=== PATIENT | female | born 1945 | race Caucasian/White ===

== ENCOUNTER 2024-04-29 13:07 | Outpatient (AMB) | payer MEDICARE, SELFPAY ==
--- NOTE | 2024-04-29 13:27 | MHC.PC.OV ---
Vital Signs 04/29/24 13:31 Height 5 ft Weight 191 lb BMI 37.3 BP 112/52 L Blood Pressure Location Lt brachial Position Sitting Respiration 12 Pulse 91 Pulse Source Pulse Oximeter Pulse Oximetry (%) 99 Oxygen Delivery Method Room Air Intake Visit Reasons: Establish Care Intake Note: Patient is here to establish care. Patient showed me a scar on her abdomen where I also noticed a colostomy bag. Patient reports she has a CLIPPER [employer] TURNER that helps her at night. Patient reports she went to the ED and had emergency surgery at [facility]. Patient states she is not stable with using a walker due to numbness in both of her legs. and needs a motorized wheelchair, a replacement or repair. Patient notes she has cardiology concern and intestinal concerns. Patient is requesting a social insurance adviser that speaks Bengali so she is able to communicate effectively. Dermatology- hair fall out diabetic shoes Patient needs CPAP supplies and nebulizer tubing. Inclined Railway Operator Required: Yes Inclined Railway Operator Name: Kali Tavares [id number] Information Interpreted: non-clinical & clinical Accompanied by: Self / Same As Patient Allergies Penicillins Allergy (Severe, Verified 04/29/24 13:36) Unknown Tobacco use date assessed: 04/29/24 Fall risk assessment: 2 + Falls in past year (motorized wheelchair broke/walker is not helpful) Last assessed Fall Risk: 04/29/24 Dental Screening Dental Screen Date: 04/29/24 Did you have a dental visit in the last 12 months?: No Did you have a dental problem in the last 6 months where you did not have access to dental care?: No Was dental information given to patient?: Patient declined HPI HPI Comments History of Present Illness Details The patien tis a 78 year old female with past medical history of copd/asthma, DAHLIA, diabetes, hypertension, SBO presenting to establish [facility]. Bengali interpre [id number] Hospitalized in [place] 2023 for persistent SBO-taken to OR -ex lap, extensive adhesion lysis, reduciton of parastomal hernia (SBO location) resection of 8cm bowel. Neg pressure wound placed. Required intraop pressors, posteroperative pressors. Had relook lapartomy with primary anastomosis, placement of CL drain, repair right parastomal hernia repair. not following with surgery outpatient despite multiple hospitalizations. Diabetes: On glipizide, metformin, januvia. Reports A1C has been good. CV: on amlodipine, atorvastatin, plavix, lasix, hctz, losartan, imdur. Denies chest pain, shortness of breath. BH: on seroquel, cymbalta. ROS see HPI PHYSICAL EXAM: GENERAL: Alert and oriented x 3. NAD EYES: EOMI. Anicteric. HENT: Moist mucous membranes. No scleral icterus. No cervical lymphadenopathy. LUNGS: Clear to auscultation bilaterally. CARDIOVASCULAR: Regular rate and rhythm. No murmur. No JVD. ABDOMEN: Obese, visible hernia through clothese EXTREMITIES: No edema. Non-tender. SKIN: No rashes or lesions. Warm. NEUROLOGIC: No focal neurological deficits. CN II-XII grossly intact PSYCHIATRIC: Cooperative. Appropriate mood and affect [facility] Medical History Hypothyroidism SBO (small bowel obstruction) Obstructive sleep apnea of adult Asthma COPD (chronic obstructive pulmonary disease) Type 2 diabetes mellitus Hypertension Hyperlipidemia Recurrent intestinal obstruction Surgical History History of hernia repair History of creation of ostomy History of left hemicolectomy Family History Other No pertinent family history Social History Household Members: Family Housing: Apartment 75 years or older and lives alone: No Alcohol intake: never Patient Tobacco Use Status: Never used Tobacco Tobacco use type: Cigarette e-Cigarette/Vaping Use: Never Used service: No Current occupational status: disabled Cognitive needs: No Hearing needs: No Vision needs: No Questionnaire PHQ-9 Over the last 2 weeks, how often have you been bothered by any of the following problems? 1. Little interest or pleasure in doing things: nearly every day 2. Feeling down, depressed, or hopeless: nearly every day 3. Trouble falling or staying asleep, or sleeping too much: nearly every day 4. Feeling tired or having little energy: nearly every day 5. Poor appetite or overeating: nearly every day 6. Feeling bad about yourself - or that you are a failure or have let yourself or your family down: nearly every day 7. Trouble concentrating on things, such as reading the newspaper or watching television: not at all 8. Moving or speaking so slowly that other people could have noticed. Or the opposite - being so fidgety or restless that you have been moving around a lot more than usual: not at all 9. Thoughts that you would be better off or of hurting yourself in some way: not at all Total score: 18 Depression Screening Interpretation: Positive Depression Screening Done: Yes [id number] - PHQ-9 Billing: Yes Source: Developed by Drs. Kj Caruso, Esther Gray, Rodri Briceno and colleagues, with an educational leonor from [employer]. Thrive Questionnaire Date Thrive assessed: 04/29/24 I am a: Patient What is your living situation today?: I have a steady place to live Within the past 12 months, did the food you bought not last and you didn't have the money to get more?: Never true Within the past 12 months, did you worry whether your food would run out before you got money to buy more?: Never true Do you have trouble paying for medicines?: No Do you have trouble getting transportation to medical appointments?: No Do you have trouble paying your heating and electricity bill?: No Do you have trouble taking care of your child, family member or friend?: No Do you have trouble with day-to-day activities such as bathing, preparing meals, shopping, managing finances, etc.?: No Are you currently unemployed and looking for a job?: No Are you interested in more education?: No Please select the resources that you would like help with: None Currently or been in a relationship where the following occur: No concerns reported THRIVE Score: 0 AUDIT C Alcohol Use Questionnaire (AUDIT-C) 1. How often do you have a drink containing alcohol?: Never 3. How often do you have six or more drinks on one occasion?: Never Total Score: 0 LA-7 AMB Questionnaire LA-7 Date LA - 7 assessed: 04/29/24 Feeling nervous, anxious, or on edge: 2 = More than half the days Not being able to stop or control worryin = Not at all Worrying too much about different things: 0 = Not at all Trouble relaxin = Several days Being so restless that it is hard to sit still: 2 = More than half the days Becoming easily annoyed or irritable: 0 = Not at all Feeling afraid as if something awful might happen: 2 = More than half the days Total LA-7 score (0-4 normal; 5-9 mild; 10-14 moderate; 15-21 severe): 7 Source: Developed by Drs. Kj Caruso, Esther Gray, Rodri Briceno and colleagues, with an educational leonor from [employer]. LA-7 Assessment Billing LA-7 Assessment Tool: LA-7 Assessment 23780 Physical exam (Primary Care) Vital Signs: Last Vital Signs Pulse 91 04/29/24 13:31 Resp 12 04/29/24 13:31 BP 112/52 L 04/29/24 13:31 Pulse Ox 99 04/29/24 13:31 Oxygen Delivery Method Room Air 04/29/24 13:31 BMI result Body Mass Index 37.3 Tobacco/Smoking Status: Tobacco use Status Tobacco use date assessed 04/29/24 04/29/24 13:54 Patient Tobacco Use Status Never used Tobacco 04/29/24 13:54 Tobacco use type Cigarette 04/29/24 13:54 e-Cigarette/Vaping Use Never Used 04/29/24 13:54 PHQ-9: PHQ-9 Score PHQ-9: Total score 18 04/29/24 14:26 Depression Screening Interpretation: Positive Thrive Assessment: Date of Thrive Assessment Date Thrive assessed 04/29/24 04/29/24 13:54 Currently or been in a relationship where the following occur: No concerns reported Assessment and Plan Assessment & Plan (1) Type 2 diabetes mellitus: Code(s): E11.9 - Type 2 diabetes mellitus without complications Qualifiers: Diabetes mellitus assisted insulin use: without assisted use Diabetes mellitus complication status: with neurologic complications Diabetes mellitus complication detail: with polyneuropathy Qualified Code(s): E11.42 - Type 2 diabetes mellitus with diabetic polyneuropathy (2) Hypertension: Code(s): I10 - Essential (primary) hypertension Qualifiers: Hypertension type: primary hypertension Qualified Code(s): I10 - Essential (primary) hypertension (3) Hyperlipidemia: Code(s): E78.5 - Hyperlipidemia, unspecified (4) Recurrent intestinal obstruction: Code(s): K56.609 - Unspecified intestinal obstruction, unspecified as to partial versus complete obstruction Orders: Referrals General Surgery Referral K56.609 - Unspecified intestinal obstruction, unspecified as to partial versus complete obstruction Medications: New duloxetine (Cymbalta) 60 mg PO DAILY 90 days 90 caps 3RF blood sugar diagnostic (FreeStyle Lite Strips) Three times daily 100 ea 3RF Coding Level of Care Code New Pt Level 5 (73389) Diagnoses Type 2 diabetes mellitus with diabetic polyneuropathy, without long-term current use of insulin E11.42 Diabetes mellitus assisted insulin use: without assisted use Diabetes mellitus complication status: with neurologic complications Diabetes mellitus complication detail: with polyneuropathy Primary hypertension I10 Hypertension type: primary hypertension Hyperlipidemia E78.5 Recurrent intestinal obstruction K56.609 Additional Codes LA-7 Assessment Billing - LA-7 Assessment Tool: LA-7 Assessment [id number] ([id number])
[2024-04-29 13:31] VITALS: BP 112/52; PULSE 91; RESP 12; O2SAT 99; BMI 37.3
== END 2024-04-29 15:25 | disposition home or self-care (01) ==
PROVIDERS: PCP Internal Medicine; Visit Provider Internal Medicine
DX: E11.42 Type 2 diabetes mellitus with diabetic polyneuropathy (principal); I10 Essential (primary) hypertension; E78.5 Hyperlipidemia, unspecified; K56.609 Unspecified intestinal obstruction, unspecified as to partial versus complete obstruction
CPT/HCPCS: 99204

== ENCOUNTER 2024-06-18 12:50 | Outpatient (AMB) | payer MEDICARE, SELFPAY ==
[2024-06-18 13:16] VITALS: BP 129/60; PULSE 88; BMI 38.7
--- NOTE | 2024-06-18 13:16 | MHC.OFFVIS ---
Vital Signs 06/18/24 13:16 Height 5 ft Weight 198 lb 3.129 oz BMI 38.7 BP 129/60 Blood Pressure Location Lt brachial Position Sitting Pulse 88 Intake Visit Reasons: Interstinal obstruction Intake Note: This patient presents for Intestinal obstruction, Hx laparotomy. Pt c/o; reports Hx colostomy. Fiberglass Dowel Drawing Operator Required: Yes Fiberglass Dowel Drawing Operator Language: Soil Conservation Technician Services: Fiberglass Dowel Drawing Operator Present Fiberglass Dowel Drawing Operator Name: Tacho Information Interpreted: non-clinical & clinical Accompanied by: Self / Same As Patient Allergies Penicillins Allergy (Severe, Verified 06/18/24 13:27) Unknown HPI HPI Interstinal obstruction: Details: 79F with multiple medical problems including DM, obesity,, HTN, referred by hre PCP for a hx of intestinal obstruction. The patient apparently had colon resection and colostomy more than 10 years ago for supposed colon cancer. She says she has had multiple abdominal surgeries and had multiple hernias in the past. She had some abdominal surgery last December 2023 and say she was in the hospital for a long time. Unfortunately, she is not a good historian and does not know the details of these. She says here colostomy has been working well. She has good oral intake. She denies abdominal pain. She says she feels well overall. [facility] Medical History (Updated 06/18/24 @ 14:20 by Harrison Palomares MD) Colostomy in place Hypothyroidism SBO (small bowel obstruction) Obstructive sleep apnea of adult Asthma COPD (chronic obstructive pulmonary disease) Type 2 diabetes mellitus Hypertension Hyperlipidemia Recurrent intestinal obstruction Surgical History History of hernia repair History of creation of ostomy History of left hemicolectomy Family History Other No pertinent family history Social History Household Members: Family Housing: Apartment 75 years or older and lives alone: No Alcohol intake: never Patient Tobacco Use Status: Never used Tobacco Tobacco use type: Cigarette e-Cigarette/Vaping Use: Never Used service: No Current occupational status: disabled Cognitive needs: No Hearing needs: No Vision needs: No Review of Systems Const Denies chills and Denies fever(s) Card Denies chest pain, Denies dyspnea and Reports dyspnea on exertion Resp Denies cough, Denies dyspnea and Reports dyspnea on exertion GI Details: has colostomy Denies hematochezia and Denies change in bowel habits Denies hematuria Musc Details: uses scooter to ambulate Reports back pain, Reports arthralgias and Reports limited range of motion Neuro Denies focal weakness and Denies convulsions Psych Denies depression and Denies mood swings Physical Exam Vital Signs: Last Vital Signs Pulse 88 06/18/24 13:16 BP 129/60 06/18/24 13:16 BMI result Body Mass Index 38.7 Const Other: on motorized scooter General: comfortable and no acute distress Nutritional Appearance: obese Orientation/consciousness: patient oriented x3 Neck Neck: Yes no lymphadenopathy Resp Effort & Inspection: normal respiratory effort Auscultation: clear to auscultation bilaterally Cardio Rate: regular rate Rhythm: regular rhythm GI Other: soft, colostomy on right side, functioning well Palpation (GI): Soft to palpation, nontender and no guarding Neuro General: patient oriented x3 Assessment & Plan Assessment & Plan (1) Colostomy in place: Code(s): Z93.3 - Colostomy status Category: Medical Plan: She has had multiple abdominal surgeries. She currently denies abdominal or GI complaints. Her stoma is functioning well.It does not appear that she has surgical issues at this time. I did tell her that she can ffup in the office on a prn basis. I will retrieve her records from [facility]. Coding Level of Care Code New Pt Level 3 (61685) Diagnoses Colostomy in place Z93.3
== END 2024-06-18 14:24 | disposition home or self-care (01) ==
PROVIDERS: PCP Internal Medicine; Visit Provider Surgery
DX: Z93.3 Colostomy status (principal)
CPT/HCPCS: 99203

== ENCOUNTER → 2024-06-18 12:50 | Outpatient (BNVA) | payer MEDICARE, SELFPAY | PROVIDERS: PCP Internal Medicine; Visit Provider Surgery | DX: E66.9 Obesity, unspecified (principal); I10 Essential (primary) hypertension; Z93.3 Colostomy status; Z68.38 Body mass index [BMI] 38.0-38.9, adult | CPT/HCPCS: 99202 ==

== ENCOUNTER 2024-08-29 12:17 | Outpatient (REF) | payer MEDICARE, SELFPAY ==
[2024-08-29 13:34] LABS: MANUAL DIFF FLAG NO
[2024-08-29 13:41] LABS: Basophils Absolute Auto 0.1 X10*3/uL (0.0-0.2); Basophils Percent Auto 0.5 % (0-2); Eosinophils Absolute Auto 0.1 X10*3/uL (0.0-0.4); Eosinophils Percent Auto 1.1 % (0-4); Hematocrit 29.3 % (37.0-47.0); Hemoglobin 9.3 g/dl (12.0-16.0); Imm Gran Abs Auto 0.07 X10*3/uL (0.00-0.03); Imm Gran Pct Auto 0.7 % (0.0-0.4); Lymphocytes Absolute Auto 2.3 X10*3/uL (1.2-4.9); Lymphocytes Percent Auto 23.8 % (20-40); Mean Corpuscular HGB Conc 31.7 g/dl (31.0-35.0); Mean Corpuscular Hemoglobin 21.1 pg (27.0-33.0); Mean Corpuscular Volume 66.6 fL (80.0-98.0); Mean Platelet Volume 9.9 fL (9.4-12.3); Monocytes Absolute Auto 0.6 X10*3/uL (0.1-1.2); Monocytes Percent Auto 6.3 % (2-11); Neutrophils Absolute Auto 6.6 x10*3/uL (2.0-8.3); Neutrophils Percent Auto 67.6 % (45-73); Platelet Count 284 X10*3/uL (160-400); Red Cell Distribution Width 17.2 % (11.0-16.0); White Blood Count 9.7 X10*3/uL (4.8-10.8)
[2024-08-29 14:20] LABS: Alanine Aminotransferase 15 U/L (0-31); Alkaline Phosphatase 116 U/L (39-117); Anion Gap 16 (12-20); Aspartate Amino Transferase 21 U/L (5-31); Bilirubin Total 0.3 mg/dL (0.0-1.0); Blood Urea Nitrogen 17 mg/dL (9-16); Calcium 10.3 mg/dL (8.4-10.2); Carbon Dioxide 23 mmol/L (22-29); Chloride 106 mmol/L (96-108); Cholesterol 120 mg/dL (<200); Estimated Glomerular Filt Rate 54; Glucose Random 94 mg/dL (60-115); HDL Cholesterol 33 mg/dL (>40); LDL Cholesterol Calculated 45 mg/dL (<100); Potassium 3.9 mmol/L (3.3-5.1); Sodium 141 mmol/L (135-145); Total Protein 7.6 g/dL (6.5-8.0); Triglycerides 211 mg/dL (<150)
[2024-08-29 14:22] LABS: Ferritin 8 ng/mL (10-250)
[2024-08-29 14:24] LABS: TSH reflex Free T4 2.42 uIU/mL (0.32-4.0)
[2024-08-29 14:33] LABS: Folate 8.7 ng/mL (> or = 4.0); Vitamin B12 707 pg/mL (200-900)
[2024-08-29 14:35] LABS: Reflex LDLD? No
[2024-08-29 16:59] LABS: Iron 20 mcg/dL (30-160); Percent Iron Saturation 5 % (15-50); Total Iron Binding Capacity 373 mcg/dL (228-428); Unsaturated Iron Binding 353 ug/dL
[2024-08-29 17:28] LABS: Creatinine Urine 38.34 mg/dL; Microalbumin Urine < 5.0 mg/L
[2024-09-01 13:38] LABS: RPR Rapid Plasma Reagin NON-REACTIVE (NON-REACTIVE)
== END 2024-08-29 12:18 | disposition home or self-care (01) ==
LOC: HO.HHCL 12:17
PROVIDERS: Internal Medicine; Visit Provider Internal Medicine
DX: E11.65 Type 2 diabetes mellitus with hyperglycemia (principal); L65.9 Nonscarring hair loss, unspecified; L29.9 Pruritus, unspecified; R42 Dizziness and giddiness
CPT/HCPCS: 36415; 80053; 80061; 82043; 82570; 82607; 82728; 82746; 83540; 84443; 85025; 86592

== ENCOUNTER 2024-11-21 11:54 | Outpatient (REF) | payer MEDICARE, SELFPAY ==
--- NOTE | ~2024-11-21 | XR_ITS ---
EXAMINATION: XR CHEST CLINICAL INFORMATION: cough and SOB x 1 week, h/o COPD COMPARISON: None available. TECHNIQUE: 2 views of the chest were obtained. FINDINGS: Mild cardiac enlargement. Mediastinal and hilar contours appear normal. The aorta is calcified. Lungs are diffusely hyperaerated and hyperlucent suggestive of COPD. There are linear opacities in the left lower base with mild obscuration of the left hemidiaphragm, suspicious for left base pneumonia. There is no pneumothorax or pleural effusion. There is no focal osseous or soft tissue abnormality. Degenerative changes of the spine. XR/XR chest 2V IMPRESSION: 1. Findings suspicious for left lower lobe pneumonia. 2. COPD. 3. Mild cardiomegaly. Electronically signed by: Anjum Guerrero MD 11/21/2024 01:11 PM JANINE
--- OUTSIDE RECORDS SUMMARY | 2024-11-21 14:04 | XMS_ITS | Encounter Summary ---
Author Organization [employer] Address [address] [facility] [address] [place] [address] Care Team Providers Care Automatic Serging Machine Operator Name Role Phone Janeen Allen MD Primary Care Provide r Reason for Referral * Consultation (Routine) - Authorized Specialty Diagnoses / Procedures Referred By Fahad murrieta Referred To Contact Optometry Diagnoses Diabetic polyneuropathy associated with type 2 diabetes mellitus (CMS/HCC) Janeen Allen MD [address] [place] [phone] Phone: tel: fax: [facility] [address] [place], [place] Phone: tel: fax: Referral ID Status Reason Start Date Expiration Date Visits Requested Visits Authorized [id number] Authorized Specialty Services Required 11/04/2024 11/04/2025 1 1 Reason for Visit * Reason Comments Follow-up Encounter Details Date Type Department Care Team (Latest Contact Info) Description 11/04/2024 1:00 PM EST Office Visit [facility] [address] [place] [phone] Janeen Allen MD [address] [place] [address] Intertrigo (Primary Dx); Chronic obstructive pulmonary disease, unspecified COPD type (CMS/HCC); Colostomy care (CMS/HCC); Diabetic polyneuropathy associated with type 2 diabetes mellitus (CMS/HCC); Pressure injury of skin of sacral region, unspecified injury stage Social History Tobacco Use Types Packs/Day Years Used Date Smoking Tobacco: Never Passive Smoke Exposure: Never Smokeless Tobacco: Never Tobacco Cessation:Counseling Given: Not Answered Alcohol Use Standard Drinks/Week Comments Never 0 (1 standard drink = 0.6 oz pur e alcohol) Alcohol Answer Date Recorded Frequency of Alcohol Consumption Not on file 08/27/2024 Average Number of Drinks Not on file 024 Frequency of Binge Drinking Not on file 07/31 Score 0 08/27/2024 Depression Answer Date Recorded Patient Health Questionnaire-9 Score 0 11/04/2024 Patient Health Questionnaire-9 Score 0 11/04/2024 Last PHQ-9: Questionnaire Data Not on file 0 11/04/2024 Housing Stability Answer Date Recorded What is your housing situation today? I have omi abreu 08/27/[address] you li ve. Do you have problems with any of the following? None of the above 08/27/2024 Food Insecurity Answer Date Recorded Within the past 12 months, y ou worried that your food would run out before you got money to buy more: Never True 08/27/2024 Within the past 12 months,th e food you bought just didn't last and you didn't have enough money to get more: Never True Transportation Answer Date Recorded In the past 12 months, has l ack of transportation kept you from medical appts, meetings, work or from getting things needed for daily living? No 08/27/2024 Utilities Answer Date Recorded In the past 12 months, has t he electric, gas, oil or water company threatened to shut off services in your home? No 08/27/2024 Depression Answer Date Recorded Patient Health Questionnaire-2 Score 0 11/04/2024 Internet Access Answer Date Recorded Internet Access Q1 No 08/27/2024 Internet Access Q2 I do not want or need it 07/31 Comments Unknown Sex and Gender Information Value Date Recorded Sex Assigned at Female 08/28/2022 10:33 AM EDT Legal Sex Female 10:33 AM EDT Gender Identity Choose not to disclose 10:33 AM EDT Sexual Orientation Choose not to disclose 2021 10:33 AM EDT documented as of this encounter Last Filed Vital Signs Vital Sign Reading Time Taken Comments Blood Pressure 129/71 11/04/2024 12:49 PM EST Pulse 100 11/04/2024 12:49 PM EST Temperature 36.6 ??C (97.8 ??F) 11/04/2024 12:[address] Respiratory Rate 20 11/04/2024 12:49 PM EST Oxygen Saturation 96% 11/04/2024 12:49 PM EST Inhaled Oxygen Concentration - - Weight 89.8 kg (198 lb) 11/04/2024 12:49 PM EST Height 149.9 cm (4' 11 ) 11/04/2024 12:49 PM EST Body Mass Index 39.99 11/04/2024 12:49 PM EST documented in this encounter Progress Notes * Janeen Medina MD - 11/04/2024 1:00 PM EST Images from the original note were not included. SUBJECTIVE: Libby Almanzar is a 79 y.o. year old adult who presents for sick visit . Acute Concerns: Patient was seen recently for sacral ulcer, it was prescribed for her silver sulfadiazine and it was recommended wound care with VNA, patient tells me she discharge VNA because she preferred to cure herself, she tells me she is now much better ulcer is almost completely heal now Patient also tells she has a rash under her breast and inguinal area its erythematous is not itchy,she reports it has a bad smell Patient reports she did not received her supplies for her colostomy bag, it needs to be more specific and that she needs more wipes Patient needs refill for her albuterol Patient will like to be refer to another health care administrator office Social History Social History Narrative Not on file Patient Active Problem List Diagnosis Ventral incisional hernia Uncomplicated asthma Pruritus of vagina Type 2 diabetes mellitus (CMS/HCC) Osteopenia Osteoarthritis of knee Mood disorder (CMS/HCC) Mass of right ear Malignant tumor of rectum (CMS/HCC) Hyperlipidemia associated with type 2 diabetes mellitus (CMS/HCC) (CMS/HCC) Hearing problem Disorder of abdominal wall Colostomy present (CMS/HCC) Chronic right shoulder pain Chronic obstructive lung disease (CMS/HCC) Acquired hypothyroidism Thrombocytopenia (CMS/HCC) Cramps, extremity Dyspnea on exertion Depressed mood Major depressive disorder, recurrent, moderate (CMS/HCC) Primary hypertension Coronary artery disease of [place] artery of [place] heart with stable angina pectoris (CMS/HCC) Insomnia Hemorrhagic otitis externa of left ear Dietary counseling Morbid obesity (CMS/HCC) Pruritus Left-sided back pain Hair loss Upper respiratory tract infection Dizziness Diabetic polyneuropathy associated with type 2 diabetes mellitus (CMS/HCC) Nail abnormality Pruritic dermatitis Intertrigo Colostomy care (CMS/HCC) Sacral pressure ulcer No family history on file. Review of Systems Constitutional: Negative. HENT: Negative. Respiratory: Negative. Cardiovascular: Negative. Skin: Positive for rash. OBJECTIVE: Vitals: 11/04/24 1249 BP: 129/71 BP Location: Left arm Patient Position: Sitting BP Cuff Size: Large adult Pulse: 100 Resp: 20 Temp: 97.8 ??F (36.6 ??C) TempSrc: Temporal SpO2: 96% Weight: 198 lb (89.8 kg) Height: 4' 11 (1.499 m) Physical Exam Constitutional: Appearance: Normal appearance. Cardiovascular: Rate and Rhythm: Normal rate and regular rhythm. Pulmonary: Effort: Pulmonary effort is normal. Breath sounds: Normal breath sounds. Chest: Comments: Rash erythematous Abdominal: General: Abdomen is flat. Palpations: Abdomen is soft. Musculoskeletal: Right lower leg: No edema. Left lower leg: No edema. Skin: Findings: Erythema present. Neurological: Mental Status: Libby is alert. Follow Up: Follow up in about 3 months (around 02/02/2025) for chronic conditions . Current Outpatient Medications on File Prior to Visit Medication Sig Dispense Refill acetaminophen (Tylenol) 325 MG tablet Take 2 tablet by oral route every 4 hours as needed for pain or fever. albuterol (2.5 MG/3ML) 0.083% nebulizer solution USE ONE AMPULE USING A NEBULIZER EVERY 4 HOURS 360mL 6 Alcohol Swabs (Alcohol Prep) 70 % pads USE TWO DAILY 100 each 11 amLODIPine (Norvasc) 10 MG tablet Take 1 tablet (10 mg) by mouth in the morning. 90 tablet 3 atorvastatin (Lipitor) 80 MG tablet Take 1 tablet (80 mg) by mouth in the morning. 90 tablet 0 Blood Glucose Monitoring Suppl (FreeStyle Lite) w/Device kit 1 units of lipase before breakfast. 1 kit 0 budesonide (Pulmicort) 1 MG/2ML nebulizer solution cholecalciferol (Vitamin D-3) 25 MCG tablet Take 1 tablet (25 mcg) by mouth in the morning. 90 tablet 0 ciprofloxacin-hydrocortisone (Cipro HC) otic suspension PLACE THREE DROPS IN THE RIGHT EAR TWICE DAILY FOR SEVEN DAYS clopidogrel (Plavix) 75 MG tablet Take 1 tablet (75 mg) by mouth Once per day. 30 tablet 3 Clotrimazole Anti-Fungal 1 % cream APPLY TO AFFECTED AREA(S) AND SURROUNDING AREA(S) TWICE DAILY INTHE MORNING AND EVENING 90 g 0 dextran 70-hypromellose (artificial tears) 0.1-0.3 % ophthalmic solution Administer 1 drop into both eyes if needed in the morning, at noon, and at bedtime for dry eyes. 15 mL 6 Diclofenac Sodium (Voltaren) 1 % gel Apply 1 Application topically every 12 (twelve) hours. 200 g 0 diphenhydrAMINE (BENADryl) 25 MG capsule Take 1 capsule by mouth in the morning and 1 capsule at noon and 1 capsule in the evening and 1 capsule before bedtime. docusate sodium (Colace) 100 MG capsule Take 1 capsule (100 mg) by mouth 2 times daily. TAKE ONE CAPSULE IN THE MORNING AND EVENING NEEDED FOR CONSTIPATION 60 capsule 5 doxepin (SINEquan) 10 MG capsule Take 1 capsule (10 mg) by mouth at bedtime. 30 capsule 0 Emollient (CeraVe PM) lotion apply to affected area BID ferrous gluconate (Fergon) 324 (38 Fe) MG tablet TAKE 1 TABLET BY MOUTH EVERY OTHER DAY 15 tablet 1 fluticasone (Flonase) 50 MCG/ACT nasal spray Administer 1 spray into each nostril Once per day. 16 g 0 furosemide (Lasix) 20 MG tablet Take 1 tablet (20 mg) by mouth Once per day. 1 tablet 3 gabapentin (Neurontin) 600 MG tablet Take 1 tablet (600 mg) by mouth 2 times daily. 60 tablet 2 glipiZIDE (Glucotrol) 5 MG tablet TAKE 1 TABLET BY MOUTH TWICE DAILY IN THE MORNING AND IN THE EVENING BEFORE BREAKFAST AND BEFORE SUPPER 60 tablet 1 glucose blood (FREESTYLE LITE) test strip Test blood capillary glucose BID 60 strip 11 hydroCHLOROthiazide 12.5 MG tablet Take 1 tablet (12.5 mg) by mouth in the morning. 90 tablet 1 hydrOXYzine HCl (Atarax) 10 MG tablet Take 1 tablet (10 mg) by mouth if needed at bedtime for itching. 30 tablet 0 isosorbide mononitrate ER (Imdur) 30 MG 24 hr tablet TAKE 1 TABLET BY MOUTH EVERY MORNING 30 tablet2 ketoconazole (NIZOral) 2 % shampoo Apply topically at bed time. lactulose (Chronulac) 10 GM/15ML solution TAKE 15 ML BY MOUTH TWICE DAILY NEEDED FOR CONSTIPATION 946 mL 5 liver oil-zinc oxide (Desitin) 40 % ointment Apply topically if needed for irritation. 400 g 0 losartan (Cozaar) 100 MG tablet Take 1 tablet (100 mg) by mouth in the morning. 90 tablet 1 magnesium oxide (Mag-Ox) 400 MG tablet Take 1 tablet (400 mg) by mouth in the morning. 90 tablet 0 metFORMIN (Glucophage) 1000 MG tablet Take 1 tablet (1,000 mg) by mouth with breakfast and with evening meal. 180 tablet 5 montelukast (Singulair) 10 MG tablet Take 1 tablet (10 mg) by mouth at bedtime. 30 tablet 3 nitroglycerin (Nitrostat) 0.4 MG SL tablet DISSOLVE 1 TABLET UNDER THE TONGUE EVERY 5 MINUTES NEEDED FOR CHEST PAIN. DO NOT EXCEED A TOTAL OF 3 DOSES IN 15 MINUTES. 25 tablet 3 polyethylene glycol, PEG, 3350 (Glycolax) 17 GM/SCOOP powder Take 17 g by mouth Once per day. STIR 17GM INTO 8 OUNCES OF WATER, OR JUICE, AND DRINK DAILY NEEDED / DIRECTED 510 g 5 QUEtiapine (SEROquel) 25 MG tablet Take 0.5 tablets (12.5 mg) by mouth at bedtime. 45 tablet 1 SITagliptin (Januvia) 100 MG tablet Take 1 tablet (100 mg) by mouth Once per day. 90 tablet 3 tiotropium-olodaterol (Stiolto Respimat) 2.5-2.5 MCG/ACT aerosol solution inhaler INHALE TWO PUFFS BY MOUTH ONCE DAILY 4 g 11 triamcinolone (Kenalog) 0.1 % cream Apply topically if needed in the morning and at bedtime (pain and swelling). Mix with Cerave 80 g 11 TRUEplus Lancets 33G misc TEST BLOOD SUGAR EVERY EVENING 30 each 11 [DISCONTINUED] albuterol 108 (90 Base) MCG/ACT inhaler INHALE TWO PUFFS EVERY 4 HOURS NEEDED 8.5g 1 [DISCONTINUED] isosorbide mononitrate ER (Imdur) 30 MG 24 hr tablet Take 1 tablet (30 mg) by mouth in the morning. 30 tablet 0 [DISCONTINUED] levothyroxine (Synthroid, Levoxyl) 50 MCG tablet Take 1 tablet (50 mcg) by mouth before breakfast. 90 tablet 2 No current facility-administered medications on file prior to visit. Problem List Items Addressed This Visit Chronic obstructive lung disease ([facility]) Relevant Medications albuterol 108 (90 Base) MCG/ACT inhaler Intertrigo - Primary Maintain area dry and clean Clotrimazole BID for 2 weeks Relevant Medications clotrimazole (Lotrimin) 1 % external solution Colostomy care ([facility]) Prescription for colostomy bags and adhesives will be generated Prescription for more wipes will be generated Diabetic polyneuropathy associated with type 2 diabetes mellitus ([facility]) Relevant Orders Referral to Optometry Sacral pressure ulcer Improving almost resolve documented in this encounter Miscellaneous Notes * Assessment & Plan Note - Janeen Medina MD - 11/04/2024 2:15 PM EST Associated Problem(s): Sacral pressure ulcer Improving almost resolve * Assessment & Plan Note - Janeen Medina MD - 11/04/2024 2:14 PM EST Associated Problem(s): Colostomy care ([facility]) Prescription for colostomy bags and adhesives will be generated Prescription for more wipes will be generated * Assessment & Plan Note - Janeen Medina MD - 11/04/2024 2:14 PM EST Associated Problem(s): Intertrigo Maintain area dry and clean Clotrimazole BID for 2 weeks documented in this encounter Plan of Treatment Scheduled Referrals Name Type Priority Associated Diagnoses Orde r Schedule Referral to Optometry Outpatient Referral Routine Diabetic polyneuropathy associated with type 2 diabetes mellitus ([facility]) Expected: 11/04/2024 (Approximate), Expires: 11/04/2025 documented as of this encounter Visit Diagnoses Diagnosis Intertrigo- Primary Other specified erythematous condition Chronic obstructive pulmonary disease, unspecified COPD type ([facility]) Colostomy care ([facility]) Attention to colostomy Diabetic polyneuropathy associated with type 2 diabetes mellitus ([facility]) Pressure injury of skin of sacral region, unspecified injury stage documented in this encounter Additional Health Concerns Assessment Noted Time PHQ-9 Depression Total Score: 0 11/04/19 25 1:05 PM EST documented as of this encounter Care Teams Automatic Serging Machine Operator Relationship Specialty Start Date End Date Janeen Allen MD [address] [place] [address] PCP - General Internal Medicine 02/15/24 documented as of this encounter
--- OUTSIDE RECORDS SUMMARY | 2024-11-21 14:04 | XMS_ITS | Encounter Summary ---
Author Organization [employer] Address [address] [facility] [address] [place] [address] Care Team Providers Care Entertainment Lawyer Name Role Phone Janeen Allen MD Primary Care Provide r Reason for Visit * Reason Onset Date Comments Durable Medical Equipment 11/04/2024 Home C are Delivered: Ostomy Supplies Encounter Details Date Type Department Care Team ([facility] st Contact Info) Description 11/04/2024 Telephone [facility] [address] [place], [place] [phone] Janeen Allen MD [address] [place], [place] [phone] Durable Medical Equipment (Home Care Delivered: Ostomy Supplies) Social History Tobacco Use Types Packs/Day Years Used Date Smoking Tobacco: Never Passive Smoke Exposure: Never Smokeless Tobacco: Never Alcohol Use Standard Drinks/Week Comments Never 0 [...] the past 12 months, has t he [employer], gas, oil or water [email or web address] threatened to shut off services in your [...] AM EDT documented as of this encounter Miscellaneous Notes * Telephone Encounter - Fide Ievy [place] - 11/05/2024 4:03 PM EST Received forms below signed by PCP and I fax them back to company also sent to scan. * Telephone Encounter - Gala Timmons - 11/04/2024 11:41 AM EST Confirmation of order for Ostomy Supplies from Home Care Delivered received and is being processed. documented in this encounter Plan of Treatment Not on file documented as of this encounter Visit Diagnoses Not on filedocumented in this encounter Additional Health Concerns Assessment Noted Time PHQ-9 Depression Total Score: 0 11/04/19 25 1:05 PM EST documented as of this encounter Care Teams Entertainment Lawyer Relationship Specialty Start Date End Date Janeen Allen MD [address] [place] [phone] PCP - General Internal Medicine 02/15/24 documented as of this encounter
--- OUTSIDE RECORDS SUMMARY | 2024-11-21 14:04 | XMS_ITS | Encounter Summary ---
Author Organization [employer] Address [address] [place] [address] Care Team Providers Care Global Human Resources Director Name Role Phone Janeen Allen MD Primary Care Provide r Reason for Visit * Reason Comments Cough Encounter Details Date Type Department Care Team (Late st Contact Info) Description 11/21/2024 10:20 AM EST Office Visit [facility] [address] [place], [place] [phone] Odette Oliva DO [address] [place], [place] [phone] Chronic obstructive pulmonary disease with acute exacerbation (CMS/HCC) (Primary Dx) Social History Tobacco Use Types Packs/Day Years [...] Sign Reading Time Taken Comments Blood Pressure 106/70 11/21/2024 10:29 AM EST Pulse 116 11/21/2024 10:29 AM EST Temperature 36.7 ??C (98.1 ??F) 11/21/2024 1 0:29 AM EST Respiratory Rate 22 11/21/2024 10:2 9 AM EST Oxygen Saturation 96% 11/21/2024 12: 16 PM EST after nebulizer treatment Inhaled Oxygen Concentration - - Weight - - Height - - Body Mass Index - - documented in this encounter Progress Notes * Odette Oliva, DO - 11/21/2024 10:20 AM EST SUBJECTIVE Libby Almanzar is a 79 y.o. adult who presents for Sick Visit. She comes to [place] c/o chest tightness, cough with phlegm, and wheezing for the last week. She wants to make sure that she doesn't have COVID as her 5 year old granddtr lives with. She has mild ST and ear pain. She denies any significant nasal congestion or rhinorrhea. She has not had any fevers. No rash. No N/V/D. No sick contacts. She follows with pulm and has appt next week. She has been using her albuterol frequently. She saysthat she has the twice a day pump which she uses at home but not the once a day pump. She was seen by red leader upon arrival and had decreased BS and rhonchi throughout with O2 93% and was started on nebulizer treatment. History provided by: Patient occupational therapy program director used: Yes (Polo White) Cough This is a new problem. The current episode started in the past 7 days. The problem has been gradually worsening. The cough is Productive of sputum. Associated symptoms include ear pain, headaches, nasal congestion, a sore throat, shortness of breath and wheezing. Pertinent negatives include no chest pain, chills, fever, postnasal drip, rash or rhinorrhea. Libby has tried a beta-agonist inhaler for the symptoms. The treatment provided mild relief. Libby's past medical history is significant for COPD. Review of Systems Constitutional: Negative for activity change, appetite change, chills, fever and unexpected weightchange. HENT: Positive for ear pain and sore throat. Negative for postnasal drip and rhinorrhea. Respiratory: Positive for cough, chest tightness, shortness of breath and wheezing. Cardiovascular: Negative for chest pain, palpitations and leg swelling. Gastrointestinal: Negative for abdominal pain, diarrhea, nausea and vomiting. Skin: Negative for rash. Neurological: Positive for headaches. Negative for weakness. Patient Active Problem List Diagnosis Ventral incisional [...] (CMS/HCC) Primary hypertension Coronary artery disease of [place] artery of [place] heart with stable angina pectoris (CMS/HCC) Insomnia Hemorrhagic otitis externa of left ear Dietary counseling Morbid obesity (CMS/HCC) Pruritus Left-sided back pain Hair loss Upper respiratory tract infection Dizziness Diabetic polyneuropathy associated with type 2 diabetes mellitus ([facility]) Nail abnormality Pruritic dermatitis Intertrigo Colostomy care ([facility]) Sacral pressure ulcer Allergies Allergen Reactions Codeine Rash Other reaction(s): Rash Sglt2 Inhibitors Aspirin Itching Iodine Hives Penicillin G Rash Other reaction(s): Blister Peppermint Oil Rash OBJECTIVE Vitals: 11/21/24 1029 11/21/24 1216 BP: 106/70 BP Location: Right arm Patient Position: Sitting BP Cuff Size: Large adult Pulse: (!) 116 Resp: 22 Temp: 98.1 ??F (36.7 ??C) TempSrc: Oral SpO2: 93% 96% Physical Exam Constitutional: General: Libby is not in acute distress. Appearance: Normal appearance. Libby is obese. HENT: Right Ear: Tympanic membrane, ear canal and external ear normal. Left Ear: Tympanic membrane, ear canal and external ear normal. Nose: Congestion present. No rhinorrhea. Mouth/Throat: Pharynx: Posterior oropharyngeal erythema present. No oropharyngeal exudate. Cardiovascular: Rate and Rhythm: Normal rate and regular rhythm. Heart sounds: Normal heart sounds. No murmur heard. Pulmonary: Effort: Pulmonary effort is normal. Tachypnea present. No accessory muscle usage, respiratory distress or retractions. Breath sounds: Decreased air movement present. Wheezing present. No rhonchi. Comments: Speaking in full sentences without difficulty Mild decreased BS diffusely Scattered coarse BS Few expiratory wheezes at base Musculoskeletal: Cervical back: Neck supple. No tenderness. Lymphadenopathy: Cervical: No cervical adenopathy. Neurological: General: No focal deficit present. Mental Status: Libby is alert and oriented to person, place, and time. Cranial Nerves: No cranial nerve deficit. Motor: No weakness. Gait: Gait normal. Psychiatric: Mood and Affect: Mood normal. Office Visit on 11/21/2024 Component Date Value Ref Range Status Rapid COVID Ag 11/21/2024 Negative Final Influenza A 11/21/2024 Negative Negative, Indeterminate Final Influenza B 11/21/2024 Negative Negative, Indeterminate Final Assessment/Plan Diagnoses and all orders for this visit: Chronic obstructive pulmonary disease with acute exacerbation ([facility]) Sx mildly improved with nebulizer tx -referred for CXR to r/o underlying PNA -treat with extended prednisone taper and azithromycin x 5 days -advised cont budesonide BID -cont stiolto daily, will have pharmacy review inhalers with pt -cont singulair daily -trial zyrtec and flonase daily -cont albuterol every 4 hours throughout weekend, more frequently if needed -advised go to ED if no improvement with above or worsening sx, she agrees with plans --Follow-up with PCP as scheduled or sooner prn-- Current Outpatient Medications: acetaminophen (Tylenol) 325 MG tablet, Take 2 tablet by oral route every 4 hours as needed for painor fever., Disp: , Rfl: albuterol (2.5 MG/3ML) 0.083% nebulizer solution, USE ONE AMPULE USING A NEBULIZER EVERY 4 HOURS, Disp: 360 mL, Rfl: 6 albuterol 108 (90 Base) MCG/ACT inhaler, Inhale 2 puffs every 6 (six) hours if needed for wheezing., Disp: 8.5 g, Rfl: 1 Alcohol Swabs (Alcohol Prep) 70 % pads, USE TWO DAILY, Disp: 100 each, Rfl: 11 amLODIPine (Norvasc) 10 MG tablet, Take 1 tablet (10 mg) by mouth in the morning., Disp: 90 tablet,Rfl: 3 atorvastatin (Lipitor) 80 MG tablet, Take 1 tablet (80 mg) by mouth in the morning., Disp: 90 tablet, Rfl: 0 azithromycin (Zithromax) 250 MG tablet, Take 2 tablets PO today then 1 tablet PO daily x 4 days, Disp: 6 tablet, Rfl: 0 benzonatate (Tessalon Perles) 100 MG capsule, Take 1 capsule (100 mg) by mouth if needed in the morning, at noon, and at bedtime for cough for up to 10 days. Do not crush or chew., Disp: 30 capsule, Rfl: 0 Blood Glucose Monitoring Suppl (FreeStyle Lite) w/Device kit, 1 units of lipase before breakfast., Disp: 1 kit, Rfl: 0 budesonide (Pulmicort) 1 MG/2ML nebulizer solution, , Disp: , Rfl: cetirizine (ZyrTEC) 10 MG tablet, Take 0.5 tablets (5 mg) by mouth Once per day., Disp: 15 tablet, Rfl: 3 cholecalciferol (Vitamin D-3) 25 MCG tablet, Take 1 tablet (25 mcg) by mouth in the morning., Disp:90 tablet, Rfl: 0 ciprofloxacin-hydrocortisone (Cipro HC) otic suspension, PLACE THREE DROPS IN THE RIGHT EAR TWICE DAILY FOR SEVEN DAYS, Disp: , Rfl: clopidogrel (Plavix) 75 MG tablet, Take 1 tablet (75 mg) by mouth Once per day., Disp: 30 tablet, Rfl: 3 clotrimazole (Lotrimin) 1 % external solution, Apply topically 2 times daily for 28 days., Disp: 30mL, Rfl: 2 Clotrimazole Anti-Fungal 1 % cream, APPLY TO AFFECTED AREA(S) AND SURROUNDING AREA(S) TWICE DAILY IN THE MORNING AND EVENING, Disp: 90 g, Rfl: 0 dextran 70-hypromellose (artificial tears) 0.1-0.3 % ophthalmic solution, Administer 1 drop into both eyes if needed in the morning, at noon, and at bedtime for dry eyes., Disp: 15 mL, Rfl: 6 Diclofenac Sodium (Voltaren) 1 % gel, Apply 1 Application topically every 12 (twelve) hours., Disp:200 g, Rfl: 0 diphenhydrAMINE (BENADryl) 25 MG capsule, Take 1 capsule by mouth in the morning and 1 capsule at noon and 1 capsule in the evening and 1 capsule before bedtime., Disp: , Rfl: docusate sodium (Colace) 100 MG capsule, Take 1 capsule (100 mg) by mouth 2 times daily. TAKE ONE CAPSULE IN THE MORNING AND EVENING NEEDED FOR CONSTIPATION, Disp: 60 capsule, Rfl: 5 doxepin (SINEquan) 10 MG capsule, Take 1 capsule (10 mg) by mouth at bedtime., Disp: 30 capsule, Rfl: 0 Emollient (CeraVe PM) lotion, apply to affected area BID, Disp: , Rfl: ferrous gluconate (Fergon) 324 (38 Fe) MG tablet, TAKE 1 TABLET BY MOUTH EVERY OTHER DAY, Disp: 15 tablet, Rfl: 1 fluticasone (Flonase) 50 MCG/ACT nasal spray, Administer 1 spray into each nostril Once per day., Disp: 16 g, Rfl: 3 furosemide (Lasix) 20 MG tablet, Take 1 tablet (20 mg) by mouth Once per day., Disp: 1 tablet, Rfl:3 gabapentin (Neurontin) 600 MG tablet, Take 1 tablet (600 mg) by mouth 2 times daily., Disp: 60 tablet, Rfl: 2 glipiZIDE (Glucotrol) 5 MG tablet, TAKE 1 TABLET BY MOUTH TWICE DAILY IN THE MORNING AND IN THE EVENING BEFORE BREAKFAST AND BEFORE SUPPER, Disp: 60 tablet, Rfl: 1 glucose blood (FREESTYLE LITE) test strip, Test blood capillary glucose BID, Disp: 60 strip, Rfl: 11 guaiFENesin (Mucinex) 600 MG 12 hr tablet, Take 2 tablets (1,200 mg) by mouth if needed in the morning and at bedtime for cough or congestion. Do not crush, chew, or split., Disp: 30 tablet, Rfl: 0 hydroCHLOROthiazide 12.5 MG tablet, Take 1 tablet (12.5 mg) by mouth in the morning., Disp: 90 tablet, Rfl: 1 hydrOXYzine HCl (Atarax) 10 MG tablet, Take 1 tablet (10 mg) by mouth if needed at bedtime for itching., Disp: 30 tablet, Rfl: 0 isosorbide mononitrate ER (Imdur) 30 MG 24 hr tablet, TAKE 1 TABLET BY MOUTH EVERY MORNING, Disp: 30 tablet, Rfl: 2 ketoconazole (NIZOral) 2 % shampoo, Apply topically at bed time., Disp: , Rfl: lactulose (Chronulac) 10 GM/15ML solution, TAKE 15 ML BY MOUTH TWICE DAILY NEEDED FOR CONSTIPATION, Disp: 946 mL, Rfl: 5 liver oil-zinc oxide (Desitin) 40 % ointment, Apply topically if needed for irritation., Disp: 400 g, Rfl: 0 losartan (Cozaar) 100 MG tablet, Take 1 tablet (100 mg) by mouth in the morning., Disp: 90 tablet, Rfl: 1 magnesium oxide (Mag-Ox) 400 MG tablet, Take 1 tablet (400 mg) by mouth in the morning., Disp: 90 tablet, Rfl: 0 metFORMIN (Glucophage) 1000 MG tablet, Take 1 tablet (1,000 mg) by mouth with breakfast and with evening meal., Disp: 180 tablet, Rfl: 5 montelukast (Singulair) 10 MG tablet, Take 1 tablet (10 mg) by mouth at bedtime., Disp: 30 tablet, Rfl: 3 nitroglycerin (Nitrostat) 0.4 MG SL tablet, DISSOLVE 1 TABLET UNDER THE TONGUE EVERY 5 MINUTES NEEDED FOR CHEST PAIN. DO NOT EXCEED A TOTAL OF 3 DOSES IN 15 MINUTES., Disp: 25 tablet, Rfl: 3 polyethylene glycol, PEG, 3350 (Glycolax) 17 GM/SCOOP powder, Take 17 g by mouth Once per day. [id number] INTO 8 OUNCES OF WATER, OR JUICE, AND DRINK DAILY NEEDED / DIRECTED, Disp: 510 g, Rfl: 5 predniSONE (Deltasone) 10 MG tablet, Take 6 tabs PO daily x 2 days then 5 tabs daily x 2 days then 4 tabs daily x 2 days then 3 tabs daily x 2 days then 2 tabs daily x 2 days then 1 tab daily x 2 days then 1/2 tab daily x 2 days, Disp: 43 tablet, Rfl: 0 QUEtiapine (SEROquel) 25 MG tablet, Take 0.5 tablets (12.5 mg) by mouth at bedtime., Disp: 45 tablet, Rfl: 1 SITagliptin (Januvia) 100 MG tablet, Take 1 tablet (100 mg) by mouth Once per day., Disp: 90 tablet, Rfl: 3 tiotropium-olodaterol (Stiolto Respimat) 2.5-2.5 MCG/ACT aerosol solution inhaler, INHALE TWO PUFFSBY MOUTH ONCE DAILY, Disp: 4 g, Rfl: 11 triamcinolone (Kenalog) 0.1 % cream, Apply topically if needed in the morning and at bedtime (pain and swelling). Mix with Cerave, Disp: 80 g, Rfl: 11 TRUEplus Lancets 33G misc, TEST BLOOD SUGAR EVERY EVENING, Disp: 30 each, Rfl: 11 No current facility-administered medications for this visit. Scribe Attestation: Edinson Mendosa, am serving as a scribe to document services personally performed by Odette Bryant, based on the patient's response to questions by provider and provider's statements to me. Physicians Attestation: Odette Mendosa DO, have reviewed the information by the scribe, Edinson James, for accuracy and agree with its content. documented in this encounter Plan of Treatment Not on file documented as of this encounter Procedures Procedure Name Priority Date/Time Associated Diagnosis Comments XR CHEST 2 VIEWS STAT 11/21/2024 11:5 4 AM EST Chronic obstructive pulmonary disease with acute exacerbation (CMS/HCC) POCT INFLUENZA B (ID NOW RAPID MOLECULAR) Routine 11/21/2024 11:22 AM EST Chronic obstructive pulmonary disease with acute exacerbation (CMS/HCC) POCT INFLUENZA A (ID NOW RAPID MOLECULAR) Routine 11/21/2024 11:22 AM EST Chronic obstructive pulmonary disease with acute exacerbation (CMS/HCC) POCT RAPID COVID ANTIGEN Routine 11/21/2024 11:22 AM EST Chronic obstructive pulmonary disease with acute exacerbation (CMS/HCC) documented in this encounter Results * XR Chest 2 Views (11/21/2024 11:54 AM EST) Anatomical Region Laterality Modality Chest Radiographic Diane ging 11/21/2024 11:5 4 AM EST Narrative 11/21/2024 1:14 PM EST ?[facility] ?[address] ?[place] [address] ?XRay Report ? Signed ? Patient: Libby Almanzar ?MR#: [id number] ? : 1945 ?Acct:[id number] ? Age/Sex: 79 / F ?ADM Date: 11/21/24 ? Loc: HO.HHCX ? Attending Dr: Odette Oliva DO ? Ordering Physician: Odette Oliva DO ?? Date of Service: 11/21/24 ?? Procedure(s): XR chest 2V ?? Accession Number(s): [id number] ? cc: Odette Oliva DO ? EXAMINATION: ?? XR CHEST ? CLINICAL INFORMATION: ?? cough and SOB x 1 week, h/o COPD ? COMPARISON: ?? None available. ? TECHNIQUE: ?? 2 views of the chest were obtained. ? FINDINGS: ?? Mild cardiac enlargement. Mediastinal and hilar contours appear normal. ?? The aorta is calcified. ? Lungs are diffusely hyperaerated and hyperlucent suggestive of COPD. ?? There are linear opacities in the left lower base with mild obscuration ?? of the left hemidiaphragm, suspicious for left base pneumonia. ?? There is no pneumothorax or pleural effusion. ? There is no focal osseous or soft tissue abnormality. Degenerative ?? changes of the spine. ? XR/XR chest 2V ?? IMPRESSION: ?? 1. Findings suspicious for left lower lobe pneumonia. ?? 2. COPD. ?? 3. Mild cardiomegaly. ? Electronically signed by: ??Anjum Guerrero MD ??11/21/2024 01:11 PM EST RP ? Dictated By: ?Anjum Guerrero MD ? Signed By: ?<Electronically signed by Anjum Guerrero MD in OV> ?11/21/24 1311 ? DD/ 1154 ? TD/TT: 11/21/24 1200 ? Cut And Print Machine Operator: ? Procedure Note [place], Image - 11/21/[address] [address] XRay Report Signed Patient: Libby AlmanzarMR#: [id number] : 5Acct:[id number] Age/Sex: 79 / FADM Date: 11/21/24 Loc: HO.HHCX Attending Dr: Odette Oliva DO Ordering Physician: Odette Oliva DO Date of Service: 11/21/24 Procedure(s): XR chest 2V Accession Number(s): [id number] cc: Odette Oliva DO EXAMINATION: XR CHEST CLINICAL INFORMATION: cough and SOB x 1 week, h/o COPD COMPARISON: None available. TECHNIQUE: 2 views of the chest were obtained. FINDINGS: Mild cardiac enlargement. Mediastinal and hilar contours appear normal. The aorta is calcified. Lungs are diffusely hyperaerated and hyperlucent suggestive of COPD. There are linear opacities in the left lower base with mild obscuration of the left hemidiaphragm, suspicious for left base pneumonia. There is no pneumothorax or pleural effusion. There is no focal osseous or soft tissue abnormality. Degenerative changes of the spine. XR/XR chest 2V IMPRESSION: 1. Findings suspicious for left lower lobe pneumonia. 2. COPD. 3. Mild cardiomegaly. Electronically signed by: Anjum Guerrero MD 11/21/2024 01:11 PM EST Dictated By: Anjum Guerrero MD Signed By: <Electronically signed by Anjum Guerrero MD in OV> 11/21/24 1311 DD/ 1154 TD/TT: 11/21/24 1200 Cut And Print Machine Operator: Odette Oliva DO IMG XR PROCEDURES Final Resu lt * Influenza B (ID NOW Rapid Molecular) (11/21/2024 11:22 AM EST) [facility] Influenza B Negative Negative, Indeterminate [facility] Swab 11/21/2024 11:2 2 AM EST Odette Oliva DO POINT OF CARE TEST ENTER/JULIET T ORDERABLES Final Result Performing Organization Address [facility] Co de Phone Number [facility] [address] [place] [phone] * Influenza A (ID NOW Rapid Molecular) (11/21/2024 11:22 AM EST) [facility] Influenza A Negative Negative, Indeterminate [facility] Swab 11/21/2024 11:2 2 AM EST Odette Oliva DO POINT OF CARE TEST ENTER/JULIET T ORDERABLES Final Result Performing Organization Address [facility] Co de Phone Number [facility] [address] [place] [phone] * POCT Rapid COVID Ag (11/21/2024 11:22 AM EST) [facility] Rapid COVID Ag Negative [facility] Swab 11/21/2024 11:2 2 AM EST Odette Gatesnidia DO POINT OF CARE TEST ENTER/JULIET T ORDERABLES Final Result [facility] [address] [place] [phone] documented in this encounter Visit Diagnoses Diagnosis Chronic obstructive pulmonary disease with acute exacerbation (CMS/HCC)- Primary documented in this encounter Administered Medications Inactive Administered Medications - up to 3 most recent administrations Medication Order MAR Action Action Date Dose Rate Site albuterol (2.5 MG/3ML) 0.083% nebulizer solution 2.5 mg 2.5 mg, Nebulization, Once, On Sun11/21/24 at 1045, For 1 doseIndications:Chronic obstructive pulmonary disease, unspecified COPD type (CMS/HCC) Given 11/21/2024 10:45 AM EST 2.5 mg documented in this encounter Additional Health Concerns Assessment Noted Time PHQ-9 Depression Total Score: 0 11/04/19 1:05 PM EST documented as of this encounter Care Teams Global Human Resources Director Relationship Specialty Start Date End Date Janeen Allen MD [address] [place] [address] PCP - General Internal Medicine 02/15/24 documented as of this encounter
--- OUTSIDE RECORDS SUMMARY | 2024-11-21 14:04 | XMS_ITS | Encounter Summary ---
Author Organization [email or web address] Address [address] [place] [address] Care Team Providers Care Inspector Casing Name Role Phone Janeen Allen MD Primary Care Provide r Reason for Visit * Reason Onset Date Comments Durable Medical Equipment 11/11/2024 Encounter Details Date Type Department Care Team (Late st Contact Info) Description 11/11/2024 Telephone [facility] [address] [place], [place] [phone] Janeen Allen MD [address] [place], [place] [phone] Durable Medical Equipment Social History Tobacco Use Types Packs/Day Years [...] encounter Miscellaneous Notes * Telephone Encounter - Gala Timmons - 11/19/2024 2:39 PM EST Home Care Delivery form which includes wipes was signed and faxed. Form has been scanned into Media * Telephone Encounter - [address] - 11/11/2024 9:04 AM EST Tc from pt stating she did not receive wipes this month. Pt states pcp must sign all ostomy supply documents. documented in this encounter Plan of Treatment Not on file documented as of this encounter Visit Diagnoses Not on filedocumented in this encounter Additional Health Concerns Assessment Noted Time PHQ-9 Depression Total Score: 0 11/04/19 25 1:05 PM EST documented as of this encounter Care Teams Inspector Casing Relationship Specialty Start Date End Date Janeen Allen MD [address] [place] [phone] PCP - General Internal Medicine 02/15/24 documented as of this encounter
--- OUTSIDE RECORDS SUMMARY | 2024-11-21 14:04 | XMS_ITS | Encounter Summary ---
Author Organization [employer] Address [address] [place] [address] Care Team Providers Care Belting Cutter Name Role Phone Janeen Allen MD Primary Care Provide r Reason for Visit * Reason Onset Date Comments [facility] triage 11/21/2024 Valery VALENTINE visit and last EKG @ [facility] 11/21/19 Encounter Details Date Type Department Care Team (Late st Contact Info) Description 11/21/2024 Telephone [facility] [address] [place] [address] [facility] triage; Valery VALENTINE visit and last EKG @ [facility] Social History Tobacco Use Types Packs/Day Years [...] encounter Miscellaneous Notes * Telephone Encounter - Racheal Power RN - 11/21/2024 10:30 AM EST Pt presents to [facility] at approx. 1015 c/o cough, DION, rib pain with cough. Pt taken to Room A for triage. Pt is Hong Konger speaking, wheelchair bound VS: BP sitting right arm, large cuff 106/70 HR 116 RR 24 , wearing mask R?A sat 93% PO temp 98.1 LS: Diminished, rhonci throughout. Noted congested cough. Pedal edema +1 Per protocol albuterol neb initiated, notified/aware 1035 Pt concerned her blood sugar this AM: 198 She keeps a log. Nebulizer in progress Per Care everywhere EMR, pt has significant medical/surgical history. Was hospitalized at [facility] Last EKG: Ventricular Rate: 134 BPM Atrial Rate: 134 BPM P-R Interval: 130 ms QRS Duration: 70 ms Q-T Interval: 280 ms QTC Calculation(Bazett): 418 ms P [place]: 61 degrees R [place]: -53 degrees T [place]: 43 degrees Sinus tachycardia with Premature atrial complexes Left axis deviation Poor R wave progression in V1-V3 may be normal variant or due to anteroseptal infarct or misplaced leads Nonspecific ST abnormality Abnormal ECG When compared with ECG of 04-JAN-2024 06:58, Heart rate has increased Confirmed by DAX PEARSON MD ([id number]) on 01/09/2024 8:47:44 PM [place]: DAX PEARSON MD Last Pulmonology visit: Pulmonary Note Office Result date: 05/12/2024 13:23 Patient: TOMAS KEITH Age: 79 Years Sex: Female : 1945 Chief Complaint Asthma/COPD History of Present Illness 79 y/o F with PMH of asthma/COPD, colon cancer s/p partial colectomy and end colostomy, h/o SBO c/bincarceration, obesity, HTN, DMII, depression who presents for f/u with pulmonary medicine for further evaluation and management. Last evaluated by me in clinic 10/2023. At that time, the patient was continued on triple inhaled therapy with budesonide nebs and Stiolto Respimat for management of asthma/COPD. Patient was referred to Behavioral Health for further management of depression. She was also referred to Nutrition for optimization of diet in the setting of poor appetite. Today, the patient recounts her abdominal history surgery, particularly that she spent 9 days with her abdomen open. She states she continues with her albuterol MDI, budesonide MDI, Stiolto. She sometimes does not remember if she uses her budesonide neb. She shares that she often forgets things as she has gotten older. She notes shortness of breath with exertion when walking in her home. She doesnot have PT services. Her daughter is her INFO PRINT PRESS OPERATOR and helps her with her medications. She uses her albuterol. She states that her daughter/INFO PRINT PRESS OPERATOR cannot accompany her to appointment regularly as she herselfneeds to take care of her young child. She was recently hospitalized for recurrent SBO c/b sepsis requiring transfer to [facility] for emergent exploratory laparotomy Lysis of adhesions, reduction of parastomal hernia and small bowel resection. Review of Systems Constitutional: No weight loss, fever, chills, weakness or fatigue. Allergy/Immune: Denies any Eczema or hives Eyes: No visual loss, blurred vision, double vision or yellow sclera ENT: No hearing loss, sneezing, congestion, runny nose or sore throat. Respiratory: See above Cardiovascular: No chest pain, chest pressure or chest discomfort. No palpitations or pedal edema. Gastrointestinal: No anorexia, nausea, vomiting or diarrhea. No abdominal pain or blood in stool. Genitourinary: No burning micturition. No urinary frequency or incontinence. Neurologic: No headache, dizziness, syncope, unilateral weakness, ataxia, numbness or tingling in the extremities. No change in bowel or bladder control. Musculoskeletal: No muscle pain, back pain, joint pain or stiffness. Hematologic/Lymphatics: No bleeding or bruising. No painful lymph nodes. Skin: No rash or itching. Endocrine: No reports of sweating. No cold or heat intolerance. No polyuria or polydipsia. Psychiatric: No depression or anxiety. Physical Exam Vitals & Measurements T: 98.4 ??F HR: 111 (Peripheral) BP: 112/60 SpO2: 96% HT: 158 cm Physical Exam: General: Well-appearing, in NAD. Pleasant. Sitting in motorized wheelchair. Morbidly obese HEENT: NCAT, PERRL, MMM Pulm: CTAB, good respiratory effort CV: RRR, nl S1 and S2, no m/r/g Abd: Soft, non-distended Ext: WWP, no peripheral edema Skin: Normal skin turgor. No rashes. Neuro: CN exam grossly intact. A+O x3. Psych: Occasionally tearful when discussing the inconveniences of an end-ileostomy Of note, I have personally reviewed all relevant laboratory and diagnostic testing documented in this note. Assessment/Plan #REICH, most likely deconditioning in light of patient's limited mobility and obesity #Asthma/COPD #Colon cancer s/p colectomy with end-ileostomy, c/b recurrent SBO #DMII #Obesity #Dysphagia #Sleep disordered breathing, suspected #Depression/social isolation #Chronic pruritus #Poor appetite - Continue budesonide, Stiolto Respimat, albuterol MDI PRN - Advised patient to discuss referral to physical therapy with PCP - patient agreeable - Advised patient to have a family member/progressive care manager accompany her to her next visit to assist with medication reconciliation and obtaining additional medical history - F/u in 6 months or sooner PRN Follow-Up Appointments No qualifying data available Total Time Spent I personally spent a total of 20 minutes, including both awio-ds-vhoj and zka-oyub-uv-face time on the date of the encounter, addressing the above diagnoses. Activities performed in this time include chart review, obtaining / reviewing history, performing amedically necessary evaluation, documentation andcounseling, management of prescription medications MDM level 4 - established Problem List/Past Medical History Ongoing Abdominal pain Asthma Chest pain COPD (chronic obstructive pulmonary disease) Depression Diabetes mellitus Essential hypertension Hyperlipidemia Obese class I Small bowel obstruction Procedure/Surgical History section Incisional hernia of anterior abdominal wall Laparoscopic lysis of adhesions Sigmoid colectomy with stoma Medications Albuterol (Eqv-ProAir HFA) 90 mcg/inh inhalation aerosol, 2 puffs, Inhalation, Every 6 hours albuterol 0.083% inhalation solution, 2.5 mg= 3 mL, Neb, Every 4 hours amLODIPine 10 mg oral tablet, 10 mg= 1 tablet, By Mouth, Daily atorvastatin 80 mg oral tablet, 80 mg= 1 tablet, By Mouth, Daily budesonide 1 mg/2 mL inhalation suspension, See Instructions cetirizine 10 mg oral tablet, 10 mg= 1 tablet, By Mouth, Daily in AM clopidogrel 75 mg oral tablet, 1 tablet, By Mouth, Daily in AM clotrimazole 1% topical cream docusate sodium, 100 mg, By Mouth, 2 times a day FREESTYLE GUSTAVO LITE FreeStyle Lite Strips furosemide 20 mg oral tablet, 1 tablet, By Mouth, Daily in AM gabapentin 300 mg oral capsule, 300 mg= 1 capsule, By Mouth, 2 times a day glipiZIDE 5 mg oral tablet, extended release, 5 mg= 1 tablet, By Mouth, 2 times a day hydrochlorothiazide 12.5 mg oral tablet, 12.5 mg= 1 tablet, By Mouth, Daily isopropyl alcohol 70% topical pad isosorbide mononitrate 30 mg oral tablet, extended release, 1 tablet, By Mouth, Daily in AM Januvia 100 mg oral tablet, 100 mg= 1 tablet, By Mouth, Daily lactulose 10 gm/15 ml oral syrup, 10 Gm= 15 mL, By Mouth, 2 times a day, PRN levothyroxine 0.05 mg oral tablet, 50 mcg= 1 tablet, By Mouth, Daily losartan 100 mg oral tablet, 100 mg= 1 tablet, By Mouth, Daily in AM magnesium oxide 400 mg oral tablet, 400 mg= 1 tablet, By Mouth, Daily metFORMIN 1000 mg oral tablet, 1000 mg= 1 tablet, By Mouth, 2 times a day montelukast 10 mg oral tablet, 1 tablet, By Mouth, Daily in PM Multivitamin, By Mouth, Daily nitroglycerin 0.4 mg sublingual tablet, 1 tablet, Sublingual, Every 5 minutes, PRN oxyCODONE 5 mg oral tablet, 5 mg= 1 tablet, By Mouth, Every 6 hours, PRN polyethylene glycol 3350 oral powder for reconstitution, 17 Gm, By Mouth, Daily QUEtiapine 25 mg oral tablet, 12.5 mg= 0.5 tablet, By Mouth, Daily at bedtime Stiolto Respimat 60 ACT 2.5 mcg-2.5 mcg/inh inhalation aerosol, 2 puffs, Inhalation, Every 24 hours, 11 refills triamcinolone 0.1% topical cream Vitamin B-12 500 mcg oral tablet, 500 mcg= 1 tablet, By Mouth, Daily Vitamin D3 1000 intl units oral tablet, 25 mcg= 1 tablet, By Mouth, Daily Allergies aspirin (Rash, Blisters) codeine (Rash) contrast media (iodine-based) (difficulty breathing) penicillin (Blisters, Rash) peppermint (Shortness of Breath) Social History Alcohol Use: Never. Substance Abuse Use: Never. Tobacco Use: Former smoker, quit more than 30 days ago. Immunizations Vaccine Date Status pneumococcal 13-valent vaccine - Not Given Comments : Patient Refuses Diagnostic Results SPIROMETRY: FEV1 0.73, 36%; FVC 1.04, 38%; FEV1/FVC 70.0%; PEFR 2.36, 45% Post FEV1 0.89, 43% (22%); FVC 1.15, 42% (11%); PEFR 2.53, 49%; (7%) Slow Vital Capacity: 1.06 39% PRIOR RESULTS: FEV1: 0.79, FVC: 1.14, T.11 on 19-Dec-17. INTERPRETATION: The patient did not exhale for a full 6 seconds. This may underestimate the true FVC. Best effort spirometry demonstrated severe obstructive defect. There is a decrease in FVC which may suggest a concomitant restrictive defect. However, lung volumes are needed to confirm this finding. There is a significant response to bronchodilator. However, not meet ATS critereria of 12% and >200 ml improvem ent in FEV1 or FVC. The obstructive defect is consistent with asthma or COPD. Since -Feb-18, unchanged FEV1 (-8%), FVC (-9%). [1] (01/08/2024 09:39 EDT Chest Portable) FINDINGS: Single AP chest x-ray labeled semiupright portable 9:35 AM. LINES AND TUBES: Endotracheal tube appears more distally positioned currently 1.7 cm above the phillip previously 3.3cm. An enteric tube is identified coursing over the esophagus and below the diaphragm out of the field of view likely appropriately positioned unchanged. A right IJ central venous catheter is again noted. documented in this encounter Plan of Treatment Not on file documented as of this encounter Visit Diagnoses Diagnosis Chronic obstructive pulmonary disease, unspecified COPD type (CMS/[facility]) documented in this encounter Additional Health Concerns Assessment Noted Time PHQ-9 Depression Total Score: 0 11/04/19 25 1:05 PM EST documented as of this encounter Care Teams Belting Cutter Relationship Specialty Start Date End Date Janeen Allen MD [address] [place] [address] PCP - General Internal Medicine 02/15/24 documented as of this encounter
--- OUTSIDE RECORDS SUMMARY | 2024-11-21 14:04 | XMS_ITS | Encounter Summary ---
Author Organization [employer] Address [address] [place] [address] Care Team Providers Care Land Examiner Name Role Phone Janeen Allen MD Primary Care Provide r Reason for Visit * Reason Onset Date Comments Durable Medical Equipment 11/07/2024 Home C are Delivered Form: Gloves, Encounter Details Date Type Department Care Team ([facility] st Contact Info) Description 11/07/2024 Telephone [facility] [address] [place], [place] [phone] Janeen Allen MD [address] [place] [address] Durable Medical Equipment (Home Care Delivered Form: Gloves, ) Social History Tobacco Use Types Packs/Day Years [...] * Telephone Encounter - Gala Timmons - 11/07/2024 10:50 AM EST Confirmation of order for Disposable underpads/bedpads , Gloves , and Wipes from Home Care Delivered placed on PCP desk for signature. documented in this encounter Plan of Treatment Not on file documented as of this encounter Visit Diagnoses Not on filedocumented in this encounter Additional Health Concerns Assessment Noted Time PHQ-9 Depression Total Score: 0 11/04/19 25 1:05 PM EST documented as of this encounter Care Teams Land Examiner Relationship Specialty Start Date End Date Janeen Allen MD [address] [place] [address] PCP - General Internal Medicine 02/15/24 documented as of this encounter
--- OUTSIDE RECORDS SUMMARY | 2024-11-21 14:04 | XMS_ITS | Encounter Summary ---
Author Organization [employer] Address [address] [place] [address] Care Team Providers Care Testing Projects Administrator Name Role Phone Janeen Allen MD Primary Care Provide r Encounter Details Date Type Department Care Team (Latest Contact Info) Description 11/14/2024 1:00 PM EST Clinical Support [facility] DIABETES/NUTRITION [address] [place], [place] [phone] Brielle Bass RD [address] [place], [place] [phone] Type 2 diabetes mellitus with hyperglycemia, without long-term current use of insulin ([facility]) (Primary Dx) Social History Tobacco Use Types [...] AM EDT documented as of this encounter Progress Notes * Brielle Bass, CLAUDIA - 11/14/2024 1:00 PM EST In Person Visit Medical Diagnosis: E11.65 Type 2 diabetes mellitus with hyperglycemia, without long-term current use of insulin Anthropometrics: On 11/04/2024, Ht: 59 , Wt: 198.0 lbs., BMI: 39.99 Assessment: Patient (Pt) accepted nutrition education assessment appointment with CLAUDIA. RD was not able to get Pt's weight. RD is using weight taken on 11/04/2024. [facility] meat scrubber, Vaibhav, translated. Today, RD went over portion controls, the need for protein, how much of carbohydrates at a meal shana snack and what kind of carbohydrates, along with the need to drink plenty of water. Pt reported to RD that she is drinking 5 bottles of water daily. Each bottle holds 16 oz. Of water which equals to 10 cups a day of water. As CLAUDIA stated in last note, RD pick-up/ noticed that Pt can not read. RD verified this again with a few questions about everyday items with writing. Pt does talk a good talk and can try to cover the best she can to disguise the fact of not being able to read. With this knowledge, RD, again, showed portion controls of food, questioned Pt as to what portions some carbohydrates should be, like rice. Pt pointed out the correct portion. RD showed how her meals should look like in using plastic food items to display a meal. Pt agreed to follow what she had seen. At this point, there is not much more that RD can do to help Pt here. RD expressed this to Pt and told Pt she is welcome to come back for any further clarifications on any intake of foods and beverages. Pt said she understands that she knows what she is doing as in what foods to be eating, portion c ontrols, and what to be eating at meals and snacks along with beverages. No follow up appointment has been scheduled today. Food Allergies: Peppermint oil Exercise: not at all; Pt is having issues with her knees Food Intolerance: Didn't say Food Preferences: Pork, beef, spaghetti, canned spaghetti with meat, eggs, ham, cheeses, breads, rice, potatoes, peas, onions, fruit smoothies, coffee, water, milk, the uses of regular sugar Food Dislikes: Didn't say Frequency of Eating Out/ Restaurant: Not a norm Who Cooks?: Patient How much caffeine?: coffee 1+ cups /day How much sugary beverages?: Coffee with the use of 1-2 teaspoons of regular sugar Diet History: Please see note dated 08/22/2024 for diet history. Nutrition Diagnosis: [id number] Inappropriate intake of types of carbohydrates (crackers, rice, breads, cereals, pasta, toname a few) related to not being able to manage carbohydrate counting along with food and knowledgedeficit as evidence by 24 hour recall/ typical daily intake, BMI >39 and A1C% on 08/27/2024, at 7.0%. Nutrition Intervention: RD gave nutrition education on: the importance of carbohydrates, proteins, and fats along with portion controls, visual plating of plastic foods in correct portion amounts, how all meals should look like, importance of sugar free beverages and diet drinks. Pt was able to show RD what she learned. The goals in the Goals section here reflect what Pt was taught and showed RD that she understood these goals. In addition, Pt was given education on MNT for label reading; uses of natural spices and herbs for flavoring; and, MNT for hyperlipidemia - different oils/ fats, no trans fats and no hydrogenated oils. Goals: Eat two carbohydrates for breakfast, lunch and dinner Eat one carbohydrate for mid-morning and mid-afternoon snacks Eat a fresh salad > one cup at both lunch and dinner Eat protein and fats as advised in meal plan Drink water as beverage of choice-> 6-8 glasses and/ or Crystal Light/ Sugar free Exercise at least 30 minutes per day Use extra virgin olive oil(EVOO) after cooking on foods-> don't cook with EVOO Monitoring and Evaluation: Indicator Criteria Adherence frequency of eating, portion controls, carbohydrate exchanges, protein intake Weight Loss BMI, exercise routine and frequency Glucose control A1C, blood sugars Lipid control Lipid panel Provider: Brielle Bass RD, HARJINDER documented in this encounter Plan of Treatment Not on file documented as of this encounter Visit Diagnoses Diagnosis Type 2 diabetes mellitus with hyperglycemia, without long-term current use of insulin ([facility])- Primary documented in this encounter Additional Health Concerns Assessment Noted Time PHQ-9 Depression Total Score: 0 11/04/19 25 1:05 PM EST documented as of this encounter Care Teams Testing Projects Administrator Relationship Specialty Start Date End Date Janeen Allen MD [address] [place] [address] PCP - General Internal Medicine 02/15/24 documented as of this encounter
--- OUTSIDE RECORDS SUMMARY | 2024-11-21 14:04 | XMS_ITS | Encounter Summary ---
Author Organization [employer] Address [address] [place] [address] Care Team Providers Care Pulpwood Contractor Name Role Phone Janeen Allen MD Primary Care Provide r Encounter Details Date Type Department Care Team (Latest Contact Info) Description 11/04/2024 Travel Social History Tobacco Use Types Packs/Day Years [...] AM EDT documented as of this encounter Plan of Treatment Not on file documented as of this encounter Visit Diagnoses Not on filedocumented in this encounter Additional Health Concerns Assessment Noted Time PHQ-9 Depression Total Score: 0 11/04/19 25 1:05 PM EST documented as of this encounter Care Teams Pulpwood Contractor Relationship Specialty Start Date End Date Janeen Allen MD [address] [place] [id number] PCP - General Internal Medicine 02/15/24 documented as of this encounter
--- OUTSIDE RECORDS SUMMARY | 2024-11-21 14:04 | XMS_ITS | Encounter Summary ---
Author Organization [employer] Address [address] [place] [address] Care Team Providers Care Orthophoto Tech/Draftsman Name Role Phone Janeen Allen MD Primary Care Provide r Encounter Details Date Type Department Care Team (Latest Contact Info) Description 11/14/2024 Travel Social History Tobacco Use Types Packs/Day [...] documented as of this encounter Care Teams Orthophoto Tech/Draftsman Relationship Specialty Start Date End Date Janeen Allen MD [address] [place] [id number] PCP - General Internal Medicine 02/15/24 documented as of this encounter
--- OUTSIDE RECORDS SUMMARY | 2024-11-21 14:04 | XMS_ITS | Encounter Summary ---
Author Organization [employer] Address [address] [facility] [address] [place] [address] Care Team Providers Care Tumbling And Rolling Supervisor Name Role Phone Janeen Allen MD Primary Care Provide r Reason for Visit * Reason Comments Med Refill Encounter Details Date Type Department Care Team ([facility] st Contact Info) Description 10/31/2024 Refill [facility] [address] [place], [place] [phone] Janeen Allen MD [address] [place], [place] [phone] Social History Tobacco Use Types Packs/Day Years [...] Answer Date Recorded Patient Health Questionnaire-9 Score 11 05/07/2024 Patient Health Questionnaire-9 Score 11 05/07/2024 Last PHQ-9: Questionnaire Data Not on file 0 05/07/2024 Housing Stability Answer Date Recorded What is [...] Answer Date Recorded Patient Health Questionnaire-2 Score 3 05/07/2024 Internet Access Answer Date Recorded Internet Access [...] Assessment Noted Time PHQ-9 Depression Total Score: 11 024 2:21 PM EDT documented as of this encounter Care Teams Tumbling And Rolling Supervisor Relationship Specialty Start Date End Date Janeen Allen MD [address] [place] [address] PCP - General Internal Medicine 02/15/24 documented as of this encounter
--- OUTSIDE RECORDS SUMMARY | 2024-11-21 14:05 | XMS_ITS | Encounter Summary ---
Author Organization [employer] Address [address] [place] [address] Care Team Providers Care Customer Service Technician Name Role Phone Janeen Allen MD Primary Care Provide r Encounter Details Date Type Department Care Team (Late st Contact Info) Description 11/21/2024 Telephone [facility] [address] [place], [place] [phone] Odette Oliva DO [address] [place], [place] [phone] Social History Tobacco Use Types Packs/Day Years [...] encounter Miscellaneous Notes * Telephone Encounter - Odette Oliva DO - 11/21/2024 12:17 PM EST Pt seen in [place] with COPD exacerbation and given prednisone taper and azithromycin. Please call for status check after weekend. Thank you. documented in this encounter Plan of Treatment Not on file documented as of this encounter Visit Diagnoses Not on filedocumented in this encounter Additional Health Concerns Assessment Noted Time PHQ-9 Depression Total Score: 0 11/04/19 25 1:05 PM EST documented as of this encounter Care Teams Customer Service Technician Relationship Specialty Start Date End Date Janeen Allen MD [address] [place] [address] PCP - General Internal Medicine 02/15/24 documented as of this encounter
--- OUTSIDE RECORDS SUMMARY | 2024-11-21 14:05 | XMS_ITS | Continuity of Care Document ---
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 I have reviewed and agree with the Assessment and Plan as documented by the Mold Mechanic. Patient given the opportunity to ask questions. Our service contacted for an assessment of: Sacral ulcer As per above, patient with limited ability to be out of bed. Family calls with new breakdown in skin integrity in the sacral area. Has had this before and it healed well with wound care. Now opens back up. Is painful. They have been applying Desitin to keep it dry. No fever or chills. Per manager hotel on the scene, vital signs are stable and patient is afebrile. Please see uploaded pictures. No evidence of tracking. No tunneling present per manager hotel on the scene. Impression: Sacral ulcer Plan: Patient with limited options for offloading. Would benefit from wound care. Starting Silvadene as a barrier. Red flags discussed as to when to seek a higher level of care or recall the service. Allergies: Reviewed PCP f/u: Please re-engage [facility] for wound care. We discussed the diagnostic uncertainty of home visits and the risk associated with this. In this case, the patient and I felt this to be an acceptable and reasonable amount of risk given the benefit of avoiding an ED visit. We discussed the need to seek care urgently/emerge ntly in the setting of any new or worsening serious symptoms, particularly fever chills [email or web address] Not available 10/27/2024 17:19:31 Plan of Treatment Reminders Order Date Submit Date Provider Last Modified By Organization Details Last Modified Time Details Appointments None recorded. Lab None recorded. Referral None recorded. Procedures None recorded. Surgeries None recorded. Imaging None recorded. Medication Orders zinc oxide 20 % topical ointment 2023 024 [email or web address] [facility] #[id number], [address] [place], [address], 4 17:17:50 Patient TargetsNo targets recorded. Patient InstructionsNo instructions recorded. Reason for Referral None Reported. Medical Equipment None Reported. Allergies Allergen ID Allergen Name Allergen Category Reaction Reaction Severity Criticality Documentation Date Start Date Code Code System Note Provider Name and Address Organization Details Recorded Time 19539 iodine medicatio n Not available Not available Not available 10/27/2024 5933 RxNorm Not Available [facility] - production 4 10:54:03 45618 penicilli n G benzathin e medicatio n Not available Not available Not available 10/27/2024 7982 [facility] 10:[facility]:03 87670 penicilli n G procaine medicatio n Not available Not available Not available 10/27/2024 7983 [facility] 10:54:03 4322 Product containin g penicilli n and antibioti c (product) medicatio n Not available Not available Not available 11/07/2023 74562 05 SNOMED [facility] 03:38:15 4323 aspirin medicatio n Not available Not available Not available 11/07/2023 1191 Rx[facility] 4 10:54:03 4324 codeine medicatio n Not available Not available Not available 11/07/2023 2670 Rx[facility] 4 10:54:03 4325 oxycodone medicatio n Not available Not available Not available 11/07/2023 7804 RxNorm Hayley Soto MD [address] [facility],[address], [place], [phone] , [facility], [facility] 4 14:51:28 Medications Name Sig Start Date Stop Date Status Note LastModified by Organization Details LastModified Time medbox status USE DIRECTED active Not Available Not Available No t Available multivitamin tablet TAKE ONE TABLET EVERY MORNING active Not Available Not Available No t Available quetiapine 25 mg tablet TAKE 1/2 TABLET BY MOUTH AT BEDTIME active Not Available Not Available No t Available atorvastatin 40 mg tablet TAKE ONE TABLET EVERY MORNING active Not Available Not Available No t Available atorvastatin 80 mg tablet TAKE 1 TABLET BY MOUTH EVERY MORNING active Not Available Not Available No t Available gabapentin 600 mg tablet TAKE 1 TABLET BY MOUTH TWICE DAILY IN THE MORNING AND IN THE EVENING active Not Available Not Available No t Available albuterol sulfate 2.5 mg/3 mL (0.083 %) solution for nebulization INHALE 1 AMPULE USING A NEBULIZER EVERY 4 HOURS active Not Available Not Available No t Available cetirizine 10 mg tablet TAKE ONE TABLET EVERY MORNING active Not Available Not Available No t Available prednisone 20 mg tablet TAKE ONE TABLET EVERY MORNING FOR FIVE DAYS active Not Available Not Available No t Available isosorbide mononitrate ER 30 mg tablet,exten ded release 24 hr TAKE 1 TABLET BY MOUTH EVERY MORNING active Not Available Not Available No t Available glipizide ER 5 mg tablet, extended release 24 hr TAKE ONE TABLET EVERY MORNING. DO NOT BREAK, CRUSH, DISSOLVE OR CHEW active Not Available Not Available No t Available clopidogrel 75 mg tablet TAKE 1 TABLET BY MOUTH EVERY MORNING active Not Available Not Available No t Available doxepin 10 mg capsule TAKE ONE CAPSULE AT BEDTIME active Not Available Not Available No t Available quetiapine 100 mg tablet TAKE ONE TABLET AT BEDTIME active Not Available Not Available No t Available zinc oxide 20 % topical ointment APPLY 1 APPLICATION TOPICALLY TWICE A DAY FOR 30 DAYS active Not Available Not Available Not Available triamcinolon e acetonide 0.1 % topical cream APPLY TO THE AFFECTED AREA(S) TOPICALLY NEEDED EVERY MORNING AND AT BEDTIME FOR PAIN AND FOR SWELLING. MIX WITH CERAVE active Not Available Not Available No t Available ketorolac 30 mg/mL (1 mL) injection solution Inject 1 mL by intramuscul ar route. 2023 active Not Available Not Available Not Avai lable magnesium oxide 400 mg (241.3 mg magnesium) tablet TAKE 1 TABLET BY MOUTH EVERY MORNING active Not Available Not Available No t Available cyanocobalam in (vit B-12) 500 mcg tablet TAKE ONE TABLET EVERY MORNING active Not Available Not Available No t Available amlodipine 10 mg tablet TAKE 1 TABLET BY MOUTH EVERY MORNING active Not Available Not Available No t Available levothyroxin e 50 mcg tablet TAKE 1 TABLET BY MOUTH EVERY MORNING BEFORE BREAKFAST active Not Available Not Available No t Available metformin 1,000 mg tablet TAKE 1 TABLET BY MOUTH TWICE DAILY IN THE MORNING AND IN THE EVENING WITH MEALS active Not Available Not Available N ot Available clotrimazole 1 % topical solution APPLY TOPICALLY TO THE AFFECTED AREA(S) TWICE DAILY active Not Available Not Available Not Available nitroglyceri n 0.4 mg sublingual tablet DISSOLVE 1 TABLET UNDER THE TONGUE EVERY 5 MINUTES NEEDED FOR CHEST PAIN. DO NOT EXCEED A TOTAL OF 3 DOSES IN 15 MINUTES. active Not Available Not Available No t Available docusate sodium 100 mg capsule TAKE 1 CAPSULE BY MOUTH TWICE DAILY IN THE MORNING AND IN THE EVENING NEEDED FOR CONSTIPATIO N active Not Available Not Available No t Available gabapentin 300 mg capsule TAKE ONE CAPSULE IN THE MORNING AND EVENING active Not Available Not Available Not Available montelukast 10 mg tablet TAKE 1 TABLET BY MOUTH AT BEDTIME active Not Available Not Available No t Available furosemide 20 mg tablet TAKE 1 TABLET BY MOUTH EVERY MORNING active Not Available Not Available No t Available gabapentin 100 mg capsule TAKE ONE CAPSULE IN THE MORNING AND EVENING active Not Available Not Available Not Available Cipro HC 0.2 %-1 % ear drops,suspen chelsi PLACE THREE DROPS IN THE RIGHT EAR TWICE DAILY FOR SEVEN DAYS active Not Available Not Available N ot Available albuterol sulfate HFA 90 mcg/actuatio n aerosol inhaler INHALE 2 PUFFS BY MOUTH EVERY 6 HOURS NEEDED FOR WHEEZING active Not Available Not Available No t Available hydroxyzine HCl 10 mg tablet TAKE ONE TABLET AT BEDTIME NEEDED FOR ITCHING active Not Available Not Available No t Available losartan 100 mg tablet TAKE 1 TABLET BY MOUTH EVERY MORNING active Not Available Not Available No t Available fluticasone propionate 50 mcg/actuatio n nasal spray,suspen chelsi INSTILL 1 SPRAY IN EACH NOSTRIL ONCE DAILY active Not Available Not Available N ot Available clotrimazole 1 % topical cream APPLY TO AFFECTED AREA(S) AND SURROUNDING AREA(S) TWICE DAILY IN THE MORNING AND EVENING active Not Available Not Available No t Available loratadine 10 mg tablet TAKE ONE TABLET EVERY MORNING active Not Available Not Available No t Available glipizide 5 mg tablet TAKE 1 TABLET BY MOUTH TWICE DAILY IN THE MORNING AND IN THE EVENING BEFORE BREAKFAST AND BEFORE SUPPER active Not Available Not Available No t Available oxycodone 5 mg tablet SARAH 1 TABLETA POR LA BOCA CADA 6 HORAS CUANDO SEA NECESARIO PARA EL DOLOR JUANJO active Not Available Not Available No t Available neomycin-enrique ymyxin-hydro nitin 3.5 mg-10,000 unit/mL-1 % ear drops,susp PLACE THREE OR FOUR DROPS IN AFFECTED EAR(S) FOUR TIMES DAILY FOR 10 DAYS active Not Available Not Available Not Available cyclobenzapr ine 5 mg tablet TAKE ONE TABLET THREE TIMES DAILY NEEDED FOR PAIN OR FOR MUSCLE SPASMS active Not Available Not Available No t Available Alcohol Prep Pads USE TWO DAILY active Not Available Not Available No t Available duloxetine 60 mg capsule,adam yed release TAKE 1 CAPSULE BY MOUTH EVERY MORNING active Not Available Not Available No t Available lactulose 10 gram/15 mL oral solution TAKE 15 ML BY MOUTH TWICE DAILY NEEDED FOR CONSTIPATIO N active Not Available Not Available No t Available cholecalcife rol (vitamin D3) 25 mcg (1,000 unit) tablet TAKE 1 TABLET BY MOUTH EVERY MORNING active Not Available Not Available No t Available Januvia 100 mg tablet TAKE 1 TABLET BY MOUTH EVERY MORNING active Not Available Not Available No t Available ferrous gluconate 324 mg (38 mg iron) tablet TAKE 1 TABLET BY MOUTH EVERY OTHER DAY active Not Available Not Available No t Available hydrochlorot hiazide 12.5 mg tablet TAKE 1 TABLET BY MOUTH EVERY MORNING active Not Available Not Available No t Available FreeStyle Lite Strips USE DIRECTED TO TEST BLOOD SUGAR TWICE DAILY active Not Available Not Available No t Available budesonide 1 mg/2 mL suspension for nebulization USE 1 AMPULE USING A NEBULIZER TWICE DAILY active Not Available Not Available Not Available FreeStyle [place] Lite kit TEST BLOOD SUGAR TWICE DAILY active Not Available Not Available No t Available diclofenac 1 % topical gel APPLY 2 GRAM'S TO AFFECTED AREA(s) TWICE DAILY NEEDED active Not Available Not Available No t Available Gavilax 17 gram/dose oral powder TAKE 17 GM MIXED IN 8 OUNCES OF WATER, COFFEE OR TEA ONCE DAILY NEEDED DIRECTED active Not Available Not Available No t Available Boudreauxs Butt Paste 40 % topical ointment APPLY TO THE AFFECTED AREA(S) NEEDED active Not Available Not Available No t Available TRUEplus Lancets 33 gauge TEST BLOOD SUGAR EVERY EVENING active Not Available Not Available No t Available Stiolto Respimat 2.5 mcg-2.5 mcg/actuatio n solution for inhalation INHALE 2 PUFFS BY MOUTH EVERY DAY, RINSE MOUTH AFTER USING. active Not Available Not Available No t Available Vitals Date Recorded Respiratory rate Heart rate Oxygen saturation Oxygen saturation in Arterial blood by Pulse oximetry Body temperature Systolic blood pressure Diastolic blood pressure Provider Name and Address Organization Details Last Updated DateTime 4 16 /min 94 /min 95 % 95 % 99.1 [degF] 101 mm[Hg] 62 mm[Hg] Not Available [facility] 4 15:26:47 Social History None recorded. Functional Status None recorded. Mental Status None recorded. Family History Nothing Reported. Medical History No medical history recorded. Gynecological HistoryNo gynecological history recorded. Obstetrics History GPAL:G 0 P 0 0 0 0 Past Encounters Encounter ID Performer Location Encounter Start Date Encounter Closed Date Diagnosis/Indication Diagnosis SNOMED-CT Code Diagnosis ICD10 Code Diagnosis Note [id number] Olive Whiting MD [facility] [address] [place] [phone] 10/27/2024 15:23:38 10/28/2024 21:44:59 Pressure injury of sacral region of back 805005586 L89.159 Health Concerns Section Related Observation LastModified by Organization Detai ls LastModified Time None Recorded Concern Status LastModified by Organization Details LastModified Time None Recorded Payers Encounter Date Sequence Insurance Name Policy Number Policy Moses Covered Member ID Moses Member ID Guarantor Name 10/27/2024 1 [facility] - DOS ON OR AFTER 2023 - DUAL ELIGIBLE - [employer] AND [employer] (MEDICARE REPLACEMENT/ADV ANTAGE - HMO) Libby Almanzar [id number] Libby Almanzar Notes Date Note Type Note Provider Name and Address Organization Details Recorded Time 10/27/2024 text/html HPI: Call returned to Libby Almanzar to triage below. Reports having ulcer/sore on coccyx x 4 days. Per pt no discharge. Having mild burning pain. No fever. Pt denies rash or sores on other part of skin. Per pt does not have donut to sit on. Pt has not applied any topical ointments. Pt has kept area clean. Pt states occurred once before . Pt unable to come into office for exam. Agrees to [facility] evaluation. Confirmed demographics and allergies. ..................... ..................... ..................... ..................... ..................... ..................... ............... [facility] Nurse Triage Notes (Paloma Padilla - RN): Chief Complaints: Wound care PMH: COPD/Asthma, Coronary Artery Disease, Hypertension, Diabetes Mellitus Type 2, Cancer Comments: HPI reviewed ..................... ..................... ..................... ..................... ..................... ..................... ............... Mold Mechanic Note From Angel Whalen: This 79-year-old female with a history including but not limited to COPD, CAD, HTN, DM type II, cancer requested a visit today to address a wound on her sacrum but she's had for five days. Patient endorses pain to the area but denies any drainage, fevers, nausea, vomiting, diarrhea. Patient has been using Desitin cream with little relief. Allergies on file are confirmed. Patient and family are looking for recommendations as to what to apply to it.Patient presents awake and alert, in no acute distress. Her vital signs are reasonably stable she is afebrile. Nonfocal neurological exam. Pictures of the stage II decubitus ulcer are uploaded, localized, dry, red, no drainage, no tunneling.I provided education on the Silvadene cream as well as the importance of trying to stay off the area, shifting weight to her sides. I recommend they follow up with the primary care physician and present to the emergency department for any new or worsening severe symptoms such as high fever, severe pain, altered mental status. The patient or family were given the opportunity to ask questions and are agreeable to this plan. ..................... ..................... ..................... ..................... ..................... ..................... ............... [facility] [place] Consulted: Olive Whiting ..................... ..................... ..................... ..................... ..................... ..................... ............... Disposition: Shantell Whiting MD [address] [facility],[address], [place], [phone], [employer] 10/27/2024 17:19:40 OBGyn Episode No OBEpisode recorded.
--- OUTSIDE RECORDS SUMMARY | 2024-11-21 14:05 | XMS_ITS | Data Portability ---
Author Organization [place] - [facility], , [facility] Address [address] [place] [address] Assessment Encounter Date Assessment Date Assessment LastModified by Organization Details LastModified Time 11/13/2017 11/13/2017 Pt with morbid obesity, needs to lose at least 50# to qualify for hernia surgery. Complicating factors: financial constraints for food purchases (unable to get to any free meals or food pantries d/t limited transportation - she came in her motorized w/c to today's apt). Speaks very little Mozambican, diplomatic interpreter/translator serv over the phone limited today as the service cut off 4 times; pt will come with her [employer] to next apt. She appears to be cutting back on food, and having low protein diet, in her attempt to lose weight. She has diabetes; information on diabetes control is old; apparently she told her provider she does [place] like [place] [facility] [place] She may be testing her bg at home, she did not bring her glucometer to today's apt. For today, d/t language barrier and limited assistance from the language services, we used pictures (Mozambican/spani sh in the booklet) to do some basic meal planning the emphasized fewer carbs, and having a source of protein with each meal. Nutrition diagnosis: [email or web address] Not available 11/15/2017 12:39:36 12/24/2017 12/24/2017 Pt usually uses a power wheelchair. She has not had any falls. Pt declines all vaccines. [email or web address] Not available 12/24/2017 12:00:16 Plan of Treatment Reminders Order Date Submit Date Provider Last Modified By Organization Details Last Modified Time Details Appointments None recorded. Lab None recorded. Referral nutritioni st/dietiti an referral - obesity, DM2; particular ly interested in losing 50-60 lbs in order to qualify for a hernia surgery 2016 017 [email or web address] Sangita Peterson MD, [address] [place], [address], 7 07:30:45 Procedures None recorded. Surgeries None recorded. Imaging None recorded. Medication Orders ketoconazo le 2 % shampoo 2017 018 INTERFACE [id number], [address], [place], [id number], 8 13:29:23 lisinopril 5 mg tablet 2017 018 INTERFACE [id number], [address], [place], [phone], 8 11:52:39 Patient TargetsNo targets recorded. Patient Instructions Encounter Date Encounter Id Patient Instructions Last Modified By Organization Details Last Modified Time 11/13/2017 [id number] for weight loss, you need to eat smaller portions, and a balanced diet. You will need to try and eat foods from all food groups. Please try to eat 3 meals per day. At each meal, limit your starch (rice and beans or plantains) to 1/2 cup. You should also have a protein source at each meal: 1 or 2 eggs, fish, turkey or chicken. - each day: have 1-2 fruits, and 1-2 servings of vegetables such as salad, or a cooked vegetable such as green beans or broccoli. Para perder peso, necesitas comer porciones m? ? ?s fabio? ? ?as y jason dieta balanceada. Tendr? ? ? que intentar comer alimentos de todos los grupos de alimentos. Intente comer 3 comidas por d? ? ?a. En cada comida, limite barnes almid? ? ?n (arroz y frijoles o pl? ? ?tanos) a 1/2 taza. Tambi? ? ?n debe tener jason michelle de prote? ? ?na en cada comida: 1 o 2 huevos, pescado, pavo o alley. - Todos los d? ? ?as: tome de 1 a 2 frutas y de 1 a 2 porciones de vegetales danilo ensalada o verduras cocidas, danilo luis a? ? ?as verdes o br? ? ?coli. [email or web address] Not available 11/15/2017 12:42:53 GOALS: - 3 small meals per day, include a source of protein at each meal - follow up appointment: come with [employer], and bring your glucometer OBJETIVOS: - 3 comidas fabio? ? ?as por d? ? ?a, incluyen jason michelle de prote? ? ?na en cada comida - nicole de seguimiento: ashok con [employer] y sujit tu gluc? ? 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 for Diabetes mellitus obesity, DM2; particularly interested in losing 50-60 lbs in order to qualify for a hernia surgery Referring Physician: Jan Michele, Family Medicine, Encounter Date: 10/25/2017 Results Created Date Observation Date Name Description Value Unit Range Abnormal Flag Note LastModifiedBy Organization Detail LastModifiedTime 12/18/19 18 12/18/2017 BMP, serum or plasm a glucose 257 mg/dL (70-99 ) high Not Available [facility] [address] [place], [address], 12/18/2017 13:12:48 12/18/19 18 12/18/2017 BMP, serum or plasm a BUN 11 mg/dL (8-23) Not Available [facility] [address] [place], [address], 12/18/2017 13:12:48 12/18/19 18 12/18/2017 BMP, serum or plasm a creatinine 0.5 mg/dL (0.5-1 .0) Not Available [facility] [address] [place], [address], 12/18/2017 13:12:48 12/18/19 18 12/18/2017 BMP, serum or plasm a sodium 142 mmol/ L (133-1 45) Not Available [facility] [address] [place] [address], 12/18/2017 13:12:48 12/18/19 18 12/18/2017 BMP, serum or plasm a potassium 4.4 mmol/ L (3.6-5 .2) Not Available [facility] [address] [place], [address], 12/18/2017 13:12:48 12/18/19 18 12/18/2017 BMP, serum or plasm a chloride 99 mmol/ L (98-10 7) Not Available [facility] [address] [place], [address], 12/18/2017 13:12:48 12/18/19 18 12/18/2017 BMP, serum or plasm a bicarbonate 29 mmol/ L (22-29 ) Not Available [facility] [place], [address], 12/18/2017 13:12:48 12/18/19 18 12/18/2017 BMP, serum or plasm a anion gap 14 (4-17) Not Available [facility] [address] [place], [address], 12/18/2017 13:12:48 12/18/19 18 12/18/2017 BMP, serum or plasm a calcium 9.9 mg/dL (8.6-1 0.5) Not Available [facility] [place], [address], 12/18/2017 13:12:48 12/18/19 18 12/18/2017 BMP, serum or plasm a est GFR non 97 mL/mi n/1.7 3_M2 Creat inine based estim ated glome rular filtr ation rate (eGFR ) is calcu lated using the Chron ic Kidne y Disea se Epide miolo gy Colla borat ion (CKD- EPI). The CKD-E PI creat inine equat ion has not been valid ated in child justin (<18 years ), pregn ant women or in some racia l or ethni c subgr oups other than Cauca sians and Afric an Ameri cans. Not Available [facility] [address] [place], [address], 12/18/2017 13:12:48 12/18/19 18 12/18/2017 BMP, serum or plasm a est GFR 112 mL/mi n/1.7 3_M2 Creat inine based estim ated glome rular filtr ation rate (eGFR ) is calcu lated using the Chron ic Kidne y Disea se Epide miolo gy Colla borat ion (CKD- EPI). The CKD-E PI creat inine equat ion has not been valid ated in child justin (<18 years ), pregn ant women or in some racia l or ethni c subgr oups other than Cauca sians and Afric an Ameri cans. Not Available [facility] [address] [place], [address], 12/18/2017 13:12:48 12/18/19 18 12/18/2017 lipid panel , serum cholesterol, total 219 mg/dL (<200) high Not Available [facility] [address] [place], [address], 12/18/2017 13:12:50 12/18/19 18 12/18/2017 lipid panel , serum triglyceride 236 mg/dL (<150) high Not Available [facility] [address] [place], [address], 12/18/2017 13:12:50 12/18/19 18 12/18/2017 lipid panel , serum HDL chol 37 mg/dL (>39) low Not Available [facility] [address] [place], [address], 12/18/2017 13:12:50 12/18/19 18 12/18/2017 lipid panel , serum LDL cholesterol, calculated 135 mg/dL (0-130 ) high Not Available [facility] [address] [place], [address], 12/18/2017 13:12:50 12/18/19 18 12/18/2017 lipid panel , serum non HDL cholesterol (calc) 182 mg/dL (<160) high Not Available [facility] [address] [place], [address], 12/18/2017 13:12:50 12/18/19 18 12/18/2017 TSH, serum or plasm a TSH 1.94 mIU/m L (0.40- 4.00) Not Available [facility] [address] [place], [address], 12/18/2017 13:12:51 12/18/19 18 12/18/2017 micro album in, urine micro-albumi n 77.9 mg/L (0-20) high Not Available [facility] [address] [place], [address], 12/18/2017 18:52:12 12/18/19 18 12/18/2017 micro album in, urine malb/creat ratio 95.8 mg/gm (0-20) high Not Available [facility] [address], [address], 12/18/2017 18:52:12 12/18/19 18 12/18/2017 micro album in, urine urine creat for micro albumin 81.3 mg/dL Not Available [facility] [address] [place], [address], 12/18/2017 18:52:12 12/18/19 18 12/18/2017 HbA1c (hemo globi n A1c), blood hemoglobin A1C 7.1 % (4-6) high HEMOG LOBIN A1C(% ) GLUCO SE CONTR OL INDEX <6% EXCEL LENT 6-7% VERY GOOD 7-8% GOOD 8-10% FAIR >10% POOR Hemog lobin (Hb) A1c testi ng is perfo rmed by Emily Jodi- quant immun oassa y. Any cause of short ened eryth rocyt e survi sindhu will reduc e expos ure of eryth rocyt es to gluco se with a conse quent decre ase in Hb A1c (%). Not Available [facility] [place], [address], 12/18/2017 23:57:23 12/03/19 19 12/03/2018 eryth rocyt e sedim entat ion rate by weste rgren metho d albumin/crea tinine ratio 83 high Not Available [facility] [address], [place], [address], 12/10/2018 12:44:30 12/03/19 19 12/03/2018 eryth rocyt e sedim entat ion rate by weste rgren metho d fasting blood glucose 167 high Not Available [facility] [address], [place], [address], 12/10/2018 12:44:30 12/03/19 19 12/03/2018 eryth rocyt e sedim entat ion rate by weste rgren metho d creatinine 0.6 normal Not Available [facility] [address], [place], [address], 12/10/2018 12:44:30 12/03/19 19 12/03/2018 eryth rocyt e sedim entat ion rate by weste rgren metho d alk phos 139 high Not Available [facility] [address], [place], [address], 12/10/2018 12:44:30 12/03/19 19 12/03/2018 eryth rocyt e sedim entat ion rate by weste rgren metho d ALT 40 high Not Available [facility] [address], [place], [address], 12/10/2018 12:44:30 12/03/19 19 12/03/2018 eryth rocyt e sedim entat ion rate by weste rgren metho d AST 32 normal Not Available [facility] [address], [place], [address], 12/10/2018 12:44:30 12/03/19 19 12/03/2018 eryth rocyt e sedim entat ion rate by weste rgren metho d TSH 0.95 normal Not Available [facility] [address], [place], [address], 12/10/2018 12:44:30 12/03/19 19 12/03/2018 eryth rocyt e sedim entat ion rate by weste rgren metho d free T4 1.24 normal Not Available [facility] [address], [place], [address], 12/10/2018 12:44:30 12/03/19 19 12/03/2018 eryth rocyt e sedim entat ion rate by weste rgren metho d HGB A1C 6.8 Not Available [facility] [address], [place], [address], 12/10/2018 12:44:30 12/03/19 19 12/03/2018 eryth rocyt e sedim entat ion rate by westraysa rgren metho d total cholesterol 143 Not Available [facility] [address], [place], [address], 12/10/2018 12:44:30 12/03/19 19 12/03/2018 eryth rocyt e sedim entat ion rate by westraysa rgren metho d triglyceride s 180 Not Available [facility] [address], [place], [address], 12/10/2018 12:44:30 12/03/19 19 12/03/2018 eryth rocyt e sedim entat ion rate by westraysa rgren metho d HDL 40 Not Available [facility] [address], [place], [address], 12/10/2018 12:44:30 12/03/19 19 12/03/2018 eryth rocyt e sedim entat ion rate by weste rgren metho d LDL 67 Not Available [facility] [address], [place], [address], 12/10/2018 12:44:30 12/03/19 19 12/03/2018 eryth rocyt e sedim entat ion rate by weste rgren metho d vitamin D, 25-hydroxy 16.3 Not Available [facility] [address], [place], [address], 12/10/2018 12:44:30 12/03/19 19 12/03/2018 eryth rocyt e sedim entat ion rate by everett benitez d ESR 85 high Not Available [facility] [address], [place], [address], 12/10/2018 12:44:30 12/03/19 19 12/03/2018 CBC w/ auto diff albumin/crea tinine ratio 83 high Not Available [facility] [address], [place], [address], 12/10/2018 12:44:30 12/03/19 19 12/03/2018 CBC w/ auto diff fasting blood glucose 167 high Not Available [facility] [address], [place], [address], 12/10/2018 12:44:30 12/03/19 19 12/03/2018 CBC w/ auto diff creatinine 0.6 normal Not Available [facility] [address], [place], [address], 12/10/2018 12:44:30 12/03/19 19 12/03/2018 CBC w/ auto diff alk phos 139 high Not Available [facility] [address], [place], [address], 12/10/2018 12:44:30 12/03/19 19 12/03/2018 CBC w/ auto diff ALT 40 high Not Available [facility] [address], [place], [address], 12/10/2018 12:44:30 12/03/19 19 12/03/2018 CBC w/ auto diff AST 32 normal Not Available [facility] [address], [place], [address], 12/10/2018 12:44:30 12/03/19 19 12/03/2018 CBC w/ auto diff TSH 0.95 normal Not Available [facility] [address], [place], [address], 12/10/2018 12:44:30 12/03/19 19 12/03/2018 CBC w/ auto diff free T4 1.24 normal Not Available [facility] [address], [place], [address], 12/10/2018 12:44:30 12/03/19 19 12/03/2018 CBC w/ auto diff HGB A1C 6.8 Not Available [facility] [address], [place], [address], 12/10/2018 12:44:30 12/03/19 19 12/03/2018 CBC w/ auto diff total cholesterol 143 Not Available [facility] [address], [place], [address], 12/10/2018 12:44:30 12/03/19 19 12/03/2018 CBC w/ auto diff triglyceride s 180 Not Available [facility] [address], [place], [address], 12/10/2018 12:44:30 12/03/19 19 12/03/2018 CBC w/ auto diff HDL 40 Not Available [facility] [address], [place], [address], 12/10/2018 12:44:30 12/03/19 19 12/03/2018 CBC w/ auto diff LDL 67 Not Available [facility] [address], [place], [address], 12/10/2018 12:44:30 12/03/19 19 12/03/2018 CBC w/ auto diff vitamin D, 25-hydroxy 16.3 Not Available [facility] [address], [place], [address], 12/10/2018 12:44:30 12/03/19 19 12/03/2018 CBC w/ auto diff ESR 85 high Not Available [facility] [address], [place], [address], 12/10/2018 12:44:30 12/03/19 19 12/03/2018 vitam in D, 25-hy droxy , total , serum albumin/crea tinine ratio 83 high Not Available [facility] [address], [place], [address], 12/10/2018 12:44:30 12/03/19 19 12/03/2018 vitam in D, 25-hy droxy , total , serum fasting blood glucose 167 high Not Available [facility] [address], [place], [address], 12/10/2018 12:44:30 12/03/19 19 12/03/2018 vitam in D, 25-hy droxy , total , serum creatinine 0.6 normal Not Available [facility] [address], [place], [address], 12/10/2018 12:44:30 12/03/1912/03/2018 vitam in D, 25-hy droxy , total , serum alk phos 139 high Not Available [facility] [address], [place], [address], 12/10/2018 12:44:30 12/03/19 19 12/03/2018 vitam in D, 25-hy droxy , total , serum ALT 40 high Not Available [facility] [address], [place], [address], 12/10/2018 12:44:30 12/03/1912/03/2018 vitam in D, 25-hy droxy , total , serum AST 32 normal Not Available [facility] [address], [place], [address], 12/10/2018 12:44:30 12/03/1912/03/2018 vitam in D, 25-hy droxy , total , serum TSH 0.95 normal Not Available [facility] [address], [place], [address], 12/10/2018 12:44:30 12/03/1912/03/2018 vitam in D, 25-hy droxy , total , serum free T4 1.24 normal Not Available [facility] [address], [place], [address], 12/10/2018 12:44:30 12/03/19 19 12/03/2018 vitam in D, 25-hy droxy , total , serum HGB A1C 6.8 Not Available [facility] [address] [place], [address], 12/10/2018 12:44:30 12/03/19 19 12/03/2018 vitam in D, 25-hy droxy , total , serum total cholesterol 143 Not Available [facility] [address] [place], [address], 12/10/2018 12:44:30 12/03/19 19 12/03/2018 vitam in D, 25-hy droxy , total , serum triglyceride s 180 Not Available [facility] [address] [place], [address], 12/10/2018 12:44:30 12/03/19 19 12/03/2018 vitam in D, 25-hy droxy , total , serum HDL 40 Not Available [facility] [address] [place], [address], 12/10/2018 12:44:30 12/03/1912/03/2018 vitam in D, 25-hy droxy , total , serum LDL 67 Not Available [facility] [address] [place], [address], 12/10/2018 12:44:30 12/03/1912/03/2018 vitam in D, 25-hy droxy , total , serum vitamin D, 25-hydroxy 16.3 Not Available [facility] [address] [place], [address], 12/10/2018 12:44:30 12/03/1912/03/2018 vitam in D, 25-hy droxy , total , serum ESR 85 high Not Available [facility] [address] [place], [address], 12/10/2018 12:44:30 12/03/19 19 12/03/2018 TSH, serum or plasm a albumin/crea tinine ratio 83 high Not Available [facility] [address] [place], [address], 12/10/2018 12:44:30 12/03/19 19 12/03/2018 TSH, serum or plasm a fasting blood glucose 167 high Not Available [facility] [address] [place], [address], 12/10/2018 12:44:30 12/03/19 19 12/03/2018 TSH, serum or plasm a creatinine 0.6 normal Not Available [facility] [address] [place], [address], 12/10/2018 12:44:30 12/03/19 19 12/03/2018 TSH, serum or plasm a alk phos 139 high Not Available [facility] [address] [facility] [place], [address], 12/10/2018 12:44:30 12/03/19 19 12/03/2018 TSH, serum or plasm a ALT 40 high Not Available [facility] [address] [place], [address], 12/10/2018 12:44:30 12/03/1912/03/2018 TSH, serum or plasm a AST 32 normal Not Available [facility] [address] [place], [address], 12/10/2018 12:44:30 12/03/1912/03/2018 TSH, serum or plasm a TSH 0.95 normal Not Available [facility] [address] [place], [address], 12/10/2018 12:44:30 12/03/1912/03/2018 TSH, serum or plasm a free T4 1.24 normal Not Available [facility] [address] [place], [address], 12/10/2018 12:44:30 12/03/19 19 12/03/2018 TSH, serum or plasm a HGB A1C 6.8 Not Available [facility] [address] [place], [address], 12/10/2018 12:44:30 12/03/19 19 12/03/2018 TSH, serum or plasm a total cholesterol 143 Not Available [facility] [address] , [place], [address], 12/10/2018 12:44:30 12/03/19 19 12/03/2018 TSH, serum or plasm a triglyceride s 180 Not Available [facility] [address] , [place], [address], 12/10/2018 12:44:30 12/03/1912/03/2018 TSH, serum or plasm a HDL 40 Not Available [facility] [address] , [place], [address], 12/10/2018 12:44:30 12/03/1912/03/2018 TSH, serum or plasm a LDL 67 Not Available [facility] [address] [place], [address], 12/10/2018 12:44:30 12/03/1912/03/2018 TSH, serum or plasm a vitamin D, 25-hydroxy 16.3 Not Available [facility] [address] , [place], [address], 12/10/2018 12:44:30 12/03/1912/03/2018 TSH, serum or plasm a ESR 85 high Not Available [facility] [address] , [place], [address], 12/10/2018 12:44:30 12/03/1912/03/2018 lipid panel , serum albumin/crea tinine ratio 83 high Not Available [facility] [address] [place] [facility] [place], [address], 12/10/2018 12:44:29 12/03/19 19 12/03/2018 lipid panel , serum fasting blood glucose 167 high Not Available [facility] [address] [place], [address], 12/10/2018 12:44:29 12/03/19 19 12/03/2018 lipid panel , serum creatinine 0.6 normal Not Available [facility] [address] [place], [address], 12/10/2018 12:44:29 12/03/19 19 12/03/2018 lipid panel , serum alk phos 139 high Not Available [facility] [address] [place], [address], 12/10/2018 12:44:29 12/03/19 19 12/03/2018 lipid panel , serum ALT 40 high Not Available [facility] [address] [place], [address], 12/10/2018 12:44:29 12/03/1912/03/2018 lipid panel , serum AST 32 normal Not Available [facility] [address] [place], [address], 12/10/2018 12:44:29 12/03/1912/03/2018 lipid panel , serum TSH 0.95 normal Not Available [facility] [address] [place], [address], 12/10/2018 12:44:29 12/03/19 19 12/03/2018 lipid panel , serum free T4 1.24 normal Not Available [facility] [address] [place], [address], 12/10/2018 12:44:29 12/03/1912/03/2018 lipid panel , serum HGB A1C 6.8 Not Available [facility] [address] [place], [address], 12/10/2018 12:44:29 12/03/19 19 12/03/2018 lipid panel , serum total cholesterol 143 Not Available [facility] [address] [place], [address], 12/10/2018 12:44:29 12/03/19 19 12/03/2018 lipid panel , serum triglyceride s 180 Not Available [facility] [address], [place], [address], 12/10/2018 12:44:29 12/03/19 19 12/03/2018 lipid panel , serum HDL 40 Not Available [facility] [address] [place], [address], 12/10/2018 12:44:29 12/03/19 19 12/03/2018 lipid panel , serum LDL 67 Not Available [facility] [address], [place], [address], 12/10/2018 12:44:29 12/03/19 19 12/03/2018 lipid panel , serum vitamin D, 25-hydroxy 16.3 Not Available [facility] [address] [place], [address], 12/10/2018 12:44:29 12/03/19 19 12/03/2018 lipid panel , serum ESR 85 high Not Available [facility] [address], [place], [address], 12/10/2018 12:44:29 12/03/19 19 12/03/2018 HbA1c (hemo globi n A1c), blood albumin/crea tinine ratio 83 high Not Available [facility] [address] [place], [address], 12/10/2018 12:44:29 12/03/19 19 12/03/2018 HbA1c (hemo globi n A1c), blood fasting blood glucose 167 high Not Available [facility] [address] [place], [address], 12/10/2018 12:44:29 12/03/19 19 12/03/2018 HbA1c (hemo globi n A1c), blood creatinine 0.6 normal Not Available [facility] [address], [place], [address], 12/10/2018 12:44:29 12/03/19 19 12/03/2018 HbA1c (hemo globi n A1c), blood alk phos 139 high Not Available [facility] [address], [place], [address], 12/10/2018 12:44:29 12/03/19 19 12/03/2018 HbA1c (hemo globi n A1c), blood ALT 40 high Not Available [facility] [address] [place], [address], 12/10/2018 12:44:29 12/03/19 19 12/03/2018 HbA1c (hemo globi n A1c), blood AST 32 normal Not Available [facility] [address], [place], [address], 12/10/2018 12:44:29 12/03/19 19 12/03/2018 HbA1c (hemo globi n A1c), blood TSH 0.95 normal Not Available [facility] [address] [place], [address], 12/10/2018 12:44:29 12/03/19 19 12/03/2018 HbA1c (hemo globi n A1c), blood free T4 1.24 normal Not Available [facility] [address] [place], [address], 12/10/2018 12:44:29 12/03/19 19 12/03/2018 HbA1c (hemo globi n A1c), blood HGB A1C 6.8 Not Available [facility] [address] [place], [address], 12/10/2018 12:44:29 12/03/19 19 12/03/2018 HbA1c (hemo globi n A1c), blood total cholesterol 143 Not Available [facility] [address] [place], [address], 12/10/2018 12:44:29 12/03/19 19 12/03/2018 HbA1c (hemo globi n A1c), blood triglyceride s 180 Not Available [facility] [address] [place], [address], 12/10/2018 12:44:29 12/03/19 19 12/03/2018 HbA1c (hemo globi n A1c), blood HDL 40 Not Available [facility] [address], [place], [address], 12/10/2018 12:44:29 12/03/19 19 12/03/2018 HbA1c (hemo globi n A1c), blood LDL 67 Not Available [facility] [address] [place], [address], 12/10/2018 12:44:29 12/03/19 19 12/03/2018 HbA1c (hemo globi n A1c), blood vitamin D, 25-hydroxy 16.3 Not Available [facility] [address] [place], [address], 12/10/2018 12:44:29 12/03/19 19 12/03/2018 HbA1c (hemo globi n A1c), blood ESR 85 high Not Available [facility] [address] [place] [facility] [place], [address], 12/10/2018 12:44:29 12/03/19 19 12/03/2018 TSH + free T4, serum albumin/crea tinine ratio 83 high Not Available [facility] [address] [place], [address], 12/10/2018 12:44:29 12/03/19 19 12/03/2018 TSH + free T4, serum fasting blood glucose 167 high Not Available [facility] [address] [place] [facility] [place], [address], 12/10/2018 12:44:29 12/03/19 19 12/03/2018 TSH + free T4, serum creatinine 0.6 normal Not Available [facility] [address] [place], [address], 12/10/2018 12:44:29 12/03/19 19 12/03/2018 TSH + free T4, serum alk phos 139 high Not Available [facility] [address] [place] [facility] [place], [address], 12/10/2018 12:44:29 12/03/19 19 12/03/2018 TSH + free T4, serum ALT 40 high Not Available [facility] [address] , [place], [address], 12/10/2018 12:44:29 12/03/19 19 12/03/2018 TSH + free T4, serum AST 32 normal Not Available [facility] [address] [place], [address], 12/10/2018 12:44:29 12/03/19 19 12/03/2018 TSH + free T4, serum TSH 0.95 normal Not Available [facility] [address] [place], [address], 12/10/2018 12:44:29 12/03/19 19 12/03/2018 TSH + free T4, serum free T4 1.24 normal Not Available [facility] [address] [place], [address], 12/10/2018 12:44:29 12/03/19 19 12/03/2018 TSH + free T4, serum HGB A1C 6.8 Not Available [facility] [address] [place], [address], 12/10/2018 12:44:29 12/03/1912/03/2018 TSH + free T4, serum total cholesterol 143 Not Available [facility] [address] [facility] [place], [address], 12/10/2018 12:44:29 12/03/1912/03/2018 TSH + free T4, serum triglyceride s 180 Not Available [facility] [address] [facility] [place], [address], 12/10/2018 12:44:29 12/03/1912/03/2018 TSH + free T4, serum HDL 40 Not Available [facility] [address] [place], [address], 12/10/2018 12:44:29 12/03/19 19 12/03/2018 TSH + free T4, serum LDL 67 Not Available [facility] [address] [facility] [place], [address], 12/10/2018 12:44:29 12/03/1912/03/2018 TSH + free T4, serum vitamin D, 25-hydroxy 16.3 Not Available [facility] [address] [facility] [address], 12/10/2018 12:44:29 12/03/1912/03/2018 TSH + free T4, serum ESR 85 high Not Available [facility] [address], 12/10/2018 12:44:29 12/03/19 19 12/03/2018 CMP, serum or plasm a albumin/crea tinine ratio 83 high Not Available [facility] [address] , [place], [address], 12/10/2018 12:44:29 12/03/19 19 12/03/2018 CMP, serum or plasm a fasting blood glucose 167 high Not Available [facility] [address] , [place], [address], 12/10/2018 12:44:29 12/03/19 19 12/03/2018 CMP, serum or plasm a creatinine 0.6 normal Not Available [facility] [address], [place], [address], 12/10/2018 12:44:29 12/03/19 19 12/03/2018 CMP, serum or plasm a alk phos 139 high Not Available [facility] [address] , [place], [address], 12/10/2018 12:44:29 12/03/1912/03/2018 CMP, serum or plasm a ALT 40 high Not Available [facility] [address] , [place], [address], 12/10/2018 12:44:29 12/03/1912/03/2018 CMP, serum or plasm a AST 32 normal Not Available [facility] [address] , [place], [address], 12/10/2018 12:44:29 12/03/19 19 12/03/2018 CMP, serum or plasm a TSH 0.95 normal Not Available [facility] [address], [place], [address], 12/10/2018 12:44:29 12/03/1912/03/2018 CMP, serum or plasm a free T4 1.24 normal Not Available [facility] [address], [place], [address], 12/10/2018 12:44:29 12/03/19 19 12/03/2018 CMP, serum or plasm a HGB A1C 6.8 Not Available [facility] [address] [place], [address], 12/10/2018 12:44:29 12/03/19 19 12/03/2018 CMP, serum or plasm a total cholesterol 143 Not Available [facility] [address] [place], [address], 12/10/2018 12:44:29 12/03/19 19 12/03/2018 CMP, serum or plasm a triglyceride s 180 Not Available [facility] [address] [place], [address], 12/10/2018 12:44:29 12/03/19 19 12/03/2018 CMP, serum or plasm a HDL 40 Not Available [facility] [address] [place], [address], 12/10/2018 12:44:29 12/03/19 19 12/03/2018 CMP, serum or plasm a LDL 67 Not Available [facility] [address] [place], [address], 12/10/2018 12:44:29 12/03/19 19 12/03/2018 CMP, serum or plasm a vitamin D, 25-hydroxy 16.3 Not Available [facility] [address] [place], [address], 12/10/2018 12:44:29 12/03/19 19 12/03/2018 CMP, serum or plasm a ESR 85 high Not Available [facility] [address] [place], [address], 12/10/2018 12:44:29 12/03/19 19 12/03/2018 micro album in, urine albumin/crea tinine ratio 83 high Not Available [facility] [address] [place], [address], 12/10/2018 10:55:45 12/03/19 19 12/03/2018 micro album in, urine fasting blood glucose 167 high Not Available [facility] [address] [place], [address], 12/10/2018 10:55:45 12/03/19 19 12/03/2018 micro album in, urine creatinine 0.6 normal Not Available [facility] [address], [place], [address], 12/10/2018 10:55:45 12/03/19 19 12/03/2018 micro album in, urine alk phos 139 high Not Available [facility] [address], [place], [address], 12/10/2018 10:55:45 12/03/1912/03/2018 micro album in, urine ALT 40 high Not Available [facility] [address], [place], [address], 12/10/2018 10:55:45 12/03/1912/03/2018 micro album in, urine AST 32 normal Not Available [facility] [address], [place], [address], 12/10/2018 10:55:45 12/03/1912/03/2018 micro album in, urine TSH 0.95 normal Not Available [facility] [address], [place], [address], 12/10/2018 10:55:45 12/03/1912/03/2018 micro album in, urine free T4 1.24 normal Not Available [facility] [address], [place], [address], 12/10/2018 10:55:45 12/03/1912/03/2018 micro album in, urine HGB A1C 6.8 Not Available [facility] [address], [place], [address], 12/10/2018 10:55:45 12/03/1912/03/2018 micro album in, urine total cholesterol 143 Not Available [facility] [address], [place], [address], 12/10/2018 10:55:45 12/03/19 19 12/03/2018 micro album in, urine triglyceride s 180 Not Available [facility] [address], [place], [address], 12/10/2018 10:55:45 12/03/19 19 12/03/2018 micro album in, urine HDL 40 Not Available [facility] [address] [place], [address], 12/10/2018 10:55:45 12/03/19 19 12/03/2018 micro album in, urine LDL 67 Not Available [facility] [address] [place], [address], 12/10/2018 10:55:45 12/03/19 19 12/03/2018 micro album in, urine vitamin D, 25-hydroxy 16.3 Not Available [facility] [address] [place], [address], 12/10/2018 10:55:45 12/03/19 19 12/03/2018 micro album in, urine ESR 85 high Not Available [facility] [address] [place], [address], 12/10/2018 10:55:45 12/24/19 18 gracy metry testi ng* No observ ation record ed. [email or web address] Not Available 2017 13:29:21 Result Notes None recorded. Problems Name Problem SNOMED Code Status Onset Date Resolution Date Notes Provider Name and Address Organization Details Recorded Time Benign essential hypertensio n 4581145 Active 2015 [facility] [place] [address], [facility] 6 14:15:39 Hypothyroid ism 35811014 Active 2015 Jan Michele PA-C [address] [place], [place] [address], [address], [facility] 6 14:15:42 Asthma 711416541 Active 2015 BRIAN [facility] [place], [address], [facility] 6 14:15:34 Diabetes mellitus 98782781 Active 2015 Jan Michele PA-C [address] [place] [address] [place], [address], [facility] 6 14:15:46 Pain in lower limb 84343429 Active 2015 Jan Michele PA-C [address] [place] [address] [place], [address], [facility] 6 14:16:39 Chronic obstructive pulmonary disease 95046299 Active 2016 Followup 11/14/16 Alicia BhagatNATA, [facility] 7 14:16:04 Colostomy present 809080562 Active 2016 coded 09/04/16 Followup Alicia BhagatNATA, [facility] 7 14:16:20 Malignant tumor of colon 616945438 Active 2016 coded 08/25/16 Followup Alicia NATA Bhagat, [facility] 7 14:16:58 Urge incontinenc e of urine 58033518 Active 2016 Jan Michele PA-C [address] [place], [place] [address], [address], [facility] 7 11:52:12 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 Procedures Surgical History Date Name Laterality Status Provider Name and Address Organization Details Recorded Time Medicare Wellness Visit completed Socorro Masterson MA [facility] 06/01/2017 13:18:39 5 Laparo partial colectomy completed Jan Michele PA-C [address] [place] [address], [id number], [facility] 09/18/2017 11:05:14 Imaging Results Imaging Date Name Status LastModified by Organiz ation Details LastModified Time 12/24/2017 spirometry testing* completed Information not available 12/24/2017 13:29:21 Procedure Notes None recorded. Medical Equipment None Reported. Allergies Allergen ID Allergen Name Allergen Category Reaction Reaction Severity Criticality Documentation Date Start Date Code Code System Note Provider Name and Address Organization Details Recorded Time 911726 aspirin medicatio n Not available Not available Not available 2016 1191 [facility] [place] 6 09:45:26 846611 codeine medicatio n Not available Not available Not available 2016 2670 [facility] [place] 6 09:45:33 355573 Product containin g penicilli n and antibioti c (product) medicatio n Not available Not available Not available 2016 38085 05 SNOMED Pippa Tylor EVENTS DIRECTOR [facility] 6 09:45:42 722668 peppermin t preparati on food,medi cation itching rash Not available Not available Not available 09/27/2017 45155 RxNorm [place]idad [place] 7 12:17:17 Medications Name Sig Start Date Stop Date Status Note LastModified by Organization Details LastModified Time freestyle freedom lite lancets active Not Available Not Available Not Available metformin 500 mg tablet TK 1 T PO BID active Not Available Not Available No t Available doxycycline hyclate 100 mg capsule active Not Available Not Available N ot Available atorvastati n 20 mg tablet Take 1 tablet every day by oral route at bedtime. active Not Available Not Available No t Available ketoconazol e 2 % shampoo Lather, leave on for 5 to 10 min, rinse. Use twice weekly to daily for several weeks or until remission . Maintenan ce: weekly use. active Not Available Not Available No t Available tizanidine 2 mg tablet TK 1 TO 2 TS PO IN THE MORNING AND HS PRN active Not Available Not Available No t Available albuterol sulfate 2.5 mg/3 mL (0.083 %) solution for nebulizatio n INHALE THE CONTENTS OF 1 VIAL USING NEBULIZER TID. active Not Available Not Available No t Available azithromyci n 250 mg tablet TAKE 2 TABLETS (500 MG) BY ORAL ROUTE ONCE DAILY FOR 1 DAY THEN 1 TABLET (250 MG) BY ORAL ROUTE ONCE DAILY FOR 4 DAYS 08/25 completed Not Available Not Available Not Available fluconazole 150 mg tablet active Not Available Not Available Not Available FreeStyle Lancets 28 gauge USE TO TEST BLOOD SUGAR TID active Not Available Not Available No t Available prednisone 20 mg tablet Take 3 tablets (60 mg) at once for 3 days, then 2 tabs (40mg) for 3 days, then 1 tab for 3 days, then 1/2 tab for 4 days. 09/18 completed Not Available Not Available Not Available melatonin 3 mg tablet active Not Available Not Available No t Available sulfamethox azole 800 mg-trimetho prim 160 mg tablet active Not Available Not Available Not Available tramadol 50 mg tablet 1-2 tablets as needed every 8 hours ([place] 1 o 2 tabletas para dolor cuando es necesario cada 8 horas) 12/12 completed Not Available Not Available Not Available acyclovir 800 mg tablet active Not Available Not Available Not Available Tessalon Perles 100 mg capsule Take 1 capsule 3 times a day by oral route as needed. 01/05 completed Not Available Not Available Not Available prednisolon e acetate 1 % eye drops,suspe nsion INT 1 GTT AEY TID UTD active Not Available Not Available No t Available Triple Antibiotic 3.5 mg-400 unit-5,000 unit/gram topical ointment active Not Available Not Available Not Available baclofen 10 mg tablet active Not Available Not Available No t Available levothyroxi ne 50 mcg tablet TAKE 1 TABLET BY MOUTH EVERY DAY active Not Available Not Available No t Available doxepin 100 mg capsule active Not Available Not Available N ot Available ropinirole 0.5 mg tablet SEE NOTES active Not Available Not Available No t Available clotrimazol e-betametha sone 1 %-0.05 % topical cream active Not Available Not Available Not Available docusate sodium 100 mg capsule active Not Available Not Available N ot Available Senna Laxative 8.6 mg tablet active Not Available Not Available Not Available ammonium lactate 12 % topical cream active Not Available Not Available Not Available lisinopril 5 mg tablet TK 1 T PO QD active Not Available Not Available No t Available nystatin 100,000 unit/gram topical powder active Not Available Not Available Not Available polyethylen e glycol 3350 17 gram/dose oral powder active Not Available Not Available Not Available clotrimazol e 1 % topical cream active Not Available Not Available Not Available Tylenol Extra Strength 500 mg tablet Take 2 tablets 3 times a day by oral route as needed for 30 days. 02/28 completed Not Available Not Available Not Available cholecalcif anthony (vitamin D3) 25 mcg (1,000 unit) capsule TK 1 C PO QD active Not Available Not Available No t Available Arthritis Pain Reliever 650 mg tablet,exte nded release TK 2 TS PO TID PRN active Not Available Not Available No t Available moxifloxaci n 0.5 % eye drops INT 1 GTT AEY QID active Not Available Not Available No t Available Spiriva with HandiHaler 18 mcg and inhalation capsules INHALE 1 CAPSULE VIA HANDIHALE R ONCE DAILY AT THE SAME TIME EVERY DAY active Not Available Not Available No t Available duloxetine 60 mg capsule,del ayed release Take 1 capsule every day by oral route. 12/24 completed 09/27-d oes not take Not Available Not Available Not Available lactulose 10 gram/15 mL oral solution TK 15 ML PO QD PRF CONSTIPAT ION active Not Available Not Available No t Available ProAir HFA 90 mcg/actuati on aerosol inhaler TAKE 2 PUFFS BY MOUTH EVERY 4 HOURS NEEDED active Not Available Not Available No t Available FreeStyle Lite Meter kit active Not Available Not Available Not Available FreeStyle Lite Strips USE TO TEST BLOOD SUGAR TID active Not Available Not Available No t Available Calcium 600 with Vitamin D3 600 mg-10 mcg (400 unit) chewable tablet active Not Available Not Available Not Available Prolensa 0.07 % eye drops active Not Available Not Available Not Available Anoro Ellipta 62.5 mcg-25 mcg/actuati on powder for inhalation active Not Available Not Available N ot Available Vitals Date Recorded Body height Provider Name an d Address Organization Details Last Updated DateTime 10/25/2017 152.4 cm Esperanza Macario MA [facility] 10/25/2017 13:54:41 Date Recorded Body mass index (BMI) Body weight Provider Name and Address Organization Details Last Updated DateTime 10/25/2017 42 kg/m2 10194.36 g Esperanza Macario MA [facility] 10/25/2017 13:54:47 Date Recorded Heart rate Provider Name an d Address Organization Details Last Updated DateTime 10/25/2017 72 /min Esperanza Macario MA [facility] 10/25/2017 14:01:24 Date Recorded Body height Provider Name an d Address Organization Details Last Updated DateTime 11/13/2017 152.4 cm Sangita Peterson RDN, HARJINDER, [address], [address] 11/13/2017 12:59:06 Date Recorded Body height Provider Name an d Address Organization Details Last Updated DateTime 11/28/2017 152.4 cm Socorro Masterson [facility] 11/28/2017 12:50:55 Date Recorded Body height Provider Name an d Address Organization Details Last Updated DateTime 11/29/2017 152.4 cm Jessica [facility] 11/29/2017 12:52:11 Date Recorded Heart rate Provider Name an d Address Organization Details Last Updated DateTime 11/29/2017 84 /min Jessica Estelle [facility] 11/29/2017 12:58:04 Date Recorded Oxygen saturation Oxygen saturation in Arterial blood by Pulse oximetry Provider Name and Address Organization Details Last Updated DateTime 11/29/2017 98 % 98 % Jessica Estelle [facility] 11/29/2017 12:58:08 Date Recorded Body height Provider Name an d Address Organization Details Last Updated DateTime 12/24/2017 152.4 cm Jessica Estelle [facility] 12/24/2017 11:04:26 Date Recorded Body mass index (BMI) Body weight Provider Name and Address Organization Details Last Updated DateTime 12/24/2017 43.6 kg/m2 899757.5 g [facility] 12/[facility]/2017 11:08:46 Date Recorded Heart rate Provider Name an d Address Organization Details Last Updated DateTime 12/24/2017 80 /min Jessica [facility] 12/24/2017 11:11:13 Date Recorded Oxygen saturation Oxygen saturation in Arterial blood by Pulse oximetry Provider Name and Address Organization Details Last Updated DateTime 12/24/2017 97 % 97 % Jessica Estelle [facility] 12/24/2017 11:11:15 Date Recorded Systolic blood pressure Diastolic blood pressure Provider Name and Address Organization Details Last Updated DateTime 10/25/2017 132 mm[Hg] 80 mm[Hg] [facility] 10/25/2017 14:06:14 Date Recorded Systolic blood pressure Diastolic blood pressure Provider Name and Address Organization Details Last Updated DateTime 11/29/2017 136 mm[Hg] 82 mm[Hg] Jessica [facility] 11/29/2017 12:57:54 Date Recorded Systolic blood pressure Diastolic blood pressure Provider Name and Address Organization Details Last Updated DateTime 12/24/2017 124 mm[Hg] 82 mm[Hg] [facility] 12/24/2017 11:11:02 Social History Question Answer Notes LastModified by Organizat ion Details LastModified Time Tobacco Smoking Status Former Smoker Quit 1995 [place] 2016 09:49:22 Do You Have An Advance Directive? Yes Information not available 2016 What Is Your Level Of Alcohol Consumption? None Information not available 2016 Do You Wear A Helmet When Biking? No Information not available 2016 What Is Your Level Of Caffeine Consumption? Occasional Occ Soda/juice Information not available 2016 How Much Tobacco Do You Chew? None Information not available 2016 What Type Of Diet Are You Following? REGULAR Information not available 2016 Which Illicit Or Recreational Drugs Have You Used? None Information not available 2016 What Is Your Occupation? Never Worked Information not available 2016 When Did You Quit Smoking? 16+yearssincel astcigarette Information not available 2016 How Many Days In The Past Year Have You Had A Heavy Drinking Consumption (4+ Female, 5+ Male)? 0 Information not available 2016 Are There Any Guns Present In Your Home? No Information not available 2016 Live Alone Or With Others? Alone Information not available 2016 Does The Patient Have Difficulty Speaking Mozambican? Yes Information not available 2016 Does The Patient Have Difficulty Reading Mozambican? Yes Information not available 2016 Patient Has Health Care Proxy Signed And In Chart No [email or web address] Information not available 07/17/2018 DM Disease Process Needs Instruction Information not available 11/13/2017 Nutrition Post-needs Review Information not available 11/13/2017 Physical Activity Not Assessed Information not available 11/13/2017 Medications Not Assessed Information not available 11/13/2017 Monitoring Not Assessed Information not available 11/13/2017 Acute Complications Needs Instruction Information not available 11/13/2017 Chronic Complications Needs Instruction Information not available 11/13/2017 Coping Pre-needs Review Information not available 11/13/2017 Behavior Change Pre-needs Review Information not available 11/13/2017 DSME Plan Goal Healthy Eatin Or 3 Meals/day; Include A Source Of Protein At Each Meal Information not available 11/13/2017 DSME Plan Goal Success Initiated Information not available 11/13/2017 DSME Plan Goal Evaluation: 11/13/2017 Information not available 11/13/2017 DSME Plan Initiated: 11/13/2017 MNT X 4-5; Dates Seen: 11/13/17; Information not available 11/13/2017 DSME Plan Status In Progress - Infor mation not available 11/13/2017 CCM Consent Discussion 2016 Information not available 2016 Diabetes Ed Classes Discussed Patient Not Appropriate Information not available 11/13/2017 Marital Status Informatio n not available 2016 Mosquito Repellent Used Routinely No Information not available 2016 What Was The Date Of Your Most Recent Tobacco Screening? 12/24/2017 Information not available 05/21/2019 How Many Children Do You Have? 9+ 12 Children, Alicia Almanzar Information not available 2016 Seat Belts Used Routinely Yes Information not available 2016 Are You Sexually Active? No Information not available 2016 Smoke Alarm In Home Yes Information not available 2016 General Stress Level High Information not available 2016 Do You Use Sunscreen Routinely? No Information not available 2016 Sex: Unknown Functional Status None recorded. Mental Status None recorded. Family History Nothing Reported. Medical History Condition Response Colon Cancer Y Gynecological HistoryNo gynecological history recorded. Obstetrics History GPAL:G 0 P 0 0 0 0 Past Encounters Encounter ID Performer Location Encounter Start Date Encounter Closed Date Diagnosis/Indication Diagnosis SNOMED-CT Code Diagnosis ICD10 Code Diagnosis Note [id number] Jan Michele PA-C , [facility], OFFICE [address] [place] [address] 2016 09:20:38 2016 10:41:59 Malignant tumor of colon 677780754 C18.9 need records. Benign ess ential hypertension 2931991 I10 overcontro lled with goal under 140/90, unclear med. I asked her to return in 2-4 weeks with meds and BP log to review and adjust if necessary. Hypothyroidism 49147779 E03.9 unclear status, will await records. I asked her to follow up in 2-4 weeks with meds. Obesity 810803679 E66.9 BMI over 35. Will discuss on followup Asthma 715816770 J45.90 9 Breathing difficulty is one of her main complaints along with pain. O2 sat 98% and lungs clear though with decreased breath sounds. Probably as much COPD as asthma. Only on proair and albuterol neb. Probably it was Advair that she did not tolerate. She does not recall trying something like Spiriva. Will review records and hopefully figure out how to help her on followup in 2-4 weeks. Colostomy present 004622 009 Z93.3 as result of colectomy for colon cancer. Single rossi or depressive episode, mild 192211555 F32.0 not on med. PHQ-9=7. Seems situationa l, though I wouldn't be surprised if she's downplayin g her baseline mood problems. Pain in lower limb 74521 006 M79.669 bilateral leg pain with significan t ambulation difficulti es. Need to review records when available. Will try to get her the seat for her scooter as requested, but I asked Alicia to contact me with details on the model and make before I do this. Will try getting [employer] care--will send a case to case mgt to get this started. Paresthesia 68984858 R20 .2 will discuss c/o numbness in legs and hands at a future visit. Diabetes mellitus 386048 09 E11.9 unclear status. Will await records. It appears she is not on meds and she claims that occ BG checks have been in normal / IFG range. [id number] Jan Michele PA-C , [facility], OFFICE [address] [facility] [place] [address] 05/12/2016 14:32:55 05/12/2016 15:33:17 Malignant tumor of colon 788607222 C18.9 still need records. Benign ess ential hypertension 7236004 I10 uncontroll ed today with goal under 140/90, unclear med. I asked her to return in 1 week with meds and BP log to review and adjust if necessary. Hypothyroidism 47857023 E03.9 unclear status, will await records. I asked her to follow up in 1 week with meds. Asthma 226699534 J45.90 9 Breathing difficulty is one of her main complaints along with pain. Probably as much COPD as asthma. Only on proair and albuterol neb. Probably it was Advair that she did not tolerate. She does not recall trying something like Spiriva. Still need to review records and hopefully figure out how to help her on followup in a week (though history suggests we still won't have meds or records then either). For now, will refill albuterol neb and inhaler--s he now says she is out of both of these and complains of severe SOB, but lungs are CTAB with mildly decreased lung sounds and O2 sat is 96%. Colostomy present 844627 009 Z93.3 as result of colectomy for colon cancer. States she needs visiting nurse help with colostomy care. Pain in lower limb 75960 006 M79.669 bilateral leg pain with significan t ambulation difficulti es. Still need to review records when available. Will try to get her the seat for her scooter as requested- -Alicia sent pt to this visit with the handwrmarty moore info that the scooter is a Prowler 3410 L and the phone is . I sent a script to [facility] to start figuring out how to get this for her. I also contacted about getting [employer] care--was told pt / family need to contact [facility], details below, and I also wrote the details by hand for pt to carry to Alicia. Paresthesia 60534520 R20 .2 numbness in legs and hands could be DM neuropathy . Check labs as below. Diabetes mellitus 098776 09 E11.9 unclear status. Still no records. Will check labs now, if she can overcome her fear of needles. Malaise [id number] R53.81 unclear cause for fever and diffuse myalgias and JANE for 18 days . Will check labs. Urinary incontinence 165 699039 R32 requesting wipes and pampers , will try to get [id number] Jan Michele PA-C , [facility], OFFICE [address] [place] [address] 05/18/2016 15:38:13 05/18/2016 17:13:22 Asthma [id number] J45.909 Breathing difficulty is one of her main complaints along with pain (again, lungs are CTAB today with slightly decreased breath sounds). Probably as much COPD as asthma. Only on proair and albuterol neb. Probably it was Advair that she did not tolerate. She does not recall trying something like Spiriva. Still need to review records and hopefully figure out how to help her. She is not making this easy as we still don't have any records and the prior PCP whose name she gave us says she is in their EMR but pt never came for a visit there. I asked her granddaugh jeremy to help with getting these records. For now, will AGAIN refill albuterol neb and inhaler--s he now says her usual pharmacy is [facility], not [facility], and she needs the meds sent there. Will do. Malignant tumor of colon 954776101 C18.9 still need records. with colostomy. Benign ess ential hypertension 4685324 I10 controlled today with goal under 140/90, unclear med. I asked her to return in 2 weeks with meds and BP log to review and adjust if necessary. Hypothyroidism 30831927 E03.9 unclear status, will await records. I asked her to follow up in 2 weeks with meds. Colostomy present 232178 009 Z93.3 as result of colectomy for colon cancer. visiting nurse has started, in part to help with colostomy care.. I am unable to send a med list since pt again didn't bring her meds. Pain in lower limb 20261 006 M79.669 states she has bilateral leg pain with significan t ambulation difficulti es (note that she seemed to have no particular difficulty ambulating with her walker, though to be fair it's possible she is describing claudicati on). Still need to review records when available. We have so far been unable get her the seat for her scooter as requested- -Alicia sent pt to last visit with the handwritte n info that the scooter is a Prowler 3410 L and the phone is . I will send a note to [facility] asking them to see about getting her registered with them again as I think this will greatly simplify getting her the services she needs. Diabetes mellitus 634713 09 E11.9 still unclear status. Still no records. I reminded her to check labs. Malaise [id number] R53.81 apparently , the fever and diffuse myalgias and JANE for 18 days spontaneou sly resolved since last visit, since she is not mentioning them today. Labs were never done. Urge incon tinence of urine 52886110 N39.41 wipes might be covered by [facility], will try to get her registered . Pullups: in progress. Pt clarified today that she specifical ly needs pullups, for reasons listed in the HPI (so we will have to rewrite the script). Bladder mu scle dysfunction - overactive 888617168 N32.81 reason for incontinen ce. [id number] BRIAN Espinal, [facility], OFFICE [address] [facility] [place] [address] 07/18/2016 11:53:52 07/18/2016 14:00:40 Asthma [id number] J45.909 Breathing difficulty is one of her main complaints along with pain (again, lungs are CTAB today with slightly decreased breath sounds). O2 sat 96%. Probably as much COPD as asthma. Only on proair and albuterol neb. Probably it was Advair that she did not tolerate. She does not recall trying something like Spiriva. As we still have no records (and who knows if we will get them), I will go ahead and order a trial of Spiriva. Pt says she will not be able to olive picker any of her meds until 07/29 since she cannot afford the $3 copay and 07/29 is when [facility] coverage begins. Follow up in a month for recheck. Malignant tumor of colon 960639550 C18.9 still need records. with colostomy. Benign ess ential hypertension 3652616 I10 controlled today with goal under 150/90, unclear med, or if she is on meds. I again told her to bring all meds to her next appt in one month. Hypothyroidism 01708418 E03.9 unclear status, has lab appt for 08/01. I asked her to follow up in 4 weeks with meds (is she even on a thyroid med? who knows). 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 Pain in lower limb 52170 006 M79.669 states she has bilateral leg pain with significan t ambulation difficulti es (note that she seemed to have no particular difficulty ambulating with her walker, though to be fair it's possible she is describing claudicati on). Still need to review records when available. We have so far been unable get her the seat for her scooter as requested, though it seems likely that [facility] will be able to help with this--pt tells me coverage will start 07/29. Diabetes mellitus 942576 09 E11.9 still unclear status. Still no records. I reminded her to check labs. She has an appt for this 08/01. Urge incon tinence of urine 52730470 N39.41 wipes might be covered by [facility], supposedly is registered now and coverage to start 07/29. Pullups: in progress. Pt clarified last visit that she specifical ly needs pullups. Bladder mu scle dysfunction - overactive 309785474 N32.81 reason for incontinen ce. Generalize d aches and pains 98413669 R52 labs ordered for the ephemeral fever for 18 days are still pending, she will have lab visit 08/01. Will also add RF and BHAVESH re ? inflammato ry arthritis. She may well be correct that she has fibromyalg ia. Spasm of back muscles 20 5151425 M62.830 requesting something to help with this. Will try muscle relaxer for night use only. [id number] Willis Lauren, MSN, COVER MARKER-C , [facility], OFFICE [address] [facility] [place] [address] 08/14/2016 12:39:57 08/14/2016 13:42:34 Asthma 892949640 J45.909 Continue with ALEJANDRINA and tiotropium as prescribed , Diabetes mellitus 874950 09 E11.9 6.2% Well controlled currently Benign ess ential hypertension 2488550 I10 Controlled at today's visit. Acute uppe r respiratory infection 42239191 J06.9 Feeling lonely 970569977 R45.89 Significan t, very despondent today, in tears and lamenting her loneliness , not having calls from her family and with worsening weakness of the hands, I encouraged er to seek community resources, worship groups, and possibly explore medication s with Jan. She declines medication s as she feels she is possessed and does not believe in depression , as a part of her advent beliefs Cough 86269153 R05 We reviewed the Ddx: URI vs PNA vs COPD exacerbati on, I suspect the latter 2, thus will treat with Abx today and encouraged . [id number] BRIAN Espinal, [facility], OFFICE [address] [facility] [address] 08/25/2016 13:46:15 08/25/2016 15:01:54 Malignant tumor of colon 367870765 C18.9 still need records. with colostomy. Benign ess ential hypertension 7615838 I10 controlled today with goal under 150/90, not on meds. She finally brought a med list to her appt today. Hypothyroidism 63528669 E03.9 TSH at goal on levothyrox ine 50mcg, continue. Colostomy present 297885 009 Z93.3 as result of colectomy for colon cancer. Pain in lower limb 12695 006 M79.669 bilateral leg pain with significan t ambulation difficulti es, which were this time indeed in evidence when walking with a cane. Still need to review records when available. [facility] is working on getting her the seat for her scooter as requested. I suggested she talk to the [facility] nurse about getting Smart[employer]et fit by our PT department (and wrote this out for her in Wolof and [place]ican in her pt care summary, which I made sure checkout printed for her). Diabetes mellitus 263807 09 E11.9 Last A1c = 6.2, not on meds. Urge incon tinence of urine 53336528 N39.41 will be getting wipes and pullups via [facility]. Bladder mu scle dysfunction - overactive 349244504 N32.81 reason for incontinen ce. Generalize d aches and pains 33803603 R52 Does not see to be inflammato ry arthritis based on lab results. Suspect at least in part degenerati ve arthritis. She may well be correct that she has fibromyalg ia. Spasm of back muscles 20 0063181 M62.830 OK to continue muscle relaxer for this and other aches and pains, night use or when inactive during the day only. Chronic ob structive pulmonary disease 67859335 J44.9 Breathing difficulty continues to be one of her main complaints along with pain. She is indeed very dyspneic after short ambulation . O2 sats have been wnl. Probably more COPD than asthma. Only on proair and albuterol neb. Probably it was Advair that she did not tolerate. She has been afraid to try Spiriva. I again reassured her that this is a completely different kind of medication and her breathing should be much better if she starts and takes this regularly. Her breathing trouble at night could also be related to HF vs DAHLIA--will consider workup for either or both if Spiriva is not helpful after 1 month. [id number] Willis Lauren, MSN, COVER MARKER-C FP, [facility], OFFICE [address] [facility] [place] [address] 09/04/2016 13:37:31 09/04/2016 15:42:26 Diabetes mellitus 31520881 E11.9 6.2% Well controlled currently with diet and current level of activity Hypothyroidism 59777746 E03.9 Benign ess ential hypertension 1345807 I10 Controlled at today's visit. Osteoarthritis 028507646 M19.90 Trial of tramadol, as she states this medication has been helpful in the past and well tolerated. Colostomy present 740613 009 Z93.3 Obesity 418756379 E66.9 Interested in referral to nutrition with saran zee for evaluation of foods that are healthy. Her to eat. She is interested in continuing to lose weight, and would not be able to manage transporta tion to or from the [facility] for us to prescribe the Y. Referral issued for nutrition today. We reviewed the need to use higher protein foods, and avoid carbohydra john, however, she does have a penchant for cooking sweets, and is quite proud of her scale Feeling lonely 514801199 R45.89 Significan t, very despondent today, in tears and lamenting her loneliness , not having calls from her family and with worsening weakness of the hands, I encouraged er to seek community resources, worship groups, and possibly explore medication s with Jan. 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 Psychogeni c cause is possible too. Explained treatment with vestibular rehabilita tion and got her a PT appt for 10/03 with Xander Tian. Spasm of back muscles 20 5785853 M62.830 OK to continue muscle relaxer and now tramadol sparingly for this and other aches and pains, night use or when inactive during the day only. Says today she has #3 left of the #20 tramadol given by BW at 09/04 visit. Generalize d aches and pains 50888572 R52 Does not seem to be inflammato ry arthritis based on lab results. Suspect at least in part degenerati ve arthritis. She may well be correct that she has fibromyalg ia. Could consider Cymbalta in the future. Diabetes mellitus 398542 09 E11.9 Last A1c = 6.2, not on meds. No need for home BG checks, but I emphasized the importance of minimizing carbs and sweets. Chronic ob structive pulmonary disease 70286607 J44.9 Breathing difficulty continues to be one of her main complaints along with pain. After she finally started Spiriva, she noticed a distinct improvemen t; however, she says she ran out, and also had trouble with losing some of the powder inside the capsules. I informed her that I did provide 11 refills, and also that it appears from download records that this was filled 6 days ago--she thinks she needs to get to [facility] to pick it up. I urged her to do so. Benign ess ential hypertension 3951010 I10 controlled today with goal under 150/90, not on meds. Hypothyroidism 19842050 E03.9 TSH at goal on levothyrox ine 50mcg, continue. [id number] Oliverio Baker, [facility], [address] [place] [address] 10/02/2016 10:56:34 10/02/2016 12:16:51 Nuclear senile cataract 772982280 H25.13 Narrow angle 655377136 H 40.033 Regular astigmatism 6890 5002 H52.223 Presbyopia 45908600 H52. 4 Physiologi c cupping of optic disc 652420543 H47.020 [id number] Jan Michele PA-C , [facility], OFFICE [address] [place] [address] 11/14/2016 11:07:17 11/14/2016 11:59:42 Otalgia 68633308 H92.02 No sign of infection. Reassuranc e. Abdominal bloating 49283 9008 R14.0 for 2 weeks, with abdominal pain, diarrhea and poor appetite. Will check labs and US. Chronic ob structive pulmonary disease 65083576 J44.9 Breathing difficulty continues to be one of her main complaints along with pain. After she finally started Spiriva, she noticed a distinct improvemen t; however, today, she shows me her handihaler and expresses worry that there is either very little or no powder in the capsules, and that she thinks she is getting none of the med when she uses it. I took her handihaler and reviewed this with Crow at our [facility]. It seems she has been using it by simultaneo usly crushing the cap and trying to inhale the powder. I explained (via Dyllan at wood processing worker since pt was in the lab) that it should be one then the other. I also explained that the caps are not supposed to be full of the powder. If she is still worried we could 1) get her the customer info toll-free number for the manufactur er to discuss in detail or 2) see if we can get Spiriva Respimat covered instead. Benign par oxysmal positional vertigo 568502910 H81.10 now resolved. will change PT referral to reflect other concerns. Spasm of back muscles 20 8752404 M62.830 OK to continue muscle relaxer and now tramadol sparingly for this and other aches and pains, night use or when inactive during the day only. Says today she has #3 tramadol but does not want more as it doesn't help. Does want more tizanadine --ordered. Generalize d aches and pains 21274994 R52 Does not seem to be inflammato ry arthritis based on lab results. Suspect at least in part degenerati ve arthritis. She may well be correct that she has fibromyalg ia. I suggested a trial of Cymbalta-- willing, will prescribe. Diabetes mellitus 592288 09 E11.9 Last A1c = 6.2, not on meds. No need for home BG checks, but I emphasized the importance of minimizing carbs and sweets. Benign ess ential hypertension 2398223 I10 controlled today with goal under 150/90, not on meds. Hypothyroidism 33302548 E03.9 TSH at goal on levothyrox ine 50mcg, continue. Pain in lower limb 95070 006 M79.669 bilateral leg pain with significan t ambulation difficulti es; she reports weakness, maybe with falls--his tory unclear as she is quite a poor historian, and is somewhat histrionic about all of her complaints . Will have her discuss this with Xander Tian PT, scheduled for 11/22. Hand pain 15658164 M79.6 42 Y[address] L hand, after hitting it on something. She reports weakness and seems to have difficulty making the hand do what she wants it to (e.g. extension of fingers). May refer to OT if persists. Neck pain 53000064 M54.2 one of her many pain complaints . I will have PT eval. Eruption 527125267 R21 mild to moderate irritation / desquamati on of skin inferior to colostomy without sign of infection. I called Arti at [facility] during this visit. Arti says she will contact Libby between pts to set up an appt to discuss this as well as what will likely be a multiplici ty of other concerns. [id number] Jan Michele PA-C , [facility], OFFICE [address] [facility] [place] [address] 12/12/2016 12:19:30 12/12/2016 13:59:34 Abdominal bloating 606179996 R14.0 not c/o this today, but is finally getting the US that I ordered a month ago due to it. Labs weren't done either--sa maryjane she won't get [place] [facility], asks me to send orders to [facility]. Actually, my MA already did this. Spasm of back muscles 20 8400048 M62.830 OK to continue muscle relaxer (tizanidin e) for this and other aches and pains, night use or when inactive during the day only. Chronic ob structive pulmonary disease 46618237 J44.9 Breathing difficulty continues to be one of her main complaints along with pain, but today's O2 sat is 100% and her lungs are clear. Continue Spiriva with prn albuterol. Has a nebulizer too. Generalize d aches and pains 43687530 R52 Does not seem to be inflammato ry arthritis based on lab results. Suspect at least in part degenerati ve arthritis. She may well be correct that she has fibromyalg ia. Last visit, I suggested a trial of Cymbalta, but she has no recollecti on of this conversati on now and never started the med. I'll prescribe again (daughter was here too, should be able to help her remember). Diabetes mellitus 601511 09 E11.9 Last A1c = 6.2, not on meds. No need for home BG checks, but I emphasized the importance of minimizing carbs and sweets. Benign ess ential hypertension 5090343 I10 controlled today with goal under 150/90, not on meds. Hypothyroidism 88335486 E03.9 TSH at goal on levothyrox ine 50mcg, continue. Pain in lower limb 13446 006 M79.669 bilateral leg pain with significan t ambulation difficulti es; she reports weakness, maybe with falls--his tory unclear as she is quite a poor historian, and is somewhat histrionic about all of her complaints . Despite having a PT appt set up for today in about an hour, she tells me she won't go as it's too difficult to get here; instead wants me to send her home PT. Done as above. Neck pain 83422432 M54.2 one of her many pain complaints . I will have PT eval. Common cold 42143012 J00 Today's complaint of difficulty breathing is typical for Libby. O2 sat is 100% and lungs are clear. Really, this is probably best thought of as a cold. Cause is most likely a viral URI with post nasal drip contributi ng to symptoms. Supportive measures reviewed including rest, tylenol, staying hydrated. Will provide Tessalon, primarily to use at bedtime. Follow-up if not improving in 1-2 weeks or sooner if increasing fever, purulent sputum develop. Abscess of skin and/or subcutaneous tissue 27194199 L02.91 nothing significan t seen on nose--slig ht redness and tenderness . lower abdomen has a nearly completely resolved abscess. I told her not to manipulate abscesses like this when they arise as this could lead to worse infection. Advised hot moist compresses 4x daily for 15 minutes each time to help any remaining pus drain. [id number] Jan Michele PA-C , [facility], OFFICE [address] [place] [address] 02/12/2017 14:45:34 02/12/2017 15:15:08 Pre-surgery evaluation 899738547 Z01.818 Patient is at low risk of perioperat florencio cardiopulm onary complicati ons of a low risk surgery. She can proceed without further risk stratifica tion. Malignant tumor of colon 927066909 C18.9 we have records now. with colostomy. Colostomy present 380793 009 Z93.3 as result of colectomy for colon cancer. Cataract 000370334 H26.9 R eye, surgery 02/[address] m[address]. Diabetes mellitus 547978 09 E11.9 Last A1c = 6.2, not on meds. No need for home BG checks, though she shows me her glucometer with daily checks, none higher than 143. Hypothyroidism 85976184 E03.9 TSH at goal on levothyrox ine 50mcg, continue. Benign ess ential hypertension 0795039 I10 controlled today with goal under 150/90, not on meds. Chronic ob structive pulmonary disease 39164939 J44.9 Breathing is reasonably good now. Continue Spiriva with prn albuterol. Has a nebulizer too. [id number] Jan Michele PA-C , [facility], OFFICE [address] [place] [address] 04/03/2017 10:41:28 04/03/2017 13:25:44 Chronic obstructive pulmonary disease 23724438 J44.9 Breathing difficulty not a major complaint today despite running out of her meds and not refilling due to indignatio n. She is irritated and states that the pharmacy deceived her by telling her there were no meds ready for her, then just a day or two later called her to say meds were ready. She wants to stop going to [facility] as a result. I'll order meds (Spiriva with prn albuterol) to our [facility]. Has a nebulizer too. Benign ess ential hypertension 8111744 I10 controlled today with goal under 150/90, not on meds. Hypothyroidism 69782620 E03.9 TSH at goal on levothyrox ine 50mcg, needs to restart med. Benign par oxysmal positional vertigo 664333005 H81.10 Explained pathopysio logy of BPPV and rationale for treatment with vestibular rehabilita tion. I worked with checkout to get her scheduled with PT just a few minutes after our visit today. Major depr essive disorder 151431968 F32.9 pt feels very isolated and depressed here in [place] , and has taken the sensible decision to work on moving (back) to [place] where there is a larger [place] community. At her request, I wrote her a letter for [facility] ng she be provided with a 2BR apartment so that her daughter / [employer] has a place to stay overnight. [id number] BRIAN Espinal, [facility], OFFICE [address] [facility] [place] [address] 04/16/2017 10:58:27 04/16/2017 11:38:04 Chronic obstructive pulmonary disease 87812757 J44.9 onset of dry cough about 10 days ago; O2 sat normal and lungs seem CTAB other than frequent coughing. Doubt PNA, or strictly speaking, COPD exacerbati on, but will provide burst of prednisone 40mg x 7 days. Follow up in a week Generalize d aches and pains 25049384 R52 She may well be correct that she has fibromyalg ia. Seems to be taking Cymbalta-- I'll verify on followup. Requests tylenol refill, done. Pain of nose 906252980 J 34.89 no definite abscess though there could be one beyond where I can see with otoscope. Reassuranc e. 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 She tells me she would refuse surgery (which suggests she has discussed the possibilit y in the past with other providers) . I told her that if this is hidradenit is, antibiotic s have a limited role and are not curative. Follow up when having an active problem. [id number] BRIAN Espinal, [facility], OFFICE [address] [facility] [place] [address] 05/04/2017 13:25:58 05/04/2017 14:53:28 Chronic obstructive pulmonary disease 13237538 J44.9 dry cough now for about a month, with a break while she was taking prednisone for 10 days. O2 sat normal and lungs seem CTAB other than frequent coughing. Doubt PNA, or strictly speaking, COPD exacerbati on, but suspect this is more of an acute bronchitis . Will provide a longer taper of prednisone 40mg x 13 days. She has [place] with me in 2 weeks, will review if not better by then. Cramp 76132488 R25.2 She wonders why she has never been given a pill for cramps, which she's had for 10 years. I've prescribed tizanidine recently but she doesn't recognize the name. Will prescribe again. I advised her to be cautious with standing and transfers. Single rossi or depressive episode, mild 103801197 F32.0 seems active, but then, she always seems depressed. [id number] JAHAIRA Sequeira , [facility], OFFICE [address] [facility] [place] [address] 06/01/2017 13:00:20 06/01/2017 14:33:46 Adult health examination 247731699 Z00.00 see Risk Assessment and Lifestyle Change Counseling section aboveJimmy n in 3 months for medical management of diabetes Counseling [id number] Z71 .9 Reviewed healthy diet, physical activity Postmenopausal state [phone] [id number] Z78.0 Pt is due for screening, [place] [facility]. Diabetes mellitus 235666 09 E13.42 Hgb A1c in 04/2017 was 7.6%With neuropathy of lower extremitie s Will resume metformin and check Hgb A1c in 3 monthsRevi ewed healthy diet, eliminate soda, juices, added sugars, sweets/can dy, white starches Hypothyroidism 01746750 E03.9 TSH in 04/2017 stable at 2.18Contin ue levothyrox ine 50 mcg daily [id number] , [facility], OFFICE [address] [place] [address] 06/14/2017 10:51:24 06/14/2017 17:43:41 Pre-surgery evaluation [id number] Z01.818 Patient is at low risk of perioperat florencio cardiopulm onary complicati ons of a low risk surgery. She can proceed without further risk stratifica tion. Cataract 765626045 H26.9 L eye, surgery in june with dr mclean. Malignant tumor of colon 344675687 C18.9 we have records now. with colostomy. Colostomy present 482682 009 Z93.3 as result of colectomy for colon cancer. Diabetes mellitus 968460 09 E11.9 Last A1c = 7.6, not on meds. We discussed home BG checks--sh e recalls being told to check FBG in AM then prior to and 2 hours after a meal. I think once daily would be sufficient but one can make a reasonable argument for 3x daily until A1c is again at goal. Hypothyroidism 27119974 E03.9 TSH at goal on levothyrox ine 50mcg, continue. Chronic ob structive pulmonary disease 77044649 J44.9 Breathing is poor, she says, on Spiriva with prn albuterol. Has a nebulizer too which she has been using 3x daily. Lungs have somewhat distant sounds but O2 sat normal at 94. Options are limited as she refuses to use an ICS ( it gave me fungus ). Benign ess ential hypertension 6484957 I10 controlled today with goal under 150/90, not on meds. 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 Will refer to ENT for eval / ?biopsy. Hand pain 68282947 M79.6 42 I told her to follow up to discuss this in detail Major depr essive disorder 013045717 F32.9 If anything, pt seems to be feeling even more isolated and depressed here in [place] than the last time we talked. She does not want to see a therapist and is offended at the idea of her VN pedroi joi a psychiatri c consult. 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 Will discuss trial of gabapentin on followup. Regardless , she clearly states she needs significan t assistance for many ADLs, for which reason I have signed a form from [facility] certifying medical necessity for a live-in [employer]. [id number] , [facility], OFFICE [address] [facility] [place] [address] 07/26/2017 08:08:35 07/26/2017 10:35:25 Polyneuropathy due to diabetes mellitus 43465322 E11.42 severe leg pain with significan t disability , presumably in large part related to diabetic neuropathy though could be multifacto rial. Discussed trial of gabapentin -- will consider on followup since she is already starting requip today. She needs significan t assistance for many ADLs, for which reason I am again signing a form from [facility] certifying medical necessity for a live-in [employer]. Requests more monthly strips since many of them get ruined, she says. I reminded her to return for A1c in 1 month. Malignant tumor of colon 548940771 C18.9 we have records now. with colostomy. Colostomy present 642586 009 Z93.3 as result of colectomy for colon cancer. Diabetes mellitus 212885 09 E11.9 Last A1c = 7.6, not on meds. We discussed home BG checks--anayeli tabares recalls being told to check FBG in AM then prior to and 2 hours after a meal. I think once daily would be sufficient but one can make a reasonable argument for 3x daily until A1c is again at goal. More strips ordered as above. Due for repeat in a month, i reminded her. Chronic ob structive pulmonary disease 16075176 J44.9 Breathing is poor, she says. Now only on albuterol inhaler and nebulizer which she has been using 4x daily. Lungs have somewhat distant sounds but O2 sat normal and stable at 95. Options are increasing ly limited as she now refuses to use Spiriva in addition to an ICS (which gave me fungus ). Will refer to pulm to be seen within a month. Consider prednisone if sxs worsen in interim. Benign ess ential hypertension 2489460 I10 controlled today with goal under 150/90, not on meds. 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 Has ENT appt 08/07/17 @ 11AM. Hand pain 58950828 M79.6 42 not c/o this today. I had told her to follow up to discuss this in detail at last visit. Major depr essive disorder 584505664 F32.9 If anything, pt seems to be feeling even more isolated and depressed here in [place] than the last time we talked. She does not want to see a therapist and is offended at the idea of her VN recommendi ng a psychiatri c consult. Epidermoid cyst of skin 014124547 L72.0 Advised hot moist compresses 4x daily for 15 minutes each time. If not resolving or spontaneou sly draining, follow up for possible I and D. Headache 75581444 R51 continue tylenol prn. will try to get ice bag as requested Pharyngeal dryness 98410 8009 J39.2 no real dysphagia, just dryness and irritation . will try to get a humidifier for her. Restless legs 76688125 G 25.81 trial requip. Start 0.25 mg PO qpm x2 days, then incr. to 0.5 mg PO qpm x5 days, then may incr. by 0.5 mg/day qwk until 3 mg PO qpm [id number] Jan Michele PA-C , [facility], OFFICE [address] [facility] [place] [address] 09/18/2017 10:58:44 09/18/2017 11:54:56 Small bowel obstruction 861725759 K56.609 partial, confirmed on CT, leading to explorator y laparotomy 09/12. Resolved now. Obstructed hernia of anterior abdominal wall 289889141 K46.0 resolved. had explorator y laparotomy 09/12. I reminded her to follow up with surgeon Dr Peoples. Headache 28409920 R51 continue tylenol prn. will try to get ice bag as requested. I tried before but she tells me that it was the wrong kind--will try again. Pharyngeal dryness 31964 8009 J39.2 no real dysphagia, just dryness and irritation . will try to get a humidifier for her. Polyneurop athy due to diabetes mellitus 90632921 E11.42 severe leg pain with significan t disability , presumably in large part related to diabetic neuropathy though could be multifacto rial. Discussed trial of gabapentin -- will consider on followup since she is already starting requip today. She needs significan t assistance for many ADLs, for which reason I am again signing a form from [employer] [place] certifying medical necessity for a live-in [employer]. Requests more monthly strips since many of them get ruined, she says. I reminded her to return for A1c in 1 month. Chronic ob structive pulmonary disease 72744265 J44.9 Breathing is poor, she says. Now only on albuterol inhaler and nebulizer which she has been using 4x daily. Lungs have somewhat distant sounds but O2 sat normal and stable at 95. Options are increasing ly limited as she now refuses to use Spiriva in addition to an ICS (which gave me fungus ). Will refer to pulm to be seen within a month. Consider prednisone if sxs worsen in interim. Malignant tumor of colon 347702727 C18.9 we have records now. with ileostomy. Diabetes mellitus 230976 09 E11.9 Last A1c = 7.6, not on meds. We discussed home BG checks--anayeli tabares recalls being told to check FBG in AM then prior to and 2 hours after a meal. I think once daily would be sufficient but one can make a reasonable argument for 3x daily until A1c is again at goal. Due for repeat now, along with ACR. I asked her to go to lab for this. She refuses, as she dislikes our phlebotomi sts' technique. I therefore asked her to go to [facility] lab. Benign ess ential hypertension 6540035 I10 controlled today with goal under 140/90, not on meds. 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 Missed ENT appt 08/07/17, but tells me this is improved now, though not completely resolved. will hold off on re-referra l, try again if worsens again. Major depr essive disorder 577186760 F32.9 If anything, pt seems to be feeling even more isolated and depressed here in [place] than the last time we talked. She does not want to see a therapist and is offended at the idea of her VN kolby tamez a psychiatri c consult. Restless legs 54486988 G 25.81 never started requip as the sxs resolved completely . Ileostomy present 192797 002 Z93.2 as result of colectomy for colon cancer. back to functionin well after recent surgery. Seborrheic dermatitis 50 948635 L21.9 persistent problem after trial of OTC shampoo. Will try prescripti on shampoo as below. The shampoo should be left on for five to ten minutes before rinsing off. The medicated shampoo can be used daily or at least 2 or 3 times per week for several weeks, until remission is achieved. Subsequent ly, the use of the medicated shampoo once a week may be helpful to prevent relapse. Hyperlipidemia 66295682 E78.5 LDL not at goal under 100, willing to try statin. Discussed indication s for new prescripti on, risks and benefits of medication , common side effects and how to manage, and reasons to notify prescriber of adverse effects or discontinu ation. [id number] JAHAIRA Sequeira , [facility], OFFICE [address] [place] [address] 09/27/2017 11:48:32 09/27/2017 14:11:59 Diabetes mellitus 14222094 E11.9 Due for Hgb A1cShe will go to [facility] for [facility] work at her request Pressure i njury of buttock 356981773 L89.301 Upper L buttock between stage 1-2 ? pressure ulcerAlso seen by Fritz Michele, who recommends SilvadeneP CA instructed on how to cleanse wound with normal saline, dry with gauze, may apply thin film of Silvadene and cover with transparen t dressingSi lvadene providedPt will return in one week for reassessme nt [id number] Magdalena moore , [facility], OFFICE [address] [place] [address] 10/04/2017 10:36:47 10/04/2017 12:09:43 Obstructed hernia of anterior abdominal wall 993882842 K46.0 resolved. had explorator y laparotomy 09/12. She tells me she has a follow up scheduled with surgeon in a few days. Polyneurop athy due to diabetes mellitus 08897378 E11.42 severe leg pain with significan t disability , presumably in large part related to diabetic neuropathy though could be multifacto rial. Discussed trial of gabapentin , but despite her misery, she staunchly refuses to try the med since she read about it and is sure she will get the bad side effects she learned about. She needs significan t assistance for many ADLs, and probably has alienated her most recent [employer], who apparently quit. I reminded her to go to [facility] for A1c. Chronic ob structive pulmonary disease 73794609 J44.9 Breathing is poor, she says. Now only on albuterol inhaler and nebulizer which she has been using 4x daily. Options are increasing ly limited as she now refuses to use Spiriva in addition to an ICS (which gave me fungus ). I notified her that she now has a pulm appt for 10/19 with Jessica, and gave her a handwritte n note to that effect. I expect Alisson from [facility] will be calling to notify her as well. There is still a high likelihood that pt will no-show, judging by prior experience . Malignant tumor of colon 022591400 C18.9 We have records now. With ileostomy. Diabetes mellitus 758485 09 E11.9 Last A1c = 7.6, not on meds. We discussed home BG checks--anayeli raysa recalls being told to check FBG in AM then prior to and 2 hours after a meal. I think once daily would be sufficient but one can make a reasonable argument for 3x daily until A1c is again at goal. Due for repeat now, along with ACR. She didn't make it to [facility] after last visit with IVR. I told her the order has been sent electronic ally so there is no need for a paper order. She says she will go. (She refuses to use our lab, as she dislikes our phlebotomi sts' technique. ) Benign ess ential hypertension 7983067 I10 controlled today with goal under 140/90, not on meds. Major depr essive disorder 660296118 F32.9 active and severe, obviously, as she spends the entire visit crying and sadly lamenting her lot in life, but she staunchly denies that she is depressed- - no, my daughter Vannesa is the one who's depressed! Vannesa actually seemed angry with pt from what I saw at the visit. She does not want to see a therapist and was offended at the idea of her VN recommendi ng a psychiatri c consult. Ileostomy present 050654 002 Z93.2 as result of colectomy for colon cancer. back to functionin g well after recent surgery. Pressure i njury of buttock 549129291 L89.329 Upper L buttock stage 1-2 ? pressure ulcer improved after 1 week of Silvadene, but it's still active and she says she can't use the Silvadene. Low concern at the moment but I'll refer to wound care given nonadheren ce to treatment and potential for progressio n. Urge incon tinence of urine 75885645 N39.41 refuses to use pullups as she claims she had an allergic reaction to them, and says that she gets incontinen ce regularly before she is even able to get out of her room, much less to the bathroom. This is why she requested a commode, but insurance will not cover this unless I can certify that she is confined to her room. She admits that this is not the case--she is able to leave her room, she just can't leave it quickly enough to get to the bathroom. I told her I can't sign off on her being confined to her room, but I will contact her [facility] hospice case manager Alisson Bob to see if [facility] can do anything such as cover the cost of the commode. [id number] Jan Michele PA-C , [facility], OFFICE [address] [place] [address] 10/25/2017 13:27:46 10/25/2017 14:37:32 Pre-surgery evaluation 689440657 Z01.818 Patient is at low risk of perioperat florencio cardiopulm onary complicati ons of a low risk surgery. She can proceed without further risk stratifica tion. Cataract 880893922 H26.9 L eye, surgery 11/01/[address] mclean. Obstructed hernia of anterior abdominal wall 468632658 K46.0 currently resolved. had explorator y laparotomy 09/12. She tells me she was told to lose 50-60 lbs before she can be considered for definitive hernia repair (has had ventral hernia repair x4). I referred to yadi galvez at her request. Polyneurop athy due to diabetes mellitus 68970234 E11.42 severe leg pain with significan t disability , presumably in large part related to diabetic neuropathy though could be multifacto rial. Discussed trial of gabapentin , but despite her misery, she staunchly refuses to try the med since she read about it and is sure she will get the bad side effects she learned about. She needs significan t assistance for many ADLs, and probably has alienated her most recent [employer], who apparently quit. She requests a letter to [facility] asking for the rugs in her apartment to be removed. I do think this constitute s a significan t fall risk for her so I wrote the letter as requested. Chronic ob structive pulmonary disease 18140461 J44.9 Breathing MUCH better after 6 days on Anoro Ellipta. No longer using the nebulizer at all, when it was up to 4x daily. She did see pulm / Jessica, and has a followup in October 2017. Diabetes mellitus 585897 09 E11.9 Last A1c = 7.6, not on meds, overdue for recheck. She refuses to use our lab, as she dislikes our phlebotomi sts' technique. However, when last at [facility] lab, it appears she was not drawn for A1c, though glucose was recently 93 and 110. I suspect stable or improved blood sugars. In any case, no contraindi cation to cataract surgery. Will refer to nutritioni at her request--e specially to lose enough weight so that she can have a hopefully definitive hernia repair (has had ventral hernia repair x4). Benign ess ential hypertension 6104091 I10 controlled today with goal under 140/90, not on meds. Major depr essive disorder 506274204 F32.9 mood seems good today. [id number] Sangita Peterson, RDN, LDN, [facility] Nutrition -[facility] [address] [place] [address] 11/13/2017 12:18:06 11/16/2017 09:39:08 Diabetes mellitus 13820150 E13.42 [id number] JAHAIRA Sequeira , [facility], [address] [place] [address] 11/28/2017 12:30:27 11/29/2017 12:50:00 [id number] Jan Michele PA-C , [facility], [address] [place] [address] 11/29/2017 12:42:42 11/29/2017 14:46:49 Pre-surgery evaluation 963993140 Z01.818 Patient is at low risk of perioperat florencio cardiopulm onary complicati ons of a low risk surgery. She can proceed without further risk stratifica tion. Cataract 901970848 H26.9 L eye, surgery 12/05/[address] mclean. Polyneurop athy due to diabetes mellitus 79740130 E11.42 severe leg pain with significan t disability , presumably in large part related to diabetic neuropathy though could be multifacto rial. Discussed trial of gabapentin , but despite her misery, she staunchly refuses to try the med since she read about it and is sure she will get the bad side effects she learned about. She needs significan t assistance for many ADLs, and probably has alienated her most recent [employer], who apparently quit. At last visit, at her request, I gave her a letter to [facility] asking for the rugs in her apartment to be removed. Chronic ob structive pulmonary disease 88587471 J44.9 Breathing MUCH better after 6 days on Anoro Ellipta. No longer using the nebulizer at all, when it was up to 4x daily. She did see pulm / Alroumi, but missed a followup last month. I gave her a handwritte n note with his phone and told her to call to reschedule . Diabetes mellitus 459057 09 E11.9 Last A1c = 7.6, not on meds, overdue for recheck. She refuses to use our lab, as she dislikes our phlebotomi sts' technique. Overdue for ACR--among the paper lab slips I gave her was microalbum in. Will need to do foot exam on followup as well. Eye exam UTD, last 01/03/17. Benign ess ential hypertension 2780806 I10 controlled today with goal under 140/90, not on meds. Major depr essive disorder 670512669 F32.9 seems quite depressed at times but given her grandiose presentati on on various occasions (in a bullard about being asked to fill out a standard form, or about her rights being infringed) , I wonder about BPD. Has declined any meds. Seborrheic dermatitis 50 304468 L21.9 Better with prescripti on shampoo but she complains that each 120mL bottle is good only for 4 days. I told her she does not need to use a quarter bottle for each treatment. She seems to think she does. Will try to provide more. She understand s instructio ns: the shampoo should be left on for five to ten minutes before rinsing off. The medicated shampoo can be used daily or at least 2 or 3 times per week for several weeks, until remission is achieved. Subsequent ly, the use of the medicated shampoo once a week may be helpful to prevent relapse. [id number] Jan Michele PA-C , [facility], OFFICE [address] [facility] [place] [address] 12/24/2017 11:03:32 12/24/2017 11:57:44 Obstructed hernia of anterior abdominal wall 799473217 K46.0 currently resolved. had explorator y laparotomy 09/12. She tells me she was told to lose 50-60 lbs before she can be considered for definitive hernia repair (has had ventral hernia repair x4). Saw [facility] once--I printed out her recommenda tions in australian and told her to reschedule (no-showed followup appt, apparently ). Polyneurop athy due to diabetes mellitus 07314635 E11.42 severe leg pain with significan t disability , presumably in large part related to diabetic neuropathy though could be multifacto rial. Discussed trial of gabapentin , but despite her misery, she staunchly refuses to try the med since she read about it and is sure she will get the bad side effects she learned about. She needs significan t assistance for many ADLs. Chronic ob structive pulmonary disease 00979395 J44.9 Breathing MUCH better after 6 days on Anoro Ellipta. No longer using the nebulizer at all, when it was up to 4x daily. She did see pulmiranda / Jessica, and had a followup recently. Diabetes mellitus 812200 09 E11.9 Recent A1c = 7.1 on metformin 500mg bid. BG was 257. She refuses to use our lab, as she dislikes our phlebotomi sts' technique. Has seen nutritioni st 10/2017, at her request--w ants to lose enough weight to qualify for hopefully definitive hernia repair (has had ventral hernia repair x4). Re DM: ACR UTD 12/18/17 and elevated. Foot exam done 12/24/17. Eye exam UTD 01/03/17. Benign ess ential hypertension 5482970 I10 controlled today with goal under 140/90, not on meds. Major depr essive disorder 486904383 F32.9 mood seems relatively stable today. Hyperlipidemia 22799797 E78.5 LDL not at goal under 100, despite pharmacy records that suggest she has been taking atorvastat in 20mg for several months. She tells me she has not been taking it. I told her it's waiting at [facility] for her. Will recheck after she's been taking it regularly. Ileostomy present 543340 002 Z93.2 as result of colectomy for colon cancer. functionin g well History of malignant neoplasm of colon 164670555 Z85.038 We have records now. With ileostomy. 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 Morbid obesity 037736569 E66.01 She tells me she was told to lose 50-60 lbs before she can be considered for definitive hernia repair (has had ventral hernia repair x4). This constitute s a significan t motivation for her. I printed out Mone's instructio ns from the one nutrition visit she made it to. Also told her to reschedule for the appt she no-showed to. Health Concerns Section Related Observation LastModified by Organization Detai ls LastModified Time None Recorded Concern Status LastModified by Organization Details LastModified Time None Recorded Advance Directives Directive Y: Payers Encounter Date Sequence Insurance Name Policy Number Policy Moses Covered Member ID Moses Member ID Guarantor Name 10/25/2017 1 [facility] [employer] - DOS PRIOR TO 2023 - DUAL ELIGIBLE (MEDICARE REPLACEMENT/ADV ANTAGE - HMO) Libby Almanzar [id number] Libby Almanzar 11/13/2017 1 [facility] [employer] - DOS PRIOR TO 2023 - DUAL ELIGIBLE (MEDICARE REPLACEMENT/ADV ANTAGE - HMO) Libby Almanzar [id number] Libby Almanzar 11/28/2017 1 [facility] [employer] - DOS PRIOR TO 2023 - DUAL ELIGIBLE (MEDICARE REPLACEMENT/ADV ANTAGE - HMO) Libby Almanzar [id number] Libby Almanzar 11/29/2017 1 [facility] [employer] - DOS PRIOR TO 2023 - DUAL ELIGIBLE (MEDICARE REPLACEMENT/ADV ANTAGE - HMO) Libby Almanzar [id number] Libby Almanzar 12/24/2017 1 [facility] [employer] - DOS PRIOR TO 2023 - DUAL ELIGIBLE (MEDICARE REPLACEMENT/ADV ANTAGE - HMO) Libby Almanzar [id number] Libby Almanzar Notes Date Note Type Note Provider Name and Address Organization Details Recorded Time 10/25/2017 text/html Here alone for p re-op for L eye cataract surgery with Dr Mclean, 11/01/17. she wants me to write a letter now asking housing to remove the carpet due to fall risk. had partial SBO secondary to incarcerated incisional hernia, had exploratory laparoscopy and lysis of adhesions, d/c'd 09/14. She says the surgeon told her to lose 50 or 60 lbs then he would consider her for definitive repair. COPD: saw Shawnee who gave her Anoro and she has found this very helpful--no longer using albuterol nebulizer and breathing is good. Depression: better, feeling well lately. DM2: last A1c=7.6. Restarted metformin 500mg bid since then. No recent recheck. She refuses to go to our lab for this, and has repeatedly not gone to [facility] lab for it. Or if she did, she wasn't drawn for it. Last labs there were 09/14/17. HTN: BP at goal today. Jan Michele PA-C [address] [place] [address], [phone], [facility] 10/25/2017 14:45:42 11/13/2017 text/html Nutrition Encoun ter updatedReported bypatient.Patient HistoryPatient chief nutritional complaint:Diabetes; Others present for Visit: (used diplomatic interpreter/translator services from [employer] in aust[place]ian); needs to lose 50-60# for hernia repair; lives with her [employer] Nutition/dietaryDiet Experience/subjective : (eating half portions lately; Breakfast: 1/3 cup rice, small amount of beans, mashed; Lunch: nothing; Supper: rice- small portion.); uses canola and olive oil; avoiding greasy foods; about $115 per month from food stamps Self Monitoring of Blood Glucose:pt did not know to bring meter Recent Lab testsFasting Blood Sugar: (182- April); Fasting Blood Glucose: not at goal; Hemoglobin A1C: (7.6); Hemoglobin A1C: not at goal; Total Cholesterol: (216); LDL-Cholesterol: (128); LDL-Cholesterol: not at goal; HDL Cholesterol: (39); Triglycerides: (312); Triglycerides: not at goal; labs from almost 6 months ago; does not have labs drawn here- no updated results Physical Activity habitsvery little; she uses motorized w/c Sangita Peterson, CLAUDIAN, LDN, [address], [place], [phone], [facility] 11/15/2017 12:45:44 11/29/2017 text/html Here alone for p re-op for L eye cataract surgery with Dr Mclean, 12/05/17. She was scheduled for yesterday with IVR but I'm told she made a huge scene including accusing [facility] of discrimination against her on the basis of being [place] (i was off). Apparently she was accommodated by being given a taxi voucher to come back today since 3 days were needed for [facility] PT1 ride. I'm told she spent a good deal of time yelling and carrying on. She tells me today that she was not unpleasant to anybody yesterday but that she had to stand up for herself because she is prydeinig as me and will defend her rights when she needs to. She says something about how she was told [facility] would cover the cost of her taxi today but that this was a lie and she had to get [facility] (insurance) to cover it instead. She also says that she plans to buy a recording device to record everything that is said to her when she comes here so she can prove she's being discriminated against. COPD: saw [facility]nee who gave her Anoro and she has found this very helpful--no longer using albuterol nebulizer and breathing is still good. She missed her appt in October and seems to blame somebody else for this, asks me to give her his contact info so she can make appt herself. Alisson at [facility] recommended that she have some bloodwork. She doesn't know what it is, wants me to tell her. She is way overdue for her usual labs, having not gone to [facility] lab several times (refuses to use [facility] [place]). She wants me to give her paper copies of the lab orders. DM2: last A1c=7.6. Restarted metformin 500mg bid since then. No recent recheck. She refuses to go to our lab for this, and has repeatedly not gone to [facility] lab for it. Or if she did, she wasn't drawn for it. Last labs there were 09/14/17. HTN: BP at goal today. Jan Michele PA-C [address] [place], [phone], [facility] 11/29/2017 13:39:03 12/24/2017 text/html COPD: saw Thierry reddy who gave her Anoro and she has found this very helpful--no longer using albuterol nebulizer and breathing is still good. She rescheduled with him and will be seeing him DM2: recent A1c=7.6. On metformin 500mg bid. ACR elevated 12/18/17. HTN: BP at goal today. HL: LDL 135, goal under 100. Jan Michele PA-C [address] [place], [phone], [facility] 12/24/2017 12:00:57 OBGyn Episode No OBEpisode recorded.
--- OUTSIDE RECORDS SUMMARY | 2024-11-21 14:05 | XMS_ITS | Encounter Summary ---
Author Organization [employer] Address [address] [facility] [address] [place] [address] Care Team Providers Care Rn Plasma Center Name Role Phone Eneida Cornejo MD Primary Care Provider [phone] Janeen Allen MD Primary Care Provide r Reason for Visit * Reason Comments Med Refill Encounter Details Date Type Department Care Team ([facility] st Contact Info) Description 06/20/2023 Refill [facility] [address] [place], [place] [phone] Eneida Cornejo MD [address] [place] [address] Social History Tobacco Use Types Packs/Day Years Used Date Smoking Tobacco: Never Passive Smoke Exposure: Never Smokeless Tobacco: Never Alcohol Use Standard Drinks/Week Comments Never 0 (1 standard drink = 0.6 oz pur e alcohol) Depression Answer Date Recorded Patient Health Questionnaire-9 Score 19 06/18/2023 Depression Answer Date Recorded Patient Health Questionnaire-2 Score 5 06/18/2023 Comments Unknown Sex and Gender Information Value [...] Assessment Noted Time PHQ-9 Depression Total Score: 19 023 11:08 AM EDT documented as of this encounter Care Teams Rn Plasma Center Relationship Specialty Start Date End Date Eneida Cornejo MD [address] [place] [address] PCP - General Family Medicine 08/09/21 02/14/24 Janeen Allen MD [address] [place] [address] PCP - General Internal Medicine 02/15/24 documented as of this encounter
--- OUTSIDE RECORDS SUMMARY | 2024-11-21 14:05 | XMS_ITS | Encounter Summary ---
Author Organization [employer] Address [address] [facility] 7[address] [place] [address] Care Team Providers Care Sugar Reprocess Operator Head Name Role Phone Eneida Cornejo MD Primary Care Provider [phone] Janeen Allen MD Primary Care Provide r Reason for Visit * Reason Comments Med Refill Encounter Details Date Type Department Care Team ([facility] st Contact Info) Description 08/27/2023 Refill [facility] [address] [place] [address] Eneida Cornejo MD [address] [place] [address] Type 2 diabetes mellitus with hyperglycemia, without long-term current use of insulin ([facility]) Social History Tobacco Use Types Packs/Day Years Used Date Smoking Tobacco: Never Passive Smoke Exposure: Never Smokeless Tobacco: Never Alcohol Use Standard Drinks/Week Comments Never 0 (1 standard drink = 0.6 oz pur e alcohol) Depression Answer Date Recorded Patient Health Questionnaire-9 Score 19 06/18/2023 Housing Stability Answer Date Recorded What is your housing situation today? I have omi abreu 08/13/[address] you li ve. Do you have problems with any of the following? None of the above 08/13/2023 Food Insecurity Answer Date Recorded Within the past 12 months, y ou worried that your food would run out before you got money to buy more: Never True 08/13/2023 Within the past 12 months,th e food you bought just didn't last and you didn't have enough money to get more: Never True Transportation Answer Date Recorded In the past 12 months, has l ack of transportation kept you from medical appts, meetings, work or from getting things needed for daily living? No 08/13/2023 Utilities Answer Date Recorded In the past 12 months, has t he electric, gas, oil or water company threatened to shut off services in your home? No 08/13/2023 Depression Answer Date Recorded Patient Health Questionnaire-2 [...] hyperglycemia, without long-term current use of insulin ([facility]) documented in this encounter Additional Health Concerns Assessment Noted Time PHQ-9 Depression Total Score: 19 023 11:08 AM EDT documented as of this encounter Care Teams Sugar Reprocess Operator Head Relationship Specialty Start Date End Date Eneida Cornejo MD [address] [place] [address] PCP - General Family Medicine 08/09/21 02/14/24 Janeen Allen MD [address] [place] [address] PCP - General Internal Medicine 02/15/24 documented as of this encounter
--- OUTSIDE RECORDS SUMMARY | 2024-11-21 14:05 | XMS_ITS | Clinical Summary ---
Author Organization [facility] Address [address] [place] [address] Care Team Providers Care Hand Tufter Name Role Phone Unavailable Primary Care Provider Unavailabl e Source Comments PLEASE NOTE, if this patient is a minor, it may be UNLAWFUL to discuss sensitive information that is contained in these records (such as FAMILY PLANNING, MENTAL HEALTH or SUBSTANCE ABUSE) with the minor patient's parent or other person without the patient's specific authorization.[facility] Allergies No known active allergies Medications VENTOLIN HFA 90 mcg/actuation inhaler 02/05/2019 Active atorvastatin (LIPITOR) 20 mg tablet 02/05/2019 Active alcohol swabs 02/05/2019 Activ e FREESTYLE LITE STRIPS strips 02/05/2019 Activ e diclofenac sodium (VOLTAREN) 1 % gel 01/21/2019 Active docusate sodium (COLACE) 100 mg capsule 02/05/2019 Active ADVAIR HFA 115-21 mcg/actuation inhaler 01/21/2019 Active AEROCHAMBER PLUS FLOW-VU 01/21/2019 Active ketoconazole (NIZORAL) 2 % shampoo 02/05/2019 Active FREESTYLE LANCETS 28 gauge 12/16/2018 Active levothyroxine (SYNTHROID, LEVOTHROID) 50 mcg tablet 02/05/2019 Active metFORMIN (GLUCOPHAGE) 500 mg tablet 02/05/2019 Active lisinopril (PRINIVIL,ZESTRIL) 5 mg tablet 02/05/2019 Active nystatin (MYCOSTATIN) 100,000 unit/mL suspension 01/30/2019 Active polyethylene glycol 3350 (GLYCOLAX, MIRALAX) 17 gram/dose powder 02/05/2019 Ac tive oxybutynin chloride (DITROPAN-XL) 10 mg 24 hr tablet 02/05/2019 Act florencio lactulose (CHRONULAC) 10 gram/15 mL solution 02/05/2019 Active Social History Tobacco Use Types Packs/Day Years Used Date Smoking Tobacco: Never Smokeless Tobacco: Never Alcohol Use Standard Drinks/Week Comments No 0 (1 standard drink = 0.6 oz pur e alcohol) Social Connections Answer Date Recorded Social Connections and Isolation 0 06/23/2019 Financial Resource Strain Answer Date R ecorded Financial Resource Strain 0 2018 Stress Answer Date Recorded Stress 0 06/23/2019 Physical Activity Answer Date Recorded Physical Activity 0 06/23/2019 Food Insecurity Answer Date Recorded Food 0 06/23/2019 Transportation Needs Answer Date Record ed Transportation 0 06/23/2019 Housing Stability Answer Date Recorded Housing 0 06/23/2019 Safety and Environment Answer Date Pelon rded Safety 0 06/23/2019 Utilities Answer Date Recorded Utilities 0 06/23/2019 Employment Answer Date Recorded Employment 0 06/23/2019 Comments No Sex and Gender Information Value Date Recorded Sex Assigned at Female 02/16/2019 12:10 PM PDT Legal Sex Female 11:42 AM PDT Gender Identity Female 02/16/2019 12:10 PM PDT Sexual Orientation Straight 02/16/2019 12 :10 PM PDT Last Filed Vital Signs Vital Sign Reading Time Taken Comments Blood Pressure 114/62 02/14/2019 2:39 PM EDT Pulse 80 02/14/2019 2:39 PM EDT Temperature 36.8 ??C (98.3 ??F) 02/14/2019 2:39 PM ED T Respiratory Rate 16 02/14/2019 2:39 PM EDT Oxygen Saturation - - Inhaled Oxygen Concentration - - Weight 95.6 kg (210 lb 12.8 oz) 02/14/2019 2:39 PM EDT Height 152.5 cm (5' 0.04 ) 02/14/2019 2:39 PM ED T Body Mass Index 41.12 02/14/2019 2:39 PM EDT Plan of Treatment Not on file Insurance [facility] Member Subscriber Plan / Payer (Ef fective 2016-Present) Name:Libby Almanzar Relation to Subscriber:Self Name:Libby Almanzar Payer ID:[id number] Group ID:Not on file Type:Indemnity Address: [address] [place] [address]
--- OUTSIDE RECORDS SUMMARY | 2024-11-21 14:05 | XMS_ITS | Encounter Summary ---
Author Organization [employer] Address [address] [place] [address] Care Team Providers Care Customer Engagement Manager Name Role Phone Janeen Allen MD Primary Care Provide r Encounter Details Date Type Department Care Team (Late st Contact Info) Description 11/21/2024 Telephone [facility] [address] [place], [place] [phone] Odette Oliva DO [address] [place], [place] [phone] Social History Tobacco Use Types Packs/Day Years [...] Encounter - Odette Oliva DO - 11/21/2024 1:26 PM EST Please advise pt that her CXR showed a LLL PNA and she needs additional abx. Will send Cefpodoxime BID in addition to azithromycin given at visit. Please confirm her PCN allergy reaction. Thank you. documented in this encounter Plan of Treatment Not on file documented as of this encounter Visit Diagnoses Not on filedocumented in this encounter Additional Health Concerns Assessment Noted Time PHQ-9 Depression Total Score: 0 11/04/19 25 1:05 PM EST documented as of this encounter Care Teams Customer Engagement Manager Relationship Specialty Start Date End Date Janeen Allen MD [address] [place] [id number] PCP - General Internal Medicine 02/15/24 documented as of this encounter
--- OUTSIDE RECORDS SUMMARY | 2024-11-21 14:05 | XMS_ITS | Clinical Summary ---
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 acetaminophen (Tylenol) 325 MG tablet Take 2 tablet by oral route every 4 hours as needed for pain or fever. 019 Active diphenhydrAMINE (BENADryl) 25 MG capsule Take 1 capsule by mouth in the morning and 1 capsule at noon and 1 capsule in the evening and 1 capsule before bedtime. 022 Active Emollient (CeraVe PM) lotion apply to affected area BID 021 Active ketoconazole (NIZOral) 2 % shampoo Apply topically at bed time. 021 Active budesonide (Pulmicort) 1 MG/2ML nebulizer solution 023 Active liver oil-zinc oxide (Desitin) 40 % ointment Apply topically if needed for irritation. 400 g 023 Active Blood Glucose Monitoring Suppl (FreeStyle Lite) w/Device kitIndications:Ty pe 2 diabetes mellitus with hyperglycemia, without long-term current use of insulin ([facility]) 1 units of lipase before breakfast. 1 kit 023 Active hydrOXYzine HCl (Atarax) 10 MG tabletIndications :Pruritus Take 1 tablet (10 mg) by mouth if needed at bedtime for itching. 30 tablet 023 Active doxepin (SINEquan) 10 MG capsuleIndication s:Pruritus Take 1 capsule (10 mg) by mouth at bedtime. 30 capsule 023 Active Diclofenac Sodium (Voltaren) 1 % gel Apply 1 Application topically every 12 (twelve) hours. 200 g 023 Active TRUEplus Lancets 33G misc TEST BLOOD SUGAR EVERY EVENING 30 each 11 023 Active Clotrimazole Anti-Fungal 1 % creamIndications: Pruritus of vagina APPLY TO AFFECTED AREA(S) AND SURROUNDING AREA(S) TWICE DAILY IN THE MORNING AND EVENING 90 g 023 Active ciprofloxacin-hyd rocortisone (Cipro HC) otic suspension PLACE THREE DROPS IN THE RIGHT EAR TWICE DAILY FOR SEVEN DAYS Active albuterol (2.5 MG/3ML) 0.083% nebulizer solution USE ONE AMPULE USING A NEBULIZER EVERY 4 HOURS 360 mL 6 Active polyethylene glycol, PEG, 3350 (Glycolax) 17 GM/SCOOP powder Take 17 g by mouth Once per day. STIR 17GM INTO 8 OUNCES OF WATER, OR JUICE, AND DRINK DAILY NEEDED / DIRECTED 510 g 5 024 Active Alcohol Swabs (Alcohol Prep) 70 % pads USE TWO DAILY 100 each 11 024 Active nitroglycerin (Nitrostat) 0.4 MG SL tablet DISSOLVE 1 TABLET UNDER THE TONGUE EVERY 5 MINUTES NEEDED FOR CHEST PAIN. DO NOT EXCEED A TOTAL OF 3 DOSES IN 15 MINUTES. 25 tablet 3 Active lactulose (Chronulac) 10 GM/15ML solution TAKE 15 ML BY MOUTH TWICE DAILY NEEDED FOR CONSTIPATION 946 mL 5 024 Active triamcinolone (Kenalog) 0.1 % creamIndications: Xerosis cutis Apply topically if needed in the morning and at bedtime (pain and swelling). Mix with Cerave 80 g 11 024 Active dextran 70-hypromellose (artificial tears) 0.1-0.3 % ophthalmic solutionIndicatio ns:Dry eyes, bilateral Administer 1 drop into both eyes if needed in the morning, at noon, and at bedtime for dry eyes. 15 mL 6 024 2024 Active atorvastatin (Lipitor) 80 MG tablet Take 1 tablet (80 mg) by mouth in the morning. 90 tablet Active cholecalciferol (Vitamin D-3) 25 MCG tablet Take 1 tablet (25 mcg) by mouth in the morning. 90 tablet Active magnesium oxide (Mag-Ox) 400 MG tabletIndications :Cramp and spasm Take 1 tablet (400 mg) by mouth in the morning. 90 tablet Active hydroCHLOROthiazi de 12.5 MG tablet Take 1 tablet (12.5 mg) by mouth in the morning. 90 tablet 1 Active QUEtiapine (SEROquel) 25 MG tablet Take 0.5 tablets (12.5 mg) by mouth at bedtime. 45 tablet 1 Active furosemide (Lasix) 20 MG tablet Take 1 tablet (20 mg) by mouth Once per day. 1 tablet 3 Active clopidogrel (Plavix) 75 MG tablet Take 1 tablet (75 mg) by mouth Once per day. 30 tablet 3 Active docusate sodium (Colace) 100 MG capsule Take 1 capsule (100 mg) by mouth 2 times daily. TAKE ONE CAPSULE IN THE MORNING AND EVENING NEEDED FOR CONSTIPATION 60 capsule 5 Active metFORMIN (Glucophage) 1000 MG tablet Take 1 tablet (1,000 mg) by mouth with breakfast and with evening meal. 180 tablet 5 Active montelukast (Singulair) 10 MG tablet Take 1 tablet (10 mg) by mouth at bedtime. 30 tablet 3 Active losartan (Cozaar) 100 MG tablet Take 1 tablet (100 mg) by mouth in the morning. 90 tablet 1 Active gabapentin (Neurontin) 600 MG tabletIndications :Diabetic polyneuropathy associated with type 2 diabetes mellitus (CMS/HCC) Take 1 tablet (600 mg) by mouth 2 times daily. 60 tablet 2 024 2024 Active amLODIPine (Norvasc) 10 MG tablet Take 1 tablet (10 mg) by mouth in the morning. 90 tablet 3 Active SITagliptin (Januvia) 100 MG tablet Take 1 tablet (100 mg) by mouth Once per day. 90 tablet 3 Active tiotropium-olodat anthony (Stiolto Respimat) 2.5-2.5 MCG/ACT aerosol solution inhalerIndication s:Obstructive lung disease (CMS/HCC) INHALE TWO PUFFS BY MOUTH ONCE DAILY 4 g 11 Active glucose blood (FREESTYLE LITE) test strip Test blood capillary glucose BID 60 strip 11 Active glipiZIDE (Glucotrol) 5 MG tablet TAKE 1 TABLET BY MOUTH TWICE DAILY IN THE MORNING AND IN THE EVENING BEFORE BREAKFAST AND BEFORE SUPPER 60 tablet 1 Active ferrous gluconate (Fergon) 324 (38 Fe) MG tabletIndications :Iron deficiency anemia, unspecified iron deficiency anemia type TAKE 1 TABLET BY MOUTH EVERY OTHER DAY 15 tablet 1 Active isosorbide mononitrate ER (Imdur) 30 MG 24 hr tablet TAKE 1 TABLET BY MOUTH EVERY MORNING 30 tablet 2 Active albuterol 108 (90 Base) MCG/ACT inhalerIndication s:Chronic obstructive pulmonary disease, unspecified COPD type (CMS/HCC) Inhale 2 puffs every 6 (six) hours if needed for wheezing. 8.5 g 1 Active clotrimazole (Lotrimin) 1 % external solutionIndicatio ns:Intertrigo Apply topically 2 times daily for 28 days. 30 mL 2 025 2024 Active predniSONE (Deltasone) 10 MG tablet Take 6 tabs PO daily x 2 days then 5 tabs daily x 2 days then 4 tabs daily x 2 days then 3 tabs daily x 2 days then 2 tabs daily x 2 days then 1 tab daily x 2 days then 1/2 tab daily x 2 days 43 tablet 025 2024 Active azithromycin (Zithromax) 250 MG tablet Take 2 tablets PO today then 1 tablet PO daily x 4 days 6 tablet Active benzonatate (Tessalon Perles) 100 MG capsule Take 1 capsule (100 mg) by mouth if needed in the morning, at noon, and at bedtime for cough for up to 10 days. Do not crush or chew. 30 capsule 025 2024 Active fluticasone (Flonase) 50 MCG/ACT nasal spray Administer 1 spray into each nostril Once per day. 16 g 3 025 2024 Active cetirizine (ZyrTEC) 10 MG tablet Take 0.5 tablets (5 mg) by mouth Once per day. 15 tablet 3 025 2025 Active guaiFENesin (Mucinex) 600 MG 12 hr tablet Take 2 tablets (1,200 mg) by mouth if needed in the morning and at bedtime for cough or congestion. Do not crush, chew, or split. 30 tablet 025 2025 Active cefpodoxime (Vantin) 200 MG tablet Take 1 tablet (200 mg) by mouth 2 times daily for 7 days. 14 tablet 025 2024 Active albuterol 108 (90 Base) MCG/ACT inhalerIndication s:Chronic obstructive pulmonary disease, unspecified COPD type (CMS/HCC) INHALE TWO PUFFS EVERY 4 HOURS NEEDED 8.5 g 1 024 2024 Discontinued(R eorder (will not trigger notification to Pharmacy)) fluticasone (Flonase) 50 MCG/ACT nasal spray Administer 1 spray into each nostril Once per day. 16 g 024 2024 Discontinued(R eorder (will not trigger notification to Pharmacy)) ferrous gluconate (Fergon) 324 (38 Fe) MG tabletIndications :Iron deficiency anemia, unspecified iron deficiency anemia type Take 1 tablet (324 mg) by mouth every other day. 15 tablet 1 024 2023 Discontinued isosorbide mononitrate ER (Imdur) 30 MG 24 hr tablet Take 1 tablet (30 mg) by mouth in the morning. 30 tablet 024 2024 Discontinued levothyroxine (Synthroid, Levoxyl) 50 MCG tabletIndications :Acquired hypothyroidism Take 1 tablet (50 mcg) by mouth before breakfast. 90 tablet 2 024 2024 Discontinued Hospital, Clinic, or Other Facility Administered Medication Ordered Dose Route Frequency Start Date End Date Status albuterol (2.5 MG/3ML) 0.083% nebulizer solution 2.5 mgIndications:Chroni c obstructive pulmonary disease, unspecified COPD type (CMS/HCC) 2.5 mg NEBULIZATION Once 11/21/2024 11/21/2024 Ended Active Problems Problem Noted Date Diagnosed Date Intertrigo 11/04/2024 Assessment & Plan (11/04/2024 2:14 PM EST): Maintain area dry and clean Clotrimazole BID for 2 weeks Colostomy care 11/04/2024 Assessment & Plan (11/04/2024 2:14 PM EST): Prescription for colostomy bags and adhesives will be generated Prescription for more wipes will be generated Sacral pressure ulcer 11/04/2024 Assessment & Plan (11/04/2024 2:15 PM EST): Improving almost resolve Diabetic polyneuropathy asso ciated with type 2 diabetes mellitus 08/27/2024 Assessment & Plan (08/27/2024 3:56 PM EDT): I will increase gabapentin to 600mg BID Nail abnormality 08/27/2024 Assessment & Plan (08/27/2024 3:57 PM EDT): F/u with dermatology Pruritic dermatitis 08/27/2024 Assessment & Plan (08/27/2024 3:57 PM EDT): F/u with dermatology 08/29/24 Upper respiratory tract infection 07/17/2024 Assessment & Plan (07/17/2024 3:23 PM EDT): Seems to be resolving. Use Flonase daily and increase PO fluids. Vial testing is negative today Dizziness 07/17/2024 Assessment & Plan (07/17/2024 3:27 PM EDT): Seems to be multifactorial, may have vertigo triggered by recent URI, pt has poor appetite that may trigger large BS fluctuations and dehydration. Advised to increase fluids, meal frequency and check finger sticks. Use Flonase prn as a congestant. Get labs done and follow up with PCP. Hair loss 05/07/2024 Assessment & Plan (05/07/2024 3:27 PM EDT): Dermatology referral Pruritus 09/19/2023 Assessment & Plan (09/19/2023 2:20 PM EST): Patient still presents visit with complaints of itchiness due to Pruritus. Therefore, will be prescribing Doxepin, Cetirizine, Prednisone and Kenalog cream. Left-sided back pain 09/19/2023 Hemorrhagic otitis externa of left ear Assessment & Plan (08/03/2023 1:48 PM EDT): Patient will be prescribed Otic Suspension to treat ear drainage. Dietary counseling 08/03/2023 Morbid obesity 08/03/2023 Assessment & Plan (08/03/2023 1:47 PM EDT): Discussed calorie deficit, recommended reduction of 20-30% of maintenance calories; stranner referral offered. Recommended to decrease soda and sugary beverage consumption. Recommended at least 20 g per meal of protein to assist with satiety. Recommended at least 150 min/week of moderate intensity exercise. Patient will be referred to Nutrition Therapy. Insomnia 04/20/2023 Assessment & Plan (04/20/2023 1:32 PM EDT): No improvement on doxepin. Will substitue for Seroquel 100 mg. Coronary artery disease of n ative artery of [place] heart with stable angina pectoris 04/19/2023 Primary hypertension 03/22/2023 Assessment & Plan (04/20/2023 1:33 PM EDT): Controlled. Continue current regimen. Assessment & Plan (03/22/2023 2:24 PM EDT): Blood pressure elevated at time of visit with a reading of 148/82 mmHg. Currently on max dose of amlodipine and losartan. Will add hydrochlorothiazide to regimen. Major depressive disorder, recurrent, moderate 0 02/19/2023 Assessment & Plan (07/17/2024 3:24 PM EDT): Referred to psychotherapist. She does not want to take Duloxetine, she will follow up with psychiatrist (Hayley Rm). Assessment & Plan (06/05/2023 11:35 AM EDT): Assessment: Libby was engaged with active reflective listening and open-ended questions. Assessed symptoms, risks, and social supports with direct questions. Discussed current symptoms intensity and frequency. Emotions were normalized and validated. She identified praying as coping mechanisms and her grandsons as protective factors. Provided psychoeducation around relaxation techniques. Discussed OP therapy and medication management, she agreed to Ind. Therapy. Provided education around integrated medicine and the options of follow up BE's as needed. Provided contact information should questions or concerns arise. Plan: Libby will continue to engage in effective coping mechanisms that has worked for her in the past and will implement the one provided. She will be referred for OP services. At this time Libby Almanzar meets criteria for Visit Diagnoses: Problem List Items Addressed This Visit Other Major depressive disorder, recurrent episode, unspecified ([facility]/HCC) Patient ready to address current needs Yes Strengths include willing to seek treatment PLAN: 1. Follow up with [facility]: Not recommended for follow-up 2. Patient goal is to have someone to talk about her problems 3. Behavioral Recommendations a. Ind. Therapy b. Use of coping skills Dyspnea on exertion 02/01/2023 Depressed mood 02/01/2023 Cramps, extremity 11/02/2022 Assessment & Plan (11/02/2022 6:17 PM EST): Reports upper and lower extremity cramps, poor historian, will send labs to r/o any vitamin deficiencies associated with her symptoms. Pruritus of vagina 10/17/2022 Mood disorder 10/17/2022 Mass of right ear 10/17/2022 Hearing problem 10/17/2022 Chronic right shoulder pain 10/17/2022 Thrombocytopenia 10/17/2022 Disorder of abdominal wall 02/20/2019 Chronic obstructive lung disease 02/20/2019 Assessment & Plan (07/17/2024 5:23 PM EDT): Has mild acute exacerbation. Most likely from recent URI, pt does not seem to have active URI condition. Advised to use nebulizer every 6 hours prn SOB or cough. The patient was prescribed a nebulizer today from the DME vendor [employer]. Instructions on how to use the nebulizer were provided. Continue Stiolto inhaler and follow up with PCP. Osteopenia 08/06/2018 Ventral incisional hernia 07/05/2018 Uncomplicated asthma 07/05/2018 Type 2 diabetes mellitus 07/05/2018 Assessment & Plan (08/27/2024 3:58 PM EDT): Diabetes is: controlled - Lab Results Component Value Date HGBA1C 7.0 (A) 08/27/2024 HGBA1C 6.9 (A) 05/07/2024 HGBA1C 6.6 (A) 09/19/2023 -No results found for: GLUF , MICROALBUR , LDLCALC , CREATININE -Changes: none - Diabetic eye exam:up to date - Diabetic foot exam:referral today - Continue lifestyle modifications - Continue current medications - Follow up: 3 months Assessment & Plan (07/17/2024 3:22 PM EDT): Last A1c was at goal, pt seems to be having hypoglycemic episode due to poor PO intake. Advised increase have some in fraction meals and follow up with PCP next month. She was given crackers with water today. Assessment & Plan (05/07/2024 3:26 PM EDT): Diabetes is: controlled - Lab Results Component Value Date HGBA1C 6.9 (A) 05/07/2024 HGBA1C 6.6 (A) 09/19/2023 HGBA1C 7.7 (A) 06/04/2023 -No results found for: GLUF , MICROALBUR , LDLCALC , CREATININE -Changes: none - Diabetic eye exam: - Diabetic foot exam: - Continue lifestyle modifications - Continue current medications - Follow up: 3 months Assessment & Plan (09/19/2023 2:20 PM EST): Controlled: A1C levels are within normal limits. Patient will not have any changes at this time. Recommended to keep monitoring glucose levels at home, and bring number upon next office visit. Assessment & Plan (06/04/2023 2:03 PM EDT): Controlled. Continue current regimen and follow up in 3 months. Assessment & Plan (04/20/2023 1:11 PM EDT): Home glucose fasting 125-196 mg/dL, reports poor appetite, no weight changes. Reports only using glipizide if she is eating. Assessment & Plan (03/22/2023 2:25 PM EDT): Uncontrolled. On metfomrin and januvia will add glipizide. If no improvement will consider adding insulin injection. Will follow up within the month. Assessment & Plan (11/02/2022 6:18 PM EST): Uncontrolled. Refuses to take injections, insulin or glipizide. Declined further management, at this point will continue with metformin and januvia. Can always consider other agents if patient is amendable to this. {Discontinued glipizide from her chart. Osteoarthritis of knee 07/05/2018 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 Hyperlipidemia associated wi th type 2 diabetes mellitus ([facility]) 07/05/2018 Colostomy present 07/05/2018 Assessment & Plan (11/02/2022 6:17 PM EST): Patient has an ostomy bag and reports that supplies provided don't last for her and that she needs to change her lining at least every 2-3 days, reports insurance is only providing 4 changes per month, I will send message to DME specialist Acquired hypothyroidism 07/05/2018 Resolved Problems Problem Noted Date Diagnosed Date Resolved Date Acute otitis externa of right ear 02/01/2023 06/04/2023 Disorder of vision 10/17/2022 4 Encounters Date Type Department Care Team Description 11/21/2024 10:20 AM EST Office Visit [facility] [address] [place] [phone] Odette Oliva DO Chronic obstructive pulmonary disease with acute exacerbation (CMS/HCC) (Primary Dx) 11/21/2024 Telephone [facility] [address] [place] [phone] Odette Oliva DO 11/21/2024 Telephone [facility] [address] [place] [phone] Odette Oliva, 11/21/2024 Telephone [facility] [address] [place] [phone] Racheal Power, AUDREY [facility] triage; Pulmonolgy visit and last EKG @ [facility] 11/14/2024 1:00 PM EST Clinical Support [facility] [address] [place] [phone] Type 2 diabetes mellitus with hyperglycemia, without long-term current use of insulin ([facility]) (Primary Dx) 11/14/2024 Travel 11/11/[address] [phone] Janeen Allen MD Durable Medical Equipment 11/07/[address] [phone] Janeen Allen MD Durable Medical Equipment (Home Care Delivered Form: Gloves, ) 11/04/2024 1:00 PM EST Office Visit [address] [phone] Janeen Allen MD Intertrigo (Primary Dx); Chronic obstructive pulmonary disease, unspecified COPD type (CMS/HCC); Colostomy care (CMS/HCC); Diabetic polyneuropathy associated with type 2 diabetes mellitus (CMS/HCC); Pressure injury of skin of sacral region, unspecified injury stage 11/04/2024 Travel 11/04/[address] [phone] Janeen Allen MD Durable Medical Equipment (Home Care Delivered: Ostomy Supplies) 10/31/2024 Refill [facility] [address] [place] [phone] Janeen Allen MD 10/27/2024 Telephone [facility] [address] [place] [phone] Janeen Allen MD Nurse Triage 10/25/2024 Refill [facility] [address] [place] [address] Janeen Allen MD [facility] 10/24/2024 Refill [facility] [address] [place] [address] Janeen Allen MD Iron deficiency anemia, unspecified iron deficiency anemia type 10/09/2024 Telephone [facility] [address] [place] [address] Gael Cummings MA Durable Medical Equipment 10/03/2024 1:00 PM EST Clinical Support [facility] [address] [place] [address] Type 2 diabetes mellitus with hyperglycemia, without long-term current use of insulin ([facility]) (Primary Dx) 10/03/2024 Travel 10/01/2024 Refill [facility] [address] [place] [address] Janeen Allen MD 09/27/2024 Refill [facility] [address] [place] [address] Eneida Cornejo MD Acquired hypothyroidism 09/27/2024 Refill [facility] [address] [place] [address] Janeen Allen MD 09/24/2024 Telephone [facility] [address] [place] [phone] Janeen Allen MD Forms/questionnaires 09/05/2024 Refill [facility] [address] [place] [address] Janeen Allen MD Cramp and spasm; Diabetic polyneuropathy associated with type 2 diabetes mellitus (CMS/HCC); Acquired hypothyroidism; Obstructive lung disease (CMS/HCC) 09/03/2024 Telephone [facility] [address] [place] [phone] Ana Orantes, AUDREY Results 09/03/2024 Orders Only [facility] [address] [place] [phone] Janeen Allen MD Iron deficiency anemia, unspecified iron deficiency anemia type (Primary Dx) 09/02/2024 2:30 PM EST Office Visit [facility] [address] [place] [phone] Pina Ray, JAE Type 2 diabetes mellitus without complication, without long-term current use of insulin ([facility]) (Primary Dx); Dry eyes, bilateral; Presbyopia; Presence of intraocular lens 09/02/2024 Travel 08/29/2024 1:00 PM EDT Office Visit [facility] [address] [place] [phone] Johny Healy MD Xerosis cutis (Primary Dx); Cheilitis 08/29/2024 Orders Only [facility] [address] [place] [phone] Chichi Jean MD 08/29/2024 Telephone [facility] [address] [place] [phone] Ana Orantes, AUDREY Results 08/29/2024 Travel 08/27/2024 2:45 PM EDT Office Visit [facility] [address] [place] [phone] Janeen Allen MD Diabetic polyneuropathy associated with type 2 diabetes mellitus ([facility]CC) (Primary Dx); Type 2 diabetes mellitus with hyperglycemia, without long-term current use of insulin ([facility]); Nail abnormality; Pruritic dermatitis 08/27/2024 Travel 08/22/2024 1:00 PM EDT Nutrition [facility] [address] [place] [phone] Brielle Bass, CLAUDIA Type 2 diabetes mellitus with hyperglycemia, without long-term current use of insulin ([facility]) 08/22/2024 Travel from Last 3 Months Immunizations Name Administration Dates Next Due Pfizer Covid-19 Vaccine 12+ 03/18/2021, Social History Tobacco Use Types Packs/Day Years [...] not to disclose 2021 10:33 AM EDT Last Filed Vital Signs Vital Sign Reading Time Taken Comments Blood Pressure 106/70 11/21/2024 10:29 AM EST Pulse 116 11/21/2024 10:29 AM EST Temperature 36.7 ??C (98.1 ??F) 11/21/2024 1 0:29 AM EST Respiratory Rate 22 11/21/2024 10:2 9 AM EST Oxygen Saturation 96% 11/21/2024 12: 16 PM EST after nebulizer treatment Inhaled Oxygen Concentration - - Weight 89.8 kg (198 lb) 11/04/2024 12:4 9 PM EST Height 149.9 cm (4' 11 ) 11/04/2024 12: 49 PM EST Body Mass Index 39.99 11/04/2024 12:49 PM EST Plan of Treatment Health Maintenance Due Date Last Done Comments Pneumococcal Vaccine: 65+ Years (1 of 2 - PCV) 1951 Diabetes: Foot Exam 1955 Hepatitis C Screening 1963 DTaP/Tdap/Td Vaccines (1 - Tdap) 1964 Zoster Vaccines (1 of 2) 1995 RSV Patients and Patients Aged 60 years or older (1 - 1-dose 75+ series) 2020 COVID-19 Vaccine (3 - season) 2024 03/18/2021, 02/24/2021 Influenza Vaccine (#1) 2024 Diabetes: Hemoglobin A1C 11/27/202408/27/ 024, 05/07/2024, 09/19/2023, Additional history exists Alcohol/Substance Use Screening 08/27/2025 08/27/2024 SDOH Screening 08/27/2025 08/27/2024 Diabetes: Urine Protein Screening 08/29/2025 08/29/2024 Lipid Panel 08/29/2025 08/29/2024 Depression Screening 11/04/2025 11/04/2024, 11/04/19 Tobacco Screening 11/04/2025 11/04/2024 Eye Exam 09/02/2026 09/02/2024, 11/0 02/2024, 09/02/2024, Additional history exists HIB Vaccines Aged Out No longer eligi ble based on patient's age to complete this topic HPV Vaccines Aged Out No longer eligi ble based on patient's age to complete this topic Hepatitis A Vaccines Aged Out No long er eligible based on patient's age to complete this topic Hepatitis B Vaccines Aged Out No long er eligible based on patient's age to complete this topic IPV Vaccines Aged Out No longer eligi ble based on patient's age to complete this topic Meningococcal Vaccine Aged Out No alin hany eligible based on patient's age to complete this topic RSV under 20 months Aged Out No longe r eligible based on patient's age to complete this topic Rotavirus Vaccines Aged Out No longer eligible based on patient's age to complete this topic Procedures Procedure Name Priority Date/Time Associated Diagnosis [...] obstructive pulmonary disease with acute exacerbation (CMS/HCC) IRON AND TOTAL IRON BINDING CAPACITY Routine 08/29/2024 12:20 PM EDT FERRITIN Routine 08/29/2024 12:20 PM EDT Dizziness ALBUMIN, RANDOM URINE W/CREATININE Routine 08/29/2024 12:20 PM EDT Type 2 diabetes mellitus with hyperglycemia, without long-term current use of insulin (CMS/HCC) CBC WITH AUTO DIFFERENTIAL Routine 08/29/2024 12:20 PM EDT Type 2 diabetes mellitus with hyperglycemia, without long-term current use of insulin (CMS/HCC) LIPID PANEL WITH REFLEX TO DIRECT LDL Routine 08/29/2024 12:20 PM EDT Type 2 diabetes mellitus with hyperglycemia, without long-term current use of insulin (CMS/HCC) RPR (MONITOR) W/REFL TITER Routine 08/29/2024 12:20 PM EDT Type 2 diabetes mellitus with hyperglycemia, without long-term current use of insulin (CMS/HCC) Hair loss TSH W/REFLEX TO FT4 Routine 08/29/2024 1 2:20 PM EDT Type 2 diabetes mellitus with hyperglycemia, without long-term current use of insulin (CMS/HCC) Hair loss COMPREHENSIVE METABOLIC PANEL Routine 08/29/2024 12:20 PM EDT Type 2 diabetes mellitus with hyperglycemia, without long-term current use of insulin (CMS/HCC) VITAMIN B12/FOLATE, SERUM PANEL Routine 08/29/2024 11:20 AM EDT Pruritus POCT GLYCATED HEMOGLOBIN, TOTAL Routine 08/27/2024 3:00 PM EDT Type 2 diabetes mellitus with hyperglycemia, without long-term current use of insulin (CMS/HCC) POCT GLUCOSE Routine 08/27/2024 2:59 PM EDT Type 2 diabetes mellitus with hyperglycemia, without long-term current use of insulin (CMS/HCC) from Last 3 Months Results * XR Chest 2 Views (11/21/2024 11:54 AM EST) Anatomical Region Laterality Modality Chest Radiographic Diane ging 11/21/2024 11:5 4 AM EST Narrative 11/21/2024 1:14 PM EST ?[facility] ?[address] ?[place] [address] ?XRay Report ? Signed ? Patient: Almanzar,Libby ?MR#: [id number] ? : 1945 ?Acct:[id number] ? Age/Sex: 79 / F ?ADM Date: 11/21/24 ? Loc: HO.HHCX ? Attending Dr: Odette Oliva DO ? Ordering Physician: Odette Oliva DO ?? Date of Service: 11/21/24 ?? Procedure(s): XR chest 2V ?? Accession Number(s): [id number] ? cc: Odette Oliva DO ? EXAMINATION: [...] DD/ 1154 ? TD/TT: 11/21/24 1200 ? Ferryboat Ticket Taker: ? Procedure Note Baylee, Image - 11/21/[address] [address] XRay Report Signed Patient: Nina Almanzar#: [id number] : 5Acct:[id number] Age/Sex: 79 / FADM Date: 11/21/24 Loc: .HHCX Attending Dr: Odette Oliva DO Ordering Physician: Odette Oliva DO Date of Service: 11/21/24 Procedure(s): XR chest 2V Accession Number(s): [id number] cc: Odette Oliva DO EXAMINATION: XR CHEST [...] 11/21/24 1311 DD/ 1154 TD/TT: 11/21/24 1200 Ferryboat Ticket Taker: Odette Oliva DO IMG XR PROCEDURES Final Resu lt * Influenza B (ID NOW Rapid Molecular) (11/21/2024 11:22 AM EST) [facility] Influenza B Negative Negative, Indeterminate [facility] Swab 11/21/2024 11:2 2 AM EST Odette Oliva DO POINT OF CARE TEST ENTER/JULIET T ORDERABLES Final Result [facility] [address] [place] [phone] * Influenza A (ID NOW Rapid Molecular) (11/21/2024 11:22 AM EST) [facility] Influenza A Negative Negative, Indeterminate [facility] Swab 11/21/2024 11:2 2 AM EST Odette Oliva DO POINT OF CARE TEST ENTER/JULIET T ORDERABLES Final Result Performing Organization Address [facility]/ZIP Co de Phone Number [facility] [address] [place] [phone] * POCT Rapid COVID Ag (11/21/2024 11:22 AM EST) Pathologist [facility] Rapid COVID Ag Negative [facility] Swab 11/21/2024 11:2 2 AM EST Odette Oliva DO POINT OF CARE TEST ENTER/JULIET T ORDERABLES Final Result Performing Organization Address [facility] Co de Phone Number [facility] [address] [place] [address] [phone] * TSH with Reflex to Free T4 (08/29/2024 12:20 PM EDT) Pathologist [facility] TSH reflex Free T4 2.42 0.32 - 4.0 uIU/mL [facility] Blood 08/29/2024 12:2 0 PM EDT 08/29/2024 1:28 PM EDT Janeen Medina MD LAB BLOOD ORDERABLES Final Result Performing Organization Address [facility]/ZIP Co de Phone Number [facility] [address] [place] [phone] * (ABNORMAL) Lipid Panel with Reflex to Direct LDL (08/29/2024 12:20 PM EDT) Pathologist [facility] Triglycerides 211(H) <150 mg/dL [facility] Comment:Desirable Triglyceri de: less than 150 mg/dLBorderline High Triglyceride 150-199 mg/dLHigh Triglyceride: 200-499 mg/dLVery High Triglyceride: greater than or equal to 5OO mg/dL Cholesterol 120 <200 mg/dL [facility] Comment:Desirable Cholestero l: less than 200 mg/dLBorderline High Cholesterol: 200-239 mg/dLHigh Cholesterol: greater than 239 mg/dL LDL Cholesterol Calculated 45 <100 mg/dL [facility] Comment:Desirable LDL: less than 100 mg/dLNear Optimal/Above Optimal LDL: 110- 129 mg/dLBorderline High LDL: 130-159 mg/dLHigh LDL: 160-189 mg/dLVery High LDL: greater than or equal to 190 mg/dL HDL Cholesterol 33(L) >40 mg/dL [facility] Comment:Desirable HDL: great er than 40 mg/dL Note: This HDL assay may give artificially low results in patients with liver disease. Blood 08/29/2024 12:2 0 PM EDT 08/29/2024 1:28 PM EDT us Janeen Medina MD LAB BLOOD ORDERABLES Final Result Performing Organization Address [facility] Co de Phone Number [facility] [address] [place] [phone] * Albumin, Random Urine W/Creatinine (08/29/2024 12:20 PM EDT) Creatinine, Urine 38.34 mg/dL [facility] Microalbumin Urine <5.0 mg/L [facility] Microalbum Creatinine Ratio Ur TNP <30 ug/mg cr [facility] Comment:Unable to calculate albumin/creatinine ratio due to lowmicroalbumin or creatinine result. Urine (Urine, Random) 08/29/2024 12:20 PM EDT 08/29/2024 4:38 PM EDT us Janeen Medina MD LAB URINE ORDERABLES Final Result Performing Organization Address [facility]/ZIP Co de Phone Number [facility] [address] [place] [phone] * (ABNORMAL) CBC auto differential (08/29/2024 12:20 PM EDT) White Blood Count 9.7 4.8 - 10.8 X10*3/uL [facility] Red Blood Count 4.40 4.20 - 5.50 X10*6/uL [facility] Hemoglobin 9.3(L) 12.0 - 16.0 g/dl [facility] Hematocrit 29.3(L) 37.0 - 47.0 % [facility] Mean Corpuscular Volume 66.6(L) 80.0 - 98.0 fL [facility] Mean Corpuscular Hemoglobin 21.1(L) 27.0 - 33.0 pg [facility] Mean Corpuscular HGB Conc 31.7 31.0 - 35.0 g/dl [facility] Red Cell Distribution Width 17.2(H) 11.0 - 16.0 % [facility] Platelet Count 284 160 - 400 X10*3/uL [facility] Mean Platelet Volume 9.9 9.4 - 12.3 fL [facility] Neutrophils Percent Auto 67.6 45 - 73 % [facility] Imm Gran Pct Auto 0.7(H) 0.0 - 0.4 % [facility] Lymphocytes Percent Auto 23.8 20 - 40 % [facility] Monocytes Percent Auto 6.3 2 - 11 % [facility] Eosinophils Percent Auto 1.1 0 - 4 % [facility] Basophils Percent Auto 0.5 0 - 2 % [facility] NRBC Pct Auto 0.0 0.0 - 0.2 /100WBC [facility] Neutrophils Absolute Auto 6.6 2.0 - 8.3 x10*3/uL [facility] Imm Gran Abs Auto 0.07(H) 0.00 - 0.03 X10*3/uL [facility] Lymphocytes Absolute Auto 2.3 1.2 - 4.9 X10*3/uL [facility] Monocytes Absolute Auto 0.6 0.1 - 1.2 X10*3/uL [facility] Eosinophils Absolute Auto 0.1 0.0 - 0.4 X10*3/uL [facility] Basophils Absolute Auto 0.1 0.0 - 0.2 X10*3/uL [facility] NRBC Abs Auto 0.000 0.0 - 0.012 X10*3/uL [facility] Blood Venous blood specimen / Unknown 08/29/2024 12:20 PM EDT 08/29/2024 1:28 PM EDT us Janeen Medina MD LAB BLOOD ORDERABLES Final Result Performing Organization Address [facility]/ZIP Co de Phone Number [facility] [address] [place] [address] [phone] * (ABNORMAL) Iron And Total Iron Binding Capacity (08/29/2024 12:20 PM EDT) Iron 20(L) 30 - 160 mcg/dL [facility] Total Iron Binding Capacity 373 228 - 428 mcg/dL [facility] Percent Iron Saturation 5(L) 15 - 50 % [facility] Unsaturated Iron Binding 353 ug/dL [facility] 08/29/2024 12:2 0 PM EDT 08/29/2024 1:28 PM EDT us Chichi Jean MD LAB BLOOD ORDERABLES Fin al Result Performing Organization Address [facility]/ZIP Co de Phone Number [facility] [address] [place] [phone] * RPR (Monitor) with Reflex to??Titer (08/29/2024 12:20 PM EDT) RPR (Monitor) w/Refl Titer NON-REACTI VE NON-REACT TEMI [facility] Comment:THIS TEST WAS PERFOR MED AT:[facility] [place] [phone] VINES MD Rapid Plasma Reagin Ab Titer TNP [facility] Blood Venous blood specimen / Unknown 08/29/2024 12:20 PM EDT 08/29/2024 1:28 PM EDT us Janeen Medina MD LAB BLOOD ORDERABLES Final Result Performing Organization Address City/[facility]/ZIP Co de Phone Number [facility] [address] [place] [phone] * (ABNORMAL) Ferritin (08/29/2024 12:20 PM EDT) Ferritin 8(L) 10 - 250 ng/mL [facility] Blood Venous blood specimen / Unknown 08/29/2024 12:20 PM EDT 08/29/2024 1:28 PM EDT us Chichi Jean MD LAB BLOOD ORDERABLES Fin al Result Performing Organization Address City/[facility]/ZIP Co de Phone Number [facility] [address] [place] [phone] * (ABNORMAL) Comprehensive Metabolic Panel (08/29/2024 12:20 PM EDT) Pathologist [facility] Sodium 141 135 - 145 mmol/L [facility] Potassium 3.9 3.3 - 5.1 mmol/L [facility] Chloride 106 96 - 108 mmol/L [facility] Carbon Dioxide 23 22 - 29 mmol/L [facility] Anion Gap 16 12 - 20 [facility] Urea Nitrogen (BUN) 17(H) 9 - 16 mg/dL [facility] Creatinine, Serum 0.99 0.5 - 1.4 mg/dL [facility] Estimated Glomerular Filt Rate 54 [facility] Comment:NOTE: For -Am erican individuals, multiply the result by 1.210.Chronic Kidney Disease: Estimated GFR < 60 mL/min/1.44a5Duurlg Kidney Disease: Estimated GFR < 15 mL/min/1.73m2 Glucose 94 60 - 115 mg/dL [facility] Calcium 10.3(H) 8.4 - 10.2 mg/dL [facility] Bilirubin, Total 0.3 0.0 - 1.0 mg/dL [facility] Aspartate Amino Transferase 21 5 - 31 U/L [facility] Alanine Aminotransferase 15 0 - 31 U/L [facility] Total Protein 7.6 6.5 - 8.0 g/dL [facility] Albumin Level 4.0 3.5 - 5.0 g/dL [facility] Alkaline Phosphatase 116 39 - 117 U/L [facility] Blood Venous blood specimen / Unknown 08/29/2024 12:20 PM EDT 08/29/2024 1:28 PM EDT us Janeen Medina MD LAB BLOOD ORDERABLES Final Result Performing Organization Address [facility] Co de Phone Number [facility] [address] [place] [phone] * Vitamin B12/Folate, Serum Panel (08/29/2024 11:20 AM EDT) Vitamin B12 707 200 - 900 pg/mL [facility] Comment:NORMAL 200-900 PG/ML INDETERMINATE 160-199 PG/ML DEFICIENT < 160 PG/ML Folate 8.7 > or = 4.0 ng/mL [facility] Comment:Reference Values:> o r = 4.0 ng/mL< 4.0 ng/mL suggests folate deficiency Methotrexate, aminopterin and folinic acid(leucovorin) are chemotherapeutic agents whose molecularstructures are similar to folate; therefore, the Architectfolate assay cannot be used for patients using these drugs. Blood Venous blood specimen / Unknown 08/29/2024 11:20 AM EDT 08/29/2024 1:28 PM EDT us Janeen Medina MD LAB BLOOD ORDERABLES Final Result Performing Organization Address [facility] Co de Phone Number [facility] [address] [place] [phone] * (ABNORMAL) POCT HGB A1C (08/27/2024 3:00 PM EDT) Hemoglobin A1C 7.0(A) 4.0 - 6.0 % [facility] [employer] Lot # [id number] Lot# Expiration Date 7162,026 Blood 08/27/2024 3:00 PM EDT Janeen Medina MD POINT OF CARE TEST EN TER/EDIT ORDERABLES Final Result * POCT Glucose (08/27/2024 2:59 PM EDT) Glucose Blood, POC 127 60 - 200 mg/dL [facility] [employer] Lot # [id number] Lot# Expiration Date ,025 Blood Capillary blood specimen / Unknown 08/27/2024 2:59 PM EDT Janeen Medina MD POINT OF CARE TEST EN TER/EDIT ORDERABLES Final Result from Last 3 Months Insurance Care Teams Automobile Body Repair Supervisor Relationship Specialty Start Date End Date Janeen Allen MD [address] [place] [phone] PCP - General Internal Medicine 02/15/24
--- OUTSIDE RECORDS SUMMARY | 2024-11-21 14:06 | XMS_ITS | Encounter Summary ---
Author Organization [employer] Address [address] [facility] [address] [place] [address] Care Team Providers Care Storage Brine Worker Name Role Phone Janeen Allen MD Primary Care Provide r Reason for Visit * Reason Onset Date Comments Nurse Triage 07/01/2024 Encounter Details Date Type Department Care Team (Late st Contact Info) Description 07/01/2024 Telephone [facility] MEDICINE [address] [place], [place] [phone] Janeen Allen MD [address] [place], [place] [phone] Nurse Triage Social History Tobacco Use Types Packs/Day Years [...] encounter Miscellaneous Notes * Telephone Encounter - Jd Kaufman - 07/01/2024 8:08 AM EDT Symptoms: Dizziness, High Blood Sugar - Caller Reports Outcome: Talk to a nurse or provider within 15 minutes Reason: Known blood sugar above 250 The caller accepted this outcome Please contact at [phone] [place] documented in this encounter Plan of Treatment Not on file documented as of this encounter Visit Diagnoses Not on filedocumented in this encounter Additional Health Concerns Assessment Noted Time PHQ-9 Depression Total Score: 11 024 2:21 PM EDT documented as of this encounter Care Teams Storage Brine Worker Relationship Specialty Start Date End Date Janeen Allen MD [address] [place] [address] PCP - General Internal Medicine 02/15/24 documented as of this encounter
--- OUTSIDE RECORDS SUMMARY | 2024-11-21 14:06 | XMS_ITS | Encounter Summary ---
Author Organization [employer] Address [address] [facility] [address] [place] [address] Care Team Providers Care Computer Systems Consultant Name Role Phone Eneida Cornejo MD Primary Care Provider [phone] Janeen Allen MD Primary Care Provide r Encounter Details Date Type Department Care Team (Late st Contact Info) Description 10/24/2023 Telephone [facility] MEDICINE [address] [place] [phone] Eneida Cornejo MD [address] [place], [place] [phone] Social History Tobacco Use Types Packs/Day Years Used Date Smoking Tobacco: Never Passive Smoke Exposure: Never Smokeless Tobacco: Never Alcohol Use Standard Drinks/Week Comments Never 0 (1 standard drink = 0.6 oz pur e alcohol) Depression Answer Date Recorded Patient Health Questionnaire-9 Score 19 06/18/2023 Housing Stability Answer Date Recorded What is your housing situation today? I have omiroldan abreu 08/13/[address] you [...] documented as of this encounter Care Teams Computer Systems Consultant Relationship Specialty Start Date End Date Eneida Cornejo MD [address] [place] [phone] PCP - General Family Medicine 08/09/21 02/14/24 Janeen Allen MD [address] [place] [address] PCP - General Internal Medicine 02/15/24 documented as of this encounter
--- OUTSIDE RECORDS SUMMARY | 2024-11-21 14:06 | XMS_ITS | Encounter Summary ---
Author Organization [employer] Address [address] [place] [address] Care Team Providers Care Museum Assistant Name Role Phone Janeen Allen MD Primary Care Provide r Reason for Visit * Reason Comments Med Refill Encounter Details Date Type Department Care Team ([facility] st Contact Info) Description 09/27/2024 Refill [facility] [address] [place], [place] [phone] Janeen Allen MD [address] [place], [place] [phone] Social History Tobacco Use Types Packs/Day Years [...] documented as of this encounter Care Teams Museum Assistant Relationship Specialty Start Date End Date Janeen Allen MD [address] [place] [address] PCP - General Internal Medicine 02/15/24 documented as of this encounter
--- OUTSIDE RECORDS SUMMARY | 2024-11-21 14:06 | XMS_ITS | Data Portability ---
Author Organization [employer] [facility] Address [address] [place] [phone] Care Team Providers Care Senior Safety Management Consultant Name Role Phone [facility] Referring Provider HIM CCA OTHER Assessment Encounter Date Assessment Date Assessment LastModified by Organization Details LastModified Time 11/07/2023 11/07/2023 I provided real -time medical direction via phone for this encounter, and was available for additional phone based assistance as needed. I have reviewed and agree with the Assessment and Plan as documented by the Banquet Waiter/Waitress. We discussed the diagnostic uncertainty of home visits and the risk associated with this. In this case the patient and I felt this to be an acceptable and reasonable amount of risk given the benefit of avoiding an ED visit. The patient given the opportunity to ask questions. Advised needs close follow-up with PCP- to move slowly avoid uncomfortable movements-if she develops a blistering vesicular rash (which could be shingles- expl pain first then rash appears) she needs to be rechecked at once, and to move slowly avoid uncomfortable movements. She needs to limit NSAIDs due to HTn possible interaction w/ anti HTN meds/Plavix. Advised ice / wrapped in a towel alternating w/ gentle heat q 3-4H w/a to affected area Advised if develops CP/severe SOB/turning blue/uncontrolle d n/v/d or black/bloody emesis or stool/ AMS/ syncope/ intolerable back/leg pain/ hi fever unresponsive to APAP/loss of bowel or bladder control new focal weakness or severe numbness. To call 911- verbalized understanding of instructions [email or web address] Not available 11/08/2023 23:32:47 10/27/2024 10/27/2024 I provided real -time medical direction via phone for this encounter and was available for additional phone-based assistance as needed. I have reviewed and agree with the Assessment and Plan as documented by the Banquet Waiter/Waitress. Patient given the opportunity to ask questions. [...] it dry. No fever or chills. Per observer gravity prospecting on the scene, vital signs are stable and patient is afebrile. Please see uploaded pictures. No evidence of tracking. No tunneling present per observer gravity prospecting on the scene. Impression: Sacral ulcer Plan: [...] We discussed the need to seek care urgently/emergen tly in the setting of any new or worsening serious symptoms, particularly fever chills [email or web address] Not available 10/27/2024 17:19:31 Plan of Treatment Reminders Order Date Submit Date Provider Last Modified By Organization Details Last Modified Time Details Appointments None recorded. Lab rapid SARS CoV 2 Ag, QL IA, respiratory specimen 2023 [email or web address], [address], 15:17:26 Referral None recorded. Procedures None recorded. Surgeries None recorded. Imaging None recorded. Medication Orders ketorolac 30 mg/mL (1 mL) injection solution 2023 024 [email or web address] 0 Not available 15:17:26 zinc oxide 20 % topical ointment 2023 [email or web address] [id number], [address] [place], [address], 17:17:50 Patient TargetsNo targets recorded. Patient InstructionsNo instructions recorded. Reason for Referral None Reported. Results Created Date Observation Date Name Description Value Unit Range Abnormal Flag Note LastModifiedBy Organization Detail LastModifiedTime 11/07/19 24 11/07/2023 rapid SARS CoV 2 Ag, QL IA, respi rator y speci men rapid SARS CoV 2 Ag, QL IA, respiratory specimen positi ve Not Available [address], [address], 11/07/2023 15:04:46 Result Notes None recorded. Medical Equipment None Reported. Allergies Allergen ID Allergen Name Allergen Category Reaction Reaction Severity Criticality Documentation Date Start Date Code Code System Note Provider Name and Address Organization Details Recorded Time 40767 iodine medicatio n Not available Not available Not available 10/27/2024 5933 RxNorm Not Available [facility] - production 4 10:54:03 61515 penicilli n G benzathin e medicatio n Not available Not available Not available 10/27/2024 7982 RxNorm Not Available [facility] - production 4 10:54:03 65417 penicilli n G procaine medicatio n Not available Not available Not available 10/27/2024 7983 RxNorm Not Available [facility] - production 4 10:54:03 4322 Product containin g penicilli n and antibioti c (product) medicatio n Not available Not available Not available 11/07/2023 66240 05 SNOMED Not Available [facility] - production 4 03:38:15 4323 aspirin medicatio n Not available Not available Not available 11/07/2023 1191 RxNorm Not Available [facility] - production 4 10:54:03 4324 codeine medicatio n Not available Not available Not available 11/07/2023 2670 RxNorm Not Available [facility] - production 4 10:54:03 4325 oxycodone medicatio n Not available Not available Not available 11/07/2023 7804 RxNorm Hayley Soto MD [address] [facility],[address], [place], [address] , [place] YIMI CASTANEDA 14:51:28 Medications Name Sig Start Date Stop [...] Not Available Not Available Not Available [employer] Monhegan Lite kit TEST BLOOD SUGAR TWICE DAILY [...] Available No t Available Vitals Date Recorded Oxygen saturation Oxygen saturation in Arterial blood by Pulse oximetry Heart rate Body temperature Respiratory rate Systolic blood pressure Diastolic blood pressure Provider Name and Address Organization Details Last Updated DateTime 4 95 % 95 % 95 /min 99.8 [degF] 10 /min 142 mm[Hg] 58 mm[Hg] Not Available [email or web address] - production 4 14:44:43 Date Recorded Body weight Provider Name an d Address Organization Details Last Updated DateTime 11/07/2023 28882.51 g Luis Montero [address] [place] [address],[address], [place], [address], [place] [facility] 11/07/2023 15:05:44 Date Recorded Respiratory rate Heart rate Oxygen saturation Oxygen saturation in Arterial blood by Pulse oximetry Body temperature Systolic blood pressure Diastolic blood pressure Provider Name and Address Organization Details Last Updated DateTime 4 16 /min 94 /min 95 % 95 % 99.1 [degF] 101 mm[Hg] 62 mm[Hg] Not Available [facility] 4 15:26:47 Social History None recorded. Functional Status None recorded. Mental Status None recorded. Family History Nothing Reported. Medical History No medical history recorded. Gynecological HistoryNo gynecological history recorded. Obstetrics History GPAL:G 0 P 0 0 0 0 Past Encounters Encounter ID Performer Location Encounter Start Date Encounter Closed Date Diagnosis/Indication Diagnosis SNOMED-CT Code Diagnosis ICD10 Code Diagnosis Note [id number] Hayley Soto MD [facility] [address] [place] [phone] 11/07/2023 14:44:26 11/12/2023 17:09:16 Pain in right lower limb 038762852 M79.604 Likely sciatica- advised ice / wrapped in a towel alternatin g w/ gentle heat q 3-4H w/a to affected area-advis ed to move cautiously avoid uncomforta ble movements. Offered 1 dose of ketorolac should not be repeated multiple times due to being on clopidogre l-advised. At void p.o. NSAIDs on anticoagul ants unless PCP approves. at least none for 8 hrs s/p IM Advised may have Tylenol 650 mg, 2 tablets 3 times a day for a week max then only BiD/ 2x daily COVID-19 982524370 U07.1 continue to quarantine unitl 2 negative covids a day apart [id number] Olive Whiting MD [facility] [address] [place] [phone] 10/27/2024 15:23:38 10/28/2024 21:44:59 Pressure injury of sacral region of back 712226717 L89.159 Health Concerns Section Related Observation LastModified by Organization Detai ls LastModified Time None Recorded Concern Status LastModified by Organization Details LastModified Time None Recorded Advance Directives Directive None Recorded Payers Encounter Date Sequence Insurance Name Policy Number Policy Moses Covered Member ID Moses Member ID Guarantor Name 11/07/2023 1 [facility] - DOS ON OR AFTER 2023 - DUAL ELIGIBLE - JAIL OPTIONS AND ONE CARE (MEDICARE REPLACEMENT/ADV ANTAGE - HMO) Libby Almanzar [id number] Libby Almanzar 10/27/2024 1 [facility] - DOS ON OR AFTER 2023 - DUAL ELIGIBLE - JAIL OPTIONS AND ONE CARE (MEDICARE REPLACEMENT/ADV ANTAGE - HMO) Libby Almanzar [id number] Libby Almanzar Notes Date Note Type Note Provider Name and Address Organization Details Recorded Time 11/07/2023 text/html HPI: Patient with complaints of right leg pain from buttock down to foot. No injury no noted swelling. Not relieved with OTC analgesics. SEGMD: Pain started at rest approximately 5 days ago-patient had a ventral hernia repair approximately 2 weeks ago at [facility]. 4 days ago she was diagnosed with COVID-no longer has significant cough, fever or chills. She describes a sharp shooting pain from her right buttock to the sole of her right foot intermittent, occurs whether she is lying sitting or walking/the pain is worse with movement.. She denies prior history of sciatica or nerve pain. She denies focal weakness or numbness. No changes in bowel or bladder control, no UTI symptoms. She is a diabetic DM2, who monitors her blood sugar closely. Her blood sugar was 106 this morning. She denies nausea vomiting or diarrhea. Patient takes Advil at bedtime-no history of PUD or CKD and she took Tylenol arthritis 1300 mg at 8 AM without relief. Patient is on clopidogrel. Patient denies history of sciatica. Patient has lab work on her discharge summary from 10/17/2023 with a BUN of 10 and a creatinine of 0.8.................. ..................... ..................... ..................... ..................... ..................... .................. Banquet Waiter/Waitress Note From Alok Jaime: Encountered patient seated, upright and conscious with family present. Patient expresses six days of sharp shooting pain that starts from the top of her right buttock and travels all the way down to the sole of her right foot. Patient expresses she was diagnosed with Covid approximately four days ago. Patient denies any shortness of breath, chest pain, or changes in vision. Skin warm, dry end of appropriate color for ethnicity. Head and neck free of trauma and edema. Breath sounds present clear and equal bilaterally. Abdomen is soft, nontender, and nondistended; patient is approximately three weeks out post hernia repair, incision site, sutures unremarkable. [facility] contacted: orders for Covid test, 30 mg of IM Toradol performed. Covid test resulted positive, results relayed to [facility]. Red flags discussed with patient and family, both parties encouraged to seek further medical attention should patient begin experiencing chest pain, shortness of breath or focal deficits. Patient additionally advised call for re-evaluation if she begins experiencing rashes and blisters. Patient and family verbalize understanding and would prefer for patient to remain at home. Banquet Waiter/Waitress Allergies: Penicillin, Aspirin ..................... ..................... ..................... ..................... ..................... ..................... ............... Disposition: Fulfilled Hayley Soto MD [address] [facility],[address], [place], [address], [facility] 11/08/2023 23:32:56 10/27/2024 text/html HPI: Call returned to Libby [...] come into office for exam. Agrees to [facility] evaluation. Confirmed demographics and allergies. ..................... ..................... ..................... ..................... ..................... ..................... ............... [facility] Nurse Triage Notes (Paloma Padilla - RN): Chief Complaints: Wound care PMH: COPD/Asthma, Coronary Artery Disease, Hypertension, Diabetes Mellitus Type 2, Cancer Comments: HPI reviewed ..................... ..................... ..................... ..................... ..................... ..................... ............... Banquet Waiter/Waitress Note From Angel Whalen: This 79-year-old female [...] ..................... ..................... ..................... ..................... ..................... ..................... ............... [facility] Consulted: Olive Whiting ..................... ..................... ..................... ..................... ..................... ..................... ............... Disposition: Fulfilled Olive Whiting MD [address] [facility],[address] [facility], [place], [address], [place] [facility] YIMI NICHOLE 10/27/2024 17:19:40 OBGyn Episode No OBEpisode recorded.
--- OUTSIDE RECORDS SUMMARY | 2024-11-21 14:06 | XMS_ITS | Encounter Summary ---
Author Organization [employer] Address [address] [facility] [address] [place] [address] Care Team Providers Care Gis Programmer Name Role Phone Janeen Allen MD Primary Care Provide r Reason for Visit * Reason Comments Med Refill Encounter Details Date Type Department Care Team ([facility] st Contact Info) Description 09/27/2024 Refill [facility] CHC MED & PEDS [address] [place], [place] [phone] Eneida Cornejo MD [address] [place], [place] [phone] Acquired hypothyroidism Social History Tobacco Use Types Packs/Day Years [...] as of this encounter Visit Diagnoses Diagnosis Acquired hypothyroidism Unspecified hypothyroidism documented in this encounter Additional Health Concerns Assessment Noted Time PHQ-9 Depression Total Score: 11 024 2:21 PM EDT documented as of this encounter Care Teams Gis Programmer Relationship Specialty Start Date End Date Janeen Allen MD [address] [place] [address] PCP - General Internal Medicine 02/15/24 documented as of this encounter
--- OUTSIDE RECORDS SUMMARY | 2024-11-21 14:06 | XMS_ITS | Encounter Summary ---
Author Organization [employer] Address [address] [facility] [address] [place] [address] Care Team Providers Care Finishing Machine Operator Automatic Name Role Phone Janeen Allen MD Primary Care Provide r Reason for Visit * Reason Comments Med Refill Encounter Details Date Type Department Care Team ([facility] st Contact Info) Description 02/21/2024 Refill [facility] CHC MED & PEDS [address] [place], [place] [phone] Eneida Cornejo MD [address] [place], [place] [phone] Social History Tobacco Use Types Packs/Day Years [...] documented as of this encounter Care Teams Finishing Machine Operator Automatic Relationship Specialty Start Date End Date Janeen Allen MD [address] [place] [address] PCP - General Internal Medicine 02/15/24 documented as of this encounter
--- OUTSIDE RECORDS SUMMARY | 2024-11-21 14:06 | XMS_ITS | Encounter Summary ---
Author Organization [employer] Address [address] [facility] [address] [place] [address] Care Team Providers Care Professor Of Fine Art Name Role Phone Janeen Allen MD Primary Care Provide r Reason for Visit * Reason Comments Med Refill Encounter Details Date Type Department Care Team ([facility] st Contact Info) Description 10/25/2024 Refill [facility] CHC MED & PEDS [address] [place], [place] [phone] Janeen Allen MD [address] [place] [address] Cramps, extremity Social History Tobacco Use Types Packs/Day Years [...] as of this encounter Visit Diagnoses Diagnosis Cramps, extremity documented in this encounter Additional Health Concerns Assessment Noted Time PHQ-9 Depression Total Score: 11 024 2:21 PM EDT documented as of this encounter Care Teams Professor Of Fine Art Relationship Specialty Start Date End Date Janeen Allen MD [address] [place] [address] PCP - General Internal Medicine 02/15/24 documented as of this encounter
--- OUTSIDE RECORDS SUMMARY | 2024-11-21 14:06 | XMS_ITS | Encounter Summary ---
Author Organization [employer] Address [address] [facility] [address] [place] [address] Care Team Providers Care Machine Pack Assembler Name Role Phone Janeen Allen MD Primary Care Provide r Reason for Visit * Reason Onset Date Comments Nurse Triage 10/27/2024 Encounter Details Date Type Department Care Team (Late st Contact Info) Description 10/27/2024 Telephone [facility] [address] [place], [place] [phone] Janeen Allen MD [address] [place], [place] [phone] Nurse Triage Social History Tobacco Use Types [...] encounter Miscellaneous Notes * Telephone Encounter - Darlene Grijalva RN - 10/28/2024 9:37 AM EST Noted. Patient seen by [facility] for sacral wound and given silvadene ointment. Per [facility] they are recommending VNA services. RN called patient [phone] to status check. Patient handed the phone toa kuwaiti speaking individual. Individual reported patient is NOT interested in VNA services (individual asked patient). RN educated on importance of patient being seen by PCP to have wound evaluatedand determine if patient should be referred to wound clinic or have cream/medication Rx'd for wound. Initially individual denied stating she has had this in the past and no one cared before . RN apologized for previous experience, individual reports she was being seen by a provider in [place] [place] [place] in the [facility] who did not care. Individual then apologized and accepted a sooner appointment with PCP for further evaluation or sacral wound. RN has placed patient on the schedule for 11/04/23 at 1pm (RN has cancelled patients f/u appointment on 11/20 as appointment was moved sooner). Patient and individual agreed. [facility] note in chart * Telephone Encounter - Rahel Powers RN - 10/27/2024 10:52 AM EST Sent to team for [facility] status check PRN. * Telephone Encounter - Rahel Powers RN - 10/27/2024 10:41 AM EST Call returned to Libby Almanzar to triage below. Reports having ulcer/sore on coccyx x 4 days. Per ptno discharge. Having mild burning pain. No fever. Pt denies rash or sores on other part of skin. Per pt does not have donut to sit on. Pt has not applied any topical ointments. Pt has kept area clean. Pt states occurred once before . Pt unable to come into office for exam. Agrees to [facility] evaluation. Confirmed demographics and allergies. Protocol Used: Sores (Adult) Protocol-Based Disposition: See in Office or Video Visit Today or Tomorrow Video visit offer not recorded Positive Triage Question: * New pressure ulcer suspected * All higher-acuity triage questions were negative Care Advice Discussed: * Reasons To Call Back - Redness or red streaks occur - Sore increases in size after 48 hours on antibiotic ointment - New sores occur - You become worse * Telephone Encounter - [address] - 10/27/2024 9:41 AM EST Symptom: Sore (Ulcer in the gluteal region) Outcome: Schedule a same-day appointment or talk to a nurse or provider today Reason: Caller denied all higher acuity questions The caller accepted this outcome. Please contact (Sami) documented in this encounter Plan of Treatment Not on file documented as of this encounter Visit Diagnoses Not on filedocumented in this encounter Additional Health Concerns Assessment Noted Time PHQ-9 Depression Total Score: 11 024 2:21 PM EDT documented as of this encounter Care Teams Machine Pack Assembler Relationship Specialty Start Date End Date Janeen Allen MD [address] [place] [address] PCP - General Internal Medicine 02/15/24 documented as of this encounter
--- OUTSIDE RECORDS SUMMARY | 2024-11-21 14:06 | XMS_ITS | Encounter Summary ---
Author Organization [facility] Address [address] [facility] [address] [place] [address] Care Team Providers Care Pipefitter Helper Name Role Phone Janeen Allen MD Primary Care Provide r Reason for Visit * Reason Comments Med Refill Encounter Details Date Type Department Care Team ([facility] st Contact Info) Description 10/24/2024 Refill [facility] [address] [place], [place] [phone] Janeen Allen MD [address] [place], [place] [phone] Iron deficiency anemia, unspecified iron deficiency anemia type Social History Tobacco Use Types Packs/Day Years [...] as of this encounter Visit Diagnoses Diagnosis Iron deficiency anemia, unspecified iron deficiency anemia type documented in this encounter Additional Health Concerns Assessment Noted Time PHQ-9 Depression Total Score: 11 024 2:21 PM EDT documented as of this encounter Care Teams Pipefitter Helper Relationship Specialty Start Date End Date Janeen Allen MD [address] [place] [address] PCP - General Internal Medicine 02/15/24 documented as of this encounter
--- OUTSIDE RECORDS SUMMARY | 2024-11-21 14:06 | XMS_ITS | Encounter Summary ---
Author Organization [employer] Address [address] [facility] [address] [place] [address] Care Team Providers Care Ferry Captain Name Role Phone Eneida Cornejo MD Primary Care Provider [phone] Janeen Allen MD Primary Care Provide r Reason for Visit * Reason Onset Date Comments r/s New Derm 09/25/2023 Encounter Details Date Type Department Care Team ([facility] st Contact Info) Description 09/25/2023 Telephone [facility] CHC MED & PEDS [address] [place], [place] [phone] Eneida Cornejo MD [address] [place] [address] r/s New Derm Social History Tobacco Use Types Packs/Day Years [...] encounter Miscellaneous Notes * Telephone Encounter - Vi Summers - 09/25/2023 2:31 PM EST Tc from pt requesting to r/s New Derm appt on 10/02/[address] Castillo due to having a same dayappt. Please contact pt at [phone] Cameroonian Speaker documented in this encounter Plan of Treatment Not on file documented as of this encounter Visit Diagnoses Not on filedocumented in this encounter Additional Health Concerns Assessment Noted Time PHQ-9 Depression Total Score: 19 023 11:08 AM EDT documented as of this encounter Care Teams Ferry Captain Relationship Specialty Start Date End Date Eneida Cornejo MD [address] [place] [address] PCP - General Family Medicine 08/09/21 02/14/24 Janeen Allen MD [address] [place] [address] PCP - General Internal Medicine 02/15/24 documented as of this encounter
--- OUTSIDE RECORDS SUMMARY | 2024-11-21 14:06 | XMS_ITS | Encounter Summary ---
Author Organization [employer] Address [address] [place] [address] Care Team Providers Care Geospatial Developer Name Role Phone Eneida Cornejo MD Primary Care Provider [phone] Janeen Allen MD Primary Care Provide r Reason for Visit * Reason Onset Date Comments Nurse Triage 11/14/2023 Encounter Details Date Type Department Care Team ([facility] st Contact Info) Description 11/14/2023 Telephone [facility] [address], [place] [id number] Eneida Cornejo MD [address] [place] [address] Nurse Triage Social History Tobacco Use Types [...] encounter Miscellaneous Notes * Telephone Encounter - Rahel Powers RN - 11/14/2023 9:18 AM EST Call to Libby Almanzar, reports having bilateral leg pain and weakness x 2 weeks. Per pt was COVID-193-4 weeks ago. Per pt pain from hip down. Per pt having lower back pain that is chronic. Per pt when stands feels weak in legs. Pt states unsure if having any swelling. No recent falls. Pt state justhaving leg pain and weakness. Pt states does not want to answer any more questions just needs to be seen. Agrees to [facility] for exam as no transportation for office today. Sent to team for [facility] status check PRN. Protocol Used: Leg Pain (Adult) Protocol-Based Disposition: See in Office or Video Visit Today or Tomorrow Positive Triage Question: * Numbness in a leg or foot (i.e., loss of sensation) * All higher-acuity triage questions were negative Care Advice Discussed: * Reassurance and Education - Leg Pain * Reasons To Call Back - Signs of infection occur (e.g., spreading redness, warmth, fever) - You become worse * Telephone Encounter - Perry Timmons - 11/14/2023 9:09 AM EST Symptom: Weakness Outcome: Talk to a nurse or provider within 15 minutes Reason: Trouble walking [place] Speaker documented in this encounter Plan of Treatment Not on file documented as of this encounter Visit Diagnoses Not on filedocumented in this encounter Additional Health Concerns Assessment Noted Time PHQ-9 Depression Total Score: 19 023 11:08 AM EDT documented as of this encounter Care Teams Geospatial Developer Relationship Specialty Start Date End Date Eneida Cornejo MD [address] [place] [address] PCP - General Family Medicine 08/09/21 02/14/24 Janeen Allen MD [address] [place] [address] PCP - General Internal Medicine 02/15/24 documented as of this encounter
--- OUTSIDE RECORDS SUMMARY | 2024-11-21 14:06 | XMS_ITS | Continuity of Care Document ---
Author Organization [facility] Address [address] [facility] [address] [place] [address] Phone Care Team Providers Care Vessel Welder Name Role Phone Kal Dell PMHNP, Dilys Unavailable Unavail able Allergies, Adverse Reactions, Alerts Substance Reaction Status [...] - No Longer Active Procedures Procedure Date TECHNOLOGY APPLICATIONS ENGINEER TECHNOLOGY APPLICATIONS ENGINEER OFFICE/OUTPATIENT VISIT, EST TECHNOLOGY APPLICATIONS ENGINEER TECHNOLOGY APPLICATIONS ENGINEER OFFICE/OUTPATIENT VISIT, EST TECHNOLOGY APPLICATIONS ENGINEER OFFICE/OUTPATIENT VISIT, EST TECHNOLOGY APPLICATIONS ENGINEER OFFICE/OUTPATIENT VISIT, EST TECHNOLOGY APPLICATIONS ENGINEER Nurse Assesment TECHNOLOGY APPLICATIONS ENGINEER OFFICE/OUTPATIENT VISIT, EST OFFICE/OUTPATIENT VISIT, EST OFFICE/OUTPATIENT VISIT, EST OFFICE/OUTPATIENT VISIT, EST OFFICE/OUTPATIENT VISIT, EST OFFICE/OUTPATIENT VISIT, EST OFFICE/OUTPATIENT VISIT, EST GLYCATED HEMOGLOBIN TEST GLUCOSE BLOOD TEST OFFICE/OUTPATIENT VISIT, EST TECHNOLOGY APPLICATIONS ENGINEER OFFICE/OUTPATIENT VISIT, EST OFFICE/OUTPATIENT VISIT, EST OFFICE/OUTPATIENT VISIT, EST TECHNOLOGY APPLICATIONS ENGINEER EKG, 12 LEAD OFFICE/OUTPATIENT VISIT, EST TECHNOLOGY APPLICATIONS ENGINEER TECHNOLOGY APPLICATIONS ENGINEER TECHNOLOGY APPLICATIONS ENGINEER OFFICE/OUTPATIENT VISIT, EST TECHNOLOGY APPLICATIONS ENGINEER TECHNOLOGY APPLICATIONS ENGINEER TECHNOLOGY APPLICATIONS ENGINEER PULSE OX OFFICE/OUTPATIENT VISIT, EST GLYCATED HEMOGLOBIN TEST OFFICE/OUTPATIENT VISIT, EST TECHNOLOGY APPLICATIONS ENGINEER TECHNOLOGY APPLICATIONS ENGINEER TECHNOLOGY APPLICATIONS ENGINEER OFFICE/OUTPATIENT VISIT, EST OFFICE/OUTPATIENT VISIT, EST OFFICE/OUTPATIENT VISIT, EST Psychotherapy 45 Min (38-52 Min) 2013 OFFICE/OUTPATIENT VISIT, EST TECHNOLOGY APPLICATIONS ENGINEER TECHNOLOGY APPLICATIONS ENGINEER Psychotherapy 45 Min (38-52 Min) 2012 TECHNOLOGY APPLICATIONS ENGINEER TECHNOLOGY APPLICATIONS ENGINEER OFFICE/OUTPATIENT VISIT, EST Psychotherapy 45 Min (38-52 Min) 2012 Psychotherapy , 30 Min (16-37 Min) OFFICE/OUTPATIENT VISIT, EST TECHNOLOGY APPLICATIONS ENGINEER TECHNOLOGY APPLICATIONS ENGINEER TECHNOLOGY APPLICATIONS ENGINEER TECHNOLOGY APPLICATIONS ENGINEER OFFICE/OUTPATIENT VISIT, EST OFFICE/OUTPATIENT VISIT, EST TECHNOLOGY APPLICATIONS ENGINEER OFFICE/OUTPATIENT VISIT, EST OFFICE/OUTPATIENT VISIT, EST TECHNOLOGY APPLICATIONS ENGINEER TECHNOLOGY APPLICATIONS ENGINEER OFFICE/OUTPATIENT VISIT, EST Psychiatrist Diagnostic Stefanie (no Medical Service) OFFICE/OUTPATIENT VISIT, EST Psychotherapy , 30 Min (16-37 Min) PULSE OX OFFICE/OUTPATIENT VISIT, EST TECHNOLOGY APPLICATIONS ENGINEER GLYCATED HEMOGLOBIN TEST OFFICE/OUTPATIENT VISIT, EST TECHNOLOGY APPLICATIONS ENGINEER TECHNOLOGY APPLICATIONS ENGINEER PSYTX, OFFICE, 20-30 MIN OFFICE/OUTPATIENT VISIT, EST TECHNOLOGY APPLICATIONS ENGINEER TECHNOLOGY APPLICATIONS ENGINEER OFFICE/OUTPATIENT VISIT, EST TECHNOLOGY APPLICATIONS ENGINEER TECHNOLOGY APPLICATIONS ENGINEER TECHNOLOGY APPLICATIONS ENGINEER OFFICE/OUTPATIENT VISIT, EST TECHNOLOGY APPLICATIONS ENGINEER TECHNOLOGY APPLICATIONS ENGINEER TECHNOLOGY APPLICATIONS ENGINEER OFFICE/OUTPATIENT VISIT, EST [facility] OFFICE/OUTPATIENT VISIT, EST TECHNOLOGY APPLICATIONS ENGINEER OFFICE/OUTPATIENT VISIT, EST Albuterol unit dose AIRWAY INHALATION TREATMENT Ipratropium brom inh hitesh u d OFFICE/OUTPATIENT VISIT, EST PSYTX, OFF, 45-50 MIN OFFICE/OUTPATIENT VISIT, EST PSYTX, OFF, 45-50 MIN TECHNOLOGY APPLICATIONS ENGINEER TECHNOLOGY APPLICATIONS ENGINEER TECHNOLOGY APPLICATIONS ENGINEER TECHNOLOGY APPLICATIONS ENGINEER TECHNOLOGY APPLICATIONS ENGINEER OFFICE/OUTPATIENT VISIT, [facility] REAGENT STRIP/BLOOD GLUCOSE GLYCOSYLATED HEMOGLOBIN [...] Date Provider Providers Copied on Encounter [facility], [address] [facility] [address] [place] [address], [id number], tel:[phone] [facility] No Information 0-202 0 Kal Dell Dilys. [address] [place] [address], [id number], . tel:[phone] [facility], [address] [facility] [address], [place], [place], [address], [place] tel:[phone] [facility] No Information 2-201 6 No Informatio n [facility], [address] [facility] [address], [place], [place], [address], [place] tel:[phone] [facility] Copy Writer No Information 2-201 6 Advertising Copy Writer. . [facility], [address] [facility] [address], [place], [place], [address], [place] tel:[phone] [facility] Copy Writer No Information 8-201 6 Advertising Copy Writer. . Consulting Provider: Maria Esther Seay, [address] [place], [address]. tel:[phone] OFFICE/OUTPATI ENT VISIT, EST [facility], [address] [facility] [address], [place], [place], [address], [place] tel:[phone] [facility] dizziness (chief complaint)he adache (chief complaint)Ab dominal pain (chief complaint) Benign essential HTNMorbid obesity due to excess caloriesBod y mass index (BMI) 35.0-35.9, adultColost arabella in placeAbdomi nal bloatingStefani Metzger nter for generalized patient complaints 6 No Informatio n [facility], [address] [facility] [address], [place], [place], [address], [place] tel:[phone] [facility] Copy Writer No Information 6 Advertising Copy Writer. . Consulting Provider: Maria Esther Seay, [address] [place] [address], [place], [address]. tel:[phone] [facility], [address] [facility] [address], [place], [place], [address], [place] tel:[phone] [facility] No Information 6 No Informatio n [facility], [address] [facility] [address], [place], [place], [address], [place] tel:[phone] [facility] No Information 6 No Informatio n [facility], [address] [facility] [address], [place], [place], [address], [place] tel:[phone] [facility] No Information 6 No Informatio n [facility], [address] [facility] [address], [place], [place], [address], [place] tel:[phone] [facility] No Information 6 No Informatio n [facility], [address] [facility] [address], [place], [place], [address], [place] tel:[phone] [facility] Copy [facility] No Information 6 Advertising Copy Writer. . OFFICE/OUTPATI ENT VISIT, EST [facility], [address] [facility] [address], [place], [place], [address], [place] tel:[phone] [facility] bp check (chief complaint) Benign essential HTN 6 No Informatio oscar [facility], [address] [facility] [address], [place], [place], [address], [place] tel:[phone] [facility] No Information 6 Advertising Copy Writer. . OFFICE/OUTPATI ENT VISIT, EST [facility], [address] [facility] [address], [place], [place], [address], [place] tel:[phone] [facility] chronic conditions (chief complaint) Body mass index (BMI) 39.0-39.9, adultHealth counseling 6 No Informatio oscar [facility], [address] [facility] [address], [place], [place], [address], [place] tel:[phone] [facility] No Information 6 Advertising Copy Writer. . OFFICE/OUTPATI ENT VISIT, [facility], [address] [facility] [address], [place], [place], [address], [place] tel:[phone] [facility] headache (chief complaint)co ld symptoms (chief complaint) Common cold 5 No Informatio oscar [facility], [address] [facility],[address], [place], [place], [address], [place] tel:[phone] [facility] Benign essential HTN 5 No Informatio oscar [facility], [address] [facility] [address], [place], [place], [address], [place] tel:[phone] [facility] BP check (chief complaint) BP check 5 No Informatio oscar [facility], [address] [facility] [address], [place], [place], [address], [place] tel:[phone] [facility] No Information 5 Advertising Copy Writer. . [facility], [address] [facility],[address], [place], [place], [address], [place] tel:[phone] [facility] No Information 5 Advertising Copy Writer. . OFFICE/OUTPATI ENT VISIT, EST [facility], [address] [facility],[address], [place], [place], [address], [place] tel:[phone] [facility] Follow Up of hospital (chief complaint)hy pertension (chief complaint)hy pertension (chief complaint)in somnia (chief complaint) Abdominal wall abscessType 2 diabetes mellitus without complicatio nBenign essential HTNRecurrin g cold staphylococ mely abscesses 5 No Informatio n OFFICE/OUTPATI ENT VISIT, EST [facility], [address] [facility],[address], [place], [place], [address], [place] tel:[phone] [facility] abdominal pain (chief complaint)ba ck pain (chief complaint) Dietary surveillanc e and counselingI ntra-abdomi nal abscessFati gueBenign essential hypertensio nDiabetes mellitus without mention of complicatio n, type II or unspecified type, not stated as uncontrolle d 5 No Informatio n [facility], [address] [facility],[address], [place], [place], [address], [place] tel:[phone] [facility] wound infectionSe kurt muscle decondition ing 5 No Informatio n OFFICE/OUTPATI ENT VISIT, EST [facility], [address] [facility],[address], [place], [place], [address], [place] tel:[phone] [facility] Follow Up of wound check (chief complaint)co ld symptoms (chief complaint)hy pertension (chief complaint) Benign essential hypertensio nCoughDepre ssion May- 5 No Informatio n [facility], [address] [facility],[address], [place], [place], [address], [place] tel:[phone] [facility] No Information 5 No Informatio n [facility], [address] [facility] [address], [place], [place], [address], [place] tel:[phone] [facility] No Information 5 No Informatio n OFFICE/OUTPATI ENT VISIT, EST [facility], [address] [facility] [address], [place], [place], [address], [place] tel:[phone] [facility] post surgery (chief complaint)di abetes (chief complaint) Hernia due to colostomySu rgical wound dehiscenceS urgical wound infectionDi abetes mellitus without mention of complicatio n, type II or unspecified type, not stated as uncontrolle d 5 No Informatio n OFFICE/OUTPATI ENT VISIT, EST [facility], [address] [facility] [address], [place], [place], [address], [place] tel:[phone] [facility] KNEES PAIN (chief complaint)ba ck pain (chief complaint)DM /HTN (chief complaint)he rnia (chief complaint) BackacheDia betes Mellitus Type 2, Uncomplicat edFrequent fallsHypert ension, BenignPerso nal history of malignant neoplasm of large intestine 5 No Informatio n OFFICE/OUTPATI ENT VISIT, EST [facility], [address] [facility] [address], [place], [place], [address], [place] tel:[phone] [facility] back pain (chief complaint) AsthmaDiabe john Mellitus Type 2, Uncomplicat edBackacheV entral hernia 5 No Informatio n [facility], [address] [facility] [address], [place], [place], [address], [place] tel:[phone] [facility] Diabetes Mellitus Type 2, Uncomplicat edVentral hernia 5 No Informatio n [facility], [address] [facility] [address], [place], [place], [address], [place] tel:[phone] [facility] No Information 5 No Informatio n [facility], [address] [facility] [address], [place], [place], [address], [place] tel:[phone] [facility] No Information 5 No Informatio n OFFICE/OUTPATI ENT VISIT, [facility], [address] [facility] [address], [place], [place], [address], [place] tel:[phone] [facility] chronic conditions (chief complaint)ve ntral hernia (chief complaint) Diabetes Mellitus Type 2, Uncomplicat edHypertens ion, BenignObesi ty, unspecified Ventral hernia 5 No Informatio n OFFICE/OUTPATI ENT VISIT, [facility], [address] [facility] [address], [place], [place], [address], [place] tel:[phone] [facility] diabetes (chief complaint)he adache (chief complaint)dr lim mouth (chief complaint)fr equent falls (chief complaint) OsteopeniaS creening for breast cancerAtten tion to colostomyBa ckacheDiabe john Mellitus Type 2, Uncomplicat edHypertens ion, BenignSleep disorderFre quent falls 5 No Informatio n [facility], [address] [facility] [address], [place], [place], [address], [place] tel:[phone] [facility] No Information 5 Advertising Copy Writer. . Consulting Provider: Maria Esther Seay, [address] [facility], [place], [address]. tel:[phone] OFFICE/OUTPATI ENT VISIT, [facility], [address] [facility] [address], [place], [place], [id number], [place] tel:[phone] [facility] Follow Up of DM/HTN (chief complaint)le g swelling (chief complaint)it chiness (chief complaint) Hypothyroid ismPalpitat ionsPrediab etesGenital pruritus 4 No Informatio n OFFICE/OUTPATI ENT VISIT, EST [facility], [address] [facility] [address], [place], [place], [address], [place] tel:[phone] [facility] back pain (chief complaint)sh oulder pain (chief complaint) Cervicalgia 4 No Informatio n OFFICE/OUTPATI ENT VISIT, EST [facility], [address] [facility] [address], [place], [place], [address], [place] tel:[phone] [facility] diabetes (chief complaint)hy pertension (chief complaint)fa lling down (chief complaint)ch est pain (chief complaint)pa lpitations (chief complaint) Abnormality of gaitDiabete s Mellitus Type 2, Uncomplicat edGERD (gastroesop hageal reflux disease)Hyp ertension, BenignPalpi tations 4 No Informatio n [facility], [address] [facility] [address], [place], [place], [address], [place] tel:[phone] [facility] No Information 4 Advertising Copy Writer. . Consulting Provider: Rosario Gracia, [address] [place] [address], [place], [address]. tel:[phone] OFFICE/OUTPATI ENT VISIT, EST [facility], [address] [facility] [address], [place], [place], [address], [place] tel:[phone] [facility] Leg numbness (follow up) (chief complaint)wr ist pain (chief complaint)he rnia (chief complaint)pa lpitations (chief complaint) Tachycardia Type 2 diabetes mellitus with autonomic neuropathyA bnormality of gaitLumbago 4 No Informatio n [facility], [address] [facility] [address], [place], [place], [address], [place] tel:[phone] [facility] No Information 1-201 4 Advertising Copy Writer. . Consulting Provider: Rosario Gracia, [address] [place] [address], [address]. tel:[phone] [facility], [address] [facility] [address], [address], [place] tel:[phone] [facility] No Information 0 9-201 4 Advertising Copy Writer. . Consulting Provider: Maria Esther Seay, [address] [place] [address], [address]. tel:[phone] [facility], [address] [place] [address],[address], [place], [id number], [place] tel:[phone] [facility] No Information Mar-3 0-201 4 Advertising Copy Writer. . Consulting Provider: Maria Esther Seay, [address] [place] [address], [address]. tel:[phone] OFFICE/OUTPATI ENT VISIT, EST [facility], [address] [place] [address] 2,[address], [place], [place], [address], [place] tel:[phone] [facility] chronic conditions (chief complaint)GE RD (chief complaint)ba ck pain (chief complaint) NeuropathyI nsomniaHype rtension, BenignGERD (gastroesop hageal reflux disease) 4 No Informatio n [facility], [address] [place] [address] 2,[address], [place], [place], [address], [place] tel:[phone] [facility] No Information 0 4-201 4 Advertising Copy Writer. . [facility], [address] [place] [address] 2,[address], [place], [place], [address], [place] tel:[phone] [facility] No Information Mar-0 4-201 4 Advertising Copy Writer. . Consulting Provider: Maria Esther Seay [address] [place] [address], [address]. tel:[phone] OFFICE/OUTPATI ENT VISIT, EST [facility], [address] [facility] [address], [place], [place], [address], [place] tel:[phone] [facility] cough (chief complaint) ROBIN-inhibit or coughAttent ion to colostomyCe rvicalgiaDi abetes Mellitus Type 2, Uncomplicat ed - 4 No Informatio n OFFICE/OUTPATI ENT VISIT, EST [facility], [address] [facility] [address], [place], [place], [address], [place] tel:[phone] [facility] chronic conditions (chief complaint) Abnormality of gaitDiabete s Mellitus Type 2, Uncomplicat edHypertens ion, BenignHypot hyroidismPe rsonal history of malignant neoplasm of large intestineCe llulitis and abscess of leg, except footCough 4 No Informatio n [facility], [address] [facility] [address], [place], [place], [address], [place] tel:[phone] [facility] No Information 4 Advertising Copy Writer. . [facility], [address] [facility] [address], [place], [place], [address], [place] tel:[phone] [facility] No Information 4 Advertising Copy Writer. . Consulting Provider: Rosario Gracia, [address] [place] [address], [address]. tel:[phone] [facility], [address] [facility] [address], [place], [place], [address], [place] tel:[phone] [facility] No Information 4 Advertising Copy Writer. . Consulting Provider: Rosario Gracia [address] [place] [address], [address]. tel:[phone] OFFICE/OUTPATI ENT VISIT, EST [facility], [address] [facility] [address], [place], [place], [address], [place] tel:[phone] [facility] anxiety (chief complaint) AnxietyFoll iculitis 4 No Informatio n OFFICE/OUTPATI ENT VISIT, EST [facility], [address] [facility] [address], [place], [place], [address], [place] tel:[phone] [facility] cough (chief complaint) Influenza-l nery illness 4 No Informatio n OFFICE/OUTPATI ENT VISIT, EST [facility], [address] [facility] [address], [place], [place], [address], [place] tel:[phone] [facility] chronic conditions (chief complaint)mu ltiple issues (chief complaint) Attention to colostomyDi abetes Mellitus Type 2, Uncomplicat edHypertens ion, BenignHypot hyroidismPe rsonal history of malignant neoplasm of large intestineHy percholeste rolemiaScre ening for osteoporosi sAbnormalit y of gait 4 No Informatio n Psychotherapy 45 Min (38-52 Min) [facility], [address] [facility] [address], [place], [place], [address], [place] tel:[phone] [facility] No Information 4 No Informatio n [facility], [address] [facility] [address], [place], [place], [address], [place] tel:[phone] [facility] Abnormality of gait 4 No Informatio n OFFICE/OUTPATI ENT VISIT, EST [facility], [address] [facility] [address], [place], [place], [address], [place] tel:[phone] [facility] f/u dm (chief complaint)in jury back pain (chief complaint)fr equent falls (chief complaint) Gait disturbance Diabetes Mellitus Type 2, Uncomplicat edUnspecifi ed essential hypertensio nRhomboid myalgiaPers onal history of malignant neoplasm of large intestine 3 No Informatio n [facility], [address] [facility] [address], [place], [place], [address], [place] tel:[phone] [facility] No Information 3 Advertising Copy Writer. . Consulting Provider: Maria Esther Seay, [address] [place] [address], [address]. tel:[phone] Psychotherapy 45 Min (38-52 Min) [facility], [address] [place] [address] 2,[address], [place], [place], [address], [place] tel:[phone] [facility] No Information 3 No Informatio n [facility], [address] [place] [address] 2,[address], [place], [place], [address], [place] tel:[phone] [facility] No Information 3 Advertising Copy Writer. . Consulting Provider: Maria Esther Seay, [address] [place] [address], [place], [address]. tel:[phone] OFFICE/OUTPATI ENT VISIT, EST [facility], [address] [place] [address] 2,[address], [place], [place], [address], [place] tel:[phone] [facility] depression (chief complaint)fr equent falls (chief complaint) Diabetes Mellitus Type 2, Uncomplicat edHypertens ion, BenignPerso nal history of malignant neoplasm of large intestineHy pothyroidis mDepression Administrat florencio encounter 3 No Informatio n Psychotherapy 45 Min (38-52 Min) [facility], [address] [facility] [address], [place], [place], [address], [place] tel:[phone] [facility] No Information 3 No Informatio n Psychotherapy , 30 Min (16-37 Min) [facility], [address] [place] [address] 2,[address], [place], [place], [address], [place] tel:[phone] [facility] No Information 3 No Informatio n OFFICE/OUTPATI ENT VISIT, EST [facility], [address] [facility],[address], [place], [place], [address], [place] tel:[phone] [facility] worry about colon cancer (chief complaint)A1 C due (chief complaint) Personal history of malignant neoplasm of large intestineDi abetes Mellitus Type 2, Uncomplicat edHypertens ion, BenignINTRI NSIC ASTHMA, UNSPECIFIED Sep-1 3-201 3 No Informatio n [facility], [address] [facility],[address], [place], [place], [address], [place] tel:[phone] [facility] No Information 0 9 3 Advertising Copy Writer. . Consulting Provider: Rosario Gracia, [address] [place] [address], [address]. tel:[phone] [facility], [address] [facility],[address], [place], [place], [address], [place] tel:[phone] [facility] No Information 3 Advertising Copy Writer. . Consulting Provider: Maria Esther Seay [address] [place] [address], [address]. tel:[phone] [facility], [address] [facility] [address] [facility],[address], [place], [place], [id number], [place] tel:[phone] [facility] Copy [employer] No Information 3 Advertising Copy Writer. . Consulting Provider: Maria Esther Seay [address] [place] [address], [id number]. tel:[phone] [facility], [address] [facility] [address], [place], [place], [id number], [place] tel:[phone] [facility] [employer] No Information 3 Advertising Copy Writer. . Consulting Provider: Rosario Gracia, [address] [place] [address], [address]. tel:[phone] OFFICE/OUTPATI ENT VISIT, EST [facility], [address] [facility] [address], [place], [place], [id number], [place] tel:[phone] [facility] BP check (chief complaint) Hypertensio n, Benign 3 No Informatio n OFFICE/OUTPATI ENT VISIT, [facility], [address] [facility] [address], [place], [place], [address], [place] tel:[phone] [facility] leg pain (chief complaint)hy pertension (follow up) (chief complaint) Diabetes Mellitus Type 2, Uncomplicat edHypertens ion, BenignPain in joint involving lower legOsteoart hrosis, localized, primary, involving lower leg 3 No Informatio n [facility], [address] [facility] [address], [place], [place], [address], [place] tel:[phone] [facility] [employer] No Information 3 Advertising Copy Writer. . OFFICE/OUTPATI ENT VISIT, [facility], [address] [facility] [address], [place], [place], [address], [place] tel:[phone] [facility] knee pain (chief complaint)tr ouble walking (chief complaint) Knee pain, rightHypert ension, BenignDizzi nessUrge incontinenc e 3 No Informatio n OFFICE/OUTPATI ENT VISIT, [facility], [address] [facility] [address], [place], [place], [address], [place] tel:[phone] [facility] arthralgias (chief complaint)pa in (chief complaint) Hypertensio n, BenignPain in joint involving multiple sitesAllerg y to environment al factorsImpa ired glucose tolerance 3 No Informatio n [facility], [address] [facility] [address], [place], [place], [address], [place] tel:[phone] [facility] [employer] No Information 3 Advertising Copy Writer. . Consulting Provider: Rosario Gracia, [address] [place], [address]. tel:[phone] [facility], [address] [facility] [address], [place], [place], [address], [place] tel:[phone] [facility] [employer] No Information 3 Advertising Copy Writer. . Consulting Provider: Maria Esther Seay, [address] [place] [address], [address]. tel:[phone] OFFICE/OUTPATI ENT VISIT, EST [facility], [address] [facility] [address], [place], [place], [address], [place] tel:[phone] [facility] f/u Dizziness (chief complaint) BackacheDia betes mellitus without mention of complicatio n,Hypertens ion, BenignMajor depressive affective disorder, single episodHisto ry of colon cancer 3 No Informatio n Psychiatrist Diagnostic Eval (no Medical Service) [facility], [address] [facility] [address], [place], [place], [address], [place] tel:[phone] [facility] anxiety (chief complaint)de pression (chief complaint) Major depressive affective disorder, single episode, moderate degreePostt raumatic stress disorderOth er unknown and unspecified cause of morbidity or mortality 3 No Informatio n OFFICE/OUTPATI ENT VISIT, EST [facility], [address] [facility] [address], [place], [place], [id number], [place] tel:[phone] [facility] f/u ED (chief complaint) VertigoBack acheHyperte nsion, BenignRash and other nonspecific skin eruption 3 No Informatio n Psychotherapy , 30 Min (16-37 Min) [facility], [address] [facility] [address], [place], [place], [address], [place] tel:[phone] [facility] No Information 3 No Informatio n OFFICE/OUTPATI ENT VISIT, EST [facility], [address] [facility] [address], [place], [place], [address], [place] tel:[phone] [facility] cough (chief complaint) Chest pain 3 Carolynn Self. [address] [place] [address], [id number]. tel:[phone] Referring Provider: Clair Pradhan, [address] [place] [address], [address]. tel:[phone] [facility], [address] [facility] [address], [place], [place], [address], [place] tel:[phone] [facility] [employer] No Information 3 Advertising Copy Writer. . Consulting Provider: Rosario Gracia, [address] [place] [address], [address]. tel:[phone] OFFICE/OUTPATI ENT VISIT, EST [facility], [address] [facility] [address], [place], [place], [address], [place] tel:[phone] [facility] wants an electric wheel chair (chief complaint) Pain in joint involving multiple sites 3 Soren Alcocer. [address] [place] [address], [id number], [place]. tel:[phone] Referring Provider: Carlyn Oliver, [address] [place] [address], [address]. tel:[phone] [facility], [address] [facility] [address], [address], [place] tel:[phone] [facility] [employer] No Information 2 Advertising Copy Writer. . Consulting Provider: Rosario Gracia, [address] [place] [address], [address]. tel:[phone] [facility], [address] [facility] [address], [address], [place] tel:[phone] [facility] [employer] No Information 2 Advertising Copy Writer. . [facility], [address] [facility] [address], [place], [place], [address], [place] tel:[phone] [facility] No Information 2 No Informatio n OFFICE/OUTPATI ENT VISIT, EST [facility], [address] [facility] [address], [place], [place], [address], [place] tel:[phone] [facility] chronic conditions (chief complaint)in continence (chief complaint) Hypertensio n, Benign 2 DOttavio Carlyn. [address] [place] [address], [id number], [place]. tel:[phone] [facility], [address] [facility] [address], [place], [place], [address], [place] tel:[phone] [facility] [employer] No Information 2 Advertising Copy Writer. . [facility], [address] [facility] [address], [place], [place], [address], [place] tel:[phone] [facility] [employer] No Information 2 Advertising Copy Writer. . Consulting Provider: Maria Esther Seay, [address] [place] [address], [address]. tel:[phone] OFFICE/OUTPATI ENT VISIT, EST [facility], [address] [facility] [address], [place], [place], [address], [place] tel:[phone] [facility] foot [facility], plantar pain (chief complaint) Corns and callosities Diabetes Mellitus Type 2, Uncomplicat ed Jul- 2 Ho Misbah. [address] [place] [address], [id number]. tel:[phone] [facility], [address] [facility] [address], [place], [place], [address], [place] tel:[phone] [facility] [employer] No Information 2 Advertising Copy Writer. . [facility], [address] [facility],[address], [place], [place], [address], [place] tel:[phone] [facility] [employer] No Information 2 Advertising Copy Writer. . OFFICE/OUTPATI ENT VISIT, EST [facility], [address] [facility] [address] [facility],[address], [place], [place], [address], [place] tel:[phone] [facility] back pain (chief complaint)dy suria (chief complaint) Lumbago 2 DOttavio Carlyn. [address] [place] [address], [id number], [place]. tel:[phone] [facility], [address] [facility],[address], [place], [place], [address], [place] tel:[phone] [facility] [employer] No Information 2 Advertising Copy Writer. . [facility], [address] [facility] [address] [facility],[address], [place], [place], [address], [place] tel:[phone] [facility] [employer] No Information 2 Advertising Copy Writer. . OFFICE/OUTPATI ENT VISIT, EST [facility], [address] [facility] [address], [place], [place], [address], [place] tel:[phone] [facility] chronic conditions (chief complaint)ba ck pain (chief complaint)co lostomy care (chief complaint)hy pertension (follow up) (chief complaint)hy pothyroidism (chief complaint) Diabetes Mellitus Type 2, Uncomplicat edBack painHypothy roidismBeni gn essential HTNColostom y care 2 DOttavio Carlyn. [address] [place] [address], [id number], [place]. tel:[phone] [facility], [address] [facility], [place], [place], [address], [place] tel:[phone] [facility] No Information 2 [facility] [employer]. [address] [place], [address]. tel:[phone] OFFICE/OUTPATI ENT VISIT, [facility], [address] [facility] [address], [place], [place], [address], [place] tel:[phone] [facility] Fu callus, fu hallux (chief complaint) Pain in limb 2 Ho Misbah. [address] [place], [place], [id number]. tel:[phone] [facility], [address] [facility] [address], [place], [place], [address], [place] tel:[phone] [facility] [employer] No Information 2 Advertising Copy Writer. . Consulting Provider: Rosario Gracia, [address] [place] [address], [address]. tel:[phone] OFFICE/OUTPATI ENT VISIT, [facility], [address] [facility] [address], [place], [place], [address], [place] tel:[phone] [facility] back pain (chief complaint)hy pothyroidism (chief complaint)ur inary incontinence (chief complaint)di abetes (follow up) (chief complaint)as thma (chief complaint) Back painUrinary incontinenc eHypothyroi dismDiabete s Mellitus Type 2, Uncomplicat ed 2 DOttavio Carlyn. [address] [place], [place], [id number], [place]. tel:[phone] OFFICE/OUTPATI ENT VISIT, [facility], [address] [facility] [address], [place], [place], [address], [place] tel:[phone] [facility] cough (chief complaint)co ld symptoms (chief complaint)fe fallon (chief complaint) INTRINSIC ASTHMA, UNSPECIFIED 2 Dobles Clair. [address] [place] [address], [id number]. tel:[phone] [facility], [address] [facility] [address], [place], [place], [address], [place] tel:[phone] [facility] Major depressive affective disorder, single episode, moderate degreePostt raumatic stress disorder 2 No Informatio n OFFICE/OUTPATI ENT VISIT, EST [facility], [address] [facility] [address], [place], [place], [id number], [place] tel:[phone] [facility] itchines (chief complaint) Rash and other nonspecific skin eruptionAst hma With Status Asthmaticus 2 Doezra Self. [address] [place] [address], [id number]. tel:[phone] [facility], [address] [facility] [address], [place], [place], [address], [place] tel:[phone] [facility] Major depressive affective disorder, single episode, moderate degreePostt raumatic stress disorder 2 No Informatio n [facility], [address] [facility] [address] [facility],[address], [place], [place], [address], [place] tel:[phone] [facility] [employer] No Information 2 Advertising Copy Writer. . Consulting Provider: Maria Esther Seay, [address] [place], [address]. tel:[phone] [facility], [address] [facility] [address], [place], [place], [address], [place] tel:[phone] [facility] [employer] [facility] No Information 2 Advertising Copy Writer. . Consulting Provider: Rosario Gracia, [address] [place], [address]. tel:[phone] [facility], [address], [place], [place], [address], [place] tel:[phone] [facility] Copy [employer] No Information 2 Advertising Copy Writer. . [facility], [address] [facility] [address], [place], [place], [address], [place] tel:[phone] [facility] [employer] No Information 2 Advertising Copy Writer. . [facility], [address] [facility] [address], [place], [place], [address], [place] tel:[phone] [facility] [employer] No Information 2 Advertising Copy Writer. . OFFICE/OUTPATI ENT VISIT, NEW [facility], [address] [facility] [address], [place], [place], [address], [place] tel:[phone] [facility] No Information 2 Soren Alcocer. [address] [place] [address], [id number], [place]. tel:[phone] [facility], [address] [facility] [address], [place], [place], [address], [place] tel:[phone] [facility] INTRINSIC ASTHMA, UNSPECIFIED 2 No Informatio n [facility], [address] [facility] [address], [place], [place], [address], [place] tel:[phone] [facility] Palpitation s 2 No Informatio n [facility], [address] [facility] [address], [place], [place], [address], [place] tel:[phone] [facility] Major depressive affective disorder, single episode, moderate degreeAnxie ty state, unspecified 2 No Informatio n [facility], [address] [facility] [address], [place], [place], [address], [place] tel:[phone] [facility] Dermatophyt osis of nailPain in limb 2 Ho Crawley. [address] [place] [address], [place], [place], [address]. tel:[phone] [facility], [address] [facility] [address], [place], [place], [address], [place] tel:[phone] [facility] No Information 2 Z-Converte d Provider. . [facility], [address] [facility] [address], [place], [place], [address], [place] tel:[phone] [facility] Unspecified essential hypertensio n 2 No Informatio n [facility], [address] [facility] [address], [place], [place], [address], [place] tel:[phone] [facility] Palpitation s 2 No Informatio n [facility], [address] [facility] [address], [place], [place], [address], [place] tel:[phone] [facility] Referral of patient without examination or treatment 2 Z-Converte d Provider. . [facility], [address] [facility] [address], [place], [place], [address], [place] tel:[phone] [facility] Diabetes mellitus without mention of complicatio n, type II or unspecified type, not stated as uncontrolle dSprain of ribs 2 No Informatio n [facility], [address] [facility] [address], [place], [place], [address], [place] tel:[phone] [facility] Acute pharyngitis 1 Carolynn Self. [address] [place] [address], [place], [place], [address]. tel:[phone] [facility], [address] [facility] [address], [place], [place], [address], [place] tel:[phone] [facility] Pain in joint involving multiple sites 1 No Informatio n [facility], [address], [place], [place], [address], [place] tel:[phone] [facility] Routine general medical examination at a health care facility 1 No Informatio oscar [facility], [address] [facility] [address], [place], [place], [address], [place] tel:[phone] [facility] No Information 1 No Informatio oscar [facility], [address] [facility] [address], [place], [place], [address], [place] tel:[phone] [facility] Cellulitis and abscess of leg, except foot 1 No Informatio oscar [facility], [address] [facility] [address], [place], [place], [address], [place] tel:[phone] [facility] Insomnia, unspecified 1 No Informatio oscar [facility], [address] [facility] [address], [place], [place], [address], [place] tel:[phone] [facility] No Information 1 No Informatio oscar [facility], [address] [facility] [address], [place], [place], [address], [place] tel:[phone] [facility] Cervicalgia 1 No Informatio oscar [facility], [address] [facility] [address], [place], [place], [address], [place] tel:[phone] [facility] Pilonidal cyst without mention of abscess 1 No Informatio oscar [facility], [address] [facility] [address], [place], [place], [address], [place] tel:[phone] [facility] No Information 0 No Informatio oscar [facility], [address] [facility] [address], [place], [place], [address], [place] tel:[phone] [facility] Routine gynecologic al examination 0 No Informatio oscar [facility], [address] [facility] [address], [place], [place], [address], [place] tel:[phone] [facility] Unspecified acquired hypothyroid ism Sep- 0 No Informatio oscar [facility], [address] [facility] [address], [place], [place], [address], [place] tel:[phone] [facility] No Information 0 No Informatio oscar [facility], [address] [facility] [address], [place], [place], [address], [place] tel:[phone] [facility] Urge incontinenc e 0 No Informatio oscar [facility], [address] [facility] [address], [place], [place], [address], [place] tel:[phone] [facility] No Information 0 No Informatio oscar [facility], [address] [facility] [address], [place], [place], [address], [place] tel:[phone] [facility] No Information 0 No Informatio oscar [facility], [address] [facility] [address], [place], [place], [address], [place] tel:[phone] [facility] Obesity, unspecified 0 No Informatio oscar [facility], [address] [facility] [address], [place], [place], [address], [place] tel:[phone] [facility] No Information 0 Ho Crawley. [address] [place] [address], [place], [place], [address]. tel:[phone] [facility], [address] [facility] [address], [place], [place], [address], [place] tel:[phone] [facility] No Information 9 Diandra Amaryllis. [address] [place], [place], [address]. tel:[phone] [facility], [address] [facility] [address], [place], [place], [address], [place] tel:[phone] [facility] Cervicalgia Dizziness and giddiness Aug-0 9 No Informatio n [facility], [address] [facility],[address], [place], [place], [address], [place] tel:[phone] [facility] Unspecified hypertrophi c and atrophic conditions of skin Jul- 9 Ho Misbah. [address] [place], [place], [address]. tel:[phone] [facility], [address] [facility] [address], [place], [place], [address], [place] tel:[phone] [facility] Pure hypercholes terolemia 9 Diandra Amaryllis. [address], [place], [address]. tel:[phone] [facility], [address] [facility],[address], [place], [place], [address], [place] tel:[phone] [facility] No Information Jun- 9 Diandra Amaryllis. [address] [place], [place], [id number]. tel:[phone] [facility], [address] [facility] [address], [place], [place], [address], [place] tel:[phone] [facility] Malignant neoplasm of other specified sites of large intestine 9 Diandra Amaryllis. [address], [place], [address]. tel:[phone] [facility], [address], [place], [place], [address], [place] tel:[phone] [facility] No Information 9 Z-Converte kyler Provider. . Family History Family Member Type Diagnosis Age At Onset FH - CHILDREN (DDMS) Problem (finding) cancer FH - FATHER (DDMS) Problem (finding) alcoholism FH - CHILDREN (DDMS) Problem (finding) cancer of the b reast FH - CHILDREN (DDMS) Problem (finding) cancer of the l miranda Payers Payer name Insurance type Covered green party ID Authoriza tion(s) No Information Social History [...] Preciado Ordered: Referrals: Cardiology. Dr Preciado. Location: [facility]. Consult Appointment date/timeframe: 02/08/2015 ordered Referral Ordered: POLYSOMNOGRAPHY W/CPAP Appointment date/timeframe: 12/10/2014 ordered Referral Referred To: [facility] Ordered: Referrals: [facility] ordered Referral Ordered: MYOCARDIAL PERFUSION, PLANAR, EXERCISE OR PHARMACOLOGIC Appointment date/timeframe: 06/03/2014 ordered Referral Ordered: HOLTER MONITOR, 24 HOURS Appointment date/timeframe: 06/03/2014 ordered Referral [facility] Ordered: Referral: [facility]. Evaluate and treat. ordered Referral Ordered: Referral: Neurology. Evaluate and treat. Appointment date/timeframe: 01/15/2014 ordered Referral Referred To: [facility] Ordered: Referral: [facility]. Evaluate and treat. Appointment date/timeframe: [...] Order: Lab Order BASIC ME TABOLIC PANEL ([id number]), Sent on: Sent Future Order: Lab Order TSH ([id number]), Sent o n: Sent Future Order: Lab Order MICROALB UMIN, URINE ([id number]), Sent on: Sent Future Order: Lab Order LIPID PA NUHA/CFR ([id number]), Sent on: Sent History Of Present Illness Encounter Date Complaint History Of Prese nt Illness dizziness Onset was 1 day ago. Pertinent negatives include fever and vomiting. Abdominal pain (comments) 70 y/o pt of BSU seen at [facility] ED on 02/17/16 with concern [...] Additional information: Pt received BP cuff from [facility] but had no batteries to test it. [...] is s table. Risk factors include: / Croatian, family history diabetes mellitus, obesity, over age [...] be but it will be done at [facility] and not [facility]. back pain Location of pain is lower [...] unsteady on feet. leg swelling admits to [facility]. h as taken diuretic in past. itchiness gets [...] w/o pain. back pain hypertension Additional infor mation: she is not taking BP meds now [...] surveillance and counseling Espere jason nicole con [facility] Related to Abnormality of gait Recibiras jason nicole p mitchel monitor de greg. Related to Palpitations Marni puma lisinopri lDeedee Empieza puma losartan. Related to ROBIN-inhibitor cough Follow [...] day as prescribed Related to Hypertension, Benign Donaldson Tylenol para el dolor Relat ed to Knee pain, right Go to hospital for Xray Related to Knee pain, right Assessments Type Assessment Date No Information Patient Care Teams Name Effective Dates (start - stop) Status Members No Information
--- OUTSIDE RECORDS SUMMARY | 2024-11-21 14:06 | XMS_ITS | Encounter Summary ---
Author Organization [employer] Address [address] [facility] [address] [place] [address] Care Team Providers Care Armed Custom Protection Officer Name Role Phone Janeen Allen MD Primary Care Provide r Reason for Visit * Reason Onset Date Comments Forms/questionnaires 09/24/2024 Encounter Details Date Type Department Care Team ([facility] st Contact Info) Description 09/24/2024 Telephone [facility] MED[facility]INE [address], [place] [phone] Janeen Allen MD [address] [place] [address] Forms/questionnaires Social History Tobacco Use Types Packs/Day Years [...] encounter Miscellaneous Notes * Telephone Encounter - Francie Leblanc RN - 10/09/2024 11:59 AM EST RN called [facility], spoke to Shalonda, Colostomy supplies have been shipped, please inform pt. Thank you Tc from pt stating [facility] has reached out to pt advising they are awaiting a letter/forms from PCP for DME supplies ( colostomy supplies ) and wipes however pt stated they do not know what letter needs to state. Pt gave phone number ) Please contact for further clarification [phone] Angolan * Telephone Encounter - Jd Kaufman - 09/24/2024 1:04 PM EST Tc from pt stating [facility] has reached out to pt advising they are awaiting a letter/forms from PCP for DME supplies ( colostomy supplies ) and wipes however pt stated they do not know what letter needs to state. Pt gave phone number ) Please contact for further clarification [phone] [place]olan documented in this encounter Plan of Treatment Not on file documented as of this encounter Visit Diagnoses Not on filedocumented in this encounter Additional Health Concerns Assessment Noted Time PHQ-9 Depression Total Score: 024 2:21 PM EDT documented as of this encounter Care Teams Armed Custom Protection Officer Relationship Specialty Start Date End Date Janeen Allen MD [address] [place] [id number] PCP - General Internal Medicine 02/15/24 documented as of this encounter
== END 2024-11-21 11:55 | disposition home or self-care (01) ==
LOC: HO.HHCX 11:54
PROVIDERS: Visit Provider Family Medicine
DX: J44.1 Chronic obstructive pulmonary disease with (acute) exacerbation (principal)
CPT/HCPCS: 71046

== ENCOUNTER → 2024-11-21 11:54 | Outpatient (BNV) | payer MEDICARE, SELFPAY | PROVIDERS: Visit Provider Radiology Diagnostic Radiology | DX: J44.9 Chronic obstructive pulmonary disease, unspecified (principal) | CPT/HCPCS: 71046 ==

== ENCOUNTER 2025-02-19 12:43 | Outpatient (REF) | payer OTHER, SELFPAY ==
--- OUTSIDE RECORDS SUMMARY | 2025-02-19 14:58 | XMS_ITS | Encounter Summary ---
Author Organization [employer] Address [address] [facility] [address] [facility] [address] [place] [address] Care Team Providers Care Dumper Name Role Phone Eneida Cornejo MD Primary Care Provider [phone] Janeen Allen MD Primary Care Provide r Encounter Details Date Type Department Care Team (Late st Contact Info) Description 10/24/2023 Telephone [facility] MEDICINE [address] [place] [address] Eneida Cornejo MD [address] [place], [place] [phone] Social History Tobacco Use Types Packs/Day Years [...] as of this encounter Plan of Treatment Upcoming Encounters Date Type Department Care Team (Late st Contact Info) Description 05/25/2025 11:30 AM EDT Office Visit [facility] MED[facility]INE [address] [place] [address] [phone] Janeen Allen MD [address] [place] [phone] documented as of this encounter Visit Diagnoses Not on filedocumented in this encounter Additional Health Concerns Assessment Noted Time PHQ-9 Depression Total Score: 19 023 11:08 AM EDT documented as of this encounter Care Teams Dumper Relationship Specialty Start Date End Date Eneida Cornejo MD [address] [place] [id number] PCP - General Family Medicine 08/09/21 02/14/24 Janeen Allen MD [address] [place] [id number] PCP - General Internal Medicine 02/15/24 documented as of this encounter
--- OUTSIDE RECORDS SUMMARY | 2025-02-19 14:58 | XMS_ITS | Clinical Summary ---
Author Organization [employer] Address [address] [facility] [address] [place] [address] Care Team Providers Care Shift Supervisor Melting Name Role Phone Janeen Allen MD Primary Care Provide r Allergies Active Allergy Reactions Criticality Noted Date Comments Aspirin Itching Low 05/09/2018 Codeine Rash High 05/09/2018 Other reaction(s): Rash Iodinated Contrast Media 01/02/2025 Other Reaction(s): difficulty breathing Iodine Hives Low 05/09/2018 Penicillin G Rash [...] hyperglycemia, without long-term current use of insulin ([facility]) 1 units of lipase before breakfast. 1 kit Active hydrOXYzine HCl (Atarax) 10 MG tabletIndications :Pruritus Take 1 tablet (10 mg) by mouth if needed at bedtime for itching. 30 tablet 023 Active doxepin (SINEquan) 10 MG capsuleIndication s:Pruritus Take 1 capsule (10 mg) by mouth at bedtime. 30 capsule 023 Active Diclofenac Sodium (Voltaren) 1 % gel Apply 1 Application topically every 12 (twelve) hours. 200 g 023 Active Clotrimazole Anti-Fungal 1 % creamIndications: Pruritus of vagina APPLY TO AFFECTED AREA(S) AND SURROUNDING AREA(S) TWICE DAILY IN THE MORNING AND EVENING 90 g 023 Active ciprofloxacin-hyd rocortisone (Cipro HC) otic suspension PLACE THREE DROPS IN THE RIGHT EAR TWICE DAILY FOR SEVEN DAYS Active Alcohol Swabs (Alcohol Prep) 70 % pads USE TWO DAILY 100 each 11 Active nitroglycerin (Nitrostat) 0.4 MG SL tablet DISSOLVE 1 TABLET UNDER THE TONGUE EVERY 5 MINUTES NEEDED FOR CHEST PAIN. DO NOT EXCEED A TOTAL OF 3 DOSES IN 15 MINUTES. 25 tablet 3 Active lactulose (Chronulac) 10 GM/15ML solution TAKE 15 ML BY MOUTH TWICE DAILY NEEDED FOR CONSTIPATION 946 mL 5 Active triamcinolone (Kenalog) 0.1 % creamIndications: Xerosis cutis Apply topically if needed in the morning and at bedtime (pain and swelling). Mix with Cerave 80 g 11 Active dextran 70-hypromellose (artificial tears) 0.1-0.3 % ophthalmic solutionIndicatio ns:Dry eyes, bilateral Administer 1 drop into both eyes if needed in the morning, at noon, and at bedtime for dry eyes. 15 mL 6 024 2024 Active hydroCHLOROthiazi de 12.5 MG tablet Take 1 tablet (12.5 mg) by mouth in the morning. 90 tablet 1 Active docusate sodium (Colace) 100 MG capsule [...] in the morning. 90 tablet 1 Active amLODIPine (Norvasc) 10 MG tablet Take [...] capillary glucose BID 60 strip 11 Active fluticasone (Flonase) 50 MCG/ACT nasal spray Administer 1 spray into each nostril Once per day. 16 g 3 Active cetirizine (ZyrTEC) 10 MG tablet Take 0.5 tablets (5 mg) by mouth Once per day. 15 tablet 3 2025 Active guaiFENesin (Mucinex) 600 MG 12 hr tablet Take 2 tablets (1,200 mg) by mouth if needed in the morning and at bedtime for cough or congestion. Do not crush, chew, or split. 30 tablet 025 2025 Active GaviLAX 17 GM/SCOOP powder TAKE 17 GM MIXED IN 8 OUNCES OF WATER, COFFEE OR TEA ONCE DAILY NEEDED DIRECTED 510 g Active cholecalciferol (Vitamin D-3) 25 MCG tablet TAKE 1 TABLET BY MOUTH EVERY MORNING 90 tablet Active atorvastatin (Lipitor) 80 MG tablet TAKE 1 TABLET BY MOUTH EVERY MORNING 90 tablet 025 Active magnesium oxide (Mag-Ox) 400 MG tabletIndications :Cramp and spasm TAKE 1 TABLET BY MOUTH EVERY MORNING 90 tablet Active TRUEplus Lancets 33G misc Apply 1 each topically Once per day. TEST BLOOD SUGAR EVERY EVENING 100 each 4 Active albuterol 108 (90 Base) MCG/ACT inhalerIndication s:Chronic obstructive pulmonary disease, unspecified COPD type ([facility]) INHALE 2 PUFFS BY MOUTH EVERY 6 HOURS NEEDED FOR WHEEZING 8.5 g 1 025 Active ferrous gluconate (Fergon) 324 (38 Fe) MG tabletIndications :Iron deficiency anemia, unspecified iron deficiency anemia type TAKE 1 TABLET BY MOUTH EVERY OTHER DAY 15 tablet 1 025 Active gabapentin (Neurontin) 600 MG tabletIndications :Diabetic polyneuropathy associated with type 2 diabetes mellitus ([facility]) TAKE 1 TABLET BY MOUTH TWICE DAILY IN THE MORNING AND IN THE EVENING 60 tablet 2 Active azithromycin (Zithromax) 250 MG tabletIndications :Asthma exacerbation in COPD ([facility]) Take 2 tablets on day one then one tablet daily 6 tablet Active cyclobenzaprine (Flexeril) 10 MG tabletIndications :Acute midline low back pain with right-sided sciatica Take 1 tablet (10 mg) by mouth 3 times daily for 10 days. 30 tablet 025 Active furosemide (Lasix) 40 MG tabletIndications :Acute on chronic diastolic heart failure ([facility]) Take 1 tablet (40 mg) by mouth Once per day. 30 tablet 2 025 2025 Active clopidogrel (Plavix) 75 MG tablet TAKE 1 TABLET BY MOUTH EVERY MORNING 30 tablet 3 Active isosorbide mononitrate ER (Imdur) 30 MG 24 hr tablet TAKE 1 TABLET BY MOUTH EVERY MORNING 30 tablet 2 Active glipiZIDE (Glucotrol) 5 MG tablet TAKE 1 TABLET BY MOUTH TWICE DAILY IN THE MORNING AND IN THE EVENING BEFORE BREAKFAST AND BEFORE SUPPER 60 tablet 1 025 Active levothyroxine (Synthroid, Levoxyl) 50 MCG tabletIndications :Acquired hypothyroidism Take 1 tablet (50 mcg) by mouth before breakfast. 90 tablet Active QUEtiapine (SEROquel) 25 MG tablet TAKE 1/2 TABLET BY MOUTH AT BEDTIME 45 tablet 1 025 Active albuterol (2.5 MG/3ML) 0.083% nebulizer solution INHALE 1 AMPULE USING A NEBULIZER EVERY 4 HOURS 360 mL 2 Active Umeclidinium-Inna nterol (Anoro Ellipta) 62.5-25 MCG/ACT aerosol powderIndications :Chronic obstructive pulmonary disease, unspecified COPD type (CMS/HCC) Inhale 1 puff Once per day. 1 each 2 Active lidocaine (Lidoderm) 5 % patchIndications: Primary osteoarthritis of both knees Apply 1 patch topically Once per day. Remove & discard patch within 12 hours or as directed by MD. 30 patch 2 Active econazole nitrate 1 % creamIndications: Intertrigo Apply topically Once per day. 85 g 1 025 2025 Active fluconazole (Diflucan) 150 MG tabletIndications :Intertrigo Take 1 tablet (150 mg) by mouth 1 (one) time per week for 28 days. 4 tablet 025 2024 Active zinc oxide (Desitin) 40 % pasteIndications: Rash Apply 1 Application. topically if needed for diaper rash or irritation. 56.7 g 1 Active albuterol (2.5 MG/3ML) 0.083% nebulizer solution USE ONE AMPULE USING A NEBULIZER EVERY 4 HOURS 360 mL 6 024 2024 Discontinued QUEtiapine (SEROquel) 25 MG tablet Take 0.5 tablets (12.5 mg) by mouth at bedtime. 45 tablet 1 024 2024 Discontinued levothyroxine (Tirosint) 50 MCG capsuleIndication s:Acquired hypothyroidism Take 1 capsule (50 mcg) by mouth before breakfast. 30 capsule 2 025 2024 Discontinued Active Problems Problem Noted Date Diagnosed Date Rash 02/19/2025 Lower abdominal pain 02/19/2025 Assessment & Plan (02/19/2025 2:30 PM EDT): I will refer patient to gastroenterology S/P colonoscopy 02/19/2025 Bilateral hand pain 02/19/2025 Assessment & Plan (02/19/2025 2:31 PM EDT): Compression labs prescribed today Asthma exacerbation in COPD 01/09/2025 Assessment & Plan (01/09/2025 4:06 PM EDT): Patient educated to avoid triggers I will treat patient for asthma/COPD exacerbation with prednisone 40 mg x 3, Z- López for 5 days and albuterol as needed, I also prescribed for her cough some cough syrup as needed Acute on chronic diastolic heart failure 025 Assessment & Plan (01/09/2025 4:10 PM EDT): Patient today seems to be fluid overload for this reason I will increase her Lasix to 40 mg daily I advised to monitor for her leg edema and breathing (she can hear her weight is challenging because patient has a hard time standing up) I will refer patient VENKAT back to cardiology for further monitoring and possible medications adjustments I will continue to monitor patient she has another appointment with me next month Acute midline low back pain with right-sided sci atica 01/09/2025 Assessment & Plan (01/09/2025 4:08 PM EDT): Apply heat on affected area Acetaminophen as needed I will prescribe short course of Flexeril 10 mg 3 times a day if needed, patient is aware of side effects Intertrigo 11/04/2024 Assessment & Plan (11/04/2024 2:14 [...] recommended reduction of 20-30% of maintenance calories; packing and final assembly supervisor referral offered. Recommended to decrease soda and [...] artery disease of n ative artery of [place] heart with stable angina pectoris 04/19/2023 Primary [...] Other Major depressive disorder, recurrent episode, unspecified (CMS/HCC) Patient ready to address current needs Yes Strengths include willing to seek treatment PLAN: 1. Follow up with [facility]: Not recommended for follow-up 2. Patient goal [...] obstructive lung disease 02/20/2019 Assessment & Plan (02/19/2025 2:30 PM EDT): I will prescribe for patient Hayes Wisdom continue with albuterol as needed Assessment & Plan (07/17/2024 5:23 PM EDT): [...] 2 diabetes mellitus 07/05/2018 Assessment & Plan (02/19/2025 2:32 PM EDT): Diabetes is: controlled - Lab Results Component Value Date HGBA1C 8.2 (A) 01/09/2025 HGBA1C 7.0 (A) 08/27/2024 HGBA1C 6.9 (A) 05/07/2024 - Lab Results Component Value Date MICROALBUR <5.0 08/29/2024 CREATININE 0.99 08/29/2024 -Changes: None - Diabetic eye exam: Up-to-date - Diabetic foot exam: - Continue lifestyle modifications - Continue current medications - Follow up: 3 months Assessment & Plan (01/09/2025 4:08 PM EDT): Diabetes is: not controlled - Lab Results Component Value Date HGBA1C 8.2 (A) 01/09/2025 HGBA1C 7.0 (A) 08/27/2024 HGBA1C 6.9 (A) 05/07/2024 - Lab Results Component Value Date MICROALBUR <5.0 08/29/2024 CREATININE 0.99 08/29/2024 -Changes: Extensive counseling about diabetic diet done today, A1c may be higher due to recent prednisone and a steroid use for now we will monitor - Diabetic eye exam: Up-to-date - Diabetic foot exam: Up-to-date - Continue lifestyle modifications - Continue current medications - upcoming appointment Assessment & Plan (08/27/2024 3:58 PM EDT): [...] from her chart. Osteoarthritis of knee 07/05/2018 Assessment & Plan (02/19/2025 2:30 PM EDT): Lidocaine patches prescribed today 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 Hyperlipidemia associated with type 2 diabetes miranda lopez 07/05/2018 Colostomy present 07/05/2018 Assessment & Plan (11/02/2022 6:17 PM EST): Patient has an ostomy bag and reports that supplies provided don't last for her and that she needs to change her lining at least every 2-3 days, reports insurance is only providing 4 changes per month, I will send message to DME specialist Acquired hypothyroidism 07/05/2018 Assessment & Plan (01/09/2025 4:06 PM EDT): TSH will be checked with labs I will restart her levothyroxine 50 mg daily Resolved Problems Problem Noted Date Diagnosed Date Resolved Date Right hand pain 02/19/2025 02/19/2025 Acute otitis externa of right ear 02/01/2023 06/04/2023 Disorder of vision 10/17/2022 4 Encounters Date Type Department Care Team Description 02/19/2025 1:00 PM EDT Office Visit [address] [phone] Janeen Allen MD Chronic obstructive pulmonary disease, unspecified COPD type ([facility]/HCC) (Primary Dx); Type 2 diabetes mellitus with hyperglycemia, without long-term current use of insulin ([facility]); Primary osteoarthritis of both knees; Intertrigo; Lower abdominal pain; S/P colonoscopy; Rash; Right hand pain; Bilateral hand pain 02/19/2025 Travel 02/19/2025 Refill [facility] [address] [place] [phone] Janeen Allen MD 02/18/[address] [phone] Janeen Allen MD Chart Prep 02/10/2025 Patient Outreach [address] [phone] Janeen Allen MD Pre-visit Planning (SDOH screening negative and tobacco screening negative) 02/06/[address] [phone] Janeen Allen MD Durable Medical Equipment 02/06/2025 Telephone [facility] [address] [place] [address] Janeen Allen MD FYI 02/05/2025 Refill [facility] [address] [place] [address] Janeen Allen MD Acquired hypothyroidism 01/17/2025 Refill [facility] [address] [place] [address] Odette Oliva, 01/17/2025 Refill [facility] [address] [place] [address] Janeen Allen MD 01/12/[address] [phone] Janeen Allen MD Call Back Request 01/09/2025 1:00 PM EDT Office Visit [facility] [address] [place] [phone] Janeen Allen MD Asthma exacerbation in COPD ([facility]) (Primary Dx); Type 2 diabetes mellitus with hyperglycemia, without long-term current use of insulin ([facility]); Acute on chronic diastolic heart failure ([facility]); Acute midline low back pain with right-sided sciatica; Acquired hypothyroidism 01/09/2025 Travel 12/24/2024 Telephone [facility] [address] [place] [phone] Janeen Allen MD Durable Medical Equipment 12/22/2024 Patient Outreach [facility] [address] [place], [place] [phone] Janeen Allen MD Pre-visit Planning (HDF scheduled. ) 12/22/2024 Telephone [facility] [address] [place] [phone] Janeen Allen MD Hospital Follow-up 12/21/2024 Refill [facility] [address] [place] [phone] Janeen Allen MD Iron deficiency anemia, unspecified iron deficiency anemia type; Diabetic polyneuropathy associated with type 2 diabetes mellitus ([facility]) 12/16/2024 Refill [facility] [address] [place] [phone] Janeen Allen MD Chronic obstructive pulmonary disease, unspecified COPD type ([facility]/HCC) 11/28/2024 Refill [facility] [address] [place] [address] Eneida Cornejo MD 11/28/2024 Refill [facility] [address] [place] [phone] Janeen Allen MD Cramp and spasm 11/23/2024 Refill [facility] [address] [place] [phone] Janeen Allen MD 11/21/2024 10:20 AM EST Office Visit [facility] [address] [place] [phone] Odette Oliva DO Chronic obstructive pulmonary disease with acute exacerbation ([facility]) (Primary Dx) 11/21/2024 Telephone [facility] [address] [place] [phone] Odette Oliva DO Results; Plan of Care/allergy confirmation 11/21/2024 Telephone [facility] [address] [place] [phone] Odette Oliva DO 11/21/2024 Telephone [facility] [address] [place] [phone] Racheal Power, [facility] triage; Pulmonolgy visit and last EKG @ [facility] from Last 3 Months Immunizations Name Administration [...] Answer Date Recorded Internet Access Q1 No 02/10/2025 Internet Access Q2 Internet/Wi-Fi access is not available where I live 02/10/2025 Comments Unknown Sex and Gender Information Value Date Recorded Sex Assigned at Female 08/28/2022 10:33 AM EDT Legal Sex Female 10:33 AM EDT Gender Identity Choose not to disclose 10:33 AM EDT Sexual Orientation Choose not to disclose 2021 10:33 AM EDT Last Filed Vital Signs Vital Sign Reading Time Taken Comments Blood Pressure 138/70 02/19/2025 12:29 PM EDT Pulse 100 02/19/2025 12:29 PM EDT Temperature 37 ??C (98.6 ??F) 02/19/2025 11: 55 AM EDT Respiratory Rate 22 02/19/2025 11:5 5 AM EDT Oxygen Saturation 96% 11/21/2024 12: 16 PM EST after nebulizer treatment Inhaled Oxygen Concentration - - Weight 89.8 kg (198 lb) 02/19/2025 11:5 5 AM EDT Height 149.9 cm (4' 11 ) 02/19/2025 11: 55 AM EDT Body Mass Index 39.99 02/19/2025 11:55 AM EDT Plan of Treatment Upcoming Encounters Date Type Department Care Team (Late st Contact Info) Description 05/25/2025 11:30 AM EDT Office Visit [facility] [address] [place] [phone] Janeen Allen MD [address] [place], [place] [phone] Health Maintenance Due Date Last Done Comments Diabetes: Foot Exam 1955 Hepatitis C Screening 1963 DTaP/Tdap/Td Vaccines (1 - Tdap) 1964 Pneumococcal Vaccine: 50+ Years (1 of 2 - PCV) 1964 Zoster Vaccines (1 of 2) 1995 RSV Patients and Patients Aged 60 years or older (1 - 1-dose 75+ series) 2020 COVID-19 Vaccine (3 - season) 2024 03/18/2021, 02/24/2021 Influenza Vaccine (#1) 2024 Diabetes: Hemoglobin A1C 04/11/202501/09/2 025, 08/27/2024, 05/07/2024, Additional history exists Alcohol/Substance Use Screening 08/27/2025 08/27/2024 Diabetes: Urine Protein Screening 08/29/2025 08/29/2024 Lipid Panel 08/29/2025 08/29/2024 Depression Screening 11/04/2025 11/04/2024, 11/04/19 25 SDOH Screening 02/10/2026 02/10/2025 Tobacco Screening 02/19/2026 02/19/2025 Eye Exam 09/02/2026 09/02/2024, 1102/2024, 09/02/2024, Additional history exists HIB Vaccines Aged [...] Procedure Name Priority Date/Time Associated Diagnosis Comments POCT GLUCOSE Routine 02/19/2025 11:56 AM EDT Type 2 diabetes mellitus with hyperglycemia, without long-term current use of insulin (CMS/HCC) POCT GLYCATED HEMOGLOBIN, TOTAL Routine 01/09/2025 1:11 PM EDT Type 2 diabetes mellitus with hyperglycemia, without long-term current use of insulin (CMS/HCC) POCT GLUCOSE Routine 01/09/2025 1:09 PM EDT Type 2 diabetes mellitus with hyperglycemia, without long-term current use of insulin (CMS/HCC) XR CHEST 2 VIEWS STAT 11/21/2024 11:5 [...] obstructive pulmonary disease with acute exacerbation (CMS/HCC) ALBUMIN, RANDOM URINE W/CREATININE Routine 08/29/2024 12:20 PM EDT Type 2 diabetes mellitus with hyperglycemia, without long-term current use of insulin ([facility]) LIPID PANEL WITH REFLEX TO DIRECT LDL Routine 08/29/2024 12:20 PM EDT Type 2 diabetes mellitus with hyperglycemia, without long-term current use of insulin ([facility]) from Last 3 Months or Most Recently Relevant to Health Maintenance Results * POCT Glucose (02/19/2025 11:56 AM EDT) Only the most recent of2 resultswithin the time period is included. Glucose Blood, POC 167 60 - 200 mg/dL QC Media Lot # [id number] Lot# Expiration Date Blood Capillary blood specimen / Unknown 02/19/2025 11:56 AM EDT Janeen Medina MD POINT OF CARE TEST EN TER/EDIT ORDERABLES Final Result * (ABNORMAL) POCT HGB A1C (01/09/2025 1:11 PM EDT) Hemoglobin A1C 8.2(A) 4.0 - 6.0 % QC Media Lot # [id number] Lot# Expiration Date , Blood 01/09/2025 1:11 PM EDT Janeen Medina MD POINT OF CARE TEST EN TER/EDIT ORDERABLES Final Result * XR Chest 2 Views (11/21/2024 11:54 AM EST) Anatomical Region Laterality Modality Chest Radiographic Diane ging 11/21/2024 11:5 4 AM EST Narrative 11/21/2024 1:14 PM EST ?[facility] ?[address] ?[place] [address] ?XRay Report ? Signed ? Patient: Almanzar,Libby ?MR#: [id number] ? : 1945 ?Acct:[id number] ? Age/Sex: 79 / F ?ADM Date: 01/24/25 ? Loc: HO.HHCX ? Attending Dr: Odette Oliva DO ? Ordering Physician: Odette Oliva DO ?? Date of Service: 11/21/24 ?? Procedure(s): XR chest 2V ?? Accession Number(s): [id number] ? cc: Odette Oliva DO ? EXAMINATION: [...] DD/ 1154 ? TD/TT: 11/21/24 1200 ? Mortgage Servicing Specialist: ? Procedure Note Baylee, Image - 11/21/[address] [address] XRay Report Signed Patient: Libby Almanzar#: [id number] : 5Acct:[id number] Age/Sex: 79 / FADM Date: 11/21/24 Loc: HO.HHCX Attending Dr: Odette Oliva DO Ordering Physician: Odette Oliva DO Date of Service: 11/21/24 Procedure(s): XR chest 2V Accession Number(s): [id number] cc: Odette Oliva DO EXAMINATION: XR CHEST [...] 11/21/24 1311 DD/ 1154 TD/TT: 11/21/24 1200 Mortgage Servicing Specialist: Odette Oliva DO IMG XR PROCEDURES Final Resu lt * Influenza B (ID NOW Rapid Molecular) (11/21/2024 11:22 AM EST) Pathologist [facility] Influenza B Negative Negative, Indeterminate [facility] Swab 11/21/2024 11:2 2 AM EST Odette Oliva DO POINT OF CARE TEST ENTER/JULIET T ORDERABLES Final Result [facility] [address] [place] [phone] * Influenza A (ID NOW Rapid Molecular) (11/21/2024 11:22 AM EST) [facility] Influenza A Negative Negative, Indeterminate [facility] Swab 11/21/2024 11:2 2 AM EST Odette Oliva DO POINT OF CARE TEST ENTER/JULIET T ORDERABLES Final Result Performing Organization Address City/[facility]/ZIP Co de Phone Number [facility] [address] [place] [address] [phone] * POCT Rapid COVID Ag (11/21/2024 11:22 AM EST) Rapid COVID Ag Negative [facility] Swab 11/21/2024 11:2 2 AM EST Odette Hazel DO POINT OF CARE TEST ENTER/JULIET T ORDERABLES Final Result Performing Organization Address [facility] Co de Phone Number [facility] [address] [place] [address] [phone] * (ABNORMAL) Lipid Panel with Reflex to Direct LDL (08/29/2024 12:20 PM EDT) Triglycerides 211(H) <150 mg/dL [facility] Comment:Desirable Triglyceri de: less than 150 mg/dLBorderline High Triglyceride 150-199 mg/dLHigh Triglyceride: 200-499 mg/dLVery High Triglyceride: greater than or equal to 5OO mg/dL Cholesterol 120 <200 mg/dL [facility] Comment:Desirable Cholestero l: less than 200 mg/dLBorderline High Cholesterol: 200-239 mg/dLHigh Cholesterol: greater than 239 mg/dL LDL Cholesterol Calculated 45 <100 mg/dL [facility] Comment:Desirable LDL: less than 100 mg/dLNear Optimal/Above Optimal LDL: 110- 129 mg/dLBorderline High LDL: 130-159 mg/dLHigh LDL: 160-189 mg/dLVery High LDL: greater than or equal to 190 mg/dL HDL Cholesterol 33(L) >40 mg/dL [facility] Comment:Desirable HDL: great er than 40 mg/dL Note: This HDL assay may give artificially low results in patients with liver disease. Blood 08/29/2024 12:2 0 PM EDT 08/29/2024 1:28 PM EDT us Janeen Medina MD LAB BLOOD ORDERABLES Final Result Performing Organization Address [facility] Co de Phone Number [facility] [address] [place] [address] [phone] * Albumin, Random Urine W/Creatinine (08/29/2024 12:20 PM EDT) Creatinine, Urine 38.34 mg/dL [facility] Microalbumin Urine <5.0 mg/L [facility] Microalbum Creatinine Ratio Ur TNP <30 ug/mg cr [facility] Comment:Unable to calculate albumin/creatinine ratio due to lowmicroalbumin or creatinine result. Urine (Urine, Random) 08/29/2024 12:20 PM EDT 08/29/2024 4:38 PM EDT us Janeen Medina MD LAB URINE ORDERABLES Final Result Performing Organization Address [facility] Co de Phone Number [facility] [address] [place] [address] [phone] from Last 3 Months or Most Recently Relevant to Health Maintenance [place] [address] [place] [address] - [employer] Care Teams Shift Supervisor Melting Relationship Specialty Start Date End Date Janeen Allen MD [address] [place] [phone] PCP - General Internal Medicine 02/15/24
--- OUTSIDE RECORDS SUMMARY | 2025-02-19 14:58 | XMS_ITS | Encounter Summary ---
Author Organization [employer] Address [address] [place] [address] Care Team Providers Care Soil Fertility Extension Specialist Name Role Phone Eneida Cornejo MD Primary Care Provider [phone] Janeen Allen MD Primary Care Provide r Reason for Visit * Reason Onset Date Comments Nurse Triage 11/14/2023 Encounter Details Date Type Department Care Team ([facility] st Contact Info) Description 11/14/2023 Telephone [facility] PEDS [address] [place], [place] [phone] Eneida Cornejo MD [address] [place] [address] Nurse Triage Social History Tobacco Use Types [...] encounter Miscellaneous Notes * Telephone Encounter - Rhael Powers RN - 11/14/2023 9:18 AM EST [...] provider within 15 minutes Reason: Trouble walking [place] Speaker documented in this encounter Plan of Treatment Upcoming Encounters Date Type Department Care Team (Late st Contact Info) Description 05/25/2025 11:30 AM EDT Office Visit [facility] MEDICINE [address] [place] [address] Janeen Allen MD [address] [place] [phone] documented as of this encounter Visit Diagnoses Not on filedocumented in this encounter Additional Health Concerns Assessment Noted Time PHQ-9 Depression Total Score: 19 023 11:08 AM EDT documented as of this encounter Care Teams Soil Fertility Extension Specialist Relationship Specialty Start Date End Date Eneida Cornejo MD [address] [place] [phone] PCP - General Family Medicine 08/09/21 02/14/24 Janeen Allen MD [address] [place] [phone] PCP - General Internal Medicine 02/15/24 documented as of this encounter
--- OUTSIDE RECORDS SUMMARY | 2025-02-19 14:58 | XMS_ITS | Data Portability ---
Author Organization [place] - [facility], , [facility] Address [address] [place] [address] Assessment Encounter Date Assessment Date Assessment LastModified by Organization Details LastModified Time 11/13/2017 11/13/2017 Pt with morbid obesity, needs to lose at least 50# to qualify for hernia surgery. Complicating factors: financial constraints for food purchases (unable to get to any free meals or food pantries d/t limited transportation - she came in her motorized w/c to today's apt). 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 She appears to be cutting back on food, and having low protein diet, in her attempt to lose weight. She has diabetes; information on diabetes control is old; apparently she told her provider she does not like to get her labs done at [facility] [place] [facility]. She may be testing her bg at home, she did not bring her glucometer to today's apt. For today, d/t language barrier and limited assistance from the language services, we used pictures (Filipino/spani sh in the booklet) to do some [...] 2016 017 [email or web address] Sangita Peterson MD, [address] [place], [address], 7 07:30:45 Procedures None recorded. Surgeries None recorded. Imaging None recorded. Medication Orders lisinopril 5 mg tablet 2017 018 INTERFACE [facility] #[id number], [address] [place], [place], [id number], 8 11:52:39 ketoconazo le 2 % shampoo 2017 018 INTERFACE [id number], [address] [place], [place], [id number], 8 13:29:23 Patient TargetsNo targets recorded. Patient Instructions Encounter Date Encounter Id Patient Instructions Last Modified By Organization Details Last Modified Time 11/13/2017 [id number] for weight loss, you need to eat [...] meal - follow up appointment: come with CHIEF QUALITY OFFICER, and bring your glucometer OBJETIVOS: - 3 comidas fabio? ? ?as por d? ? ?a, incluyen jason michelle de prote? ? ?na en cada comida - nicole de seguimiento: ashok con CHIEF QUALITY OFFICER y sujit tu gluc? ? ?metro Return in Quatros semanas msobil Not available 11/15/2017 12:43:21 Reason for Referral Publication Designer/dietitian Refer ral for Diabetes mellitus obesity, DM2; particularly interested in losing 50-60 lbs in order to qualify for a hernia surgery Referring Physician: Jan Michele, Family Medicine, Encounter Date: 10/25/2017 Results Created Date Observation Date Name Description Value Unit Range Abnormal Flag Note LastModifiedBy Organization Detail LastModifiedTime 12/18/1912/18/2017 BMP, serum or plasm a glucose 257 mg/dL (70-99 ) high Not Available [facility] (Centralized Electronic Ordering - All Locations) Patient Can Go To The Location Of Their Choice, 12/18/2017 13:12:48 12/18/1912/18/2017 BMP, serum or plasm a BUN 11 mg/dL (8-23) Not Available [facility] (Centralized Electronic Ordering - All Locations) Patient Can Go To The Location Of Their Choice, 12/18/2017 13:12:48 12/18/1912/18/2017 BMP, serum or plasm a creatinine 0.5 mg/dL (0.5-1 .0) Not Available [facility] (Centralized Electronic Ordering - All Locations) Patient Can Go To The Location Of Their Choice, 12/18/2017 13:12:48 12/18/1912/18/2017 BMP, serum or plasm a sodium 142 mmol/ L (133-1 45) Not Available [facility] (Centralized Electronic Ordering - All Locations) Patient Can Go To The Location Of Their Choice, 12/18/2017 13:12:48 12/18/1912/18/2017 BMP, serum or plasm a potassium 4.4 mmol/ L (3.6-5 .2) Not Available [facility] (Centralized Electronic Ordering - All Locations) Patient Can Go To The Location Of Their Choice, 12/18/2017 13:12:48 12/18/1912/18/2017 BMP, serum or plasm a chloride 99 mmol/ L (98-10 7) Not Available [facility] (Centralized Electronic Ordering - All Locations) Patient Can Go To The Location Of Their Choice, 12/18/2017 13:12:48 12/18/1912/18/2017 BMP, serum or plasm a bicarbonate 29 mmol/ L (22-29 ) Not Available [facility] (Centralized Electronic Ordering - All Locations) Patient Can Go To The Location Of Their Choice, 12/18/2017 13:12:48 12/18/1912/18/2017 BMP, serum or plasm a anion gap 14 (4-17) Not Available [facility] (Centralized Electronic Ordering - All Locations) Patient Can Go To The Location Of Their Choice, 12/18/2017 13:12:48 12/18/1912/18/2017 BMP, serum or plasm a calcium 9.9 mg/dL (8.6-1 0.5) Not Available [facility] (Centralized Electronic Ordering - All Locations) Patient Can Go To The Location Of Their Choice, 12/18/2017 13:12:48 12/18/1912/18/2017 BMP, serum or plasm a est GFR [...] [employer]. Not Available [facility] (Centralized Electronic Ordering - All Locations) Patient Can Go To The Location Of Their Choice, 12/18/2017 13:12:48 12/18/1912/18/2017 BMP, serum or plasm a est GFR [...] [employer]. Not Available [facility] (Centralized Electronic Ordering - All Locations) Patient Can Go To The Location Of Their Choice, 12/18/2017 13:12:48 12/18/1912/18/2017 lipid panel , serum cholesterol, total 219 mg/dL (<200) high Not Available [facility] ([facility] Ordering - All Locations) Patient Can Go To The Location Of Their Choice, 12/18/2017 13:12:50 12/18/1912/18/2017 lipid panel , serum triglyceride 236 mg/dL (<150) high Not Available [facility] ([facility] Order[facility] - All Locations) Patient Can Go To The Location Of Their Choice, 12/18/2017 13:12:50 12/18/1912/18/2017 lipid panel , serum HDL chol 37 mg/dL (>39) low Not Available [facility] (Centralized Electronic Ordering - All Locations) Patient Can Go To The Location Of Their Choice, 12/18/2017 13:12:50 12/18/1912/18/2017 lipid panel , serum LDL cholesterol, calculated 135 mg/dL (0-130 ) high Not Available [facility] (Centralized Electronic Ordering - All Locations) Patient Can Go To The Location Of Their Choice, 12/18/2017 13:12:50 12/18/19 18 12/18/2017 lipid panel , serum non HDL cholesterol (calc) 182 mg/dL (<160) high Not Available [facility] (Centralized [facility] Ordering - All Locations) Patient Can Go To The Location Of Their Choice, 12/18/2017 13:12:50 12/18/1912/18/2017 TSH, serum or plasm a TSH 1.94 mIU/m L (0.40- 4.00) Not Available [facility] (Centralized Electronic Ordering - All Locations) Patient Can Go To The Location Of Their Choice, 12/18/2017 13:12:51 12/18/1912/18/2017 micro album in, urine micro-albumi n 77.9 mg/L (0-20) high Not Available [facility] (Centralized [facility] Ordering - All Locations) Patient Can Go To The Location Of Their Choice, 12/18/2017 18:52:12 12/18/1912/18/2017 micro album in, urine malb/creat ratio 95.8 mg/gm (0-20) high Not Available [facility] (Centralized Electronic Ordering - All Locations) Patient Can Go To The Location Of Their Choice, 12/18/2017 18:52:12 12/18/1912/18/2017 micro album in, urine urine creat for micro albumin 81.3 mg/dL Not Available [facility] (Centralized Electronic Ordering - All Locations) Patient Can Go To The Location Of Their Choice, 12/18/2017 18:52:12 12/18/1912/18/2017 HbA1c (hemo globi n A1c), blood hemoglobin [...] in Hb A1c (%). Not Available [facility] (Centralized Electronic Ordering - All Locations) Patient Can Go To The Location Of Their Choice, 12/18/2017 23:57:23 12/03/1912/03/2018 eryth rocyt e sedim entat ion rate by weste rgren metho d albumin/crea tinine ratio 83 high Not Available [facility] ([facility] Ordering - All Locations) Patient Can Go To The Location Of Their Choice, 12/10/2018 12:44:30 12/03/1912/03/2018 eryth rocyt e sedim entat ion rate by weste rgren metho d fasting blood glucose 167 high Not Available [facility] (Centralized [facility] Ordering - All Locations) Patient Can Go To The Location Of Their Choice, 12/10/2018 12:44:30 12/03/1912/03/2018 eryth rocyt e sedim entat ion rate by westraysa rgren metho d creatinine 0.6 normal Not Available [facility] (Centralized Electronic Ordering - All Locations) Patient Can Go To The Location Of Their Choice, 12/10/2018 12:44:30 12/03/1912/03/2018 eryth rocyt e sedim entat ion rate by westraysa rgren metho d alk phos 139 high Not Available [facility] (Centralized Electronic Ordering - All Locations) Patient Can Go To The Location Of Their Choice, 12/10/2018 12:44:30 12/03/1912/03/2018 eryth rocyt e sedim entat ion rate by westraysa rgren metho d ALT 40 high Not Available [facility] (Centralized Electronic Ordering - All Locations) Patient Can Go To The Location Of Their Choice, 12/10/2018 12:44:30 12/03/1912/03/2018 eryth rocyt e sedim entat ion rate by westraysa rgren metho d AST 32 normal Not Available [facility] (Centralized Electronic Ordering - All Locations) Patient Can Go To The Location Of Their Choice, 12/10/2018 12:44:30 12/03/1912/03/2018 eryth rocyt e sedim entat ion rate by weste rgren metho d TSH 0.95 normal Not Available [facility] (Centralized Electronic Ordering - All Locations) Patient Can Go To The Location Of Their Choice, 12/10/2018 12:44:30 12/03/1912/03/2018 eryth rocyt e sedim entat ion rate by weste rgren metho d free T4 1.24 normal Not Available [facility] (Centralized Electronic Ordering - All Locations) Patient Can Go To The Location Of Their Choice, 12/10/2018 12:44:30 12/03/1912/03/2018 eryth rocyt e sedim entat ion rate by weste rgren metho d HGB A1C 6.8 Not Available [facility] (Centralized Electronic Ordering - All Locations) Patient Can Go To The Location Of Their Choice, 12/10/2018 12:44:30 12/03/1912/03/2018 eryth rocyt e sedim entat ion rate by weste rgren metho d total cholesterol 143 Not Available [facility] ([facility] Order[facility] - All Locations) Patient Can Go To The Location Of Their Choice, 12/10/2018 12:44:30 12/03/1912/03/2018 eryth rocyt e sedim entat ion rate by weste rgren metho d triglyceride s 180 Not Available [facility] (Centralized Electronic Ordering - All Locations) Patient Can Go To The Location Of Their Choice, 12/10/2018 12:44:30 12/03/1912/03/2018 eryth rocyt e sedim entat ion rate by weste rgren metho d HDL 40 Not Available [facility] (Centralized Electronic Ordering - All Locations) Patient Can Go To The Location Of Their Choice, 12/10/2018 12:44:30 12/03/1912/03/2018 eryth rocyt e sedim entat ion rate by weste rgren metho d LDL 67 Not Available [facility] (Centralized Electronic Ordering - All Locations) Patient Can Go To The Location Of Their Choice, 12/10/2018 12:44:30 12/03/1912/03/2018 eryth rocyt e sedim entat ion rate by weste rgren metho d vitamin D, 25-hydroxy 16.3 Not Available [facility] ([facility] Ordering - All Locations) Patient Can Go To The Location Of Their Choice, 12/10/2018 12:44:30 12/03/1912/03/2018 eryth rocyt e sedim entat ion rate by weste rgren metho d ESR 85 high Not Available [facility] (Centralized Electronic Ordering - All Locations) Patient Can Go To The Location Of Their Choice, 12/10/2018 12:44:30 12/03/1912/03/2018 CBC w/ auto diff albumin/crea tinine ratio 83 high Not Available [facility] ([facility] Order[facility] - All Locations) Patient Can Go To The Location Of Their Choice, 12/10/2018 12:44:30 12/03/1912/03/2018 CBC w/ auto diff fasting blood glucose 167 high Not Available [facility] (Centralized Electronic Ordering - All Locations) Patient Can Go To The Location Of Their Choice, 12/10/2018 12:44:30 12/03/1912/03/2018 CBC w/ auto diff creatinine 0.6 normal Not Available [facility] (Centralized Electronic Ordering - All Locations) Patient Can Go To The Location Of Their Choice, 12/10/2018 12:44:30 12/03/1912/03/2018 CBC w/ auto diff alk phos 139 high Not Available [facility] (Centralized Electronic Ordering - All Locations) Patient Can Go To The Location Of Their Choice, 12/10/2018 12:44:30 12/03/1912/03/2018 CBC w/ auto diff ALT 40 high Not Available [facility] (Centralized Electronic Ordering - All Locations) Patient Can Go To The Location Of Their Choice, 12/10/2018 12:44:30 12/03/19 19 12/03/2018 CBC w/ auto diff AST 32 normal Not Available [facility] (Centralized Electronic Ordering - All Locations) Patient Can Go To The Location Of Their Choice, 12/10/2018 12:44:30 12/03/1912/03/2018 CBC w/ auto diff TSH 0.95 normal Not Available [facility] (Centralized Electronic Ordering - All Locations) Patient Can Go To The Location Of Their Choice, 12/10/2018 12:44:30 12/03/19 19 12/03/2018 CBC w/ auto diff free T4 1.24 normal Not Available [facility] (Centralized Electronic Ordering - All Locations) Patient Can Go To The Location Of Their Choice, 12/10/2018 12:44:30 12/03/19 19 12/03/2018 CBC w/ auto diff HGB A1C 6.8 Not Available [facility] (Centralized Electronic Ordering - All Locations) Patient Can Go To The Location Of Their Choice, 12/10/2018 12:44:30 12/03/1912/03/2018 CBC w/ auto diff total cholesterol 143 Not Available [facility] ([facility] Ordering - All Locations) Patient Can Go To The Location Of Their Choice, 12/10/2018 12:44:30 12/03/1912/03/2018 CBC w/ auto diff triglyceride s 180 Not Available [facility] (Centralized [facility] Ordering - All Locations) Patient Can Go To The Location Of Their Choice, 12/10/2018 12:44:30 12/03/1912/03/2018 CBC w/ auto diff HDL 40 Not Available [facility] (Centralized Electronic Ordering - All Locations) Patient Can Go To The Location Of Their Choice, 12/10/2018 12:44:30 12/03/1912/03/2018 CBC w/ auto diff LDL 67 Not Available [facility] (Centralized Electronic Ordering - All Locations) Patient Can Go To The Location Of Their Choice, 12/10/2018 12:44:30 12/03/1912/03/2018 CBC w/ auto diff vitamin D, 25-hydroxy 16.3 Not Available [facility] (Centralized [facility] Ordering - All Locations) Patient Can Go To The Location Of Their Choice, 12/10/2018 12:44:30 12/03/1912/03/2018 CBC w/ auto diff ESR 85 high Not Available [facility] (Centralized Electronic Ordering - All Locations) Patient Can Go To The Location Of Their Choice, 12/10/2018 12:44:30 12/03/1912/03/2018 vitam in D, 25-hy droxy , total , serum albumin/crea tinine ratio 83 high Not Available [facility] ([facility] Order[facility] - All Locations) Patient Can Go To The Location Of Their Choice, 12/10/2018 12:44:30 12/03/1912/03/2018 vitam in D, 25-hy droxy , total , serum fasting blood glucose 167 high Not Available [facility] ([facility] Ordering - All Locations) Patient Can Go To The Location Of Their Choice, 12/10/2018 12:44:30 12/03/1912/03/2018 vitam in D, 25-hy droxy , total , serum creatinine 0.6 normal Not Available [facility] (Centralized Electronic Ordering - All Locations) Patient Can Go To The Location Of Their Choice, 12/10/2018 12:44:30 12/03/1912/03/2018 vitam in D, 25-hy droxy , total , serum alk phos 139 high Not Available [facility] (Centralized Electronic Ordering - All Locations) Patient Can Go To The Location Of Their Choice, 12/10/2018 12:44:30 12/03/1912/03/2018 vitam in D, 25-hy droxy , total , serum ALT 40 high Not Available [facility] (Centralized Electronic Ordering - All Locations) Patient Can Go To The Location Of Their Choice, 12/10/2018 12:44:30 12/03/1912/03/2018 vitam in D, 25-hy droxy , total , serum AST 32 normal Not Available [facility] (Centralized Electronic Ordering - All Locations) Patient Can Go To The Location Of Their Choice, 12/10/2018 12:44:30 12/03/1912/03/2018 vitam in D, 25-hy droxy , total , serum TSH 0.95 normal Not Available [facility] (Centralized Electronic Ordering - All Locations) Patient Can Go To The Location Of Their Choice, 12/10/2018 12:44:30 12/03/1912/03/2018 vitam in D, 25-hy droxy , total , serum free T4 1.24 normal Not Available [facility] (Centralized Electronic Ordering - All Locations) Patient Can Go To The Location Of Their Choice, 12/10/2018 12:44:30 12/03/1912/03/2018 vitam in D, 25-hy droxy , total , serum HGB A1C 6.8 Not Available [facility] (Centralized Electronic Ordering - All Locations) Patient Can Go To The Location Of Their Choice, 12/10/2018 12:44:30 12/03/1912/03/2018 vitam in D, 25-hy droxy , total , serum total cholesterol 143 Not Available [facility] ([facility] Order[facility] - All Locations) Patient Can Go To The Location Of Their Choice, 12/10/2018 12:44:30 12/03/1912/03/2018 vitam in D, 25-hy droxy , total , serum triglyceride s 180 Not Available [facility] ([facility] Ordering - All Locations) Patient Can Go To The Location Of Their Choice, 12/10/2018 12:44:30 12/03/1912/03/2018 vitam in D, 25-hy droxy , total , serum HDL 40 Not Available [facility] (Centralized Electronic Ordering - All Locations) Patient Can Go To The Location Of Their Choice, 12/10/2018 12:44:30 12/03/1912/03/2018 vitam in D, 25-hy droxy , total , serum LDL 67 Not Available [facility] (Centralized Electronic Ordering - All Locations) Patient Can Go To The Location Of Their Choice, 12/10/2018 12:44:30 12/03/1912/03/2018 vitam in D, 25-hy droxy , total , serum vitamin D, 25-hydroxy 16.3 Not Available [facility] ([facility] Order[facility] - All Locations) Patient Can Go To The Location Of Their Choice, 12/10/2018 12:44:30 12/03/1912/03/2018 vitam in D, 25-hy droxy , total , serum ESR 85 high Not Available [facility] (Centralized Electronic Ordering - All Locations) Patient Can Go To The Location Of Their Choice, 12/10/2018 12:44:30 12/03/1912/03/2018 TSH, serum or plasm a albumin/crea tinine ratio 83 high Not Available [facility] ([facility] Order[facility] - All Locations) Patient Can Go To The Location Of Their Choice, 12/10/2018 12:44:30 12/03/1912/03/2018 TSH, serum or plasm a fasting blood glucose 167 high Not Available [facility] ([facility] Ordering - All Locations) Patient Can Go To The Location Of Their Choice, 12/10/2018 12:44:30 12/03/1912/03/2018 TSH, serum or plasm a creatinine 0.6 normal Not Available [facility] (Centralized Electronic Ordering - All Locations) Patient Can Go To The Location Of Their Choice, 12/10/2018 12:44:30 12/03/1912/03/2018 TSH, serum or plasm a alk phos 139 high Not Available [facility] (Centralized Electronic Ordering - All Locations) Patient Can Go To The Location Of Their Choice, 12/10/2018 12:44:30 12/03/1912/03/2018 TSH, serum or plasm a ALT 40 high Not Available [facility] (Centralized Electronic Ordering - All Locations) Patient Can Go To The Location Of Their Choice, 12/10/2018 12:44:30 12/03/1912/03/2018 TSH, serum or plasm a AST 32 normal Not Available [facility] (Centralized Electronic Ordering - All Locations) Patient Can Go To The Location Of Their Choice, 12/10/2018 12:44:30 12/03/1912/03/2018 TSH, serum or plasm a TSH 0.95 normal Not Available [facility] (Centralized Electronic Ordering - All Locations) Patient Can Go To The Location Of Their Choice, 12/10/2018 12:44:30 12/03/1912/03/2018 TSH, serum or plasm a free T4 1.24 normal Not Available [facility] (Centralized Electronic Ordering - All Locations) Patient Can Go To The Location Of Their Choice, 12/10/2018 12:44:30 12/03/1912/03/2018 TSH, serum or plasm a HGB A1C 6.8 Not Available [facility] (Centralized Electronic Ordering - All Locations) Patient Can Go To The Location Of Their Choice, 12/10/2018 12:44:30 12/03/1912/03/2018 TSH, serum or plasm a total cholesterol 143 Not Available [facility] ([facility] Order[facility] - All Locations) Patient Can Go To The Location Of Their Choice, 12/10/2018 12:44:30 12/03/1912/03/2018 TSH, serum or plasm a triglyceride s 180 Not Available [facility] ([facility] Order[facility] - All Locations) Patient Can Go To The Location Of Their Choice, 12/10/2018 12:44:30 12/03/1912/03/2018 TSH, serum or plasm a HDL 40 Not Available [facility] ([facility]ized Electronic Ordering - All Locations) Patient Can Go To The Location Of Their Choice, 12/10/2018 12:44:30 12/03/1912/03/2018 TSH, serum or plasm a LDL 67 Not Available [facility] ([facility]ized Electronic Ordering - All Locations) Patient Can Go To The Location Of Their Choice, 12/10/2018 12:44:30 12/03/1912/03/2018 TSH, serum or plasm a vitamin D, 25-hydroxy 16.3 Not Available [facility] ([facility] Order[facility] - All Locations) Patient Can Go To The Location Of Their Choice, 12/10/2018 12:44:30 12/03/1912/03/2018 TSH, serum or plasm a ESR 85 high Not Available [facility] ([facility]ized Electronic Ordering - All Locations) Patient Can Go To The Location Of Their Choice, 12/10/2018 12:44:30 12/03/1912/03/2018 lipid panel , serum albumin/crea tinine ratio 83 high Not Available [facility] ([facility] Order[facility] - All Locations) Patient Can Go To The Location Of Their Choice, 12/10/2018 12:44:29 12/03/1912/03/2018 lipid panel , serum fasting blood glucose 167 high Not Available [facility] ([facility] Order[facility] - All Locations) Patient Can Go To The Location Of Their Choice, 12/10/2018 12:44:29 12/03/1912/03/2018 lipid panel , serum creatinine 0.6 normal Not Available [facility] ([facility]ized Electronic Ordering - All Locations) Patient Can Go To The Location Of Their Choice, 12/10/2018 12:44:29 12/03/1912/03/2018 lipid panel , serum alk phos 139 high Not Available [facility] ([facility]ized Electronic Ordering - All Locations) Patient Can Go To The Location Of Their Choice, 12/10/2018 12:44:29 12/03/1912/03/2018 lipid panel , serum ALT 40 high Not Available [facility] ([facility]ized Electronic Ordering - All Locations) Patient Can Go To The Location Of Their Choice, 12/10/2018 12:44:29 12/03/1912/03/2018 lipid panel , serum AST 32 normal Not Available [facility] ([facility]ized Electronic Ordering - All Locations) Patient Can Go To The Location Of Their Choice, 12/10/2018 12:44:29 12/03/1912/03/2018 lipid panel , serum TSH 0.95 normal Not Available [facility] ([facility]ized Electronic Ordering - All Locations) Patient Can Go To The Location Of Their Choice, 12/10/2018 12:44:29 12/03/1912/03/2018 lipid panel , serum free T4 1.24 normal Not Available [facility] ([facility]ized Electronic Ordering - All Locations) Patient Can Go To The Location Of Their Choice, 12/10/2018 12:44:12/03/1912/03/2018 lipid panel , serum HGB A1C 6.8 Not Available [facility] ([facility]ized Electronic Ordering - All Locations) Patient Can Go To The Location Of Their Choice, 12/10/2018 12:44:12/03/1912/03/2018 lipid panel , serum total cholesterol 143 Not Available [facility] ([facility] Order[facility] - All Locations) Patient Can Go To The Location Of Their Choice, 12/10/2018 12:44:12/03/1912/03/2018 lipid panel , serum triglyceride s 180 Not Available [facility] ([facility] Order[facility] - All Locations) Patient Can Go To The Location Of Their Choice, 12/10/2018 12:44:12/03/1912/03/2018 lipid panel , serum HDL 40 Not Available [facility] ([facility] Electronic Ordering - All Locations) Patient Can Go To The Location Of Their Choice, 12/10/2018 12:44:12/03/1912/03/2018 lipid panel , serum LDL 67 Not Available [facility] ([facility] Ordering - All Locations) Patient Can Go To The Location Of Their Choice, 12/10/2018 12:44:29 12/03/1912/03/2018 lipid panel , serum vitamin D, 25-hydroxy 16.3 Not Available [facility] ([facility] Order[facility] - All Locations) Patient Can Go To The Location Of Their Choice, 12/10/2018 12:44:12/03/1912/03/2018 lipid panel , serum ESR 85 high Not Available [facility] ([facility]ized Electronic Ordering - All Locations) Patient Can Go To The Location Of Their Choice, 12/10/2018 12:44:12/03/1912/03/2018 HbA1c (hemo globi n A1c), blood albumin/crea tinine ratio 83 high Not Available [facility] ([facility] Order[facility] - All Locations) Patient Can Go To The Location Of Their Choice, 12/10/2018 12:44:29 12/03/1912/03/2018 HbA1c (hemo globi n A1c), blood fasting blood glucose 167 high Not Available [facility] ([facility] Ordering - All Locations) Patient Can Go To The Location Of Their Choice, 12/10/2018 12:44:29 12/03/1912/03/2018 HbA1c (hemo globi n A1c), blood creatinine 0.6 normal Not Available [facility] ([facility]ized Electronic Ordering - All Locations) Patient Can Go To The Location Of Their Choice, 12/10/2018 12:44:29 12/03/1912/03/2018 HbA1c (hemo globi n A1c), blood alk phos 139 high Not Available [facility] ([facility]ized Electronic Ordering - All Locations) Patient Can Go To The Location Of Their Choice, 12/10/2018 12:44:29 12/03/1912/03/2018 HbA1c (hemo globi n A1c), blood ALT 40 high Not Available [facility] ([facility]ized Electronic Ordering - All Locations) Patient Can Go To The Location Of Their Choice, 12/10/2018 12:44:29 12/03/1912/03/2018 HbA1c (hemo globi n A1c), blood AST 32 normal Not Available [facility] ([facility]ized Electronic Ordering - All Locations) Patient Can Go To The Location Of Their Choice, 12/10/2018 12:44:29 12/03/1912/03/2018 HbA1c (hemo globi n A1c), blood TSH 0.95 normal Not Available [facility] (Centralized Electronic Ordering - All Locations) Patient Can Go To The Location Of Their Choice, 12/10/2018 12:44:29 12/03/1912/03/2018 HbA1c (hemo globi n A1c), blood free T4 1.24 normal Not Available [facility] (Centralized Electronic Ordering - All Locations) Patient Can Go To The Location Of Their Choice, 12/10/2018 12:44:29 12/03/1912/03/2018 HbA1c (hemo globi n A1c), blood HGB A1C 6.8 Not Available [facility] (Centralized Electronic Ordering - All Locations) Patient Can Go To The Location Of Their Choice, 12/10/2018 12:44:29 12/03/1912/03/2018 HbA1c (hemo globi n A1c), blood total cholesterol 143 Not Available [facility] (Centralized Electronic Ordering - All Locations) Patient Can Go To The Location Of Their Choice, 12/10/2018 12:44:29 12/03/1912/03/2018 HbA1c (hemo globi n A1c), blood triglyceride s 180 Not Available [facility] (Centralized Electronic Ordering - All Locations) Patient Can Go To The Location Of Their Choice, 12/10/2018 12:44:29 12/03/1912/03/2018 HbA1c (hemo globi n A1c), blood HDL 40 Not Available [facility] (Centralized Electronic Ordering - All Locations) Patient Can Go To The Location Of Their Choice, 12/10/2018 12:44:29 12/03/1912/03/2018 HbA1c (hemo globi n A1c), blood LDL 67 Not Available [facility] (Centralized Electronic Ordering - All Locations) Patient Can Go To The Location Of Their Choice, 12/10/2018 12:44:29 12/03/1912/03/2018 HbA1c (hemo globi n A1c), blood vitamin D, 25-hydroxy 16.3 Not Available [facility] (Centralized Electronic Ordering - All Locations) Patient Can Go To The Location Of Their Choice, 12/10/2018 12:44:29 12/03/1912/03/2018 HbA1c (hemo globi n A1c), blood ESR 85 high Not Available [facility] (Centralized Electronic Ordering - All Locations) Patient Can Go To The Location Of Their Choice, 12/10/2018 12:44:29 12/03/1912/03/2018 TSH + free T4, serum albumin/crea tinine ratio 83 high Not Available [facility] (Centralized Electronic Ordering - All Locations) Patient Can Go To The Location Of Their Choice, 12/10/2018 12:44:29 12/03/1912/03/2018 TSH + free T4, serum fasting blood glucose 167 high Not Available [facility] (Centralized Electronic Ordering - All Locations) Patient Can Go To The Location Of Their Choice, 12/10/2018 12:44:29 12/03/1912/03/2018 TSH + free T4, serum creatinine 0.6 normal Not Available [facility] (Centralized Electronic Ordering - All Locations) Patient Can Go To The Location Of Their Choice, 12/10/2018 12:44:29 12/03/1912/03/2018 TSH + free T4, serum alk phos 139 high Not Available [facility] (Centralized Electronic Ordering - All Locations) Patient Can Go To The Location Of Their Choice, 12/10/2018 12:44:12/03/1912/03/2018 TSH + free T4, serum ALT 40 high Not Available [facility] (Centralized Electronic Ordering - All Locations) Patient Can Go To The Location Of Their Choice, 12/10/2018 12:44:12/03/1912/03/2018 TSH + free T4, serum AST 32 normal Not Available [facility] (Centralized Electronic Ordering - All Locations) Patient Can Go To The Location Of Their Choice, 12/10/2018 12:44:12/03/1912/03/2018 TSH + free T4, serum TSH 0.95 normal Not Available [facility] (Centralized Electronic Ordering - All Locations) Patient Can Go To The Location Of Their Choice, 12/10/2018 12:44:29 12/03/1912/03/2018 TSH + free T4, serum free T4 1.24 normal Not Available [facility] (Centralized Electronic Ordering - All Locations) Patient Can Go To The Location Of Their Choice, 12/10/2018 12:44:29 12/03/1912/03/2018 TSH + free T4, serum HGB A1C 6.8 Not Available [facility] (Centralized Electronic Ordering - All Locations) Patient Can Go To The Location Of Their Choice, 12/10/2018 12:44:12/03/19 19 12/03/2018 TSH + free T4, serum total cholesterol 143 Not Available [facility] (Centralized Electronic Ordering - All Locations) Patient Can Go To The Location Of Their Choice, 12/10/2018 12:44:29 12/03/1912/03/2018 TSH + free T4, serum triglyceride s 180 Not Available [facility] (Centralized Electronic Ordering - All Locations) Patient Can Go To The Location Of Their Choice, 12/10/2018 12:44:29 12/03/1912/03/2018 TSH + free T4, serum HDL 40 Not Available [facility] (Centralized Electronic Ordering - All Locations) Patient Can Go To The Location Of Their Choice, 12/10/2018 12:44:29 12/03/1912/03/2018 TSH + free T4, serum LDL 67 Not Available [facility] (Centralized Electronic Ordering - All Locations) Patient Can Go To The Location Of Their Choice, 12/10/2018 12:44:29 12/03/1912/03/2018 TSH + free T4, serum vitamin D, 25-hydroxy 16.3 Not Available [facility] (Centralized Electronic Ordering - All Locations) Patient Can Go To The Location Of Their Choice, 12/10/2018 12:44:29 12/03/1912/03/2018 TSH + free T4, serum ESR 85 high Not Available [facility] (Centralized Electronic Ordering - All Locations) Patient Can Go To The Location Of Their Choice, 12/10/2018 12:44:29 12/03/1912/03/2018 CMP, serum or plasm a albumin/crea tinine ratio 83 high Not Available [facility] (Centralized Electronic Ordering - All Locations) Patient Can Go To The Location Of Their Choice, 12/10/2018 12:44:29 12/03/1912/03/2018 CMP, serum or plasm a fasting blood glucose 167 high Not Available [facility] (Centralized Electronic Ordering - All Locations) Patient Can Go To The Location Of Their Choice, 12/10/2018 12:44:29 12/03/1912/03/2018 CMP, serum or plasm a creatinine 0.6 normal Not Available [facility] (Centralized Electronic Ordering - All Locations) Patient Can Go To The Location Of Their Choice, 12/10/2018 12:44:29 12/03/1912/03/2018 CMP, serum or plasm a alk phos 139 high Not Available [facility] (Centralized Electronic Ordering - All Locations) Patient Can Go To The Location Of Their Choice, 12/10/2018 12:44:29 12/03/1912/03/2018 CMP, serum or plasm a ALT 40 high Not Available [facility] (Centralized Electronic Ordering - All Locations) Patient Can Go To The Location Of Their Choice, 12/10/2018 12:44:29 12/03/1912/03/2018 CMP, serum or plasm a AST 32 normal Not Available [facility] (Centralized Electronic Ordering - All Locations) Patient Can Go To The Location Of Their Choice, 12/10/2018 12:44:29 12/03/1912/03/2018 CMP, serum or plasm a TSH 0.95 normal Not Available [facility] (Centralized Electronic Ordering - All Locations) Patient Can Go To The Location Of Their Choice, 12/10/2018 12:44:12/03/1912/03/2018 CMP, serum or plasm a free T4 1.24 normal Not Available [facility] (Centralized Electronic Ordering - All Locations) Patient Can Go To The Location Of Their Choice, 12/10/2018 12:44:29 12/03/1912/03/2018 CMP, serum or plasm a HGB A1C 6.8 Not Available [facility] (Centralized Electronic Ordering - All Locations) Patient Can Go To The Location Of Their Choice, 12/10/2018 12:44:29 12/03/1912/03/2018 CMP, serum or plasm a total cholesterol 143 Not Available [facility] (Centralized Electronic Ordering - All Locations) Patient Can Go To The Location Of Their Choice, 12/10/2018 12:44:29 12/03/1912/03/2018 CMP, serum or plasm a triglyceride s 180 Not Available [facility] (Centralized Electronic Ordering - All Locations) Patient Can Go To The Location Of Their Choice, 12/10/2018 12:44:12/03/1912/03/2018 CMP, serum or plasm a HDL 40 Not Available [facility] (Centralized Electronic Ordering - All Locations) Patient Can Go To The Location Of Their Choice, 12/10/2018 12:44:29 12/03/1912/03/2018 CMP, serum or plasm a LDL 67 Not Available [facility] (Centralized Electronic Ordering - All Locations) Patient Can Go To The Location Of Their Choice, 12/10/2018 12:44:29 12/03/1912/03/2018 CMP, serum or plasm a vitamin D, 25-hydroxy 16.3 Not Available [facility] (Centralized Electronic Ordering - All Locations) Patient Can Go To The Location Of Their Choice, 12/10/2018 12:44:29 12/03/1912/03/2018 CMP, serum or plasm a ESR 85 high Not Available [facility] (Centralized Electronic Ordering - All Locations) Patient Can Go To The Location Of Their Choice, 12/10/2018 12:44:29 12/03/1912/03/2018 micro album in, urine albumin/crea tinine ratio 83 high Not Available [facility] (Centralized Electronic Ordering - All Locations) Patient Can Go To The Location Of Their Choice, 12/10/2018 10:55:45 12/03/1912/03/2018 micro album in, urine fasting blood glucose 167 high Not Available [facility] (Centralized Electronic Ordering - All Locations) Patient Can Go To The Location Of Their Choice, 12/10/2018 10:55:45 12/03/1912/03/2018 micro album in, urine creatinine 0.6 normal Not Available [facility] (Centralized Electronic Ordering - All Locations) Patient Can Go To The Location Of Their Choice, 12/10/2018 10:55:45 12/03/1912/03/2018 micro album in, urine alk phos 139 high Not Available [facility] (Centralized Electronic Ordering - All Locations) Patient Can Go To The Location Of Their Choice, 12/10/2018 10:55:45 12/03/1912/03/2018 micro album in, urine ALT 40 high Not Available [facility] (Centralized Electronic Ordering - All Locations) Patient Can Go To The Location Of Their Choice, 12/10/2018 10:55:45 12/03/1912/03/2018 micro album in, urine AST 32 normal Not Available [facility] (Centralized Electronic Ordering - All Locations) Patient Can Go To The Location Of Their Choice, 12/10/2018 10:55:45 12/03/1912/03/2018 micro album in, urine TSH 0.95 normal Not Available [facility] (Centralized Electronic Ordering - All Locations) Patient Can Go To The Location Of Their Choice, 12/10/2018 10:55:45 12/03/1912/03/2018 micro album in, urine free T4 1.24 normal Not Available [facility] (Centralized Electronic Ordering - All Locations) Patient Can Go To The Location Of Their Choice, 12/10/2018 10:55:45 12/03/1912/03/2018 micro album in, urine HGB A1C 6.8 Not Available [facility] (Centralized Electronic Ordering - All Locations) Patient Can Go To The Location Of Their Choice, 12/10/2018 10:55:45 12/03/1912/03/2018 micro album in, urine total cholesterol 143 Not Available [facility] (Centralized Electronic Ordering - All Locations) Patient Can Go To The Location Of Their Choice, 12/10/2018 10:55:45 12/03/1912/03/2018 micro album in, urine triglyceride s 180 Not Available [facility] (Centralized Electronic Ordering - All Locations) Patient Can Go To The Location Of Their Choice, 12/10/2018 10:55:45 12/03/1912/03/2018 micro album in, urine HDL 40 Not Available [facility] (Centralized Electronic Ordering - All Locations) Patient Can Go To The Location Of Their Choice, 12/10/2018 10:55:45 12/03/1912/03/2018 micro album in, urine LDL 67 Not Available [facility] (Centralized Electronic Ordering - All Locations) Patient Can Go To The Location Of Their Choice, 12/10/2018 10:55:45 12/03/1912/03/2018 micro album in, urine vitamin D, 25-hydroxy 16.3 Not Available [facility] (Centralized Electronic Ordering - All Locations) Patient Can Go To The Location Of Their Choice, 12/10/2018 10:55:45 12/03/1912/03/2018 micro album in, urine ESR 85 high Not Available [facility] (Centralized Electronic Ordering - All Locations) Patient Can Go To The Location Of Their Choice, 12/10/2018 10:55:45 12/24/19 18 gracy metry testi ng* No observ ation record ed. [email or web address] Not Available 2017 13:29:21 Result Notes None recorded. Problems Name Problem SNOMED Code Status Onset Date Resolution Date Notes Provider Name and Address Organization Details Recorded Time Benign essential hypertensio n 7545511 Active 2015 Jan Michele PA-C [address] [place] [address] Giana [place], [address], [facility] 6 14:15:39 Hypothyroid ism 51038805 Active 2015 Jan Michele PA-C [address] [place] [address] Giana [place], [address], [facility] 6 14:15:42 Asthma 465007766 Active 2015 Jan Michele PA-C [address] [place] [address] Giana [place], [address], [facility] 6 14:15:34 Diabetes mellitus 58124366 Active 2015 Jan Michele PA-C [address] [place] [address] G[place], [address], [facility] 6 14:15:46 Pain in lower limb 29705685 Active 2015 Jan Michele PA-C [address] [place] [address] Giana [place], [address], [facility] 6 14:16:39 Chronic obstructive pulmonary disease 59964233 Active 2016 Followup 11/14/16 NATA Londono, [facility] 7 14:16:04 Colostomy present 805665115 Active 2016 coded 09/04/16 Followup NATA Londono, [facility] 7 14:16:20 Malignant tumor of colon 838129633 Active 2016 coded 08/25/16 Followup NATA Londono, [facility] 7 14:16:58 Urge incontinenc e of urine 66931027 Active 2016 Jan Michele PA-C [address] [place] [address] Giana [place], [address], [facility] 7 11:52:12 Polyneuropa thy due to diabetes mellitus 63439669 Active 2016 Jan Michele PA-C [address] [place] [address], [address], [facility] 7 11:52:16 Major depressive disorder 660670149 Active 2016 Jan Michele PA-C [address] [place] [address], [address], [facility] 7 11:52:26 Ileostomy present 067853201 Active 2016 Jan Michele PA-C [address] [place] [address] [place], [address], [facility] 7 11:52:30 Problem Notes None recorded. Procedures Surgical History Date Name Laterality Status Provider Name and Address Organization Details Recorded Time 7 Medicare Wellness Visit completed Socorro Masterson [facility] 06/01/2017 13:18:39 5 Laparo partial colectomy completed Jan Michele PA-C [address] [place] [address], [phone], [facility] 09/18/2017 11:05:14 Imaging Results Imaging Date Name Status LastModified by Organiz ation Details LastModified Time 12/24/2017 [facility] Information not available 12/24/2017 13:29:21 Procedure Notes None recorded. Medical Equipment None Reported. Allergies Allergen ID Allergen Name Allergen Category Reaction Reaction Severity Criticality Documentation Date Start Date Code Code System Note Provider Name and Address Organization Details Recorded Time 497517 aspirin medicatio n Not available Not available Not available 2016 1191 RxNorm Pippa Snider MEDICAL BILL PROCESSOR null, [facility] 6 09:45:26 975100 codeine medicatio n Not available Not available Not available 2016 2670 RxNorm Pippa Snider [facility] B[facility] 6 09:45:33 742759 Product containin g penicilli n (product) medicatio n Not available Not available Not available 2016 40811 8001 SNOMED Pippa Snider MEDICAL BILL PROCESSOR [facility] 6 09:45:42 400252 peppermin t preparati on food,medi cation itching rash Not available Not available Not available 09/27/2017 [address] [facility] 7 12:17:17 Medications Name Sig Start Date [...] 1-2 tablets as needed every 8 hours ([place] 1 o 2 tabletas para dolor cuando [...] ot Available Vitals Date Recorded Body height Body mass index (BMI) Body weight Heart rate Systolic blood pressure Diastolic blood pressure Provider Name and Address Organization Details Last Updated DateTime 7 152.4 cm 42 kg/m2 50086.3 6 g 72 /min 132 mm[Hg] 80 mm[Hg] Esperanza Macario MA [facility] 7 14:06:14 Date Recorded Body height Provider Name an d Address Organization Details Last Updated DateTime 11/13/2017 152.4 cm Sangita Peterson RDN, LDN, [address], [address], [facility] 11/13/2017 12:59:06 Date Recorded Body height Provider Name an d Address Organization Details Last Updated DateTime 11/28/2017 152.4 cm Socorro Masterson MA [facility] 11/28/2017 12:50:55 Date Recorded Body height Heart rate Oxygen saturation Oxygen saturation in Arterial blood by Pulse oximetry Systolic blood pressure Diastolic blood pressure Provider Name and Address Organization Details Last Updated DateTime 8 152.4 cm 84 /min 98 % 98 % 136 mm[Hg] 82 mm[Hg] Jessica Bejarano [facility] 8 12:57:54 Date Recorded Body height Body mass index (BMI) Body weight Heart rate Oxygen saturation Oxygen saturation in Arterial blood by Pulse oximetry Systolic blood pressure Diastolic blood pressure Provider Name and Address Organization Details Last Updated DateTime 8 152.4 cm 43.6 kg/m2 233017. 5 g 80 /min 97 % 97 % 124 mm[Hg] 82 mm[Hg] Jessica Bejarano [facility] 8 11:11:02 Social History Question Answer Notes LastModified by Organizat ion Details LastModified Time Tobacco Smoking Status Former Smoker Quit 1995 LINDSEY Bills, [facility] 2016 09:49:22 Do You Have An Advance [...] With Others? Alone Information not available 2016 Patient Has Health [...] SNOMED-CT Code Diagnosis ICD10 Code Diagnosis Note [id number] Jan Michele PA-C FP, [facility], OFFICE [address] [facility] Giana ch[place] [address] 2016 09:20:38 2016 10:41:59 Malignant tumor of colon 635089110 C18.9 need records. Benign ess ential hypertension 6113358 I10 overcontro lled with goal under 140/90, unclear med. I asked her to return in 2-4 weeks with meds and BP log to review and adjust if necessary. Hypothyroidism 20498557 E03.9 unclear status, will await records. I asked her to follow up in 2-4 weeks with meds. Obesity 073372866 E66.9 BMI over 35. Will discuss on followup Asthma 695916585 J45.90 9 Breathing difficulty is one of [...] on followup in 2-4 weeks. Colostomy present 112127 009 Z93.3 as result of colectomy for colon cancer. Single rossi or depressive episode, mild 706718569 F32.0 not on med. PHQ-9=7. Seems situationa l, though I wouldn't be surprised if she's downplayin g her baseline mood problems. Pain in lower limb 96842 006 M79.669 bilateral leg pain with significan t ambulation difficulti es. Need to review records when available. Will try to get her the seat for her scooter as requested, but I asked Alicia to contact me with details on the model and make before I do this. Will try getting CHIEF QUALITY OFFICER care--will send a case to case mgt to get this started. Paresthesia 32264948 R20 .2 will discuss c/o numbness in legs and hands at a future visit. Diabetes mellitus 616367 09 E11.9 unclear status. Will await records. It appears she is not on meds and she claims that occ BG checks have been in normal / IFG range. [id number] Jan Michele PA-C FP, [facility], OFFICE [address] [facility] G[place] [address] 05/12/2016 14:32:55 05/12/2016 15:33:17 Malignant tumor of colon 203615555 C18.9 still need records. Benign ess ential hypertension 7064893 I10 uncontroll ed today with goal under 140/90, unclear med. I asked her to return in 1 week with meds and BP log to review and adjust if necessary. Hypothyroidism 75587802 E03.9 unclear status, will await records. I asked her to follow up in 1 week with meds. Asthma 177403836 J45.90 9 Breathing difficulty is one of [...] and O2 sat is 96%. Colostomy present 806374 009 Z93.3 as result of colectomy for colon cancer. States she needs visiting nurse help with colostomy care. Pain in lower limb 58930 006 M79.669 bilateral leg pain with significan t ambulation difficulti es. Still need to review records when available. Will try to get her the seat for her scooter as requested- -Alicia sent pt to this visit with the michael moore info that the scooter is a Prowler 3410 L and the phone is [phone]. I sent a script to [employer] to start figuring out how to get this for her. I also contacted about getting CHIEF QUALITY OFFICER care--was told pt / family need to contact [facility], details below, and I also wrote the details by hand for pt to carry to Alicia. Paresthesia 72868760 R20 .2 numbness in legs and hands could be DM neuropathy . Check labs as below. Diabetes mellitus 528924 09 E11.9 unclear status. Still no records. Will check labs now, if she can overcome her fear of needles. Malaise 690347836 R53.81 unclear cause for fever and diffuse myalgias and JANE for 18 days . Will check labs. Urinary incontinence 165 536782 R32 requesting wipes and pampers , will try to get [id number] Jan Michele PA-C , [facility], OFFICE [address] [facility] [place] [address] 05/18/2016 15:38:13 05/18/2016 17:13:22 Asthma 193937256 J45.909 Breathing difficulty is one of her [...] he now says her usual pharmacy is [facility] not [facility], and she needs the meds sent there. Will do. Malignant tumor of colon 079504210 C18.9 still need records. with colostomy. Benign ess ential hypertension 0207937 I10 controlled today with goal under 140/90, unclear med. I asked her to return in 2 weeks with meds and BP log to review and adjust if necessary. Hypothyroidism 71115104 E03.9 unclear status, will await records. I asked her to follow up in 2 weeks with meds. Colostomy present 225187 009 Z93.3 as result of colectomy for colon cancer. visiting nurse has started, in part to help with colostomy care.. I am unable to send a med list since pt again didn't bring her meds. Pain in lower limb 14279 006 M79.669 states she has bilateral leg [...] sent pt to last visit with the handwrmarty moore info that the scooter is a Prowler 3410 L and the phone is [phone]. I will send a note to [facility] asking them to see about getting her registered with them again as I think this will greatly simplify getting her the services she needs. Diabetes mellitus 362840 09 E11.9 still unclear status. Still no records. I reminded her to check labs. Malaise [id number] R53.81 apparently , the fever and diffuse myalgias and JANE for 18 days spontaneou sly resolved since last visit, since she is not mentioning them today. Labs were never done. Urge incon tinence of urine 53509800 N39.41 wipes might be covered by [facility], will try to get her registered . Pullups: in progress. Pt clarified today that she specifical ly needs pullups, for reasons listed in the HPI (so we will have to rewrite the script). Bladder mu scle dysfunction - overactive 325369830 N32.81 reason for incontinen ce. [id number] Jan Michele PA-C , [facility], OFF[address] [place] [address] 07/18/2016 11:53:52 07/18/2016 14:00:40 Asthma 065746425 J45.909 Breathing difficulty is one of her [...] says she will not be able to cotton picker operator any of her meds until 07/29 since she cannot afford the $3 copay and 07/29 is when [facility] coverage begins. Follow up in a month for recheck. Malignant tumor of colon 700885832 C18.9 still need records. with colostomy. Benign ess ential hypertension 7229403 I10 controlled today with goal under 150/90, unclear med, or if she is on meds. I again told her to bring all meds to her next appt in one month. Hypothyroidism 85771866 E03.9 unclear status, has lab appt for 08/01. I asked her to follow up in 4 weeks with meds (is she even on a thyroid med? who knows). Colostomy present 335088 009 Z93.3 as result of colectomy for colon cancer. Pain in lower limb 44572 006 M79.669 states she has bilateral leg [...] as requested, though it seems likely that [facility] will be able to help with this--pt tells me coverage will start 07/29. Diabetes mellitus 416176 09 E11.9 still unclear status. Still no records. I reminded her to check labs. She has an appt for this 08/01. Urge incon tinence of urine 57409030 N39.41 wipes might be covered by [facility], supposedly is registered now and coverage to start 07/29. Pullups: in progress. Pt clarified last visit that she specifical ly needs pullups. Bladder mu scle dysfunction - overactive 118774178 N32.81 reason for incontinen ce. Generalize d aches and pains 06685485 R52 labs ordered for the ephemeral fever for 18 days are still pending, she will have lab visit 08/01. Will also add RF and BHAVESH re ? inflammato ry arthritis. She may well be correct that she has fibromyalg ia. Spasm of back muscles 20 8257423 M62.830 requesting something to help with this. Will try muscle relaxer for night use only. [id number] Willis Lauren, MSN, FELT HAT MELLOWING MACHINE OPERATOR-C FP, [facility], OFFICE [address] [facility] [place] [address] 08/14/2016 12:39:57 08/14/2016 13:42:34 Asthma [id number] J45.909 Continue with ALEJANDRINA and tiotropium as prescribed , Diabetes mellitus 600446 09 E11.9 6.2% Well controlled currently Benign ess ential hypertension 5766275 I10 Controlled at today's visit. Acute uppe r respiratory infection 48810136 J06.9 Feeling lonely 029761680 R45.89 Significan t, very despondent today, in tears and lamenting her loneliness , not having calls from her family and with worsening weakness of the hands, I encouraged er to seek community resources, cheondoism groups, and possibly explore medication s with Jan. She declines medication s as she feels she is possessed and does not believe in depression , as a part of her episcopal beliefs Cough 16424551 R05 We reviewed the Ddx: URI vs PNA vs COPD exacerbati on, I suspect the latter 2, thus will treat with Abx today and encouraged . [id number] Jan Michele PA-C , [facility], OFFICE [address] [facility] [place], [place] [address] 08/25/2016 13:46:15 08/25/2016 15:01:54 Malignant tumor of colon 012258594 C18.9 still need records. with colostomy. Benign ess ential hypertension 2437464 I10 controlled today with goal under 150/90, not on meds. She finally brought a med list to her appt today. Hypothyroidism 34999514 E03.9 TSH at goal on levothyrox ine 50mcg, continue. Colostomy present 512457 009 Z93.3 as result of colectomy for colon cancer. Pain in lower limb 59272 006 M79.669 bilateral leg pain with significan t ambulation difficulti es, which were this time indeed in evidence when walking with a cane. Still need to review records when available. [facility] is working on getting her the seat for her scooter as requested. I suggested she talk to the [facility] nurse about getting [employer] fit by our PT department (and wrote this out for her in Uzbek and Filipino in her pt care summary, which I made sure checkout printed for her). Diabetes mellitus 108077 09 E11.9 Last A1c = 6.2, not on meds. Urge incon tinence of urine 66262507 N39.41 will be getting wipes and pullups via [facility]. Bladder mu scle dysfunction - overactive 022996392 N32.81 reason for incontinen ce. Generalize d aches and pains 28365830 R52 Does not see to be inflammato ry arthritis based on lab results. Suspect at least in part degenerati ve arthritis. She may well be correct that she has fibromyalg ia. Spasm of back muscles 20 1522266 M62.830 OK to continue muscle relaxer for this and other aches and pains, night use or when inactive during the day only. Chronic ob structive pulmonary disease 53060554 J44.9 Breathing difficulty continues to be one [...] Spiriva is not helpful after 1 month. [id number] Willis Lauren, MSN, FELT HAT MELLOWING MACHINE OPERATOR-C , [facility], OFFICE [address] [facility] [place] [address] 09/04/2016 13:37:31 09/04/2016 15:42:26 Diabetes mellitus 32295567 E11.9 6.2% Well controlled currently with diet and current level of activity Hypothyroidism 07170356 E03.9 Benign ess ential hypertension 4128788 I10 Controlled at today's visit. Osteoarthritis 703289813 M19.90 Trial of tramadol, as she states this medication has been helpful in the past and well tolerated. Colostomy present 013279 009 Z93.3 Obesity 646116919 E66.9 Interested in referral to nutrition with saran zee for evaluation of foods that are healthy. Her to eat. She is interested in continuing to lose weight, and would not be able to manage transporta tion to or from the [facility] for us to prescribe the Y. Referral issued for nutrition today. We reviewed the need to use higher protein foods, and avoid carbohydra john, however, she does have a penchant for cooking sweets, and is quite proud of her scale Feeling lonely 164625868 R45.89 Significan t, very despondent today, in tears and lamenting her loneliness , not having calls from her family and with worsening weakness of the hands, I encouraged er to seek community resources, cheondoism groups, and possibly explore medication s with Jan. 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 Psychogeni c cause is possible too. Explained treatment with vestibular rehabilita tion and got her a PT appt for 10/03 with Xander Tian. Spasm of back muscles 20 4050955 M62.830 OK to continue muscle relaxer and now tramadol sparingly for this and other aches and pains, night use or when inactive during the day only. Says today she has #3 left of the #20 tramadol given by at 09/04 visit. Generalize d aches and pains 46084288 R52 Does not seem to be inflammato ry arthritis based on lab results. Suspect at least in part degenerati ve arthritis. She may well be correct that she has fibromyalg ia. Could consider Cymbalta in the future. Diabetes mellitus 934889 09 E11.9 Last A1c = 6.2, not on meds. No need for home BG checks, but I emphasized the importance of minimizing carbs and sweets. Chronic ob structive pulmonary disease 21453200 J44.9 Breathing difficulty continues to be one [...] to do so. Benign ess ential hypertension 7396770 I10 controlled today with goal under 150/90, not on meds. Hypothyroidism 28459678 E03.9 TSH at goal on levothyrox ine 50mcg, continue. [id number] Oliverio Baker, OD [facility] [address] [facility] [address] 10/02/2016 10:56:34 10/02/2016 12:16:51 Nuclear senile cataract 179841384 H25.13 Narrow angle 154468464 H 40.033 Regular astigmatism 6890 5002 H52.223 Presbyopia 91716518 H52. 4 Physiologi c cupping of optic disc 871303880 H47.271 [id number] Jan Michele PA-C , [facility], OFFICE [address] [facility] [place] [address] 11/14/2016 11:07:17 11/14/2016 11:59:42 Otalgia 98769164 H92.02 No sign of infection. Reassuranc e. Abdominal bloating 79233 9008 R14.0 for 2 weeks, with abdominal pain, diarrhea and poor appetite. Will check labs and US. Chronic ob structive pulmonary disease 41366516 J44.9 Breathing difficulty continues to be one [...] and reviewed this with Crow at our [facility]. It seems she has been using it by simultaneo usly crushing the cap and trying to inhale the powder. I explained (via Dyllan at [facility] since pt was in the lab) that it should be one then the other. I also explained that the caps are not supposed to be full of the powder. If she is still worried we could 1) get her the customer info toll-free number for the [facility] er to discuss in detail or 2) see if we can get Spiriva Respimat covered instead. Benign par oxysmal positional vertigo 037454948 H81.10 now resolved. will change PT referral to reflect other concerns. Spasm of back muscles 20 3669227 M62.830 OK to continue muscle relaxer and now tramadol sparingly for this and other aches and pains, night use or when inactive during the day only. Says today she has #3 tramadol but does not want more as it doesn't help. Does want more tizanadine --ordered. Generalize d aches and pains 29251069 R52 Does not seem to be inflammato ry arthritis based on lab results. Suspect at least in part degenerati ve arthritis. She may well be correct that she has fibromyalg ia. I suggested a trial of Cymbalta-- willing, will prescribe. Diabetes mellitus 975323 09 E11.9 Last A1c = 6.2, not on meds. No need for home BG checks, but I emphasized the importance of minimizing carbs and sweets. Benign ess ential hypertension 8291173 I10 controlled today with goal under 150/90, not on meds. Hypothyroidism 20937961 E03.9 TSH at goal on levothyrox ine 50mcg, continue. Pain in lower limb 33679 006 M79.669 bilateral leg pain with significan t ambulation difficulti es; she reports weakness, maybe with falls--his tory unclear as she is quite a poor historian, and is somewhat histrionic about all of her complaints . Will have her discuss this with Xander Tian PT, scheduled for 11/22. Hand pain 73455147 M79.6 42 Yung L hand, after hitting it on something. She reports weakness and seems to have difficulty making the hand do what she wants it to (e.g. extension of fingers). May refer to OT if persists. Neck pain 87317339 M54.2 one of her many pain complaints . I will have PT eval. Eruption 402701359 R21 mild to moderate irritation / desquamati on of skin inferior to colostomy without sign of infection. I called Arti at [facility] during this visit. Arti says she will contact Libby between pts to set up an appt to discuss this as well as what will likely be a multiplici ty of other concerns. [id number] Jan Michele PA-C , [facility], OFFICE [address] [facility] [place] [address] 12/12/2016 12:19:30 12/12/2016 13:59:34 Abdominal bloating 443914782 R14.0 not c/o this today, but is finally getting the US that I ordered a month ago due to it. Labs weren't done either--sa wesley she won't get blood drawn at [facility], asks me to send orders to [facility]. Actually, my MA already did this. Spasm of back muscles 20 3964653 M62.830 OK to continue muscle relaxer (tizanidin e) for this and other aches and pains, night use or when inactive during the day only. Chronic ob structive pulmonary disease 13205521 J44.9 Breathing difficulty continues to be one of her main complaints along with pain, but today's O2 sat is 100% and her lungs are clear. Continue Spiriva with prn albuterol. Has a nebulizer too. Generalize d aches and pains 51400412 R52 Does not seem to be inflammato [...] able to help her remember). Diabetes mellitus 418488 09 E11.9 Last A1c = 6.2, not on meds. No need for home BG checks, but I emphasized the importance of minimizing carbs and sweets. Benign ess ential hypertension 9812943 I10 controlled today with goal under 150/90, not on meds. Hypothyroidism 15069054 E03.9 TSH at goal on levothyrox ine 50mcg, continue. Pain in lower limb 92346 006 M79.669 bilateral leg pain with significan [...] home PT. Done as above. Neck pain 21194753 M54.2 one of her many pain complaints . I will have PT eval. Common cold 71123504 J00 Today's complaint of difficulty breathing is [...] develop. Abscess of skin and/or subcutaneous tissue 46101374 L02.91 nothing significan t seen on nose--slig ht redness and tenderness . lower abdomen has a nearly completely resolved abscess. I told her not to manipulate abscesses like this when they arise as this could lead to worse infection. Advised hot moist compresses 4x daily for 15 minutes each time to help any remaining pus drain. [id number] BRIAN Espinal, [facility], OFFICE [address] [facility] [place] [address] 02/12/2017 14:45:34 02/12/2017 15:15:08 Pre-surgery evaluation 295184855 Z01.818 Patient is at low risk of perioperat florencio cardiopulm onary complicati ons of a low risk surgery. She can proceed without further risk stratifica tion. Malignant tumor of colon 031531918 C18.9 we have records now. with colostomy. Colostomy present 072410 009 Z93.3 as result of colectomy for colon cancer. Cataract 322563968 H26.9 R eye, surgery 02/[address] mclean. Diabetes mellitus 332364 09 E11.9 Last A1c = 6.2, not on meds. No need for home BG checks, though she shows me her glucometer with daily checks, none higher than 143. Hypothyroidism 63681449 E03.9 TSH at goal on levothyrox ine 50mcg, continue. Benign ess ential hypertension 5520366 I10 controlled today with goal under 150/90, not on meds. Chronic ob structive pulmonary disease 78509811 J44.9 Breathing is reasonably good now. Continue Spiriva with prn albuterol. Has a nebulizer too. [id number] BRIAN Espinal, [facility], OFFICE [address] [facility] [place] [address] 04/03/2017 10:41:28 04/03/2017 13:25:44 Chronic obstructive pulmonary disease 74167482 J44.9 Breathing difficulty not a major complaint [...] meds (Spiriva with prn albuterol) to our [facility]. Has a nebulizer too. Benign ess ential hypertension 6893278 I10 controlled today with goal under 150/90, not on meds. Hypothyroidism 93746780 E03.9 TSH at goal on levothyrox ine 50mcg, needs to restart med. Benign par oxysmal positional vertigo 293209566 H81.10 Explained pathopysio logy of BPPV and rationale for treatment with vestibular rehabilita tion. I worked with checkout to get her scheduled with PT just a few minutes after our visit today. Major depr essive disorder 847565606 F32.9 pt feels very isolated and depressed here in [place] , and has taken the sensible decision to work on moving (back) to [place] where there is a larger Uzbek-sp [employer] community. At her request, I wrote her a letter for housing recommendi ng she be provided with a 2BR apartment so that her daughter / CHIEF QUALITY OFFICER has a place to stay overnight. [id number] Jan Michele PA-C , [facility], OFFICE [address] [place] [address] 04/16/2017 10:58:27 04/16/2017 11:38:04 Chronic obstructive pulmonary disease 01097924 J44.9 onset of dry cough about 10 days ago; O2 sat normal and lungs seem CTAB other than frequent coughing. Doubt PNA, or strictly speaking, COPD exacerbati on, but will provide burst of prednisone 40mg x 7 days. Follow up in a week Generalize d aches and pains 60267573 R52 She may well be correct that she has fibromyalg ia. Seems to be taking Cymbalta-- I'll verify on followup. Requests tylenol refill, done. Pain of nose 742022221 J 34.89 no definite abscess though there could be one beyond where I can see with otoscope. Reassuranc e. Abscess 695892487 L02.91 Re her report of recurrent mostly [...] Follow up when having an active problem. [id number] BRIAN Espinal, [facility], OFFICE [address] [facility] [place] [address] 05/04/2017 13:25:58 05/04/2017 14:53:28 Chronic obstructive pulmonary disease 55086152 J44.9 dry cough now for about a [...] review if not better by then. Cramp 72507427 R25.2 She wonders why she has never been given a pill for cramps, which she's had for 10 years. I've prescribed tizanidine recently but she doesn't recognize the name. Will prescribe again. I advised her to be cautious with standing and transfers. Single rossi or depressive episode, mild 544000326 F32.0 seems active, but then, she always seems depressed. [id number] JAHAIRA Sequeira, [facility], OFFICE [address] [facility] [place] [address] 06/01/2017 13:00:20 06/01/2017 14:33:46 Adult health examination 681771216 Z00.00 see Risk Assessment and Lifestyle Change Counseling section aboveJimmy moore in 3 months for medical management of diabetes Counseling 346395118 Z71 .9 Reviewed healthy diet, physical activity Postmenopausal state 764 51394 Z78.0 Pt is due for screening, will schedule at [facility]. Diabetes mellitus 485069 09 E13.42 Hgb A1c in 04/2017 was 7.6%With neuropathy of lower extremitie s Will resume metformin and check Hgb A1c in 3 monthsRevi ewed healthy diet, eliminate soda, juices, added sugars, sweets/can dy, white starches Hypothyroidism 58214004 E03.9 TSH in 04/2017 stable at 2.18Contin ue levothyrox ine 50 mcg daily [id number] , [facility], OFFICE [address] [facility] [place] [address] 06/14/2017 10:51:24 06/14/2017 17:43:41 Pre-surgery evaluation 056661026 Z01.818 Patient is at low risk of perioperat florencio cardiopulm onary complicati ons of a low risk surgery. She can proceed without further risk stratifica tion. Cataract 512237087 H26.9 L eye, surgery in june with dr mclean. Malignant tumor of colon 232418063 C18.9 we have records now. with colostomy. Colostomy present 565463 009 Z93.3 as result of colectomy for colon cancer. Diabetes mellitus 246794 09 E11.9 Last A1c = 7.6, not on meds. We discussed home BG checks--sh e recalls being told to check FBG in AM then prior to and 2 hours after a meal. I think once daily would be sufficient but one can make a reasonable argument for 3x daily until A1c is again at goal. Hypothyroidism 32957803 E03.9 TSH at goal on levothyrox ine 50mcg, continue. Chronic ob structive pulmonary disease 82526918 J44.9 Breathing is poor, she says, on Spiriva with prn albuterol. Has a nebulizer too which she has been using 3x daily. Lungs have somewhat distant sounds but O2 sat normal at 94. Options are limited as she refuses to use an ICS ( it gave me fungus ). Benign ess ential hypertension 9949945 I10 controlled today with goal under 150/90, not on meds. 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 Will refer to ENT for eval / ?biopsy. Hand pain 39910871 M79.6 42 I told her to follow up to discuss this in detail Major depr essive disorder 196884166 F32.9 If anything, pt seems to be feeling even more isolated and depressed here in [place] than the last time we talked. She does not want to see a therapist and is offended at the idea of her VN kolby tamez a psychiatri c consult. Polyneurop athy due to diabetes mellitus 76993041 E11.42 severe leg pain with significan t disability , presumably in large part related to diabetic neuropathy though could be multifacto rial. Will discuss trial of gabapentin on followup. Regardless , she clearly states she needs significan t assistance for many ADLs, for which reason I have signed a form from [facility] certifying medical necessity for a live-in CHIEF QUALITY OFFICER. [id number] , [facility], OFFICE [address] [facility] [place] [address] 07/26/2017 08:08:35 07/26/2017 10:35:25 Polyneuropathy due to diabetes mellitus 77810097 E11.42 severe leg pain with significan t disability , presumably in large part related to diabetic neuropathy though could be multifacto rial. Discussed trial of gabapentin -- will consider on followup since she is already starting requip today. She needs significan t assistance for many ADLs, for which reason I am again signing a form from [facility] certifying medical necessity for a live-in CHIEF QUALITY OFFICER. Requests more monthly strips since many of them get ruined, she says. I reminded her to return for A1c in 1 month. Malignant tumor of colon 038758616 C18.9 we have records now. with colostomy. Colostomy present 633257 009 Z93.3 as result of colectomy for colon cancer. Diabetes mellitus 211329 09 E11.9 Last A1c = 7.6, not [...] reminded her. Chronic ob structive pulmonary disease 45692590 J44.9 Breathing is poor, she says. Now [...] worsen in interim. Benign ess ential hypertension 4130318 I10 controlled today with goal under 150/90, not on meds. 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 Has ENT appt 08/07/17 @ 11AM. Hand pain 92488862 M79.6 42 not c/o this today. I had told her to follow up to discuss this in detail at last visit. Major depr essive disorder 648897988 F32.9 If anything, pt seems to be feeling even more isolated and depressed here in [place] than the last time we talked. She does not want to see a therapist and is offended at the idea of her VN recommendi ng a psychiatri c consult. Epidermoid cyst of skin 564492290 L72.0 Advised hot moist compresses 4x daily for 15 minutes each time. If not resolving or spontaneou sly draining, follow up for possible I and D. Headache 85970760 R51 continue tylenol prn. will try to get ice bag as requested Pharyngeal dryness 03988 8009 J39.2 no real dysphagia, just dryness and irritation . will try to get a humidifier for her. Restless legs 52498633 G 25.81 trial requip. Start 0.25 mg PO qpm x2 days, then incr. to 0.5 mg PO qpm x5 days, then may incr. by 0.5 mg/day qwk until 3 mg PO qpm [id number] Jan Michele PA-C , [facility], OFFICE [address] [facility] [place] [address] 09/18/2017 10:58:44 09/18/2017 11:54:56 Small bowel obstruction 350573390 K56.609 partial, confirmed on CT, leading to explorator y laparotomy 09/12. Resolved now. Obstructed hernia of anterior abdominal wall 440000285 K46.0 resolved. had explorator y laparotomy 09/12. I reminded her to follow up with surgeon Dr Richelle. Headache 77536436 R51 continue tylenol prn. will try to get ice bag as requested. I tried before but she tells me that it was the wrong kind--will try again. Pharyngeal dryness 93256 8009 J39.2 no real dysphagia, just dryness and irritation . will try to get a humidifier for her. 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 Discussed trial of gabapentin -- will consider on followup since she is already starting requip today. She needs significan t assistance for many ADLs, for which reason I am again signing a form from [employer] in [place] certifying medical necessity for a live-in CHIEF QUALITY OFFICER. Requests more monthly strips since many of them get ruined, she says. I reminded her to return for A1c in 1 month. Chronic ob structive pulmonary disease 33680347 J44.9 Breathing is poor, she says. Now [...] worsen in interim. Malignant tumor of colon 346289890 C18.9 we have records now. with ileostomy. Diabetes mellitus 462752 09 E11.9 Last A1c = 7.6, not [...] I therefore asked her to go to [facility] lab. Benign ess ential hypertension 8704510 I10 controlled today with goal under 140/90, not on meds. 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 Missed ENT appt 10/10/17, but tells me this is improved now, though not completely resolved. will hold off on re-referra l, try again if worsens again. Major depr essive disorder 897889391 F32.9 If anything, pt seems to be feeling even more isolated and depressed here in [place] than the last time we talked. She does not want to see a therapist and is offended at the idea of her VN recommendi ng a psychiatri c consult. Restless legs 28606111 G 25.81 never started requip as the sxs resolved completely . Ileostomy present 053283 002 Z93.2 as result of colectomy for colon cancer. back to functionin g well after recent surgery. Seborrheic dermatitis 50 391890 L21.9 persistent problem after trial of OTC [...] may be helpful to prevent relapse. Hyperlipidemia 61851935 E78.5 LDL not at goal under 100, willing to try statin. Discussed indication s for new prescripti on, risks and benefits of medication , common side effects and how to manage, and reasons to notify prescriber of adverse effects or discontinu ation. [id number] JAHAIRA Sequeira, [facility], OFFICE [address] [facility] [place] [address] 09/27/2017 11:48:32 09/27/2017 14:11:59 Diabetes mellitus 57396029 E11.9 Due for Hgb A1cShe will go to [facility] lab for blood work at her request Pressure i njury of buttock 197051273 L89.301 Upper L buttock between stage 1-2 ? pressure ulcerAlso seen by Fritz Michele, who recommends [facility] instructed on how to cleanse wound with normal saline, dry with gauze, may apply thin film of Silvadene and cover with transparen t dressingSi lvadene providedPt will return in one week for reassessme nt [id number] Magdalena YBARRA, [facility], OFFICE [address] [facility] [place] [address] 10/04/2017 10:36:47 10/04/2017 12:09:43 Obstructed hernia of anterior abdominal wall [id number] K46.0 resolved. had explorator y laparotomy 09/12. She tells me she has a follow up scheduled with surgeon in a few days. Polyneurop athy due to diabetes mellitus 66020449 E11.42 severe leg pain with significan t [...] and probably has alienated her most recent CHIEF QUALITY OFFICER, who apparently quit. I reminded her to go to [facility] for A1c. Chronic ob structive pulmonary disease 64202454 J44.9 Breathing is poor, she says. Now [...] to that effect. I expect Alisson from [facility] will be calling to notify her as well. There is still a high likelihood that pt will no-show, judging by prior experience . Malignant tumor of colon [id number] C18.9 We have records now. With ileostomy. Diabetes mellitus 809603 09 E11.9 Last A1c = 7.6, not [...] with ACR. She didn't make it to [facility] after last visit with IVR. I told her the order has been sent electronic ally so there is no need for a paper order. She says she will go. (She refuses to use our lab, as she dislikes our phlebotomi sts' technique. ) Benign ess ential hypertension 7115882 I10 controlled today with goal under 140/90, not on meds. Major depr essive disorder [id number] F32.9 active and severe, obviously, as she [...] ng a psychiatri c consult. Ileostomy present 425180 002 Z93.2 as result of colectomy for colon cancer. back to functionin g well after recent surgery. Pressure i njury of buttock 203739023 L89.329 Upper L buttock stage 1-2 ? pressure ulcer improved after 1 week of Silvadene, but it's still active and she says she can't use the Silvadene. Low concern at the moment but I'll refer to wound care given nonadheren ce to treatment and potential for progressio n. Urge incon tinence of urine 23973761 N39.41 refuses to use pullups as she [...] her room, but I will contact her [facility] test case developer Alisson Rojas to see if [facility] can do anything such as cover the cost of the commode. [id number] Jan Michele PA-C , [facility], OFFICE [address] [facility] [place] [address] 10/25/2017 13:27:46 10/25/2017 14:37:32 Pre-surgery evaluation [id number] Z01.818 Patient is at low risk of perioperat flornecio cardiopulm onary complicati ons of a low risk surgery. She can proceed without further risk stratifica tion. Cataract 254794807 H26.9 L eye, surgery 11/01/[address] mclean. Obstructed hernia of anterior abdominal wall 795954858 K46.0 currently resolved. had explorator y laparotomy 09/12. She tells me she was told to lose 50-60 lbs before she can be considered for definitive hernia repair (has had ventral hernia repair x4). I referred to yadi galvez at her request. 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 She requests a letter to [facility] asking for the rugs in her apartment to be removed. I do think this constitute s a significan t fall risk for her so I wrote the letter as requested. Chronic ob structive pulmonary disease 88797213 J44.9 Breathing MUCH better after 6 days on Anoro Ellipta. No longer using the nebulizer at all, when it was up to 4x daily. She did see pulm / Jeremymi, and has a followup in October 2017. Diabetes mellitus 249855 09 E11.9 Last A1c = 7.6, not on meds, overdue for recheck. She refuses to use our lab, as she dislikes our phlebotomi sts' technique. However, when last at [facility] lab, it appears she was not drawn for A1c, though glucose was recently 93 and 110. I suspect stable or improved blood sugars. In any case, no contraindi cation to cataract surgery. Will refer to yadi galvez at her request--e specially to lose enough weight so that she can have a hopefully definitive hernia repair (has had ventral hernia repair x4). Benign ess ential hypertension 9920559 I10 controlled today with goal under 140/90, not on meds. Major depr essive disorder 580787461 F32.9 mood seems good today. [id number] Sangita Peterson, RDN, LDN, CDCES Nutrition -[facility] [address] [facility], [place] [address] 11/13/2017 12:18:06 11/16/2017 09:39:08 Diabetes mellitus 46037405 E13.42 [id number] JAHAIRA Sequeira , [facility], OFFICE [address] [facility], [place] [address] 11/28/2017 12:30:27 11/29/2017 12:50:00 [id number] Jan Michele PA-C , [facility], OFFICE [address] [facility] [place] [address] 11/29/2017 12:42:42 11/29/2017 14:46:49 Pre-surgery evaluation 704403256 Z01.818 Patient is at low risk of perioperat florencio cardiopulm onary complicati ons of a low risk surgery. She can proceed without further risk stratifica tion. Cataract 817875306 H26.9 L eye, surgery 12/05/[address] mclean. 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 At last visit, at her request, I gave her a letter to [facility] asking for the rugs in her apartment to be removed. Chronic ob structive pulmonary disease 28305684 J44.9 Breathing MUCH better after 6 days on Anoro Ellipta. No longer using the nebulizer at all, when it was up to 4x daily. She did see pulm / Alroumi, but missed a followup last month. I gave her a handwritte n note with his phone and told her to call to reschedule . Diabetes mellitus 327723 09 E11.9 Last A1c = 7.6, not on meds, overdue for recheck. She refuses to use our lab, as she dislikes our phlebotomi sts' technique. Overdue for ACR--among the paper lab slips I gave her was microalbum in. Will need to do foot exam on followup as well. Eye exam UTD, last 01/03/17. Benign ess ential hypertension 5110781 I10 controlled today with goal under 140/90, not on meds. Major depr essive disorder 697922059 F32.9 seems quite depressed at times but given her grandiose presentati on on various occasions (in a bullard about being asked to fill out a standard form, or about her rights being infringed) , I wonder about BPD. Has declined any meds. Seborrheic dermatitis 50 153551 L21.9 Better with prescripti on shampoo but [...] week may be helpful to prevent relapse. [id number] Jan Michele PA-C , [facility], OFFICE [address] [place] [address] 12/24/2017 11:03:32 12/24/2017 11:57:44 Obstructed hernia of anterior abdominal wall 239628899 K46.0 currently resolved. had explorator y laparotomy 09/12. She tells me she was told to lose 50-60 lbs before she can be considered for definitive hernia repair (has had ventral hernia repair x4). Saw nutritioni st once--I printed out her recommenda tions in yemeni and told her to reschedule (no-showed followup appt, apparently ). 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 Chronic ob structive pulmonary disease 14005751 J44.9 Breathing MUCH better after 6 days on Anoro Ellipta. No longer using the nebulizer at all, when it was up to 4x daily. She did see pulm / Alsummermi, and had a followup recently. Diabetes mellitus 778152 09 E11.9 Recent A1c = 7.1 on [...] exam UTD 01/03/17. Benign ess ential hypertension 2908113 I10 controlled today with goal under 140/90, not on meds. Major depr essive disorder 430772395 F32.9 mood seems relatively stable today. Hyperlipidemia 44769254 E78.5 LDL not at goal under 100, despite pharmacy records that suggest she has been taking atorvastat in 20mg for several months. She tells me she has not been taking it. I told her it's waiting at [facility] for her. Will recheck after she's been taking it regularly. Ileostomy present 553274 002 Z93.2 as result of colectomy for colon cancer. functionin g well History of malignant neoplasm of colon 229181391 Z85.038 We have records now. With ileostomy. 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 Morbid obesity 007882779 E66.01 She tells me she was told [...] Moses Member ID Guarantor Name 10/25/2017 1 [facility] - DOS PRIOR TO 2023 - DUAL ELIGIBLE (MEDICARE REPLACEMENT/AD VANTAGE - HMO) Libby Almanzar [id number] Libby Jenelle 11/13/2017 1 [facility] - DOS PRIOR TO 2023 - DUAL ELIGIBLE (MEDICARE REPLACEMENT/AD VANTAGE - HMO) Libby Lemaez [id number] Libby Almanzar 11/28/2017 1 [facility] - DOS PRIOR TO 2023 - DUAL ELIGIBLE (MEDICARE REPLACEMENT/AD VANTAGE - HMO) Libby Almanzar [id number] Libby Jenelle 11/29/2017 1 [facility] - DOS PRIOR TO 2023 - DUAL ELIGIBLE (MEDICARE REPLACEMENT/AD VANTAGE - HMO) Libby Baez [id number] Libby Almanzar 12/24/2017 1 [facility] - DOS PRIOR TO 2023 - DUAL ELIGIBLE (MEDICARE REPLACEMENT/AD VANTAGE - HMO) Libby Lemaez [id number] Libby Baez Notes Date Note Type Note Provider Name [...] this, and has repeatedly not gone to [facility] lab for it. Or if she did, she wasn't drawn for it. Last labs there were 09/14/17. HTN: BP at goal today. 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 She was scheduled for yesterday with IVR but I'm told she made a huge scene including accusing [facility] of discrimination against her on the basis of being [place] (i was off). Apparently she was accommodated by being given a taxi voucher to come back today since 3 days were needed for MH PT1 ride. I'm told she spent a good deal of time yelling and carrying on. She tells me today that she was not unpleasant to anybody yesterday but that she had to stand up for herself because she is beninese as me and will defend her rights when she needs to. She says something about how she was told [facility] would cover the cost of her taxi today but that this was a lie and she had to get [facility] (insurance) to cover it instead. She [...] she can make appt herself. Alisson at [facility] recommended that she have some bloodwork. She doesn't know what it is, wants me to tell her. She is way overdue for her usual labs, having not gone to [facility] lab several times (refuses to use [facility] lab). She wants me to give her paper copies of the lab orders. DM2: last A1c=7.6. Restarted metformin 500mg bid since then. No recent recheck. She refuses to go to our lab for this, and has repeatedly not gone to [facility] lab for it. Or if she did, she wasn't drawn for it. Last labs there were 09/14/17. HTN: BP at goal today. Jan Michele PA-C [address] [place] [address], [phone], [facility] 11/29/2017 13:39:03 12/24/2017 text/html COPD: saw Thierry reddy who gave her Anoro and she has found this very helpful--no longer using albuterol nebulizer and breathing is still good. She rescheduled with him and will be seeing him DM2: recent A1c=7.6. On metformin 500mg bid. ACR elevated 12/18/17. HTN: BP at goal today. HL: LDL 135, goal under 100. Jan Michele PA-C [address] [place] [address], [phone], [facility] 12/24/2017 12:00:57 OBGyn Episode No OBEpisode recorded.
--- OUTSIDE RECORDS SUMMARY | 2025-02-19 14:58 | XMS_ITS | Encounter Summary ---
Author Organization [employer] Address [address] [facility] 7t [place] [address] Care Team Providers Care Psychiatric Mental Health Nurse Name Role Phone Janeen Allen MD Primary Care Provide r Reason for Visit * Reason Comments Med Refill Encounter Details Date Type Department Care Team ([facility] st Contact Info) Description 02/21/2024 Refill [facility] CHC MED & PEDS [address] [place], [place] [phone] Eneida Cornejo MD [address] [place], [place] [phone] Social History Tobacco Use Types Packs/Day Years [...] Description 05/25/2025 11:30 AM EDT Office Visit [facility] MEDICINE [address] [place] [address] Janeen Allen MD [address] [place] [address] documented as of this encounter Visit Diagnoses Not on filedocumented in this encounter Additional Health Concerns Assessment Noted Time PHQ-9 Depression Total Score: 19 023 11:08 AM EDT documented as of this encounter Care Teams Psychiatric Mental Health Nurse Relationship Specialty Start Date End Date Janeen Allen MD [address] [place] [address] PCP - General Internal Medicine 02/15/24 documented as of this encounter
--- OUTSIDE RECORDS SUMMARY | 2025-02-19 14:58 | XMS_ITS | Encounter Summary ---
Author Organization [employer] Address [address] [facility] [address] 7[address] [place] [address] Care Team Providers Care Director Instrumentation Name Role Phone Janeen Allen MD Primary Care Provide r Encounter Details Date Type Department Care Team (Latest Contact Info) Description 02/19/2025 Travel Social History Tobacco Use Types Packs/Day [...] Description 05/25/2025 11:30 AM EDT Office Visit [facility] MEDICINE [address] [place] [address] Janeen Allen MD [address] [place] [address] documented as of this encounter Visit Diagnoses Not on filedocumented in this encounter Additional Health Concerns Assessment Noted Time PHQ-9 Depression Total Score: 0 11/04/19 25 1:05 PM EST documented as of this encounter Care Teams Director Instrumentation Relationship Specialty Start Date End Date Janeen Allen MD [address] [place] [address] PCP - General Internal Medicine 02/15/24 documented as of this encounter
--- OUTSIDE RECORDS SUMMARY | 2025-02-19 14:58 | XMS_ITS | Encounter Summary ---
Author Organization [employer] Address [address] [facility] 7t [place] [address] Care Team Providers Care Lump Machine Operator Name Role Phone Eneida Cornejo MD Primary Care Provider [phone] Janeen Allen MD Primary Care Provide r Reason for Visit * Reason Onset Date Comments r/s New Derm 09/25/2023 Encounter Details Date Type Department Care Team ([facility] st Contact Info) Description 09/25/2023 Telephone [facility] CHC MED & PEDS [address] [place], [place] [phone] Eneida Cornejo MD [address] [place] [address] r/s New Derm Social History Tobacco Use [...] New Derm appt on 10/02/[address] aCstillo due to having a same dayappt. Please contact pt at [phone] Indonesian Speaker documented in this encounter Plan of Treatment Upcoming Encounters Date Type Department Care Team (Late st Contact Info) Description 05/25/2025 11:30 AM EDT Office Visit [facility] MEDICINE [address] [place] [address] Janeen Allen MD [address] [place] [address] documented as of this encounter Visit Diagnoses Not on filedocumented in this encounter Additional Health Concerns Assessment Noted Time PHQ-9 Depression Total Score: 19 023 11:08 AM EDT documented as of this encounter Care Teams Lump Machine Operator Relationship Specialty Start Date End Date Eneida Cornejo MD [address] [place] [address] PCP - General Family Medicine 08/09/21 02/14/24 Janeen Allen MD [address] [place] [address] PCP - General Internal Medicine 02/15/24 documented as of this encounter
--- OUTSIDE RECORDS SUMMARY | 2025-02-19 14:58 | XMS_ITS | Encounter Summary ---
Author Organization [employer] Address [address] [facility] 7t [place] [address] Care Team Providers Care Training Consultant Name Role Phone Eneida Cornejo MD Primary Care Provider [phone] Janeen Allen MD Primary Care Provide r Reason for Visit * Reason Comments Med Refill Encounter Details Date Type Department Care Team ([facility] st Contact Info) Description 08/27/2023 Refill [facility] MEDICINE [address] [place] [address] Eneida Cornejo MD [address] [place] [address] Type 2 diabetes mellitus with hyperglycemia, without long-term current use of insulin ([facility]) Social History Tobacco Use Types Packs/Day Years [...] Description 05/25/2025 11:30 AM EDT Office Visit [facility] MEDICINE [address] [place] [address] Janeen Allen MD [address] [place] [address] documented as of this encounter Visit Diagnoses Diagnosis Type 2 diabetes mellitus with hyperglycemia, without long-term current use of insulin ([facility]) documented in this encounter Additional Health Concerns Assessment Noted Time PHQ-9 Depression Total Score: 19 023 11:08 AM EDT documented as of this encounter Care Teams Training Consultant Relationship Specialty Start Date End Date Eneida Cornejo MD [address] [place] [address] PCP - General Family Medicine 08/09/21 02/14/24 Janeen Allen MD [address] [place] [address] PCP - General Internal Medicine 02/15/24 documented as of this encounter
--- OUTSIDE RECORDS SUMMARY | 2025-02-19 14:58 | XMS_ITS | Clinical Summary ---
Author Organization [facility] Address [address] [place] [address] Care Team Providers Care Head Nurse Name Role Phone Unavailable Primary Care Provider [...] Plan of Treatment Not on file Insurance [facility] [employer] Member Subscriber Plan / Payer (Ef fective 2016-Present) Name:Libby Almanzar Relation to Subscriber:Self Name:Libby Almanzar Payer ID:[id number] Group ID:Not on file Type:Indemnity Address: [address] [place] [address]
--- OUTSIDE RECORDS SUMMARY | 2025-02-19 14:58 | XMS_ITS | Encounter Summary ---
Author Organization [employer] Address [address] [facility] 7t [place] [address] Care Team Providers Care Care Companion Name Role Phone Janeen Allne MD Primary Care Provide r Reason for Visit * Reason Onset Date Comments Chart Prep 02/18/2025 Encounter Details Date Type Department Care Team (Late st Contact Info) Description 02/18/2025 Telephone [facility] [address] [place], [place] [phone] Janeen Allen MD [address] [place], [place] [phone] Chart Prep Social History Tobacco Use Types Packs/Day Years [...] encounter Miscellaneous Notes * Telephone Encounter - Gael Cummings [place] - 02/18/2025 2:32 PM EDT Chart Prep Labs: done Images: done Referrals: complete Vaccines due: yes Screenings: foot exam Overdue care gaps: Glucose, LA-7, and Disability screen documented in this encounter Plan of Treatment Upcoming Encounters Date Type Department Care Team (Late st Contact Info) Description 05/25/2025 11:30 AM EDT Office Visit [facility] [address] [place] [address] Janeen Allen MD [address] [place] [address] documented as of this encounter Visit Diagnoses Not on filedocumented in this encounter Additional Health Concerns Assessment Noted Time PHQ-9 Depression Total Score: 0 11/04/19 25 1:05 PM EST documented as of this encounter Care Teams Care Companion Relationship Specialty Start Date End Date Janeen Allen MD [address] [place] [address] PCP - General Internal Medicine 02/15/24 documented as of this encounter
--- OUTSIDE RECORDS SUMMARY | 2025-02-19 14:58 | XMS_ITS | Encounter Summary ---
Author Organization [employer] Address [address] [facility] 7t [place] [address] Care Team Providers Care Rolling Machine Operator Automatic Name Role Phone Janeen Allen MD Primary Care Provide r Reason for Visit * Reason Onset Date Comments Durable Medical Equipment 02/06/2025 Encounter Details Date Type Department Care Team (Late st Contact Info) Description 02/06/[address] [facility] MEDICINE [address] [place], [place] [phone] Janeen Allen MD [address] [place], [place] [phone] Durable Medical Equipment Social History Tobacco Use [...] encounter Miscellaneous Notes * Telephone Encounter - [address] - 02/06/2025 10:42 AM EDT Tc from pt requesting a new walker. documented in this encounter Plan of Treatment Upcoming Encounters Date Type Department Care Team (Late st Contact Info) Description 05/25/2025 11:30 AM EDT Office [address] [facility] MEDICINE [address] [place] [address] Janeen Allen MD [address] [place] [address] documented as of this encounter Visit Diagnoses Not on filedocumented in this encounter Additional Health Concerns Assessment Noted Time PHQ-9 Depression Total Score: 0 11/04/19 25 1:05 PM EST documented as of this encounter Care Teams Rolling Machine Operator Automatic Relationship Specialty Start Date End Date Janeen Allen MD [address] [place] [address] PCP - General Internal Medicine 02/15/24 documented as of this encounter
--- OUTSIDE RECORDS SUMMARY | 2025-02-19 14:58 | XMS_ITS | Encounter Summary ---
Author Organization [employer] Address [address] [facility] 7t [place] [address] Care Team Providers Care Med Peds Name Role Phone Eneida Cornejo MD Primary Care Provider [phone] Janeen Allen MD Primary Care Provide r Reason for Visit * Reason Comments Med Refill Encounter Details Date Type Department Care Team ([facility] Contact Info) Description 06/20/2023 Refill [facility] CHC MED & PEDS [address] [place], [place] [phone] Eneida Cornejo MD [address] [place] [address] Social History Tobacco Use Types Packs/Day Years [...] Upcoming Encounters Date Type Department Care Team ([facility] Contact Info) Description 05/25/2025 11:30 AM EDT Office Visit [facility] MEDICINE [address] [place], [place] [phone] Janeen Allen MD [address] [place] [address] documented as of this encounter Visit Diagnoses Not on filedocumented in this encounter Additional Health Concerns Assessment Noted Time PHQ-9 Depression Total Score: 19 023 11:08 AM EDT documented as of this encounter Care Teams Med Peds Relationship Specialty Start Date End Date Eneida Cornejo MD [address] [place] [address] PCP - General Family Medicine 08/09/21 02/14/24 Janeen Allen MD [address] [place] [address] PCP - General Internal Medicine 02/15/24 documented as of this encounter
--- OUTSIDE RECORDS SUMMARY | 2025-02-19 14:58 | XMS_ITS | Encounter Summary ---
Author Organization [employer] Address [address] [facility] [address] [place] [address] Care Team Providers Care Clinic Coordinator Name Role Phone Janeen Allen MD Primary Care Provide r Reason for Referral * Consultation (Routine) - Pending Review Specialty Diagnoses / Procedures Referred By Fahad murrieta Referred To Contact Gastroenterology Diagnoses Lower abdominal pain S/P colonoscopy Janeen Allen MD [address] [place] [phone] Phone: tel: fax: Referral ID Status Reason Start Date Expiration Date Visits Requested Visits Authorized [id number] Pending Review Specialty Services Required 02/19/2025 02/19/2026 1 1 * Consultation (Routine) - Pending Review Specialty Diagnoses / Procedures Referred By Fahad murrieta Referred To Contact Podiatry Diagnoses Type 2 diabetes mellitus with hyperglycemia, without long-term current use of insulin ([facility]) Janeen Allen MD [address] [place] [address] Phone: tel: fax: Referral ID Status Reason Start Date Expiration Date Visits Requested Visits Authorized [id number] Pending Review Specialty Services Required 02/19/2025 02/19/2026 1 1 * Medications - Closed Specialty Diagnoses / Procedures Referred By Fahad t Referred To Contact Diagnoses Primary osteoarthritis of both knees Janeen Allen MD [address] [place] [address] Phone: tel: fax: Referral ID Status Reason Start Date Expiration Date Visits Re quested Visits Authorized [id number] Closed 02/19/2025 02/19/2026 1 1 Encounter Details Date Type Department Care Team (Latest Contact Info) Description 02/19/2025 1:00 PM EDT Office Visit [facility] [address] [place] [address] Janeen Allen MD [address] [place] [address] Chronic obstructive pulmonary disease, unspecified COPD type (CMS/HCC) (Primary Dx); Type 2 diabetes mellitus with hyperglycemia, without long-term current use of insulin (CMS/HCC); Primary osteoarthritis of both knees; Intertrigo; Lower abdominal pain; S/P colonoscopy; Rash; Right hand pain; Bilateral hand pain Social History Tobacco Use Types Packs/Day Years [...] EDT Temperature 37 ??C (98.6 ??F) 02/19/2025 11:55 AM EDT Respiratory Rate 22 02/19/2025 11:55 AM EDT Oxygen Saturation - - Inhaled Oxygen Concentration - - Weight 89.8 kg (198 lb) 02/19/2025 11:55 AM EDT Height 149.9 cm (4' 11 ) 02/19/2025 11:55 AM EDT Body Mass Index 39.99 02/19/2025 11:55 AM EDT documented in this encounter Progress Notes * Janeen Medina MD - 02/19/2025 1:00 PM EDT SUBJECTIVE: Libby Almanzar is a 79 y.o. year old adult who presents for Chronic Disease Management . Acute Concerns: Patient reports she has again a rash under her breast area and skin folds medication that has been tried before does not help this car clotrimazole and nystatin Patient also reports pain on both hands she reports compression gloves does help Patient reports she has lower abdominal pain that comes and goes she cannot identify any triggers patient is status post colostomy Social History Social History Narrative Not on file Patient Active Problem List Diagnosis Ventral incisional hernia Uncomplicated asthma Pruritus of vagina Type 2 diabetes mellitus ([facility]) Osteopenia Osteoarthritis of knee Mood disorder ([facility]) Mass of right ear Malignant tumor of rectum ([facility]) Hyperlipidemia associated with type 2 diabetes mellitus ([facility]) Hearing problem Disorder of abdominal wall Colostomy present ([facility]) Chronic right shoulder pain Chronic obstructive lung disease ([facility]) Acquired hypothyroidism Thrombocytopenia ([facility]) Cramps, extremity Dyspnea on exertion Depressed mood Major depressive disorder, recurrent, moderate ([facility]) Primary hypertension Coronary artery disease of [place] artery of [place] heart with stable angina pectoris ([facility]) Insomnia Hemorrhagic otitis externa of left ear Dietary counseling Morbid obesity ([facility]) Pruritus Left-sided back pain Hair loss Upper respiratory tract infection Dizziness Diabetic polyneuropathy associated with type 2 diabetes mellitus ([facility]) Nail abnormality Pruritic dermatitis Intertrigo Colostomy care ([facility]) Sacral pressure ulcer Asthma exacerbation in COPD ([facility]) Acute on chronic diastolic heart failure ([facility]) Acute midline low back pain with right-sided sciatica Rash Lower abdominal pain S/P colonoscopy Bilateral hand pain No family history on file. Review of Systems Constitutional: Negative. HENT: Negative. Respiratory: Negative. Cardiovascular: Negative. Gastrointestinal: Positive for abdominal distention and abdominal pain. Negative for anal bleeding,blood in stool, constipation, diarrhea, nausea, rectal pain and vomiting. Skin: Positive for rash. OBJECTIVE: Vitals: 02/19/25 1155 02/19/25 1229 BP: (!) 141/77 138/70 BP Location: Left arm Patient Position: Sitting BP Cuff Size: Large adult Pulse: (!) 112 100 Resp: 22 Temp: 98.6 ??F (37 ??C) TempSrc: Oral Weight: 198 lb (89.8 kg) Height: 4' 11 (1.499 m) Physical Exam Follow Up: No follow-ups on file. Current Outpatient Medications on File Prior to Visit Medication Sig Dispense Refill acetaminophen (Tylenol) 325 MG tablet Take 2 tablet by oral route every 4 hours as needed for pain or fever. albuterol (2.5 MG/3ML) 0.083% nebulizer solution USE ONE AMPULE USING A NEBULIZER EVERY 4 HOURS 360mL 6 albuterol 108 (90 Base) MCG/ACT inhaler INHALE 2 PUFFS BY MOUTH EVERY 6 HOURS NEEDED FOR WHEEZING 8.5 g 1 Alcohol Swabs (Alcohol Prep) 70 % pads USE TWO DAILY 100 each 11 amLODIPine (Norvasc) 10 MG tablet Take 1 tablet (10 mg) by mouth in the morning. 90 tablet 3 atorvastatin (Lipitor) 80 MG tablet TAKE 1 TABLET BY MOUTH EVERY MORNING 90 tablet 0 azithromycin (Zithromax) 250 MG tablet Take 2 tablets on day one then one tablet daily 6 tablet 0 Blood Glucose Monitoring Suppl (Fabriclye) w/Device kit 1 units of lipase before breakfast. 1 kit 0 budesonide (Pulmicort) 1 MG/2ML nebulizer solution cetirizine (ZyrTEC) 10 MG tablet Take 0.5 tablets (5 mg) by mouth Once per day. 15 tablet 3 cholecalciferol (Vitamin D-3) 25 MCG tablet TAKE 1 TABLET BY MOUTH EVERY MORNING 90 tablet 0 ciprofloxacin-hydrocortisone (Cipro HC) otic suspension PLACE THREE DROPS IN THE RIGHT EAR TWICE DAILY FOR SEVEN DAYS clopidogrel (Plavix) 75 MG tablet TAKE 1 TABLET BY MOUTH EVERY MORNING 30 tablet 3 Clotrimazole Anti-Fungal 1 % cream APPLY TO AFFECTED AREA(S) AND SURROUNDING AREA(S) TWICE DAILY INTHE MORNING AND EVENING 90 g 0 cyclobenzaprine (Flexeril) 10 MG tablet Take 1 tablet (10 mg) by mouth 3 times daily for 10 days. 30 tablet 0 dextran 70-hypromellose (artificial tears) 0.1-0.3 % [...] nostril Once per day. 16 g 3 furosemide (Lasix) 40 MG tablet Take 1 tablet (40 mg) by mouth Once per day. 30 tablet 2 gabapentin (Neurontin) 600 MG tablet TAKE 1 TABLET BY MOUTH TWICE DAILY IN THE MORNING AND IN THE EVENING 60 tablet 2 GaviLAX 17 GM/SCOOP powder TAKE 17 GM MIXED IN 8 OUNCES OF WATER, COFFEE OR TEA ONCE DAILY NEEDED DIRECTED 510 g 0 glipiZIDE (Glucotrol) 5 MG tablet TAKE 1 TABLET BY MOUTH TWICE DAILY IN THE MORNING AND IN THE EVENING BEFORE BREAKFAST AND BEFORE SUPPER 60 tablet 1 glucose blood (FREESTYLE LITE) test strip Test blood capillary glucose BID 60 strip 11 guaiFENesin (Mucinex) 600 MG 12 hr tablet Take 2 tablets (1,200 mg) by mouth if needed in the morning and at bedtime for cough or congestion. Do not crush, chew, or split. 30 tablet 0 hydroCHLOROthiazide 12.5 MG tablet Take 1 tablet [...] DAILY NEEDED FOR CONSTIPATION 946 mL 5 levothyroxine (Synthroid, Levoxyl) 50 MCG tablet Take 1 tablet (50 mcg) by mouth before breakfast. 90 tablet 0 liver oil-zinc oxide (Desitin) 40 % ointment Apply topically if needed for irritation. 400 g 0 losartan (Cozaar) 100 MG tablet Take 1 tablet (100 mg) by mouth in the morning. 90 tablet 1 magnesium oxide (Mag-Ox) 400 MG tablet TAKE 1 TABLET BY MOUTH EVERY MORNING 90 tablet 0 metFORMIN (Glucophage) 1000 MG [...] DOSES IN 15 MINUTES. 25 tablet 3 QUEtiapine (SEROquel) 25 MG tablet Take 0.5 [...] 80 g 11 TRUEplus Lancets 33G misc Apply 1 each topically Once per day. TEST BLOOD SUGAR EVERY EVENING 100 each 4 No current facility-administered medications on file prior to visit. Problem List Items Addressed This Visit Type 2 diabetes mellitus ([facility]) Diabetes is: controlled - Lab Results Component Value Date HGBA1C 8.2 (A) 01/09/2025 HGBA1C 7.0 (A) 08/27/2024 HGBA1C 6.9 (A) 05/07/2024 - Lab Results Component Value Date MICROALBUR <5.0 08/29/2024 CREATININE 0.99 08/29/2024 -Changes: None - Diabetic eye exam: Up-to-date - Diabetic foot exam: - Continue lifestyle modifications - Continue current medications - Follow up: 3 months Relevant Orders POCT Glucose (Completed) Referral to Podiatry Chronic obstructive lung disease ([facility]) - Primary I will prescribe for patient Anoro Ellipta continue with albuterol as needed Relevant Medications Umeclidinium-Vilanterol (Anoro Ellipta) 62.5-25 MCG/ACT aerosol powder Osteoarthritis of knee Lidocaine patches prescribed today Relevant Medications lidocaine (Lidoderm) 5 % patch Intertrigo Relevant Medications econazole nitrate 1 % cream fluconazole (Diflucan) 150 MG tablet Lower abdominal pain I will refer patient to gastroenterology Relevant Orders Referral to Gastroenterology S/P colonoscopy Relevant Orders Referral to Gastroenterology Rash Relevant Medications zinc oxide (Desitin) 40 % paste RESOLVED: Right hand pain Bilateral hand pain Compression labs prescribed today documented in this encounter Miscellaneous Notes * Assessment & Plan Note - Janeen Medina MD - 02/19/2025 2:32 PM EDT Associated Problem(s): Type 2 diabetes mellitus ([facility]) Diabetes is: controlled - Lab Results Component Value Date HGBA1C 8.2 (A) 01/09/2025 HGBA1C 7.0 (A) 08/27/2024 HGBA1C 6.9 (A) 05/07/2024 - Lab Results Component Value Date MICROALBUR <5.0 08/29/2024 CREATININE 0.99 08/29/2024 -Changes: None - Diabetic eye exam: Up-to-date - Diabetic foot exam: - Continue lifestyle modifications - Continue current medications - Follow up: 3 months * Assessment & Plan Note - Janeen Medina MD - 02/19/2025 2:31 PM EDT Associated Problem(s): Bilateral hand pain Compression labs prescribed today * Assessment & Plan Note - Janeen Medina MD - 02/19/2025 2:30 PM EDT Associated Problem(s): Osteoarthritis of knee Lidocaine patches prescribed today * Assessment & Plan Note - Janeen Medina MD - 02/19/2025 2:30 PM EDT Associated Problem(s): Chronic obstructive lung disease ([facility]) I will prescribe for patient Anoro Ellipta continue with albuterol as needed * Assessment & Plan Note - Janeen Medina MD - 02/19/2025 2:30 PM EDT Associated Problem(s): Lower abdominal pain I will refer patient to gastroenterology documented in this encounter Plan of Treatment Upcoming Encounters Date Type Department Care Team (Late st Contact Info) Description 05/25/2025 11:30 AM EDT Office Visit [facility] [address] [phone] Janeen Allen MD [address] [place] [address] Scheduled Referrals Name Type Priority Associated Diagnoses Order Schedule Referral to Podiatry Outpatient Referral Routine Type 2 diabetes mellitus with hyperglycemia, without long-term current use of insulin ([facility]) Expected: 02/19/2025 (Approximate), Expires: 02/19/2026 Referral to Gastroenterology Outpatient Referral Routine Lower abdominal pain S/P colonoscopy Expected: 02/19/2025 (Approximate), Expires: 02/19/2026 documented as of this encounter Procedures Procedure Name Priority Date/Time Associated Diagnosis Comments POCT GLUCOSE Routine 02/19/2025 11:56 AM EDT Type 2 diabetes mellitus with hyperglycemia, without long-term current use of insulin ([facility]) documented in this encounter Results * POCT Glucose (02/19/2025 11:56 AM EDT) Glucose Blood, POC 167 60 - 200 mg/dL QC Media Lot # [id number] Lot# Expiration Date Blood Capillary blood specimen / Unknown 02/19/2025 11:56 AM EDT Janeen Medina MD POINT OF CARE TEST EN TER/EDIT ORDERABLES Final Result documented in this encounter Visit Diagnoses Diagnosis Chronic obstructive pulmonary disease, unspecified COPD type ([facility])- Primary Type 2 diabetes mellitus with hyperglycemia, without long-term current use of insulin ([facility]) Primary osteoarthritis of both knees Intertrigo Other specified erythematous condition Lower abdominal pain Abdominal pain, other specified site S/P colonoscopy Other postprocedural status Rash Rash and other nonspecific skin eruption Right hand pain Pain in soft tissues of limb Bilateral hand pain documented in this encounter Additional Health Concerns Assessment Noted Time PHQ-9 Depression Total Score: 0 11/04/19 25 1:05 PM EST documented as of this encounter Care Teams Clinic Coordinator Relationship Specialty Start Date End Date Janeen Allen MD [address] [place] [address] PCP - General Internal Medicine 02/15/24 documented as of this encounter
--- OUTSIDE RECORDS SUMMARY | 2025-02-19 14:58 | XMS_ITS | Encounter Summary ---
Author Organization [employer] Address [address] [facility] [address] [place] [address] Care Team Providers Care Strategic Consultant Name Role Phone Janeen Allen MD Primary Care Provide r Reason for Visit * Reason Comments Med Refill Encounter Details Date Type Department Care Team ([facility] st Contact Info) Description 02/19/2025 Refill [facility] [address] [place], [place] [phone] Janeen Allen MD [address] [place], [place] [phone] Social History Tobacco Use Types Packs/Day Years [...] Description 05/25/2025 11:30 AM EDT Office Visit [facility] [address] [place], [place] [phone] Janeen Allen MD [address] [place] [address] documented as of this encounter Visit Diagnoses Not on filedocumented in this encounter Additional Health Concerns Assessment Noted Time PHQ-9 Depression Total Score: 0 11/04/19 25 1:05 PM EST documented as of this encounter Care Teams Strategic Consultant Relationship Specialty Start Date End Date Janeen Allen MD [address] [place], [place] [phone] PCP - General Internal Medicine 02/15/24 documented as of this encounter
--- OUTSIDE RECORDS SUMMARY | 2025-02-19 14:59 | XMS_ITS | Encounter Summary ---
Author Organization [employer] Address [address] [facility] [address] [place] [address] Care Team Providers Care Data Technical Lead Name Role Phone Janeen Allen MD Primary Care Provide r Reason for Visit * Reason Comments Med Refill Encounter Details Date Type Department Care Team ([facility] st Contact Info) Description 09/27/2024 Refill [facility] PEDS [address] [place], [place] [phone] Eneida Cornejo MD [address] [place], [place] [phone] Acquired hypothyroidism Social History Tobacco Use Types [...] Description 05/25/2025 11:30 AM EDT Office Visit [facility] [address] [place], [place] [phone] Janeen Allen MD [address] [place] [address] documented as of this encounter Visit Diagnoses Diagnosis Acquired hypothyroidism Unspecified hypothyroidism documented in this encounter Additional Health Concerns Assessment Noted Time PHQ-9 Depression Total Score: 11 024 2:21 PM EDT documented as of this encounter Care Teams Data Technical Lead Relationship Specialty Start Date End Date Janeen Allen MD [address] [place], [place] [phone] PCP - General Internal Medicine 02/15/24 documented as of this encounter
--- OUTSIDE RECORDS SUMMARY | 2025-02-19 14:59 | XMS_ITS | Data Portability ---
Author Organization [employer] Address [address] [place] [phone] Care Team Providers Care Meat Packager Name Role Phone [facility] Referring Provider HIM [facility] OTHER Assessment Encounter Date Assessment Date Assessment LastModified by Organization Details LastModified Time 11/07/2023 11/07/2023 I provided real -time medical direction via phone for this encounter, and was available for additional phone based assistance as needed. I have reviewed and agree with the Assessment and Plan as documented by the Weigh Box Tender. We discussed the diagnostic uncertainty of home [...] To call 911- verbalized understanding of instructions [email or web address] Not available 11/08/2023 23:32:47 10/27/2024 10/27/2024 I provided real -time medical direction via phone for this encounter and was available for additional phone-based assistance as needed. I have reviewed and agree with the Assessment and Plan as documented by the Weigh Box Tender. Patient given the opportunity to ask questions. [...] it dry. No fever or chills. Per global commodity manager on the scene, vital signs are stable and patient is afebrile. Please see uploaded pictures. No evidence of tracking. No tunneling present per global commodity manager on the scene. Impression: Sacral ulcer Plan: [...] 2 Ag, QL IA, respiratory specimen 2023 [email or web address], [phone] 4 15:17:26 Referral None recorded. Procedures None recorded. Surgeries None recorded. Imaging None recorded. Medication Orders zinc oxide 20 % topical ointment 2023 024 [email or web address] [facility] #[id number], [address] [facility], [place], [address], 4 17:17:50 ketorolac 30 mg/mL (1 mL) injection solution 2023 024 [email or web address] 0 Not available 15:17:26 Patient TargetsNo targets recorded. Patient InstructionsNo instructions recorded. Reason for Referral None Reported. Results Created Date Observation Date Name Description Value Unit Range Abnormal Flag Note LastModifiedBy Organization Detail LastModifiedTime 11/07/19 24 11/07/2023 rapid SARS CoV 2 Ag, QL IA, respi rator y speci men rapid SARS CoV 2 Ag, QL IA, respiratory specimen positi ve Not Available [address], [address] 11/07/2023 15:04:46 Result Notes None recorded. Medical Equipment None Reported. Allergies Allergen ID Allergen Name Allergen Category Reaction Reaction Severity Criticality Documentation Date Start Date Code Code System Note Provider Name and Address Organization Details Recorded Time 90332 iodine medicatio n Not available Not available Not available 10/27/2024 5933 RxNorm Not Available [facility] - production 4 10:54:03 95848 penicilli n G benzathin e medicatio n Not available Not available Not available 10/27/2024 7982 RxNorm Not Available [facility] - production 4 10:54:03 23416 penicilli n G procaine medicatio n Not available Not available Not available 10/27/2024 7983 RxNorm Not Available [facility] - production 4 10:54:03 4322 Product containin g penicilli n (product) medicatio n Not available Not available Not available 11/07/2023 94876 8001 SNOMED Not Available [facility] - production 4 03:38:15 4323 aspirin medicatio n Not available Not available Not available 11/07/2023 1191 [facility] 10:54:03 4324 codeine medicatio n Not available Not available Not available 11/07/2023 2670 RxNorm Not Available [facility] - production 4 10:54:03 4325 oxycodone medicatio n Not available Not available Not available 11/07/2023 7804 RxNorm Hayley Soto MD [address] [facility],[address], [place], [address], [facility] 4 14:51:28 Medications Name Sig Start Date [...] Not Available Not Available Not Available [employer] [place] Lite kit TEST BLOOD SUGAR TWICE DAILY [...] /min 142 mm[Hg] 58 mm[Hg] Not Available [facility] - production 14:44:43 Date Recorded Body weight Provider Name an d Address Organization Details Last Updated DateTime 11/07/2023 80441.51 g Luis Montero [address] [place] [address],[address], [place], [address], [place] [employer] 11/07/2023 15:05:44 Date Recorded Respiratory rate Heart rate Oxygen saturation Oxygen saturation in Arterial blood by Pulse oximetry Body temperature Systolic blood pressure Diastolic blood pressure Provider Name and Address Organization Details Last Updated DateTime 4 16 /min 94 /min 95 % 95 % 99.1 [degF] 101 mm[Hg] 62 mm[Hg] Not Available [facility] - production 15:26:47 Social History None recorded. Functional Status None recorded. Mental Status None recorded. Family History Nothing Reported. Medical History No medical history recorded. Gynecological HistoryNo gynecological history recorded. Obstetrics History GPAL:G 0 P 0 0 0 0 Past Encounters Encounter ID Performer Location Encounter Start Date Encounter Closed Date Diagnosis/Indication Diagnosis SNOMED-CT Code Diagnosis ICD10 Code Diagnosis Note [id number] Hayley Soto MD [facility] [employer] [address] [place] [phone] 11/07/2023 14:44:26 11/12/2023 17:09:16 Pain in right lower limb 291843662 M79.604 Likely sciatica- advised ice / wrapped [...] max then only BiD/ 2x daily COVID-19 708653539 U07.1 continue to quarantine unitl 2 negative covids a day apart [id number] Olive Whiting MD Main - [facility] [address] [place] [phone] 10/27/2024 15:23:38 10/28/2024 21:44:59 Pressure injury of sacral region of back 598837630 L89.159 Health Concerns Section Related Observation LastModified by Organization Detai ls LastModified Time None Recorded Concern Status LastModified by Organization Details LastModified Time None Recorded Advance Directives Directive None Recorded Payers Encounter Date Sequence Insurance Name Policy Number Policy Moses Covered Member ID Moses Member ID Guarantor Name 11/07/2023 1 [facility] - DOS ON OR AFTER 2023 - DUAL ELIGIBLE - ASSISTED OPTIONS AND ONE CARE (MEDICARE REPLACEMENT/ADV ANTAGE - HMO) Libby Almanzar [id number] Libby Almanzar 10/27/2024 1 [facility] - DOS ON OR AFTER 2023 - DUAL ELIGIBLE - ASSISTED OPTIONS AND ONE CARE (MEDICARE REPLACEMENT/ADV ANTAGE - HMO) Libby Almanzar [id number] Libby Almanzar Notes Date Note Type Note Provider Name and Address Organization Details Recorded Time 11/07/2023 text/html HPI: Patient with complaints of right leg pain from buttock down to foot. No injury no noted swelling. Not relieved with OTC analgesics. SEGMD: Pain started at rest approximately 5 days ago-patient had a ventral hernia repair approximately 2 weeks ago at [facility]. 4 days ago she was diagnosed with [...] 0.8.................. ..................... ..................... ..................... ..................... ..................... .................. Weigh Box Tender Note From Alok Jaime: Encountered patient seated, [...] post hernia repair, incision site, sutures unremarkable. [facility] contacted: orders for Covid test, 30 mg of IM Toradol performed. Covid test resulted positive, results relayed to [facility]. Red flags discussed with patient and family, both parties encouraged to seek further medical attention should patient begin experiencing chest pain, shortness of breath or focal deficits. Patient additionally advised call for re-evaluation if she begins experiencing rashes and blisters. Patient and family verbalize understanding and would prefer for patient to remain at home. Weigh Box Tender Allergies: Penicillin, Aspirin ..................... ..................... ..................... ..................... ..................... ..................... ............... Disposition: Fulfilled Halyey Soto MD [address] [facility],[address], [place], [address], [employer] 11/08/2023 23:32:56 10/27/2024 text/html HPI: Call returned [...] come into office for exam. Agrees to [employer] evaluation. Confirmed demographics and allergies. ..................... ..................... ..................... ..................... ..................... ..................... ............... [facility] Nurse Triage Notes (Paloma Padilla - RN): Chief Complaints: Wound care PMH: COPD/Asthma, Coronary Artery Disease, Hypertension, Diabetes Mellitus Type 2, Cancer Comments: HPI reviewed ..................... ..................... ..................... ..................... ..................... ..................... ............... Weigh Box Tender Note From Angel Whalen: This 79-year-old female [...] ..................... ..................... ..................... ..................... ..................... ..................... ............... [facility] Consulted: Olive Whiting ..................... ..................... ..................... ..................... ..................... ..................... ............... Disposition: Fulfilled Olive Whiting MD [address] [place] [address],[address], [place], [address], [employer], [employer] 10/27/2024 17:19:40 OBGyn Episode No OBEpisode recorded.
--- OUTSIDE RECORDS SUMMARY | 2025-02-19 14:59 | XMS_ITS | Encounter Summary ---
Author Organization [employer] Address [address] [place] [address] Care Team Providers Care Ammonia Solution Preparer Name Role Phone Janeen Allen MD Primary Care Provide r Reason for Visit * Reason Comments Med Refill Encounter Details Date Type Department Care Team ([facility] st Contact Info) Description 09/27/2024 Refill [facility] [address] [place], [place] [phone] Janeen Allen MD [address] [place], [place] [phone] Social History Tobacco Use Types Packs/Day Years [...] Description 05/25/2025 11:30 AM EDT Office Visit [facility] [address] [place], [place] [phone] Janeen Allen MD [address] [place] [address] documented as of this encounter Visit Diagnoses Not on filedocumented in this encounter Additional Health Concerns Assessment Noted Time PHQ-9 Depression Total Score: 11 024 2:21 PM EDT documented as of this encounter Care Teams Ammonia Solution Preparer Relationship Specialty Start Date End Date Janeen Allen MD [address] [place], [place] [phone] PCP - General Internal Medicine 02/15/24 documented as of this encounter
--- OUTSIDE RECORDS SUMMARY | 2025-02-19 14:59 | XMS_ITS | Encounter Summary ---
Author Organization [employer] Address [address] [facility] [address] [place] [address] Care Team Providers Care Type Copyist Name Role Phone Janeen Allen MD Primary Care Provide r Reason for Visit * Reason Onset Date Comments Hospital Follow-up 12/22/2024 Encounter Details Date Type Department Care Team (Late st Contact Info) Description 12/22/2024 Telephone [facility] [address] [place], [place] [phone] Janeen Allen MD [address] [place], [place] [phone] Hospital Follow-up Social History Tobacco Use Types Packs/Day Years [...] * Telephone Encounter - [address] - 12/22/2024 12:43 PM EST Tc from pt requesting a HDF appt. Hospital: [place] [address] Date of admission: 12/14 Discharge date: 12/18 Diagnosed: Tachycardia, Acute hypoxic respiratory failure. *Send message to [facility] Clinical Care Coordinators [phone] israeli documented in this encounter Plan of Treatment Upcoming Encounters Date Type Department Care Team (Late st Contact Info) Description 05/25/2025 11:30 AM EDT Office Visit [facility] [address] [place] [address] Janeen Allen MD [address] [place] [address] documented as of this encounter Visit Diagnoses Not on filedocumented in this encounter Additional Health Concerns Assessment Noted Time PHQ-9 Depression Total Score: 0 11/04/19 25 1:05 PM EST documented as of this encounter Care Teams Type Copyist Relationship Specialty Start Date End Date Janeen Allen MD [address] [place] [address] PCP - General Internal Medicine 02/15/24 documented as of this encounter
[2025-02-19 16:22] LABS: Iron 29 mcg/dL (30-160); Percent Iron Saturation 8 % (15-50); Total Iron Binding Capacity 372 mcg/dL (228-428); Unsaturated Iron Binding 343 ug/dL
[2025-02-19 16:35] LABS: TSH reflex Free T4 2.17 uIU/mL (0.32-4.0)
== END 2025-02-19 12:44 | disposition home or self-care (01) ==
LOC: HO.HHCL 12:43
PROVIDERS: Visit Provider Internal Medicine
DX: E03.9 Hypothyroidism, unspecified (principal); Z00.00 Encounter for general adult medical examination without abnormal findings
CPT/HCPCS: 36415; 83540; 84443

== ENCOUNTER 2025-04-14 11:19 | Outpatient (REF) | payer OTHER, SELFPAY ==
--- NOTE | ~2025-04-14 | XR_ITS ---
EXAMINATION: XR CHEST CLINICAL INFORMATION: r/p PNA, pulm edema COMPARISON: 11/21/2024 TECHNIQUE: 2 views of the chest were obtained. FINDINGS: Linear densities are seen in the left retrocardiac region on the frontal x-ray. Pulmonary markings appear similar to the prior study. Central aspect of the left hemidiaphragm is slightly obscured, but more visible than on the prior exam. The cardiac size is probably enlarged. There is vascular calcification in the aortic knob. Lateral exam demonstrates slightly osteophytes in the mid to lower thoracic spine likely related to diffuse idiopathic skeletal hyperostosis (DISH). XR/XR chest 2V IMPRESSION: There are linear densities in the left lung base that probably represents subsegmental atelectasis and/or pneumonia. The left hemidiaphragm is partially obscured, however it is better demonstrated on today's exam than on the prior. Electronically signed by: Gerardo Lira MD 04/14/2025 12:37 PM EDT
--- OUTSIDE RECORDS SUMMARY | 2025-04-14 12:58 | XMS_ITS | Clinical Summary ---
Author Organization [employer] Address [address] [facility] [address] [place] [address] Care Team Providers Care Galley Boy Name Role Phone Janeen Allen MD Primary [...] hyperglycemia, without long-term current use of insulin ([facility]) 1 units of lipase before breakfast. 1 [...] DOSES IN 15 MINUTES. 25 tablet 3 024 Active lactulose (Chronulac) 10 GM/15ML solution TAKE [...] in the morning. 90 tablet 1 Active metFORMIN (Glucophage) 1000 MG tablet Take [...] Once per day. 16 g 3 Active guaiFENesin (Mucinex) 600 MG 12 hr [...] MORNING 90 tablet Active TRUEplus Lancets 33G [facility] [place] Apply 1 each topically Once per day. TEST BLOOD SUGAR EVERY EVENING 100 each 4 Active cyclobenzaprine (Flexeril) 10 MG tabletIndications :Acute midline low back pain with right-sided sciatica Take 1 tablet (10 mg) by mouth 3 times daily for 10 days. 30 tablet Active clopidogrel (Plavix) 75 MG tablet TAKE 1 TABLET BY MOUTH EVERY MORNING 30 tablet 3 025 Active isosorbide mononitrate ER (Imdur) 30 MG 24 hr tablet TAKE 1 TABLET BY MOUTH EVERY MORNING 30 tablet 2 025 Active levothyroxine (Synthroid, Levoxyl) 50 MCG tabletIndications :Acquired hypothyroidism Take 1 tablet (50 mcg) by mouth before breakfast. 90 tablet 025 Active QUEtiapine (SEROquel) 25 MG tablet TAKE 1/2 TABLET BY MOUTH AT BEDTIME 45 tablet 1 025 Active albuterol (2.5 MG/3ML) 0.083% nebulizer solution INHALE 1 AMPULE USING A NEBULIZER EVERY 4 HOURS 360 mL 2 025 Active Umeclidinium-Inna nterol (Anoro Ellipta) 62.5-25 MCG/ACT aerosol powderIndications :Chronic obstructive pulmonary disease, unspecified COPD type (CMS/HCC) Inhale 1 puff Once per day. 1 each 2 025 Active lidocaine (Lidoderm) 5 % patchIndications: Primary osteoarthritis of both knees Apply 1 patch topically Once per day. Remove & discard patch within 12 hours or as directed by MD. 30 patch 2 Active econazole nitrate 1 % creamIndications: Intertrigo Apply topically Once per day. 85 g 025 2025 Active zinc oxide (Desitin) 40 % pasteIndications: Rash Apply 1 Application. topically if needed for diaper rash or irritation. 56.7 g 025 Active ferrous gluconate (Fergon) 324 (38 Fe) MG tabletIndications :Iron deficiency anemia, unspecified iron deficiency anemia type TAKE 1 TABLET BY MOUTH EVERY OTHER DAY IN THE MORNING 15 tablet 1 025 Active albuterol 108 (90 Base) MCG/ACT inhalerIndication s:Chronic obstructive pulmonary disease, unspecified COPD type (CMS/HCC) INHALE 2 PUFFS BY MOUTH EVERY 6 HOURS NEEDED FOR WHEEZING 8.5 g 1 025 Active clotrimazole (Lotrimin) 1 % external solutionIndicatio ns:Intertrigo APPLY TOPICALLY TO THE AFFECTED AREA(S) TWICE DAILY 30 mL 2 025 Active glipiZIDE (Glucotrol) 5 MG tablet TAKE 1 TABLET BY MOUTH TWICE DAILY IN THE MORNING AND IN THE EVENING BEFORE BREAKFAST AND BEFORE SUPPER 60 tablet 3 025 Active gabapentin (Neurontin) 600 MG tabletIndications :Diabetic polyneuropathy associated with type 2 diabetes mellitus (CMS/HCC) TAKE 1 TABLET BY MOUTH TWICE DAILY IN THE MORNING AND IN THE EVENING 60 tablet 2 025 Active docusate sodium (Colace) 100 MG capsule TAKE 1 CAPSULE BY MOUTH TWICE DAILY IN THE MORNING AND IN THE EVENING NEEDED FOR CONSTIPATION 60 capsule 5 025 Active cetirizine (ZyrTEC) 10 MG tablet TAKE 1/2 TABLET BY MOUTH ONCE DAILY 15 tablet 3 025 Active atorvastatin (Lipitor) 80 MG tablet Take 1 tablet (80 mg) by mouth in the morning. 90 tablet 025 Active magnesium oxide (Mag-Ox) 400 MG tabletIndications :Cramp and spasm Take 1 tablet (400 mg) by mouth in the morning. 90 tablet 025 Active furosemide (Lasix) 40 MG tabletIndications :Acute on chronic diastolic heart failure (CMS/HCC) TAKE 1 TABLET (40 MG) BY MOUTH ONCE PER DAY. 90 tablet 1 025 Active azithromycin (Zithromax) 250 MG tabletIndications :Chronic obstructive pulmonary disease with acute exacerbation (CMS/HCC) Take 2 tablets on day one then one tablet daily 6 tablet 025 Active docusate sodium (Colace) 100 MG capsule Take 1 capsule (100 mg) by mouth 2 times daily. TAKE ONE CAPSULE IN THE MORNING AND EVENING NEEDED FOR CONSTIPATION 60 capsule 5 024 2024 Discontinued clotrimazole (Lotrimin) 1 % external solutionIndicatio ns:Intertrigo Apply topically 2 times daily for 28 days. 30 mL 2 025 2024 Discontinued cetirizine (ZyrTEC) 10 MG tablet Take 0.5 tablets (5 mg) by mouth Once per day. 15 tablet 3 025 2024 Discontinued(R eorder (will not trigger notification to Pharmacy)) atorvastatin (Lipitor) 80 MG tablet TAKE 1 TABLET BY MOUTH EVERY MORNING 90 tablet 025 2024 Discontinued(R eorder (will not trigger notification to Pharmacy)) magnesium oxide (Mag-Ox) 400 MG tabletIndications :Cramp and spasm TAKE 1 TABLET BY MOUTH EVERY MORNING 90 tablet 025 2024 Discontinued(R eorder (will not trigger notification to Pharmacy)) albuterol 108 (90 Base) MCG/ACT inhalerIndication s:Chronic obstructive pulmonary disease, unspecified COPD type ([facility]) INHALE 2 PUFFS BY MOUTH EVERY 6 HOURS NEEDED FOR WHEEZING 8.5 g 1 025 2024 Discontinued gabapentin (Neurontin) 600 MG tabletIndications :Diabetic polyneuropathy associated with type 2 diabetes mellitus ([facility]) TAKE 1 TABLET BY MOUTH TWICE DAILY IN THE MORNING AND IN THE EVENING 60 tablet 2 025 2024 Discontinued azithromycin (Zithromax) 250 MG tabletIndications :Asthma exacerbation in COPD ([facility]) Take 2 tablets on day one then one tablet daily 6 tablet 025 2024 Discontinued(R eorder (will not trigger notification to Pharmacy)) furosemide (Lasix) 40 MG tabletIndications :Acute on chronic diastolic heart failure ([facility]) Take 1 tablet (40 mg) by mouth Once per day. 30 tablet 2 025 2024 Discontinued glipiZIDE (Glucotrol) 5 MG tablet TAKE 1 TABLET BY MOUTH TWICE DAILY IN THE MORNING AND IN THE EVENING BEFORE BREAKFAST AND BEFORE SUPPER 60 tablet 1 025 2024 Discontinued fluconazole (Diflucan) 150 MG tabletIndications :Intertrigo Take 1 tablet (150 mg) by mouth 1 (one) time per week for 28 days. 4 tablet 025 2024 Active Problems Problem Noted Date Diagnosed Date [...] recommended reduction of 20-30% of maintenance calories; oxygen plant operator referral offered. Recommended to decrease soda and [...] artery disease of n ative artery of [place] heart with stable angina pectoris 04/19/2023 Primary [...] PM EDT): I will prescribe for patient Anoro Ellipta continue with albuterol as needed Assessment & [...] Encounters Date Type Department Care Team Description 04/14/2025 10:30 AM EDT Office Visit [facility] [address] [place] [phone] Talha Jackman ANP Acute cough (Primary Dx); Chronic obstructive pulmonary disease with acute exacerbation ([facility]); Asthma exacerbation in COPD ([facility]); SOB (shortness of breath) 04/14/2025 Telephone [facility] [address] [place] [phone] Janeen Allen MD 04/14/2025 Telephone [facility] [address] [place] [address] Talha Jackman ANP Results 04/11/2025 Refill [facility] [address] [place] [phone] Janeen Allen MD Acute on chronic diastolic heart failure ([facility]/HCC) 04/08/2025 Refill [facility] [address] [place], [place] [phone] Janeen Allen MD Cramp and spasm 04/01/2025 Refill [facility] [address] [place] [address] Odette Oliva, 04/01/2025 Refill [facility] [address] [place], [place] [phone] Janeen Allen MD Diabetic polyneuropathy associated with type 2 diabetes mellitus ([facility]/HCC) 03/30/2025 Refill [facility] [address] [place] [phone] Janeen Allen MD Intertrigo 03/20/2025 Refill [facility] [address] [place] [address] Janeen Allen MD Chronic obstructive pulmonary disease, unspecified COPD type (CMS/HCC) 03/01/2025 Refill [facility] [address] [place] [phone] Janeen Allen MD Iron deficiency anemia, unspecified iron deficiency anemia type 02/19/2025 1:00 PM EDT Office Visit [facility] [address] [place] [phone] Janeen Allen MD Chronic obstructive pulmonary disease, unspecified COPD type (CMS/HCC) (Primary Dx); Type 2 diabetes mellitus with hyperglycemia, without long-term current use of insulin (CMS/HCC); Primary osteoarthritis of both knees; Intertrigo; Lower abdominal pain; S/P colonoscopy; Rash; Right hand pain; Bilateral hand pain 02/19/2025 Orders Only [facility] [address] [place] [phone] Odette Oliva DO 02/19/2025 Travel 02/19/2025 Refill [facility] [address] [place] [phone] Janeen Allen MD 02/18/2025 Telephone [facility] [address] [place] [phone] Janeen Allen MD Chart Prep 02/10/2025 Patient Outreach [facility] [address] [place] [address] [phone] Janeen Allen MD Pre-visit Planning (SDOH screening negative and tobacco screening negative) 02/06/2025 Telephone [facility] [address] [place] [address] [phone] Janeen Allen MD Durable Medical Equipment ([employer], Walker) 02/06/2025 Telephone [facility] [address] [place] [phone] Janeen Allen MD FYI 02/05/2025 Refill [facility] [address] [place], [place] [phone] Janeen Allen MD Acquired hypothyroidism 01/17/2025 Refill [facility] [address] [place], [place] [phone] Odette Oliva, DO 01/17/2025 Refill [facility] [address] [place], [place] [phone] Janeen Allen MD 01/12/2025 Telephone [facility] [address] [place] [address] Janeen Allen MD Call Back Request from Last 3 Months Immunizations Immunization Administration Dates Next Due Pfizer Covid-19 Vaccine [...] Sign Reading Time Taken Comments Blood Pressure 126/60 04/14/2025 10:41 AM EDT Pulse 118 04/14/2025 10:41 AM EDT Temperature 37 ??C (98.6 ??F) 02/19/2025 11:55 AM EDT Respiratory Rate 20 04/14/2025 10:41 AM EDT Oxygen Saturation 97% 04/14/2025 10:41 AM EDT Inhaled Oxygen Concentration - - Weight 88 kg (194 lb) 04/14/2025 10:41 AM EDT Height 149.9 cm (4' 11 ) 04/14/2025 10:41 AM EDT Body Mass Index 39.18 04/14/2025 10:41 AM EDT Plan of Treatment Upcoming Encounters Date Type Department Care Team (Late st Contact Info) Description 05/25/2025 11:30 AM EDT Office Visit [facility] [address] [place] [address] Janeen Allen MD [address] [place] [address] Health Maintenance Due Date Last Done Comments Diabetes: Foot Exam 1955 Hepatitis C Screening 1963 DTaP/Tdap/Td Vaccines (1 - Tdap) 1964 Pneumococcal Vaccine: 50+ Years (1 of 2 - PCV) 1964 Zoster Vaccines (1 of 2) 1995 RSV Patients and Patients Aged 60 years or older (1 - 1-dose 75+ series) 2020 COVID-19 Vaccine (3 - 2023- season) 2024 03/18/2021, 02/24/2021 Diabetes: Hemoglobin A1C 04/11/202501/09/ 025, 08/27/2024, 05/07/2024, Additional history exists Influenza Vaccine (Season Ended) 2025 Alcohol/Substance Use Screening 08/27/2025 08/27/2024 Diabetes: Urine Protein Screening 08/29/2025 08/29/2024 Lipid Panel 08/29/2025 08/29/2024 Depression Screening 11/04/2025 11/04/2024, 11/04/19 SDOH Screening 02/10/2026 02/10/2025 Tobacco Screening 04/14/2026 04/14/2025 Eye Exam 09/02/2026 09/02/2024, 11/0 02/2024, 09/02/2024, [...] patient's age to complete this topic Meningococcal B Vaccine Aged Out No l onger eligible based on patient's age to complete [...] Associated Diagnosis Comments XR CHEST 2 VIEWS Routine 04/14/2025 11:0 0 AM EDT SOB (shortness of breath) IRON AND TOTAL IRON BINDING CAPACITY Routine 02/19/2025 12:45 PM EDT TSH W/REFLEX TO FT4 Routine 02/19/2025 12:45 PM EDT Acquired hypothyroidism POCT GLUCOSE Routine 02/19/2025 11:56 AM EDT Type 2 diabetes mellitus with hyperglycemia, without long-term current use of insulin (CMS/[facility]) POCT GLYCATED HEMOGLOBIN, TOTAL Routine 01/09/2025 1:11 PM EDT Type 2 diabetes mellitus with hyperglycemia, without long-term current use of insulin (CMS/HCC) ALBUMIN, RANDOM URINE W/CREATININE Routine 08/29/2024 12:20 PM EDT Type 2 diabetes mellitus with hyperglycemia, without long-term current use of insulin (CMS/[facility]) LIPID PANEL WITH REFLEX TO DIRECT LDL Routine 08/29/2024 12:20 PM EDT Type 2 diabetes mellitus with hyperglycemia, without long-term current use of insulin ([facility]) from Last 3 Months or Most Recently Relevant to Health Maintenance Results * XR Chest 2 Views (04/14/2025 11:00 AM EDT) Anatomical Region Laterality Modality Chest Radiographic Diane ging 04/14/2025 11:0 0 AM EDT Narrative 04/14/2025 12:40 PM EDT ? [facility] ?[address] ?[place] [address] ?XRay Report ? Signed ? Patient: Almanzar,Libby ?MR#: [id number] ? : 1945 ?Acct:[id number] ? Age/Sex: 79 / F ?ADM Date: 06/17/25 ? Loc: HO.HHCL ? Attending Dr: Talha Jackman DUNGEON MASTER ? Ordering Physician: TALHA JACKMAN NP ?? Date of Service: 04/14/25 ?? Procedure(s): XR chest 2V ?? Accession Number(s): [id number] ? cc: Janeen Allne MD; TALHA JACKMAN NP ? EXAMINATION: ?? XR CHEST ? CLINICAL INFORMATION: ?? r/p PNA, pulm edema ? COMPARISON: ?? 11/21/2024 ? TECHNIQUE: ?? 2 views of the chest were obtained. ? FINDINGS: ?? Linear densities are seen in the left retrocardiac region on the ?? frontal x-ray. ?? Pulmonary markings appear similar to the prior study. ?? Central aspect of the left hemidiaphragm is slightly obscured, but more ?? visible than on the prior exam. ?? The cardiac size is probably enlarged. ?? There is vascular calcification in the aortic knob. ?? Lateral exam demonstrates slightly osteophytes in the mid to lower ?? thoracic spine likely related to diffuse idiopathic skeletal ?? hyperostosis (DISH). ? XR/XR chest 2V ?? IMPRESSION: ?? There are linear densities in the left lung base that probably ?? represents subsegmental atelectasis and/or pneumonia. ?? The left hemidiaphragm is partially obscured, however it is better ?? demonstrated on today's exam than on the prior. ? Electronically signed by: ??Gerardo Lira MD ??04/14/2025 12:37 PM EDT ? Dictated By: ?Gerardo Lira MD ? Signed By: ?<Electronically signed by Gerardo Lira MD in OV> ?04/14/25 1237 ? DD/ 1100 ? TD/TT: 04/14/25 1215 ? Toolroom Helper: ? Procedure Note Don[place]o, Image - 04/14/[address] [address] XRay Report Signed Patient: Nina Almanzar#: [id number] : 5Acct:[id number] Age/Sex: 79 / FADM Date: 04/14/25 Loc: HO.HHCL Attending Dr: Talha Jackman NP Ordering Physician: TALHA JACKMAN NP Date of Service: 04/14/25 Procedure(s): XR chest 2V Accession Number(s): [id number] cc: Janeen Allen MD; TALHA JACKMAN NP EXAMINATION: XR CHEST CLINICAL INFORMATION: r/p PNA, pulm edema COMPARISON: 11/21/2024 TECHNIQUE: 2 views of the chest were obtained. FINDINGS: Linear densities are seen in the left retrocardiac region on the frontal x-ray. Pulmonary markings appear similar to the prior study. Central aspect of the left hemidiaphragm is slightly obscured, but more visible than on the prior exam. The cardiac size is probably enlarged. There is vascular calcification in the aortic knob. Lateral exam demonstrates slightly osteophytes in the mid to lower thoracic spine likely related to diffuse idiopathic skeletal hyperostosis (DISH). XR/XR chest 2V IMPRESSION: There are linear densities in the left lung base that probably represents subsegmental atelectasis and/or pneumonia. The left hemidiaphragm is partially obscured, however it is better demonstrated on today's exam than on the prior. Electronically signed by: Gerardo Lira MD 04/14/2025 12:37 PM EDT RP Dictated By: Gerardo Lira MD Signed By: <Electronically signed by Gerardo Lira MD in OV> 04/14/25 1237 DD/ 1100 TD/TT: 04/14/25 1215 Toolroom Helper: us Talha MONAHAN IMKelli XR PROCEDURES Final Result * TSH W/Reflex to FT4 (02/19/2025 12:45 PM EDT) Pathologist [facility] TSH reflex Free T4 2.17 0.32 - 4.0 uIU/mL [facility] Blood Venous blood specimen / Unknown 02/19/2025 12:45 PM EDT 02/19/2025 3:55 PM EDT us Janeen Medina MD LAB BLOOD ORDERABLES Final Result [facility] [address] [place] [phone] * (ABNORMAL) Iron And Total Iron Binding Capacity (02/19/2025 12:45 PM EDT) Pathologist [facility] Iron 29(L) 30 - 160 mcg/dL [facility] Total Iron Binding Capacity 372 228 - 428 mcg/dL [facility] Percent Iron Saturation 8(L) 15 - 50 % [facility] Unsaturated Iron Binding 343 ug/dL [facility] 02/19/2025 12:4 5 PM EDT 02/19/2025 3:55 PM EDT us Odette Oliva DO LAB BLOOD ORDERABLES Final R esult [facility] [address] [place] [phone] * POCT Glucose (02/19/2025 11:56 AM EDT) [...] Media Lot # [id number] Lot# Expiration Date Blood 01/09/2025 1:11 PM EDT Janeen Medina MD POINT OF CARE TEST EN TER/EDIT ORDERABLES Final Result * (ABNORMAL) Lipid Panel with Reflex to Direct LDL (08/29/2024 12:20 PM EDT) Triglycerides 211(H) <150 mg/dL [facility] Comment:Desirable Triglyceri de: less than 150 mg/dLBorderline High Triglyceride 150-199 mg/dLHigh Triglyceride: 200-499 mg/dLVery High Triglyceride: greater than or equal to 5OO mg/dL Cholesterol 120 <200 mg/dL [facility] Comment:Desirable Cholestero l: less than 200 mg/dLBorderline High Cholesterol: 200-239 mg/dLHigh Cholesterol: greater than 239 mg/dL LDL Cholesterol Calculated 45 <100 mg/dL [facility] Comment:Desirable LDL: less than 100 mg/dLNear Optimal/Above Optimal LDL: 110- 129 mg/dLBorderline High LDL: 130-159 mg/dLHigh LDL: 160-189 mg/dLVery High LDL: greater than or equal to 190 mg/dL HDL Cholesterol 33(L) >40 mg/dL [facility] Comment:Desirable HDL: great er than 40 mg/dL Note: This HDL assay may give artificially low results in patients with liver disease. Blood 08/29/2024 12:2 0 PM EDT 08/29/2024 1:28 PM EDT us Janeen Medina MD LAB BLOOD ORDERABLES Final Result Performing Organization Address [facility] Co de Phone Number [facility] [address] [place] [phone] * Albumin, Random Urine W/Creatinine (08/29/2024 12:20 PM EDT) Creatinine, Urine 38.34 mg/dL [facility] Microalbumin Urine <5.0 mg/L [facility] Microalbum Creatinine Ratio Ur TNP <30 ug/mg cr [facility] Comment:Unable to calculate albumin/creatinine ratio due to lowmicroalbumin or creatinine result. Urine (Urine, Random) 08/29/2024 12:20 PM EDT 08/29/2024 4:38 PM EDT us Janeen Medina MD LAB URINE ORDERABLES Final Result Performing Organization Address [facility]/ZIP Co de Phone Number [facility] [address] [place] [phone] from Last 3 Months or Most Recently Relevant to Health Maintenance Insurance [employer] [id number] Care Teams Galley Boy Relationship Specialty Start Date End Date Janeen Allen MD [address] [place] [phone] PCP - General Internal Medicine 02/15/24
== END 2025-04-14 11:20 | disposition home or self-care (01) ==
LOC: HO.HHCL 11:19
PROVIDERS: PCP Internal Medicine; Visit Provider Nurse Practitioner Primary Care
DX: R06.02 Shortness of breath (principal)
CPT/HCPCS: 71046

== ENCOUNTER → 2025-04-14 11:40 | Outpatient (BNV) | payer OTHER, SELFPAY | PROVIDERS: PCP Internal Medicine; Visit Provider Radiology Diagnostic Radiology | DX: R91.8 Other nonspecific abnormal finding of lung field (principal) | CPT/HCPCS: 71046 ==

== ENCOUNTER 2025-04-20 13:53 | Outpatient (REF) | payer OTHER, SELFPAY ==
--- NOTE | ~2025-04-20 | XR_ITS ---
EXAMINATION: XR CHEST CLINICAL INFORMATION: worsening SOB/coug, FU LLL infiltrates COMPARISON: April 14, 2025. TECHNIQUE: 2 views of the chest were obtained. FINDINGS: Pulmonary reticular pattern. Linear opacities in the lower hemithoraces more pronounced on the left side. Hyperinflated lungs. No gross pleural effusion or pneumothorax. Cardiomediastinal silhouette size is normal. Multilevel thoracic and upper lumbar spondylosis. Calcified plaque thoracic aortic arch. Osteopenia versus osteoporosis. Metallic coils in the anterior aspect of the upper abdomen no fully included in the [id number]. XR/XR chest 2V IMPRESSION: Mild interstitial lung edema should be considered.. Differential diagnostic considerations include acute small airway inflammatory process. Electronically signed by: Carlos Preston MD 04/20/2025 02:17 PM EDT
== END 2025-04-20 13:54 | disposition home or self-care (01) ==
LOC: HO.HHCX 13:53
PROVIDERS: Visit Provider Internal Medicine
DX: J44.1 Chronic obstructive pulmonary disease with (acute) exacerbation (principal)
CPT/HCPCS: 71046; 87070; 87205

== ENCOUNTER → 2025-04-20 13:54 | Outpatient (BNV) | payer OTHER, SELFPAY | PROVIDERS: Visit Provider Radiology Diagnostic Radiology | DX: J84.9 Interstitial pulmonary disease, unspecified (principal) | CPT/HCPCS: 71046 ==

== ENCOUNTER 2025-07-08 13:40 | Outpatient (AMB) | payer OTHER, SELFPAY ==
--- OUTSIDE RECORDS SUMMARY | 2019-11-17 07:07 | XMS_ITS | Continuity of Care Document ---
Author Organization [facility] Address [address] [place] [address] Phone Care Team Providers Care Machine Setter Name Role Phone Unavailable Unavailable Unavailable Allergies, Adverse Reactions, Alerts Substance Reaction Status Criticality lisinopril cough(mild) Active No Information Penicillins Active No Information codeine Active No Information aspirin Active No Information Medications Medication Instructions Dosage Effective Dates (start - stop) Status Comments OMEPRAZOLE DR 20 MG CAPSULE TAKE 1 CAPSULE BY MOUTH 1 TIME DAILY. TAKE BEFORE A MEAL. 20 MG - Active losartan 50 mg tablet take 1 tablet by oral route every day 50 MG - Active acetaminophen 500 mg tablet take 2 tablet by oral route every 6 hours as needed as needed 1000 MG - Active ZYRTEC 10 MG TABLET TAKE 1 TABLET BY MOUTH 1 TIME DAILY NEEDED FOR ITCHING - Active MULTIVITAMINS TABLET TAKE ONE TABLET BY MOUTH DAILY. TAKE WITH FOOD. - Active loperamide 2 mg tablet take 2 tablet (4MG) by oral route after 1st loose stool and 1 tablet (2 mg) after each next bowel movement; do not exceed 16 mg in 24hrs 4 MG - Active PROAIR HFA 90 MCG INHALER INHALE 2 PUFFS BY MOUTH EVERY 4 TO 6 HOURS NEEDED FOR SHORTNESS OFBREATH - Active OneTouch Delica Lancets 33 gauge check bg bid and prn - Active Alcohol Prep Pads Use as directed to check blood sugars - Active OneTouch Ultra2 kit use to check blood sugar 2 times daily - Active OneTouch Ultra Test strips use to check blood twice daily and as needed - Active levothyroxine 50 mcg tablet take 1 tablet (50MCG) by oral route every day 50 MCG - Active Advair Diskus 500 mcg-50 mcg/dose powder for inhalation INHALE ONE DOSE BY MOUTH TWICE DAILY. - Active albuterol sulfate 2.5 mg/3 mL (0.083 %) solution for nebulization INHALE THE CONTENTS OF 1 VIAL VIA NEBULIZER EVERY 4 TO 6 HOURS NEEDED - Active simethicone 80 mg chewable tablet CHEW AND SWALLOW 1 TABLET BY MOUTH 3 TIMES DAILY NEEDED FOR GAS. - Active POLYETHYLENE GLYCOL 3350 POWD MIX WITH WATER, AND TAKE BY MOUTH DIRECTED BY DR ALEJO PRIOR TOCOLONOSCOPY. - Active MUPIROCIN 2% OINTMENT APPLY TOPICALLY A SMALL AMOUNT TO THE AFFECTED AREA(S) 3 TIMES DAILY NEEDED FOR SORES. 0.00 - Active SM ALCOHOL 70% PREP PADS USE DIRECTED 1 Unit - Active humidifiers misc use at night in bedroom. - Active Prilosec 20 mg capsule,delayed release take 1 capsule by oral route 2 times every day before a meal 20 MG - No Longer Active Procedures Procedure Date APPLICATIONS PROGRAMMER APPLICATIONS PROGRAMMER OFFICE/OUTPATIENT VISIT, EST APPLICATIONS PROGRAMMER APPLICATIONS PROGRAMMER OFFICE/OUTPATIENT VISIT, EST APPLICATIONS PROGRAMMER OFFICE/OUTPATIENT VISIT, EST APPLICATIONS PROGRAMMER OFFICE/OUTPATIENT VISIT, EST APPLICATIONS PROGRAMMER Nurse Assesment APPLICATIONS PROGRAMMER OFFICE/OUTPATIENT VISIT, EST OFFICE/OUTPATIENT VISIT, EST OFFICE/OUTPATIENT VISIT, EST OFFICE/OUTPATIENT VISIT, EST OFFICE/OUTPATIENT VISIT, EST OFFICE/OUTPATIENT VISIT, EST OFFICE/OUTPATIENT VISIT, EST GLYCATED HEMOGLOBIN TEST GLUCOSE BLOOD TEST OFFICE/OUTPATIENT VISIT, EST APPLICATIONS PROGRAMMER OFFICE/OUTPATIENT VISIT, EST OFFICE/OUTPATIENT VISIT, EST OFFICE/OUTPATIENT VISIT, EST APPLICATIONS PROGRAMMER EKG, 12 LEAD OFFICE/OUTPATIENT VISIT, EST APPLICATIONS PROGRAMMER APPLICATIONS PROGRAMMER APPLICATIONS PROGRAMMER OFFICE/OUTPATIENT VISIT, EST APPLICATIONS PROGRAMMER APPLICATIONS PROGRAMMER APPLICATIONS PROGRAMMER PULSE OX OFFICE/OUTPATIENT VISIT, EST GLYCATED HEMOGLOBIN TEST OFFICE/OUTPATIENT VISIT, EST APPLICATIONS PROGRAMMER APPLICATIONS PROGRAMMER APPLICATIONS PROGRAMMER OFFICE/OUTPATIENT VISIT, EST OFFICE/OUTPATIENT VISIT, EST OFFICE/OUTPATIENT VISIT, EST Psychotherapy 45 Min (38-52 Min) 2013 OFFICE/OUTPATIENT VISIT, EST APPLICATIONS PROGRAMMER APPLICATIONS PROGRAMMER Psychotherapy 45 Min (38-52 Min) 2012 APPLICATIONS PROGRAMMER APPLICATIONS PROGRAMMER OFFICE/OUTPATIENT VISIT, EST Psychotherapy 45 Min (38-52 Min) 2012 Psychotherapy , 30 Min (16-37 Min) OFFICE/OUTPATIENT VISIT, EST APPLICATIONS PROGRAMMER APPLICATIONS PROGRAMMER APPLICATIONS PROGRAMMER APPLICATIONS PROGRAMMER OFFICE/OUTPATIENT VISIT, EST OFFICE/OUTPATIENT VISIT, EST APPLICATIONS PROGRAMMER OFFICE/OUTPATIENT VISIT, EST OFFICE/OUTPATIENT VISIT, EST APPLICATIONS PROGRAMMER APPLICATIONS PROGRAMMER OFFICE/OUTPATIENT VISIT, EST Psychiatrist Diagnostic Eval (no Medical Service) OFFICE/OUTPATIENT VISIT, EST Psychotherapy , 30 Min (16-37 Min) PULSE OX OFFICE/OUTPATIENT VISIT, EST APPLICATIONS PROGRAMMER GLYCATED HEMOGLOBIN TEST OFFICE/OUTPATIENT VISIT, EST APPLICATIONS PROGRAMMER APPLICATIONS PROGRAMMER PSYTX, OFFICE, 20-30 MIN OFFICE/OUTPATIENT VISIT, EST APPLICATIONS PROGRAMMER APPLICATIONS PROGRAMMER OFFICE/OUTPATIENT VISIT, EST APPLICATIONS PROGRAMMER APPLICATIONS PROGRAMMER APPLICATIONS PROGRAMMER OFFICE/OUTPATIENT VISIT, EST APPLICATIONS PROGRAMMER APPLICATIONS PROGRAMMER APPLICATIONS PROGRAMMER OFFICE/OUTPATIENT VISIT, EST [facility] OFFICE/OUTPATIENT VISIT, EST APPLICATIONS PROGRAMMER OFFICE/OUTPATIENT VISIT, EST Albuterol unit dose AIRWAY INHALATION TREATMENT Ipratropium brom inh hitesh u d OFFICE/OUTPATIENT VISIT, EST PSYTX, OFF, 45-50 MIN OFFICE/OUTPATIENT VISIT, EST PSYTX, OFF, 45-50 MIN APPLICATIONS PROGRAMMER APPLICATIONS PROGRAMMER APPLICATIONS PROGRAMMER APPLICATIONS PROGRAMMER APPLICATIONS PROGRAMMER OFFICE/OUTPATIENT VISIT, [facility] REAGENT STRIP/BLOOD GLUCOSE GLYCOSYLATED HEMOGLOBIN TEST ELECTROCARDIOGRAM, COMPLETE DEBRIDE NAIL, 6 OR MORE AIRWAY INHALATION TREATMENT MEASURE BLOOD OXYGEN LEVEL GLYCOSYLATED HEMOGLOBIN TEST AIRWAY INHALATION TREATMENT MEASURE BLOOD OXYGEN LEVEL REAGENT STRIP/BLOOD GLUCOSE GLYCOSYLATED HEMOGLOBIN TEST MEASURE BLOOD OXYGEN LEVEL VITAL CAPACITY TEST REAGENT STRIP/BLOOD GLUCOSE GLYCOSYLATED HEMOGLOBIN TEST GLYCOSYLATED HEMOGLOBIN TEST REAGENT STRIP/BLOOD GLUCOSE GLYCOSYLATED HEMOGLOBIN TEST REAGENT STRIP/BLOOD GLUCOSE REAGENT STRIP/BLOOD GLUCOSE DEBRIDE NAIL, 1-5 TRIM SKIN LESION GLYCOSYLATED HEMOGLOBIN TEST REAGENT STRIP/BLOOD GLUCOSE Advance Directives Directive Yes / No Effective Date File Name No Information Encounters Encounter Description Practice Location Reason(s) For Visit Diagnoses Date Provider Providers Copied on Encounter [facility], [address] [facility] [address], [place], [place], [id number], [place] tel:[phone] [facility] No Information 0- 0 No Informatio n [facility], [address] [facility] [address], [place], [place], [address], [place] tel:[phone] [facility] No Information 2-201 6 No Informatio n [facility], [address] [facility] [facility] [address], [place], [place], [address], [place] tel:[phone] [facility] No Information 2-201 6 [employer]. . [facility], [address] [facility] [address], [place], [place], [address], [place] tel:[phone] [facility] [employer] No Information 8-201 6 [employer]. . Consulting Provider: Maria Esther Seay, [address] [place] [address], [place], [address]. tel:[phone] OFFICE/OUTPATI ENT VISIT, EST [facility], [address] [facility] [address], [place], [place], [address], [place] tel:[phone] [facility] dizziness (chief complaint)he adache (chief complaint)Ab dominal pain (chief complaint) Benign essential HTNMorbid obesity due to excess caloriesBod y mass index (BMI) 35.0-35.9, adultColost arabella in placeAbdomi nal bloatingDiz zinessEncou nter for generalized patient complaints 6 No Informatio n [facility], [address] [facility] [address] [facility] [address], [place], [place], [address], [place] tel:[phone] [facility] [employer] No Information 6 [employer] Ac[employer]st. . Consulting Provider: Maria Esther Seay, [address] [place] [address], [place], [address]. tel:[phone] [facility], [address] [facility] [address], [place], [place], [address], [place] tel:[phone] [facility] No Information 6 No Informatio n [facility], [address] [facility] [address] [facility] [address], [place], [place], [address], [place] tel:[phone] [facility] No Information 6 No Informatio n [facility], [address] [facility] [address], [place], [place], [address], [place] tel:[phone] [facility] No Information 6 No Informatio n [facility], [address] [facility] [address], [place], [place], [address], [place] tel:[phone] [facility] No Information 6 No Informatio n [facility], [address] [facility] [address] [facility],[address], [place], [place], [address], [place] tel:[phone] [facility] [employer] No Information 6 [employer] Ac[employer]st. . OFFICE/OUTPATI ENT VISIT, EST [facility], [address] [facility] [address] [facility] [address], [place], [place], [address], [place] tel:[phone] [facility] bp check (chief complaint) Benign essential HTN 6 No Informatio n [facility], [address] [facility] [address], [place], [place], [address], [place] tel:[phone] [facility] [employer] No Information 6 [employer]. . OFFICE/OUTPATI ENT VISIT, EST [facility], [address] [facility] [address], [place], [place], [address], [place] tel:[phone] [facility] chronic conditions (chief complaint) Body mass index (BMI) 39.0-39.9, adultHealth counseling - 6 No Informatio n [facility], [address] [facility] [address], [place], [place], [address], [place] tel:[phone] [facility] [employer] No Information - 6 [employer] Ac[employer]st. . OFFICE/OUTPATI ENT VISIT, EST [facility], [address] [facility] [address], [place], [place], [address], [place] tel:[phone] [facility] headache (chief complaint)co ld symptoms (chief complaint) Common cold 5 No Informatio n [facility], [address] [facility] [address], [place], [place], [address], [place] tel:[phone] [facility] Benign essential HTN 5 No Informatio n [facility], [address] [facility] [address], [place], [place], [address], [place] tel:[phone] [facility] BP check (chief complaint) BP check - 5 No Informatio n [facility], [address] [facility] [address], [place], [place], [address], [place] tel:[phone] [facility] [employer] No Information - 5 [employer]. . [facility], [address] [facility] [address], [place], [place], [address], [place] tel:[phone] [facility] [employer] No Information 5 [employer] Ac[employer]. . OFFICE/OUTPATI ENT VISIT, EST [facility], [address] [facility] [address], [place], [place], [address], [place] tel:[phone] [facility] Follow Up of hospital (chief complaint)hy pertension (chief complaint)hy pertension (chief complaint)in somnia (chief complaint) Abdominal wall abscessType 2 diabetes mellitus without complicatio nBenign essential HTNRecurrin g cold staphylococ mely abscesses 5 No Informatio n OFFICE/OUTPATI ENT VISIT, EST [facility], [address] [facility] [address], [place], [place], [address], [place] tel:[phone] [facility] abdominal pain (chief complaint)ba ck pain (chief complaint) Dietary surveillanc e and counselingI ntra-abdomi nal abscessFati gueBenign essential hypertensio nDiabetes mellitus without mention of complicatio n, type II or unspecified type, not stated as uncontrolle d 5 No Informatio n [facility], [address] [facility] [address], [place], [place], [address], [place] tel:[phone] [facility] Surgical wound infectionSe kurt muscle decondition ing 5 No Informatio n OFFICE/OUTPATI ENT VISIT, EST [facility], [address] [facility] [address], [place], [place], [address], [place] tel:[phone] [facility] Follow Up of wound check (chief complaint)co ld symptoms (chief complaint)hy pertension (chief complaint) Benign essential hypertensio nCoughDepre ssion 5 No Informatio n [facility], [address] [facility] [address], [place], [place], [address], [place] tel:[phone] [facility] No Information 5 No Informatio n [facility], [address] [facility] [address], [place], [place], [address], [place] tel:[phone] [facility] No Information 5 No Informatio n OFFICE/OUTPATI ENT VISIT, EST [facility], [address] [facility] [address] [facility] [address], [place], [place], [address], [place] tel:[phone] [facility] post surgery (chief complaint)di abetes (chief complaint) Hernia due to colostomySu rgical wound dehiscenceS urgical wound infectionDi abetes mellitus without mention of complicatio n, type II or unspecified type, not stated as uncontrolle d 5 No Informatio n OFFICE/OUTPATI ENT VISIT, EST [facility], [address] [facility] [address] [facility] [address], [place], [place], [address], [place] tel:[phone] [facility] KNEES PAIN (chief complaint)ba ck pain (chief complaint)DM /HTN (chief complaint)he rnia (chief complaint) BackacheDia betes Mellitus Type 2, Uncomplicat edFrequent fallsHypert ension, BenignPerso nal history of malignant neoplasm of large intestine 5 No Informatio n OFFICE/OUTPATI ENT VISIT, EST [facility], [address] [facility] [address], [place], [place], [address], [place] tel:[phone] [facility] back pain (chief complaint) AsthmaDiabe john Mellitus Type 2, Uncomplicat edBackacheV entral hernia 5 No Informatio n [facility], [address] [facility] [address], [place], [place], [address], [place] tel:[phone] [facility] Diabetes Mellitus Type 2, Uncomplicat edVentral hernia 5 No Informatio n [facility], [address] [facility] [address], [place], [place], [address], [place] tel:[phone] [facility] No Information 5 No Informatio n [facility], [address] [facility] [address], [place], [place], [address], [place] tel:[phone] [facility] No Information 5 No Informatio n OFFICE/OUTPATI ENT VISIT, [facility], [address] [facility] [address] [facility] [address], [place], [place], [address], [place] tel:[phone] [facility] chronic conditions (chief complaint)ve ntral hernia (chief complaint) Diabetes Mellitus Type 2, Uncomplicat edHypertens ion, BenignObesi ty, unspecified Ventral hernia 5 No Informatio n OFFICE/OUTPATI ENT VISIT, [facility], [address] [facility] [address], [place], [place], [address], [place] tel:[phone] [facility] diabetes (chief complaint)he oksana (chief complaint)dr lim mouth (chief complaint)fr equent falls (chief complaint) OsteopeniaS creening for breast cancerAtten tion to colostomyBa ckacheDiabe john Mellitus Type 2, Uncomplicat edHypertens ion, BenignSleep disorderFre quent falls 5 No Informatio n [facility], [address] [facility] [address], [place], [place], [address], [place] tel:[phone] [facility] [employer] No Information 5 [employer]. . Consulting Provider: Maria Esther Seay, [address] [place] [address], [address]. tel:[phone] OFFICE/OUTPATI ENT VISIT, [facility], [address] [facility] [address], [place], [place], [address], [place] tel:[phone] [facility] Follow Up of DM/HTN (chief complaint)le g swelling (chief complaint)it chiness (chief complaint) Hypothyroid ismPalpitat ionsPrediab etesGenital pruritus 4 No Informatio n OFFICE/OUTPATI ENT VISIT, EST [facility], [address] [facility] [address], [place], [place], [address], [place] tel:[phone] [facility] back pain (chief complaint)sh oulder pain (chief complaint) Cervicalgia 4 No Informatio n OFFICE/OUTPATI ENT VISIT, EST [facility], [address] [facility] [address], [place], [place], [address], [place] tel:[phone] [facility] diabetes (chief complaint)hy pertension (chief complaint)fa lling down (chief complaint)ch est pain (chief complaint)pa lpitations (chief complaint) Abnormality of gaitDiabete s Mellitus Type 2, Uncomplicat edGERD (gastroesop hageal reflux disease)Hyp ertension, BenignPalpi tations 4 No Informatio [facility], [address] [facility] [address], [place], [place], [address], [place] tel:[phone] [facility] [place] [employer] No Information 4 [employer] Ac[employer]. . Consulting Provider: Rosario Gracia, [address] [place] [address], [address]. tel:[phone] OFFICE/OUTPATI ENT VISIT, [facility], [address] [facility] [address], [place], [place], [address], [place] tel:[phone] [facility] Leg numbness (follow up) (chief complaint)wr ist pain (chief complaint)he rnia (chief complaint)pa lpitations (chief complaint) Tachycardia Type 2 diabetes mellitus with autonomic neuropathyA bnormality of gaitLumbago 4 No Informatio n [facility], [address] [facility] [address], [place], [place], [address], [place] tel:[phone] [facility] [employer] No Information 4 [employer] Ac[employer]. . Consulting Provider: Rosario Gracia [address] [place] [address], [address]. tel:[phone] [facility], [address] [facility] [address], [place], [place], [address], [place] tel:[phone] [facility] [employer] No Information Ivan-0 9-201 4 [employer]. . Consulting Provider: Maria Esther Seay, [address] [place], [address]. tel:[phone] [facility], [address] [facility] [address], [place], [place], [address], [place] tel:[phone] [facility] [employer] No Information Elio-3 0-201 4 [employer] Ac[employer]st. . Consulting Provider: MariaE sther Seay, [address] [place] [address], [address]. tel:[phone] OFFICE/OUTPATI ENT VISIT, EST [facility], [address] [place] [address] [address], [place], [place], [address], [place] tel:[phone] [facility] chronic conditions (chief complaint)GE RD (chief complaint)ba ck pain (chief complaint) NeuropathyI nsomniaHype rtension, BenignGERD (gastroesop hageal reflux disease) Elio-2 7-201 4 No Informatio n [facility], [address] [facility] [address], [place], [place], [address], [place] tel:[phone] [facility] [employer] No Information Elio-0 4-201 4 [employer]. . [facility], [address] [facility] [address], [place], [place], [address], [place] tel:[phone] [facility] [employer] No Information Elio-0 4-201 4 [employer]. . Consulting Provider: Maria Esther Seay, [address] [place] [address], [address]. tel:[phone] OFFICE/OUTPATI ENT VISIT, EST [facility], [address] [facility] [address], [place], [place], [address], [place] tel:[phone] [facility] cough (chief complaint) ROBIN-inhibit or coughAttent ion to colostomyCe rvicalgiaDi abetes Mellitus Type 2, Uncomplicat ed 4 No Informatio n OFFICE/OUTPATI ENT VISIT, EST [facility], [address] [facility] [address], [place], [place], [address], [place] tel:[phone] [facility] chronic conditions (chief complaint) Abnormality of gaitDiabete s Mellitus Type 2, Uncomplicat edHypertens ion, BenignHypot hyroidismPe rsonal history of malignant neoplasm of large intestineCe llulitis and abscess of leg, except footCough 4 No Informatio n [facility], [address] [place] [address],[address], [place], [place], [address], [place] tel:[phone] [facility] [employer] No Information 4 [employer] Level Acoustic [employer]st. . [facility], [address] [place] [address] [address], [place], [place], [address], [place] tel:[phone] [facility] [employer] No Information 4 [employer] Level Ac[employer]st. . Consulting Provider: Rosario Gracia, [address] [place] [address], [address]. tel:[phone] [facility], [address] [place] [address] [address], [place], [place], [address], [place] tel:[phone] [facility] [employer] No Information 4 [employer] Level Acoustic [employer]st. . Consulting Provider: Rosario Gracia [address] [place] [address], [address]. tel:[phone] OFFICE/OUTPATI ENT VISIT, EST [facility], [address] [place] [address] [address], [place], [place], [address], [place] tel:[phone] [facility] anxiety (chief complaint) AnxietyFoll iculitis 4 No Informatio n OFFICE/OUTPATI ENT VISIT, EST [facility], [address] [place] [address] [address], [place], [place], [address], [place] tel:[phone] [facility] cough (chief complaint) Influenza-l nery illness 4 No Informatio n OFFICE/OUTPATI ENT VISIT, EST [facility], [address] [facility] [address], [place], [place], [address], [place] tel:[phone] [facility] chronic conditions (chief complaint)mu ltiple issues (chief complaint) Attention to colostomyDi abetes Mellitus Type 2, Uncomplicat edHypertens ion, BenignHypot hyroidismPe rsonal history of malignant neoplasm of large intestineHy percholeste rolemiaScre ening for osteoporosi sAbnormalit y of gait 4 No Informatio n Psychotherapy 45 Min (38-52 Min) [facility], [address] [facility] [address], [place], [place], [address], [place] tel:[phone] [facility] No Information 4 No Informatio n [facility], [address] [facility] [address], [place], [place], [address], [place] tel:[phone] [facility] Abnormality of gait 4 No Informatio n OFFICE/OUTPATI ENT VISIT, EST [facility], [address] [facility] [address], [place], [place], [address], [place] tel:[phone] [facility] f/u dm (chief complaint)in jury back pain (chief complaint)fr equent falls (chief complaint) Gait disturbance Diabetes Mellitus Type 2, Uncomplicat edUnspecifi ed essential hypertensio nRhomboid myalgiaPers onal history of malignant neoplasm of large intestine 3 No Informatio n [facility], [address] [facility] [address], [place], [place], [address], [place] tel:[phone] [facility] [employer] No Information 3 [employer]ne[employer] Level Acoustic Analyst. . Consulting Provider: Maria Esther Seay, [address] [place], [address]. tel:[phone] Psychotherapy 45 Min (38-52 Min) [facility], [address] [facility] [address], [address], [place] tel:[phone] [facility] No Information 3 No Informatio n [facility], [address] [place] [address],[address], [place], [place], [address], [place] tel:[phone] [facility] [employer] No Information 3 [employer]ne[employer] Level Acoustic Analyst. . Consulting Provider: Maria Esther Seay, [address] [facility], [place], [address]. tel:[phone] OFFICE/OUTPATI ENT VISIT, EST [facility], [address] [place] [address] [address], [place], [place], [address], [place] tel:[phone] [facility] depression (chief complaint)fr equent falls (chief complaint) Diabetes Mellitus Type 2, Uncomplicat edHypertens ion, BenignPerso nal history of malignant neoplasm of large intestineHy pothyroidis mDepression Administrat florencio encounter 3 No Informatio n Psychotherapy 45 Min (38-52 Min) [facility], [address] [place] [address] 2,[address], [place], [place], [id number], [place] tel:[phone] [facility] No Information 3 No Informatio n Psychotherapy , 30 Min (16-37 Min) [facility], [address] [place] [address] 2,[address], [place], [place], [address], [place] tel:[phone] [facility] No Information 3 No Informatio n OFFICE/OUTPATI ENT VISIT, EST [facility], [address] [place] [address] 2,[address], [place], [place], [address], [place] tel:[phone] [facility] worry about colon cancer (chief complaint)A1 C due (chief complaint) Personal history of malignant neoplasm of large intestineDi abetes Mellitus Type 2, Uncomplicat edHypertens ion, BenignINTRI NSIC ASTHMA, UNSPECIFIED Jun- 3-201 3 No Informatio n [facility], [address] [place] [address] [address] [place] [address], [id number], [place] tel:[phone] [facility] No Information 0 3 [employer]. . Consulting Provider: Rosario Gracia, [address] [place] [address], [id number]. tel:[phone] [facility], [address] [place] [address] 2,[address], [place], [id number], [place] tel:[phone] [facility] No Information 3 [employer]. . Consulting Provider: Maria Esther Seay [address] [place] [address], [id number]. tel:[phone] [facility], [address] [place] [address] 2,[address], [place], [place], [address], [place] tel:[phone] [facility] No Information 3 [employer]. . Consulting Provider: Maria Esther Seay [address] [place] [address], [id number]. tel:[phone] [facility], [address] [place] [address] 2,[address], [place], [place], [address], [place] tel:[phone] [facility] No Information 3 [employer]st. . Consulting Provider: Rosario Gracia [address] [place] [address], [address]. tel:[phone] OFFICE/OUTPATI ENT VISIT, EST [facility], [address] [facility] [address], [place], [id number], [place] tel:[phone] [facility] BP check (chief complaint) Hypertensio n, Benign 3 No Informatio n OFFICE/OUTPATI ENT VISIT, [facility], [address] [facility] [address], [place], [place], [address], [place] tel:[phone] [facility] leg pain (chief complaint)hy pertension (follow up) (chief complaint) Diabetes Mellitus Type 2, Uncomplicat edHypertens ion, BenignPain in joint involving lower legOsteoart hrosis, localized, primary, involving lower leg 3 No Informatio n [facility], [address] [facility] [address], [place], [place], [address], [place] tel:[phone] [facility] [employer] [facility] No Information 3 [employer] Acoustic Analyst. . OFFICE/OUTPATI ENT VISIT, [facility], [address] [facility] [address], [place], [place], [address], [place] tel:[phone] [facility] knee pain (chief complaint)tr ouble walking (chief complaint) Knee pain, rightHypert ension, BenignDizzi nessUrge incontinenc e 3 No Informatio n OFFICE/OUTPATI ENT VISIT, [facility], [address] [facility] [address], [place], [place], [address], [place] tel:[phone] [facility] arthralgias (chief complaint)pa in (chief complaint) Hypertensio n, BenignPain in joint involving multiple sitesAllerg y to environment al factorsImpa ired glucose tolerance 3 No Informatio n [facility], [address] [facility] [address], [place], [place], [address], [place] tel:[phone] [facility] No Information 3 [employer] Ac[employer] Analyst. . Consulting Provider: Rosario Gracia, [address] [place] [address], [place], [address]. tel:[phone] [facility], [address] [facility] [address], [place], [place], [address], [place] tel:[phone] [facility] No Information 3 [employer] Ac[employer] Analyst. . Consulting Provider: Maria Esther Seay, [address] [facility], [place], [address]. tel:[phone] OFFICE/OUTPATI ENT VISIT, EST [facility], [address] [facility] [address], [place], [place], [address], [place] tel:[phone] [facility] f/u Dizziness (chief complaint) BackacheDia betes mellitus without mention of complicatio n,Hypertens ion, BenignMajor depressive affective disorder, single episodHisto ry of colon cancer 3 No Informatio n Psychiatrist Diagnostic Eval (no Medical Service) [facility], [address] [facility] [address], [place], [place], [address], [place] tel:[phone] [facility] anxiety (chief complaint)de pression (chief complaint) Major depressive affective disorder, single episode, moderate degreePostt raumatic stress disorderOth er unknown and unspecified cause of morbidity or mortality 3 No Informatio n OFFICE/OUTPATI ENT VISIT, EST [facility], [address] [facility] [address], [place], [place], [address], [place] tel:[phone] [facility] f/u ED (chief complaint) VertigoBack acheHyperte nsion, BenignRash and other nonspecific skin eruption 3 No Informatio n Psychotherapy , 30 Min (16-37 Min) [facility], [address] [facility] [address], [place], [place], [address], [place] tel:[phone] [facility] No Information 3 No Informatio n OFFICE/OUTPATI ENT VISIT, EST [facility], [address] [facility] [address], [place], [place], [address], [place] tel:[phone] [facility] cough (chief complaint) Chest pain 3 Carolynn Self. [address] [place] [address], [id number], [place]. tel:[phone] Referring Provider: Clair Pradhan, [address] [place] [address], [address]. tel:[phone] [facility], [address] [facility] [address], [place], [place], [address], [place] tel:[phone] [facility] [facility] [facility] No Information 3 [employer] Ac[employer] Analyst. . Consulting Provider: Rosario Gracia, [address] [place] [address], [address]. tel:[phone] OFFICE/OUTPATI ENT VISIT, EST [facility], [address] [facility] [address], [place], [place], [address], [place] tel:[phone] [facility] wants an electric wheel chair (chief complaint) Pain in joint involving multiple sites 3 Soren Alcocer. [address] [place] [address], [id number], [place]. tel:[phone] Referring Provider: Carlyn Oliver, [address] [place] [address], [address]. tel:[phone] [facility], [address] [facility] [address], [place], [place], [address], [place] tel:[phone] [facility] No Information 2 [employer] Ac[employer]st. . Consulting Provider: Rosario Gracia, [address] [place] [address], [place], [address]. tel:[phone] [facility], [address] [facility] [address], [place], [place], [address], [place] tel:[phone] [facility] [employer] [facility] No Information 2 [employer] Ac[employer] Analyst. . [facility], [address] [facility] [address], [place], [place], [address], [place] tel:[phone] [facility] No Information 2 No Informatio n OFFICE/OUTPATI ENT VISIT, EST [facility], [address] [facility] [address], [place], [place], [address], [place] tel:[phone] [facility] chronic conditions (chief complaint)in continence (chief complaint) Hypertensio n, Benign 2 DOttavio Carlyn. [address] [place] [address], [id number], [place]. tel:[phone] [facility], [address] [facility] [address], [place], [place], [address], [place] tel:[phone] [facility] No Information 2 [employer]ne[employer] Level Acoustic Analyst. . [facility], [address] [facility] [address], [place], [place], [address], [place] tel:[phone] [facility] No Information 2 [employer] Level Acoustic Analyst. . Consulting Provider: Maria Esther Seay, [address] [place] [address], [place], [address]. tel:[phone] OFFICE/OUTPATI ENT VISIT, EST [facility], [address] [facility] [address], [place], [place], [address], [place] tel:[phone] [facility] foot care, plantar pain (chief complaint) Corns and callosities Diabetes Mellitus Type 2, Uncomplicat ed 2 Ho Misbah. [address] [place] [address], [id number]. tel:[phone] [facility], [address] [facility] [address], [place], [place], [address], [place] tel:[phone] [facility] No Information 2 [employer]ne[employer] Level Acoustic Analyst. . [facility], [address] [facility] [address], [place], [place], [address], [place] tel:[phone] [facility] [facility] No Information 2 [employer]ne[employer] Level Acoustic Analyst. . OFFICE/OUTPATI ENT VISIT, EST [facility], [address] [facility] [address], [place], [place], [address], [place] tel:[phone] [facility] back pain (chief complaint)dy suria (chief complaint) Lumbago 2 DOttavio Carlyn. [address] [place] [address], [id number], [place]. tel:[phone] [facility], [address] [facility] [address], [place], [place], [address], [place] tel:[phone] [facility] No Information 2 [employer]ne[employer] Level Acoustic Analyst. . [facility], [address] [facility] [address], [place], [place], [address], [place] tel:[phone] [facility] [facility] [facility] No Information 2 [employer] Level Acoustic Analyst. . OFFICE/OUTPATI ENT VISIT, EST [facility], [address] [facility] [address], [place], [place], [address], [place] tel:[phone] [facility] chronic conditions (chief complaint)ba ck pain (chief complaint)co lostomy care (chief complaint)hy pertension (follow up) (chief complaint)hy pothyroidism (chief complaint) Diabetes Mellitus Type 2, Uncomplicat edBack painHypothy roidismBeni gn essential HTNColostom y care 2 DOttavio Carlyn. [address] [place] [address], [id number], [place]. tel:[phone] [facility], [address] [facility] [address], [place], [place], [address], [place] tel:[phone] [facility] No Information 2 Services Enabling. [address] [facility], [place], [address]. tel:[phone] OFFICE/OUTPATI ENT VISIT, EST [facility], [address] [facility] [address], [place], [place], [address], [place] tel:[phone] [facility] Fu callus, fu hallux (chief complaint) Pain in limb 2 Ho Misbah. [address] [place], [place], [id number]. tel:[phone] [facility], [address] [facility] [address], [place], [place], [address], [place] tel:[phone] [facility] No Information 2 Journeyman Level Acoustic Analyst. . Consulting Provider: Rosario Gracia, [address] [place] [address], [address]. tel:[phone] OFFICE/OUTPATI ENT VISIT, [facility], [address] [facility] [address], [place], [place], [address], [place] tel:[phone] [facility] back pain (chief complaint)hy pothyroidism (chief complaint)ur inary incontinence (chief complaint)di abetes (follow up) (chief complaint)as thma (chief complaint) Back painUrinary incontinenc eHypothyroi dismDiabete s Mellitus Type 2, Uncomplicat ed 2 Maritotawyatt Alcocer. [address] [place], [place], [id number], [place]. tel:[phone] OFFICE/OUTPATI ENT VISIT, [facility], [address] [facility] [address], [place], [place], [address], [place] tel:[phone] [facility] cough (chief complaint)co ld symptoms (chief complaint)fe fallon (chief complaint) INTRINSIC ASTHMA, UNSPECIFIED 2 Dobles Clair. [address] [place] [address], [id number], [place]. tel:[phone] [facility], [address] [place] [address] 2,[address], [place], [place], [address], [place] tel:[phone] [facility] Major depressive affective disorder, single episode, moderate degreePostt raumatic stress disorder 2 No Informatio n OFFICE/OUTPATI ENT VISIT, EST [facility], [address] [facility] [address], [place], [place], [address], [place] tel:[phone] [facility] itchines (chief complaint) Rash and other nonspecific skin eruptionAst hma With Status Asthmaticus 2 Dobles Clair. [address] [place], [place], [id number], [place]. tel:[phone] [facility], [address] [facility] [address], [place], [place], [address], [place] tel:[phone] [facility] Major depressive affective disorder, single episode, moderate degreePostt raumatic stress disorder 2 No Informatio n [facility], [address] [facility] [address], [place], [place], [address], [place] tel:[phone] [facility] [facility] [facility] No Information 2 [employer]ne[employer] Level Acoustic Analyst. . Consulting Provider: Maria Esther Seay, [address] [place], [address]. tel:[phone] [facility], [address] [facility] [address], [place], [place], [address], [place] tel:[phone] [facility] No Information 2 Journeyman Level Acoustic Analyst. . Consulting Provider: Rosario Gracia, [address] [place], [address]. tel:[phone] [facility], [address] [facility] [address], [place], [place], [address], [place] tel:[phone] [facility] [facility] [facility] No Information 2 Journeyman Level Acoustic Analyst. . [facility], [address] [facility] [address], [place], [place], [address], [place] tel:[phone] [facility] No Information 2 Journeyman Level Acoustic Analyst. . [facility], [address] [facility] [address], [place], [place], [address], [place] tel:[phone] [facility] [facility] [facility] No Information 2 Journeyman Level Acoustic Analyst. . OFFICE/OUTPATI ENT VISIT, NEW [facility], [address] [facility] [address], [place], [place], [address], [place] tel:[phone] [facility] No Information 2 Maritotawyatt Alcocer. [address] [place] [address], [place], [place], [address], [place]. tel:[phone] [facility], [address] [facility] [address], [place], [place], [address], [place] tel:[phone] [facility] INTRINSIC ASTHMA, UNSPECIFIED 2 No Informatio n [facility], [address] [facility] [address], [place], [place], [address], [place] tel:[phone] [facility] Palpitation s 2 No Informatio n [facility], [address] [facility] [address], [place], [place], [address], [place] tel:[phone] [facility] Major depressive affective disorder, single episode, moderate degreeAnxie ty state, unspecified 2 No Informatio n [facility], [address] [facility] [address], [place], [place], [address], [place] tel:[phone] [facility] Dermatophyt osis of nailPain in limb 2 Ho Misbah. [address] [place] [address], [place], [place], [address]. tel:[phone] [facility], [address] [facility] [address], [place], [place], [address], [place] tel:[phone] [facility] No Information 2 Z-Converte d Provider. . [facility], [address] [facility] [address], [place], [place], [address], [place] tel:[phone] [facility] Unspecified essential hypertensio n 2 No Informatio n [facility], [address] [facility] [address], [place], [place], [address], [place] tel:[phone] [facility] Palpitation s 2 No Informatio n [facility], [address] [facility] [address], [place], [place], [address], [place] tel:[phone] [facility] Referral of patient without examination or treatment 2 Z-Converte d Provider. . [facility], [address] [facility] [address], [place], [place], [address], [place] tel:[phone] [facility] Diabetes mellitus without mention of complicatio n, type II or unspecified type, not stated as uncontrolle dSprain of ribs 2 No Informatio n [facility], [address] [facility] [address], [place], [place], [address], [place] tel:[phone] [facility] Acute pharyngitis 1 Carolynn Self. [address] [place] [address], [place], [place], [address], [place]. tel:[phone] [facility], [address] [facility] [address], [place], [place], [address], [place] tel:[phone] [facility] Pain in joint involving multiple sites 1 No Informatio n [facility], [address] [facility] [address], [place], [place], [address], [place] tel:[phone] [facility] Routine general medical examination at a health care facility 1 No Informatio oscar [facility], [address] [facility] [address] [address], [place], [place], [address], [place] tel:[phone] [facility] No Information 1 No Informatio oscar [facility], [address] [facility] [address], [place], [place], [address], [place] tel:[phone] [facility] Cellulitis and abscess of leg, except foot 1 No Informatio oscar [facility], [address] [facility] [address], [place], [place], [address], [place] tel:[phone] [facility] Insomnia, unspecified 1 No Informatio oscar [facility], [address] [facility] [address], [place], [place], [address], [place] tel:[phone] [facility] No Information 1 No Informatio oscar [facility], [address] [facility] [address], [place], [place], [address], [place] tel:[phone] [facility] Cervicalgia 1 No Informatio oscar [facility], [address] [facility] [address], [place], [place], [address], [place] tel:[phone] [facility] Pilonidal cyst without mention of abscess 1 No Informatio oscar [facility], [address] [facility] [address] [address], [place], [place], [address], [place] tel:[phone] [facility] No Information 0 No Informatio oscar [facility], [address] [facility] [address], [place], [place], [address], [place] tel:[phone] [facility] Routine gynecologic al examination 0 No Informatio n [facility], [address], [place], [place], [address], [place] tel:[phone] [facility] Unspecified acquired hypothyroid ism 0 No Informatio n [facility], [address] [facility] [address], [place], [place], [address], [place] tel:[phone] [facility] No Information 0 No Informatio n [facility], [address] [facility] [address], [place], [place], [address], [place] tel:[phone] [facility] Urge incontinenc e 0 No Informatio n [facility], [address] [facility] [address], [place], [place], [address], [place] tel:[phone] [facility] No Information 0 No Informatio n [facility], [address] [facility] [address], [place], [place], [address], [place] tel:[phone] [facility] No Information 0 No Informatio n [facility], [address] [facility] [address], [place], [place], [address], [place] tel:[phone] [facility] Obesity, unspecified 0 No Informatio n [facility], [address] [facility] [address], [place], [place], [address], [place] tel:[phone] [facility] No Information 0 Ho Crawley. [address] [place] [address], [place], [place], [address]. tel:[phone] [facility], [address] [facility] [address], [place], [place], [address], [place] tel:[phone] [facility] No Information 9 Diandra Amaryllis. [address] [place], [place], [address]. tel:[phone] [facility], [address] [facility] [address], [place], [place], [address], [place] tel:[phone] [facility] Cervicalgia Dizziness and giddiness 0 9 No Informatio n [facility], [address] [facility] [address], [place], [place], [address], [place] tel:[phone] [facility] Unspecified hypertrophi c and atrophic conditions of skin 9 Ho Misbah. [address] [place], [place], [address]. tel:[phone] [facility], [address] [facility] [address], [place], [place], [address], [place] tel:[phone] [facility] Pure hypercholes terolemia 9 Diandra Amaryllis. [address] [place], [place], [address]. tel:[phone] [facility], [address] [facility] [address], [place], [place], [address], [place] tel:[phone] [facility] No Information 9 Diandra Amaryllis. [address] [place], [place], [address]. tel:[phone] [facility], [address] [facility] [address], [place], [place], [address], [place] tel:[phone] [facility] Malignant neoplasm of other specified sites of large intestine 9 Diandra Amaryllis. [address] [place], [place], [address]. tel:[phone] [facility], [address] [facility] [address], [place], [place], [address], tel:[phone] [facility] No Information 2 9 Z-Converte kyler Provider. . Family History Family Member Type Diagnosis Age At Onset FH - CHILDREN (DDMS) Problem (finding) cancer FH - FATHER (DDMS) Problem (finding) alcoholism FH - CHILDREN (DDMS) Problem (finding) cancer of the b reast FH - CHILDREN (DDMS) Problem (finding) cancer of the l miranda Payers Payer name Insurance type Covered libertarian ID Authoriza tion(s) No Information Social History Type Description Quantity Date Captured Comments Sex Female Smoking Status No Information Sexual Orientation Straight or heterosexual Chief Complaint And Reason For Visit No Information Reason For Referral Reason For Referral No Information Plan Of Treatment Date Type Action Status Goal Dietary manageme nt education, guidance, and counseling completed Goal Dietary manageme nt education, guidance, and counseling completed Referral Ordered: CCM (related to Benign essential HTN) ordered Referral Ordered: Referrals: CCM. Evaluate and treat ordered Referral Ordered: Physical Therapy (related to Severe muscle deconditioning) ordered Referral Ordered: Occupational Therapy (related to Severe muscle deconditioning) ordered Referral Referred To: Physical Therapy Ordered: Referrals: Physical Therapy. Evaluate and treat ordered Referral Referred To: Occupational Therapy Ordered: Referrals: Occupational Therapy. Evaluate and treat ordered Referral Referred To: Dr Preciado Ordered: Referrals: Cardiology. Dr Preciado. Location: [facility]. Consult Appointment date/timeframe: 02/08/2015 ordered Referral Ordered: POLYSOMNOGRAPHY W/CPAP Appointment date/timeframe: 12/10/2014 ordered Referral Referred To: [facility] Ordered: Referrals: [facility] ordered Referral Ordered: HOLTER MONITOR, 24 HOURS Appointment date/timeframe: 06/03/2014 ordered Referral Ordered: MYOCARDIAL PERFUSION, PLANAR, EXERCISE OR PHARMACOLOGIC Appointment date/timeframe: 06/03/2014 ordered Referral Referred To: [facility] Ordered: Referral: [facility]. Evaluate and treat. ordered Referral Ordered: Referral: Neurology. Evaluate and treat. Appointment date/timeframe: 01/15/2014 ordered Referral Referred To: [facility] Ordered: Referral: [facility]. Evaluate and treat. Appointment date/timeframe: 1 Month ordered Referral Referred To: Dr. Emerson Ordered: Referral: Dr. Emerson. Follow-up and Treat. Appointment date/timeframe: 08/26/2013 ordered Referral Ordered: MRA HEAD W/O & W/DYE Appointment date/timeframe: 01/31/2013 ordered Referral Ordered: BONE DENSITY, DEXA, HIPS/PELVIS/SPINE Appointment date/timeframe: 09/11/2012 ordered Patient Education [facility]ud[facility]: After Your V isit completed Patient Education [facility]: After Your V isit completed Patient Education Benign Paroxysmal Posit ional Vertigo ( completed Future Order: Lab Order BASIC ME TABOLIC PANEL ([id number]), Sent on: Sent Future Order: Lab Order TSH ([id number]), Sent o n: Sent Future Order: Lab Order MICROALB UMIN, URINE ([id number]), Sent on: Sent Future Order: Lab Order LIPID PA NUHA/CFR ([id number]), Sent on: Sent History Of Present Illness Encounter Date Complaint History Of Prese nt Illness dizziness Onset was 1 day ago. Pertinent negatives include fever and vomiting. Abdominal pain (comments) 70 y/o pt of BSU seen at [facility] ED on 02/17/16 with concern for possible small bowel obstruction that was ruled out by Gen Surgy. Hx of rectal CA with resection and colostomy in the past.Pt notes she went to hospital for stomach pain and bloating. Notes ate oatmeal last night and stomach has felt bloated since then. Has not eaten much today. Notes gas in the stomach.Notes give medicine with menthol here and can't take that; also notes SOB and takes albuterol inhaler every today for her asthma. Hasn't used yet for asthma. Only uses albuterolNotes not using Advair b/c caused a fungus in her throat.Only medicine she is taking is tramadol from a friend of hers b/c it's the only think that relieves her muscle spasm/arthritis; it is not prescribed here. Also takes her thyroid medication.Pt is spending much of the visit complaining about how she doesn't want to see Dr. Viera because she thinks he doesn't provide good care for her. Was told by Umesh that had to stay with Dr. Viera. Was speaking with CHSilverio Mayo who is working about this issue.Reports 'I'd rather before seeing Dr. Viera.' Pt crying during visit about how she can't see anyone.Reports she takes loperamide to help with diarrhea.Does not see GI doctor for colectomy; notes they discharged her and that they would see her in 5 years. Pt doesn't remember the year of her surgery but thinks it was 7 yearsNotes [facility] sent her there and they told her to F/U with her PCP Abdominal pain Onset: 1 Day. Th e symptoms are constant. The location is diffuse. Symptoms are relieved by bowel movement. Associated symptoms include bloating and diarrhea. Pertinent negatives include fever and vomiting. headache Onset: 1 Day. Sy mptoms are not relieved by analgesics. Pertinent negatives include nausea or vomiting. dizziness (comments) Has not eat en or drank anything today headache (comments) Pt has not t aken anything for painNotes she doesn't use tylenolNotes everytime she tries something generic, the body reacts bp check The HTN started in 1999. Risk factors include age over age 60, depression, family history HTN, gout or CAD, inactive lifestyle and obesity. There are no associated symptoms. Additional information: Pt received BP cuff from [facility] but had no batteries to test it. Pt presented to for BP check. NO associated symptoms. Pt reports that she did not take her medication this morning, she forgot. chronic conditions headache Locations affect ed include entire head. Headache timing includes no pattern. Symptoms are not associated with stress. Denies aggravating factors. Denies relieving factors. There are no associated symptoms. cold symptoms Symptoms are not associated with dental infection, exposure to strep, history of allergies, history of asthma, recent cold, recent travel, sick family member and smoker. Symptoms are not aggravated by allergens, cold air, exertion, lying down, smoke or stress. Symptoms are not relieved by antihistamines, decongestants, OTC cough syrup, OTC analgesics, humidifier or throat lozenges. Associated symptoms include cough, fever and nasal congestion. Pertinent negatives include chills/rigors, dyspnea, facial pain, fatigue, headache, hemoptysis, myalgia, otalgia, pharyngitis, postnasal drainage, rash, rhinitis, sinus pressure, sputum, tooth pain or wheezing. BP check The HTN started in 1999. Risk factors include age over age 60, depression, family history HTN, gout or CAD, inactive lifestyle and obesity. Associated symptoms include headache. Pertinent negatives include chest pain, claudication, confusion, diaphoresis, dyspnea, epistaxis, fatigue, hematuria, irregular heartbeat/palpitations, nausea, tinnitus, transient weakness, tremor, visual disturbances and vomiting. Additional information: Pt presents to today for BP check. Reports she didn't take her BP meds yet and has a mild headache. Follow Up of hospital had presen alicja here 2mo ago with cough and shortly afterward to the ED with same presentation. thought to have pna, but ct chest clear. found to have abdominal abscess, presumably colostomy related. now s/p 3wk linezolid.course was complicated by deramtologic reaction to medication with pruritic pustulosis, now with residual purpura. insomnia The patient pres ents with sleep problems. The symptoms are unchanged. These complaints are continual. Relevant history: a BMI of 38.35. The patient has the following risk factors for insomnia: age > 40 years and BMI > 25. The patient does not have: use of alcohol. Additional information: not improved with hydroxyzine or mirtaz. hypertension hypertension The HTN started in 1999. It is currently stable. Risk factors include age over age 60, depression, family history HTN, gout or CAD, inactive lifestyle and obesity. back pain The problem is w orsening. It occurs persistently. Location of pain is lower back.There is no radiation of pain. The patient describes the pain as an ache. Context: prolonged bedrest (3wk hospitalization and 1wk rehab). Symptoms are aggravated by rolling over in bed, standing and twisting.The patient denies relieving factors. abdominal pain Onset: 1 Month. The severity of the problem is moderate. Pain scale: 8/10. The problem is improving. The symptoms are constant. The location is midline. The quality of the pain is achy and burning. These symptoms occur with recent antibiotic use. Associated symptoms include bloating. Pertinent negatives include blood in stool, fever and vomiting. Additional information: s/p 3wk abx for pericolostomy abscess and 1wk rehab. wound check Follow Up of wound check wound check cold symptoms Onset: 4 weeks a go. The patient describes the cough as hacking. It occurs persistently. The problem has become gradually worse. Context: 'since surgery'. There are no aggravating factors. There are no relieving factors. Associated symptoms include cough, fever, night sweats and rhinorrhea. Pertinent negatives include chills and nasal congestion. Additional information: pt worried that she has developed lung cancer. she cites onset after abdominal surgery but has not mentioned it to surgeons at f/u. hypertension The HTN started in 1999. It is currently stable. Risk factors include age over age 60, depression, family history HTN, gout or CAD, inactive lifestyle and obesity. Associated symptoms include fatigue. Pertinent negatives include chest pain. post surgery new pt to me, pr esents with daughter and granddaughter1. now ~10d s/p transfer of colostomy site from LLQ to RLQ, complicated by incisional dehiscence and infection of incidental midline hernia repair, now improving. both pt and daughter are upset that [facility] never showed up, so they were forced to purchase their own bandage supplies, and are currently without any money continuing on oral abx with gradual improvment of redness and pain around hernia repair2. colostomy: reports familiarity with site cleaning, no current concerns diabetes The problem is s table. Risk factors include: / Welsh, family history diabetes mellitus, obesity, over age [age] years old and sedentary lifestyle. Patient is compliant with using medication. She Has been managed with diet and oral medications. Comorbidity: Hypertension. Pertinent negatives include chest pain and foot ulcers. DM/HTN KNEES PAIN hernia Additional infor shabana: Pt to see Dr Alejo on march 25 for pre-op. doesn't know when surgery will be but it will be done at [facility] and not [place]. back pain Location of pain is lower back. Pain is radiated to the left thigh and right thigh. Symptoms are aggravated by sitting. Additional information: Pt says pain not relieved by tramadol 2 tabs per day. says she took some tablet of 5 mg in past that did relieve pain. wants something to relieve pain so she can sleep. back pain Onset: 7 days ag o. The problem is worsening. Location of pain is lower back.There is no radiation of pain. The patient describes the pain as an ache. Additional information: denies numbness or weakness in legs. pain worse with bending. no OTC pain med works. asks for tramadol b/c relieve painwhen took neighbor's med. ventral hernia pt seen by Dr. Kelli dominguez. he feels she needs a repair of hernia but that she needs cardiac clearance. pt says she cannot do any cardiac test that involved IV or injection. she says that she gets asphyxiated when anything is injected intoher. she feels she could exercise on a bike for ETT. she says she eats very little and doesn't know why she isn't loosing weight. chronic conditions wants to chec k FSBS many time per day but runs out of strips. diabetes headache dry mouth admits to daytim e somnolence, snoring at night.used aspirin inshampoo and made dandruff go away. frequent falls has had mobility eval and needs face to face encounter to complete the process. falling when not using walker. looking forward to using scooter. feels unsteady on feet. leg swelling admits to DOE. giraldo as taken diuretic in past. itchiness gets under hot s hower when itchiness bad. doesn't think it is infestation although a woman's apartment in her building has bed bugs and fumagation planned. no rash. no new soaps, detergents or animal exposure. wants a replacement hospital bed. needs phone number for [employer] RN. Follow Up of DM/HTN Associated s ymptoms include fatigue. Pertinent negatives include pain, weight gain and weight loss.Says FSBS # are low fasting and after eating. shoulder pain Onset: 1 month a go. Location: shoulder. Additional information: pain if acute on chronic. feel down a while ago (not recent) was told fx rib. from time to time shoulder, r arm and right lateral chest hurt. can't move arm w/o pain. back pain hypertension Additional infor nigelion: she is not taking BP meds now as i told her to stop ACEI d/t cough. Cough is gone now. palpitations Additional infor mation: she did not hkeep appt for holter or nuclear stress d/t concern about getting radation exposure and IV substance. diabetes Comorbidity: Hyp ertension. Additional information: Tomas's daughter recently of alzheimer. She is understandably distraught.. chest pain falling down Tomas wants a scooter. she was given appt for mobility evaluation and did not keep it. she asks that it be rescheduled. Functional Status Date Functional Assessmen t No Information Instructions Date Instruction Additional Infor mation Giving encouragement to exercise Related to Body mass index (BMI) 39.0-39.9, adult Dietary management e ducation, guidance, and counseling Related to Body mass index (BMI) 39.0-39.9, adult Dietary management e ducation, guidance, and counseling Related to Dietary surveillance and counseling Giving encouragement to exercise Related to Dietary surveillance and counseling Espere jason nicole [facility] Related to Abnormality of gait Recibiras jason nicole p mitchel monitor de greg. Related to Palpitations Marni bartholomew lisinoprwei Limaza puma losartan. Related to ROBIN-inhibitor cough Follow a low sodium diet Related to Hypertension, Benign Exercise regularly and lose weig ht Related to Hypertension, Benign Take medications zhou ry day as prescribed Related to Hypertension, Benign Follow low carbohydr ate/low sugar diet Related to Diabetes Mellitus Type 2, Uncomplicated Exercise regularly and lose weig ht Related to Diabetes Mellitus Type 2, Uncomplicated Check blood sugars twice a day R elated to Diabetes Mellitus Type 2, Uncomplicated Follow a low sodium diet Related to Hypertension, Benign Exercise regularly and lose weig ht Related to Hypertension, Benign Take medications zhou ry day as prescribed Related to Hypertension, Benign [place] Tylenol para el dolor Relat ed to Knee pain, right Go to hospital for Xray Related to Knee pain, right Assessments Type Assessment Date No Information Patient Care Teams Name Effective Dates (start - stop) Status Members No Information
--- NOTE | 2025-07-08 13:40 | MHC.OFFVIS ---
Vital Signs 07/08/25 13:47 BMI Reason not done Patient refused/unable BP 128/67 Blood Pressure Location Lt brachial Position Sitting Pulse 97 Intake Visit Reasons: Lower Abdominal Pains Intake Note: Libby presents in the office as a new patient for Lower abdominal pains. CC: Confused of her medications that she takes and does not have a list. States that she gets diarrhea all the time. Stave And Bolt Equalizer Required: Yes Stave And Bolt Equalizer Name: César [id number] Allergies Penicillins Allergy (Severe, Verified 07/08/25 13:48) Unknown HPI Comments Details: 80 y.o F with remote hx of colon cancer s/p partial colon resection with colostomy, with recent hx of SBO leading to septic shock necessitating urgent surgery in 2023 ([facility]). Currently has no acute GI issues. Empties the appliance frequently. She takes miralax and stool softeners to induce diarrhea as she is afraid of another obstruction. Labs reviewed, had microscopic anemia however this is after surgery. [facility] Medical History Colostomy in place Hypothyroidism SBO (small bowel obstruction) Obstructive sleep apnea of adult Asthma COPD (chronic obstructive pulmonary disease) Type 2 diabetes mellitus Hypertension Hyperlipidemia Recurrent intestinal obstruction Surgical History History of hernia repair History of creation of ostomy History of left hemicolectomy Family History Other No pertinent family history Social History Household Members: Family Housing: Apartment 75 years or older and lives alone: No Alcohol intake: never Patient Tobacco Use Status: Never used Tobacco Tobacco use type: Cigarette e-Cigarette/Vaping Use: Never Used service: No Current occupational status: disabled Cognitive needs: No Hearing needs: No Vision needs: No Physical Exam Vital Signs: Last Vital Signs Pulse 97 07/08/25 13:47 BP 128/67 07/08/25 13:47 Assessment & Plan Assessment & Plan (1) Colostomy in place: Code(s): Z93.3 - Colostomy status Category: Medical (2) Anemia: Code(s): D64.9 - Anemia, unspecified Category: Medical (3) History of colon surgery: Code(s): Z98.890 - Other specified postprocedural states Category: Surgical Plan Pt reports remote hx of colon ca requiring surg and chemo - possibly in [facility]. Anemia noted on labs 08/2024 - likely operative losses after surgery for SBO done in mid 2023. Pt at present very resistant to repeat blood work and colo if needed. Reports significant trauma around hospitals and medical offices in general. However, agrees to consider doing this in the next 2-3 weeks. Follow up 3 months. Orders: Orders Complete Blood Count no Diff Today D64.9 - Anemia, unspecified IRON PROFILE Today D64.9 - Anemia, unspecified Ferritin Today D64.9 - Anemia, unspecified Coding Level of Care Code New Pt Level 4 ([id number]) Complex EM visit Add On G2211 Diagnoses Colostomy in place Z93.3 Anemia D64.9 History of colon surgery Z98.890
[2025-07-08 13:47] VITALS: BP 128/67; PULSE 97
--- OUTSIDE RECORDS SUMMARY | 2025-07-08 16:43 | XMS_ITS | Clinical Summary ---
Author Organization [employer] Address [address] [facility] [address] [place] [address] Care Team Providers Care [employer] Name Role Phone Janeen Allen MD Primary [...] represent a complete record from that organization. Emollient (CeraVe PM) lotion apply to affected area BID 021 Active budesonide (Pulmicort) 1 MG/2ML nebulizer solution 023 Active Blood Glucose Monitoring Suppl (FreeStyle Lite) w/Device kitIndications:Ty pe 2 diabetes mellitus with hyperglycemia, without long-term current use of insulin ([facility]) 1 units of lipase before breakfast. 1 kit 023 Active triamcinolone (Kenalog) 0.1 % creamIndications: Xerosis [...] eyes. 15 mL 6 024 2024 Active tiotropium-olodat anthony (Stiolto Respimat) 2.5-2.5 MCG/ACT aerosol solution inhalerIndication s:Obstructive lung disease ([facility]) INHALE TWO PUFFS BY MOUTH ONCE DAILY 4 g 11 Active fluticasone (Flonase) 50 MCG/ACT nasal spray Administer 1 spray into each nostril Once per day. 16 g 3 025 Active GaviLAX 17 GM/SCOOP powder TAKE 17 GM MIXED IN 8 OUNCES OF WATER, COFFEE OR TEA ONCE DAILY NEEDED DIRECTED 510 g Active TRUEplus Lancets 33G misc Apply 1 each topically Once per day. TEST BLOOD SUGAR EVERY EVENING 100 each 4 025 Active lidocaine (Lidoderm) 5 % patchIndications: Primary osteoarthritis of both knees Apply 1 patch topically Once per day. Remove & discard patch within 12 hours or as directed by MD. 30 patch 2 Active zinc oxide (Desitin) 40 % pasteIndications: Rash Apply 1 Application. topically if needed for diaper rash or irritation. 56.7 g 1 025 Active cetirizine (ZyrTEC) 10 MG tablet TAKE 1/2 TABLET BY MOUTH ONCE DAILY 15 tablet 3 025 Active furosemide (Lasix) 40 MG tabletIndications :Acute on chronic diastolic heart failure ([facility]) TAKE 1 TABLET (40 MG) BY MOUTH ONCE PER DAY. 90 tablet 1 025 Active nitroglycerin (Nitrostat) 0.4 MG SL tablet DISSOLVE 1 TABLET UNDER THE TONGUE EVERY 5 MINUTES NEEDED FOR CHEST PAIN. CALL 911 IF NO RELIEF. DO NOT EXCEED 3 DOSES IN 15 MINUTES. 25 tablet 3 025 Active albuterol (2.5 MG/3ML) 0.083% nebulizer solution INHALE 1 AMPULE USING A NEBULIZER EVERY 4 HOURS 360 mL 2 025 Active lactulose (Chronulac) 10 GM/15ML solution TAKE 15 ML BY MOUTH TWICE DAILY NEEDED FOR CONSTIPATION 946 mL 4 025 Active amLODIPine (Norvasc) 10 MG tablet Take 1 tablet (10 mg) by mouth in the morning. 90 tablet 3 Active atorvastatin (Lipitor) 80 MG tablet Take 1 tablet (80 mg) by mouth in the morning. 90 tablet 025 Active clopidogrel (Plavix) 75 MG tablet Take 1 tablet (75 mg) by mouth in the morning. 30 tablet 3 Active docusate sodium (Colace) 100 MG capsule Take 1 capsule (100 mg) by mouth 2 times daily. 60 capsule 5 Active cholecalciferol (Vitamin D-3) 25 MCG tablet Take 1 tablet (25 mcg) by mouth in the morning. 90 tablet 1 Active glucose blood (FREESTYLE LITE) test strip Test blood capillary glucose BID 50 strip 11 Active glipiZIDE (Glucotrol) 5 MG tablet TAKE 1 TABLET BY MOUTH TWICE DAILY IN THE MORNING AND IN THE EVENING BEFORE BREAKFAST AND BEFORE SUPPER 60 tablet 3 Active hydroCHLOROthiazi de 12.5 MG tablet Take 1 tablet (12.5 mg) by mouth in the morning. 90 tablet 1 Active isosorbide mononitrate ER (Imdur) 30 MG 24 hr tablet Take 1 tablet (30 mg) by mouth in the morning. 30 tablet 2 Active levothyroxine (Synthroid, Levoxyl) 50 MCG tabletIndications :Acquired hypothyroidism Take 1 tablet (50 mcg) by mouth before breakfast. 90 tablet Active SITagliptin (Januvia) 100 MG tablet Take 1 tablet (100 mg) by mouth Once per day. 90 tablet 3 025 Active losartan (Cozaar) 100 MG tablet Take 1 tablet (100 mg) by mouth in the morning. 90 tablet 1 025 Active magnesium oxide (Mag-Ox) 400 MG tabletIndications :Cramp and spasm Take 1 tablet (400 mg) by mouth in the morning. 90 tablet 025 Active metFORMIN (Glucophage) 1000 MG tablet Take 1 tablet (1,000 mg) by mouth with breakfast and with evening meal. 180 tablet 5 Active montelukast (Singulair) 10 MG tablet Take 1 tablet (10 mg) by mouth at bedtime. 30 tablet 3 025 Active ferrous gluconate (Fergon) 324 (38 Fe) MG tabletIndications :Iron deficiency anemia, unspecified iron deficiency anemia type Take 1 tablet (324 mg) by mouth every other day. 15 tablet 2 025 Active albuterol 108 (90 Base) MCG/ACT inhalerIndication s:Chronic obstructive pulmonary disease, unspecified COPD type (CMS/HCC) INHALE 2 PUFFS BY MOUTH EVERY 6 HOURS NEEDED FOR WHEEZING 8.5 g 1 025 Active clotrimazole (Lotrimin) 1 % external solutionIndicatio ns:Intertrigo APPLY TOPICALLY TO THE AFFECTED AREA(S) TWICE DAILY DIRECTED 30 mL 2 025 Active econazole nitrate 1 % creamIndications: Intertrigo APPLY TOPICALLY TO THE AFFECTED AREA(S) EVERY DAY DIRECTED 85 g 1 025 Active Alcohol Swabs (Alcohol Prep) 70 % pads USE TWICE DAILY 100 each 11 025 Active acetaminophen (Tylenol) 325 MG tablet Take 2 tablet by oral route every 4 hours as needed for pain or fever. 019 2024 Discontinued(M ed list cleanup (will not trigger notification to Pharmacy)) diphenhydrAMINE (BENADryl) 25 MG capsule Take 1 capsule by mouth in the morning and 1 capsule at noon and 1 capsule in the evening and 1 capsule before bedtime. 022 2024 Discontinued(M ed list cleanup (will not trigger notification to Pharmacy)) ketoconazole (NIZOral) 2 % shampoo Apply topically at bed time. 021 2024 Discontinued(M ed list cleanup (will not trigger notification to Pharmacy)) liver oil-zinc oxide (Desitin) 40 % ointment Apply topically if needed for irritation. 400 g 023 2024 Discontinued(M ed list cleanup (will not trigger notification to Pharmacy)) hydrOXYzine HCl (Atarax) 10 MG tabletIndications :Pruritus Take 1 tablet (10 mg) by mouth if needed at bedtime for itching. 30 tablet 023 2024 Discontinued(M ed list cleanup (will not trigger notification to Pharmacy)) doxepin (SINEquan) 10 MG capsuleIndication s:Pruritus Take 1 capsule (10 mg) by mouth at bedtime. 30 capsule 023 2024 Discontinued(M ed list cleanup (will not trigger notification to Pharmacy)) Diclofenac Sodium (Voltaren) 1 % gel Apply 1 Application topically every 12 (twelve) hours. 200 g 023 2024 Discontinued(M ed list cleanup (will not trigger notification to Pharmacy)) Clotrimazole Anti-Fungal 1 % creamIndications: Pruritus of vagina APPLY TO AFFECTED AREA(S) AND SURROUNDING AREA(S) TWICE DAILY IN THE MORNING AND EVENING 90 g 023 2024 Discontinued(M ed list cleanup (will not trigger notification to Pharmacy)) ciprofloxacin-hyd rocortisone (Cipro HC) otic suspension PLACE THREE DROPS IN THE RIGHT EAR TWICE DAILY FOR SEVEN DAYS 2024 Discontinued(M ed list cleanup (will not trigger notification to Pharmacy)) Alcohol Swabs (Alcohol Prep) 70 % pads USE TWO DAILY 100 each 11 024 2024 Discontinued metFORMIN (Glucophage) 1000 MG tablet Take 1 tablet (1,000 mg) by mouth with breakfast and with evening meal. 180 tablet 5 2024 Discontinued(R eorder (will not trigger notification to Pharmacy)) montelukast (Singulair) 10 MG tablet Take 1 tablet (10 mg) by mouth at bedtime. 30 tablet 3 024 2024 Discontinued(R eorder (will not trigger notification to Pharmacy)) amLODIPine (Norvasc) 10 MG tablet Take 1 tablet (10 mg) by mouth in the morning. 90 tablet 3 024 2024 Discontinued(R eorder (will not trigger notification to Pharmacy)) SITagliptin (Januvia) 100 MG tablet Take 1 tablet (100 mg) by mouth Once per day. 90 tablet 3 024 2024 Discontinued(R eorder (will not trigger notification to Pharmacy)) glucose blood (FREESTYLE LITE) test strip Test blood capillary glucose BID 60 strip 11 024 2024 Discontinued(R eorder (will not trigger notification to Pharmacy)) cholecalciferol (Vitamin D-3) 25 MCG tablet TAKE 1 TABLET BY MOUTH EVERY MORNING 90 tablet 025 2024 Discontinued(R eorder (will not trigger notification to Pharmacy)) cyclobenzaprine (Flexeril) 10 MG tabletIndications :Acute midline low back pain with right-sided sciatica Take 1 tablet (10 mg) by mouth 3 times daily for 10 days. 30 tablet 025 2024 Discontinued(M ed list cleanup (will not trigger notification to Pharmacy)) clopidogrel (Plavix) 75 MG tablet TAKE 1 TABLET BY MOUTH EVERY MORNING 30 tablet 3 025 2024 Discontinued(R eorder (will not trigger notification to Pharmacy)) QUEtiapine (SEROquel) 25 MG tablet TAKE 1/2 TABLET BY MOUTH AT BEDTIME 45 tablet 1 025 2024 Discontinued albuterol 108 (90 Base) MCG/ACT inhalerIndication s:Chronic obstructive pulmonary disease, unspecified COPD type (CMS/HCC) INHALE 2 PUFFS BY MOUTH EVERY 6 HOURS NEEDED FOR WHEEZING 8.5 g 1 025 2024 Discontinued clotrimazole (Lotrimin) 1 % external solutionIndicatio ns:Intertrigo APPLY TOPICALLY TO THE AFFECTED AREA(S) TWICE DAILY 30 mL 2 025 2024 Discontinued glipiZIDE (Glucotrol) 5 MG tablet TAKE 1 TABLET BY MOUTH TWICE DAILY IN THE MORNING AND IN THE EVENING BEFORE BREAKFAST AND BEFORE SUPPER 60 tablet 3 025 2024 Discontinued(R eorder (will not trigger notification to Pharmacy)) gabapentin (Neurontin) 600 MG tabletIndications :Diabetic polyneuropathy associated with type 2 diabetes mellitus (CMS/HCC) TAKE 1 TABLET BY MOUTH TWICE DAILY IN THE MORNING AND IN THE EVENING 60 tablet 2 025 2024 Discontinued docusate sodium (Colace) 100 MG capsule TAKE 1 CAPSULE BY MOUTH TWICE DAILY IN THE MORNING AND IN THE EVENING NEEDED FOR CONSTIPATION 60 capsule 5 025 2024 Discontinued(R eorder (will not trigger notification to Pharmacy)) atorvastatin (Lipitor) 80 MG tablet Take 1 tablet (80 mg) by mouth in the morning. 90 tablet 025 2024 Discontinued(R eorder (will not trigger notification to Pharmacy)) magnesium oxide (Mag-Ox) 400 MG tabletIndications :Cramp and spasm Take 1 tablet (400 mg) by mouth in the morning. 90 tablet 025 2024 Discontinued(R eorder (will not trigger notification to Pharmacy)) azithromycin (Zithromax) 250 MG tabletIndications :Chronic obstructive pulmonary disease with acute exacerbation (CMS/HCC) Take 2 tablets on day one then one tablet daily 6 tablet 025 2024 Discontinued(M ed list cleanup (will not trigger notification to Pharmacy)) furosemide (Lasix) 20 MG tablet Take 1 tablet (20 mg) by mouth with evening meal for 5 days. 5 tablet 025 2024 Discontinued(M ed list cleanup (will not trigger notification to Pharmacy)) losartan (Cozaar) 100 MG tablet TAKE 1 TABLET BY MOUTH EVERY MORNING 90 tablet 1 2024 Discontinued(R eorder (will not trigger notification to Pharmacy)) hydroCHLOROthiazi de 12.5 MG tablet TAKE 1 TABLET BY MOUTH EVERY MORNING 90 tablet 1 025 2024 Discontinued(R eorder (will not trigger notification to Pharmacy)) econazole nitrate 1 % creamIndications: Intertrigo APPLY TOPICALLY TO THE AFFECTED AREA(S) EVERY DAY DIRECTED 85 g 1 025 2024 Discontinued ferrous gluconate (Fergon) 324 (38 Fe) MG tabletIndications :Iron deficiency anemia, unspecified iron deficiency anemia type TAKE 1 TABLET BY MOUTH EVERY OTHER DAY IN THE MORNING 15 tablet 2 2024 Discontinued(R eorder (will not trigger notification to Pharmacy)) isosorbide mononitrate ER (Imdur) 30 MG 24 hr tablet TAKE 1 TABLET BY MOUTH EVERY MORNING 30 tablet 2 025 2024 Discontinued(R eorder (will not trigger notification to Pharmacy)) levothyroxine (Synthroid, Levoxyl) 50 MCG tabletIndications :Acquired hypothyroidism TAKE 1 TABLET (50 MCG) BY MOUTH BEFORE BREAKFAST 90 tablet 025 2024 Discontinued(R eorder (will not trigger notification to Pharmacy)) Active Problems Problem Noted Date Diagnosed Date Anxiety 05/25/2025 Assessment & Plan (05/25/2025 1:53 PM EDT): Counseling done today Patient declines medication, therapist or psychiatrist services COPD with acute exacerbation 04/20/2025 Assessment & Plan (04/20/2025 4:03 PM EDT): She seems to have a severe bronchospasm, however it is unclear if it is mostly related to uncompensated CHF. I will start her on prednisone x 5 days, continue DuoNeb as needed and order Gram sputum. Ordered BMP, will adjust Lasix if he is about 200, unclear if she needs to continue both Lasix and HCTZ, she needs to follow-up with PCP Order repeated CXR to rule out worsening pneumonia (compare with last week's CXR), will call back with results. Advised to go to ED if symptoms do not improve within 24 hours, rule out CHF. Candidiasis 04/20/2025 Rash 02/19/2025 Lower abdominal pain 02/19/2025 Assessment [...] recommended reduction of 20-30% of maintenance calories; lepidopterist referral offered. Recommended to decrease soda and [...] artery disease of n ative artery of [place] heart with stable angina pectoris 04/19/2023 Primary hypertension 03/22/2023 Assessment & Plan (05/25/2025 1:55 PM EDT): Today blood pressure is elevated most likely because she is not taking her medications and because she is very upset today, I decided to refer her to pharmacy [facility], she will also benefit from med box, she declines VNA services, I advised - low-sodium diet (goal: <2g/day) and heart healthy diet such as DASH to reduce BP and prevent ASCVD. - Home BP monitoring 1-2 x day with goal of <140/90. - Seek immediate medical attention for chest pain, palpitations, SOB, syncope, or sudden changes in mental status. - Do not change or discontinue current prescriptions without first consulting health care provider Assessment & Plan (04/20/2023 1:33 PM EDT): Controlled. Continue current regimen. Assessment & Plan (03/22/2023 2:24 PM EDT): Blood pressure elevated at time of visit with a reading of 148/82 mmHg. Currently on max dose of amlodipine and losartan. Will add hydrochlorothiazide to regimen. Major depressive disorder, recurrent, moderate 0 02/19/2023 Assessment & Plan (05/25/2025 1:54 PM EDT): Counseling done today Patient declines medication, therapist or psychiatrist services Assessment & Plan (07/17/2024 3:24 PM EDT): [...] seek treatment PLAN: 1. Follow up with [facility]: Not recommended for follow-up 2. Patient goal [...] 2 diabetes mellitus 07/05/2018 Assessment & Plan (05/25/2025 1:53 PM EDT): Diabetes is: controlled - Lab Results Component Value Date HGBA1C 6.5 (A) 05/25/2025 HGBA1C 8.2 (A) 01/09/2025 HGBA1C 7.0 (A) 08/27/2024 - Lab Results Component Value Date MICROALBUR <5.0 08/29/2024 CREATININE 0.99 08/29/2024 -Changes: None - Diabetic eye exam: Up-to-date - Diabetic foot exam: Pending - Continue lifestyle modifications - Continue current medications - Follow up: 3 months Assessment & Plan (02/19/2025 2:32 PM EDT): [...] 2:30 PM EDT): Lidocaine patches prescribed today Hyperlipidemia associated with type 2 diabetes miranda [...] ear 02/01/2023 06/04/2023 Disorder of vision 10/17/2022 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 Encounters Date Type Department Care Team Description 07/07/2025 Refill [facility] [address] [place] [address] Janeen Allen MD 07/05/2025 Refill [facility] [address] [place] [address] Janeen Allen MD Intertrigo 07/03/2025 Refill [facility] [address] [place], [place] [phone] Janeen Allen MD Intertr[facility] 06/30/2025 Refill [facility] [address] [place] [phone] Janeen Allen MD Chronic obstructive pulmonary disease, unspecified COPD type (CMS/HCC) 06/22/2025 Refill [facility] [address] [place] [address] Odette Oliva, DO Cramp and spasm 06/16/2025 Orders Only [facility] [address] [place] [phone] Janeen Allen MD Iron deficiency anemia, unspecified iron deficiency anemia type 06/09/2025 Refill [facility] [address] [place] [phone] Janeen Allen MD Acquired hypothyroidism; Cramp and spasm 06/09/2025 Travel 06/05/2025 Refill [facility] [address] [place] [phone] Janeen Allen MD 05/26/[address] [phone] Janeen Allen MD DME FOR GLOVES,ROLLATOR,PULSE OXIMETER AND POWER LIFT RECLI 05/25/2025 11:30 AM EDT Office Visit [address] [phone] Janeen Allen MD Type 2 diabetes mellitus with hyperglycemia, without long-term current use of insulin ([facility]); Primary hypertension; Major depressive disorder, recurrent, moderate (CMS/HCC); Morbid obesity ([facility]); Anxiety; Dietary counseling; Exercise counseling 05/25/2025 Travel 05/24/2025 Refill [facility] [address] [place] [phone] Janeen Allen MD 05/21/[address] [address] Janeen Allen MD chart prep 05/15/2025 Patient Outreach [address] [place] [address] Janeen Allen MD Pre-visit Planning (SDOH screening completed on 02/10/2025) 05/11/2025 Refill [facility] [address] [facility] [place] [address] Janeen Allen MD 05/05/2025 Travel 05/05/2025 Telephone [facility] [address] [place] [address] Janeen Allen MD Med Refill 05/04/2025 Refill [facility] [address] [place] [address] Kaylene Patiño MD Acquired hypothyroidism 05/04/2025 Telephone [facility] [address] [place] [phone] Gely Moody RN Paperwork/Forms 05/01/2025 Refill [facility] [address] [place] [phone] Janeen Allen MD Intertrigo; Iron deficiency anemia, unspecified iron deficiency anemia type 04/30/2025 Refill [facility] [address] [place] [address] Janeen Allen MD 04/22/2025 Travel 2025 Telephone [facility] [address] [place] [phone] Janeen Allen MD Medication Question 04/20/2025 1:00 PM EDT Office Visit [facility] [address] [place] [phone] Chichi Jean MD COPD with acute exacerbation (CMS/HCC) (Primary Dx) 04/20/2025 Orders Only [facility] [address] [place] [phone] Chichi Jean MD 04/20/2025 Results Follow-Up [facility] [address] [place] [phone] Chichi Jean MD XR Chest 2 Views 04/20/[address] [phone] Janeen Allen MD order 04/20/2025 Travel 04/14/2025 10:30 AM EDT Office Visit [facility] [address] [place] [address] Vilma Harris ANP Acute cough (Primary Dx); Chronic obstructive pulmonary disease with acute exacerbation ([facility]); Asthma exacerbation in COPD ([facility]); SOB (shortness of breath); Community acquired pneumonia of left lower lobe of lung; Bilateral edema of lower extremity; Abnormal x-ray 04/14/2025 Telephone [facility] [address] [place] [address] Alicia Stephen RN Chest XR Results 04/14/[address] [address] Janeen Allen MD 04/14/2025 Telephone [facility] [address] [place] [address] Vilma Harris ANP Results 04/11/2025 Refill [facility] [address] [place] [address] Janeen Allen MD Acute on chronic diastolic heart failure ([facility]) 04/08/2025 Refill [facility] [address] [place], [place] [phone] Janeen Allen MD Cramp and spasm from Last 3 Months Immunizations Immunization Administration [...] Sign Reading Time Taken Comments Blood Pressure 110/48 06/09/2025 1:20 PM EDT Pulse 95 06/09/2025 1:20 PM EDT Temperature 36.7 C (98 F) 05/25/2025 11:07 AM EDT Respiratory Rate 18 05/25/2025 11:07 AM EDT Oxygen Saturation 98% 05/25/2025 11:07 AM EDT Inhaled Oxygen Concentration - - Weight 88 kg (194 lb) 05/25/2025 11:07 AM EDT Height 149.9 cm (4' 11 ) 05/25/2025 11:07 AM EDT Body Mass Index 39.18 05/25/2025 11:07 AM EDT Plan of Treatment Upcoming Encounters Date Type Department Care Team (Late st Contact Info) Description 07/24/2025 1:00 PM EDT Medication Management [facility] [address] [place] [address] [phone] Doug Estrada, PharmD [address] [place] [address] 08/19/2025 2:45 PM EDT Office Visit [facility] [address] [place], [place] [phone] Janeen Allen MD [address] [place], [place] [phone] Health Maintenance Due Date Last Done Comments Diabetes: Foot Exam 1955 DTaP/Tdap/Td Vaccines (1 - Tdap) 1964 Pneumococcal Vaccine: 50+ Years (1 of 2 - PCV) 1964 Zoster Vaccines (1 of 2) 1995 RSV Patients and Patients Aged 60 years or older (1 - 1-dose 75+ series) 2020 COVID-19 Vaccine (3 - season) 2025 03/18/2021, 02/24/2021 Influenza Vaccine (#1) 2025 Alcohol/Substance Use Screening 08/27/2025 08/27/2024 Diabetes: Urine Protein Screening 08/29/2025 08/29/2024 Lipid Panel 08/29/2025 08/29/2024 Depression Screening 11/04/2025 11/04/2024, 11/04/19 25 Diabetes: Hemoglobin A1C 11/25/2025 025, 01/09/2025, 08/27/2024, Additional history exists SDOH Screening 02/10/2026 02/10/2025 Tobacco Screening 05/25/2026 05/25/2025 Eye Exam 09/02/2026 09/02/2024, 11/0 02/2024, 09/02/2024, [...] Name Priority Date/Time Associated Diagnosis Comments POCT GLYCATED HEMOGLOBIN, TOTAL Routine 05/25/2025 11:08 AM EDT Type 2 diabetes mellitus with hyperglycemia, without long-term current use of insulin ([facility]) POCT GLUCOSE Routine 05/25/2025 11:07 AM EDT Type 2 diabetes mellitus with hyperglycemia, without long-term current use of insulin (CMS/HCC) POCT INFLUENZA B (ID NOW RAPID MOLECULAR) Routine 04/20/2025 1:57 PM EDT COPD with acute exacerbation (CMS/HCC) POCT INFLUENZA A (ID NOW RAPID MOLECULAR) Routine 04/20/2025 1:57 PM EDT COPD with acute exacerbation (CMS/HCC) POCT RAPID COVID ANTIGEN Routine 04/20/2025 1:57 PM EDT COPD with acute exacerbation (CMS/HCC) XR CHEST 2 VIEWS Routine 04/20/2025 1:15 PM EDT COPD with acute exacerbation (CMS/HCC) GRAM STAIN Routine 04/20/2025 12:00 AM EDT XR CHEST 2 VIEWS Routine 04/14/2025 11:0 0 AM EDT SOB (shortness of breath) ALBUMIN, RANDOM URINE W/CREATININE Routine 08/29/2024 12:20 PM EDT Type 2 diabetes mellitus with hyperglycemia, without long-term current use of insulin (CMS/HCC) LIPID PANEL WITH REFLEX TO DIRECT LDL Routine 08/29/2024 12:20 PM EDT Type 2 diabetes mellitus with hyperglycemia, without long-term current use of insulin (CMS/HCC) from Last 3 Months or Most Recently Relevant to Health Maintenance Results * (ABNORMAL) POCT HGB A1C (05/25/2025 11:08 AM EDT) Hemoglobin A1C 6.5(A) 4.0 - 5.7 % QC Media Lot # [id number] Lot# Expiration Date Blood 05/25/2025 11:0 8 AM EDT us Janeen Medina MD POINT OF CARE TEST EN TER/EDIT ORDERABLES Final Result * POCT Glucose (05/25/2025 11:07 AM EDT) Glucose Blood, POC 133 60 - 200 mg/dL QC Media Lot # [id number] Lot# Expiration Date 369 Blood Capillary blood specimen / Unknown 05/25/2025 11:07 AM EDT us Janeen Medina MD POINT OF CARE TEST EN TER/EDIT ORDERABLES Final Result * Influenza B (ID NOW Rapid Molecular) (04/20/2025 1:57 PM EDT) Influenza B Negative Negative, Indeterminate [facility] Swab 04/20/2025 1:57 PM EDT us Chichi Jean MD POINT OF CARE TEST ENTER /EDIT ORDERABLES Final Result [facility] [address] [place] [address] [phone] * Influenza A (ID NOW Rapid Molecular) (04/20/2025 1:57 PM EDT) Influenza A Negative Negative, Indeterminate [facility] Swab 04/20/2025 1:57 PM EDT us Chichi Jean MD POINT OF CARE TEST ENTER /EDIT ORDERABLES Final Result Performing Organization Address [facility]/ZIP Co de Phone Number [facility] [address] [place] [address] [phone] * POCT Rapid COVID Ag (04/20/2025 1:57 PM EDT) Rapid COVID Ag Negative [facility] Swab 04/20/2025 1:57 PM EDT us Chichi Jean MD POINT OF CARE TEST ENTER /EDIT ORDERABLES Final Result Performing Organization Address [facility] de Phone Number [facility] [address] [place] [address] [phone] * XR Chest 2 Views (04/20/2025 1:15 PM EDT) Only the most recent of2 resultswithin the time period is included. Anatomical Region Laterality Modality Chest Radiographic Diane ging 04/20/2025 1:15 PM EDT Narrative 04/20/2025 2:19 PM EDT [facility] [address] [place] [address] XRay Report Signed Patient: Libby Almanzar MR#: [id number] : 1945 Acct:[id number] Age/Sex: 79 / F ADM Date: 04/20/25 Loc: HO.[facility]HCX Attending Dr: Chichi Jean MD Ordering Physician: Chichi Jean MD Date of Service: 04/20/25 Procedure(s): XR chest 2V Accession Number(s): [id number] cc: Chichi Jean MD EXAMINATION: XR CHEST CLINICAL INFORMATION: worsening SOB/coug, FU LLL infiltrates COMPARISON: April 14, 2025. TECHNIQUE: 2 views of the chest were obtained. FINDINGS: Pulmonary reticular pattern. Linear opacities in the lower hemithoraces more pronounced on the left side. Hyperinflated lungs. No gross pleural effusion or pneumothorax. Cardiomediastinal silhouette size is normal. Multilevel thoracic and upper lumbar spondylosis. Calcified plaque thoracic aortic arch. Osteopenia versus osteoporosis. Metallic coils in the anterior aspect of the upper abdomen no fully included in the [id number]. XR/XR chest 2V IMPRESSION: Mild interstitial lung edema should be considered.. Differential diagnostic considerations include acute small airway inflammatory process. Electronically signed by: Carlos Preston MD 04/20/2025 02:17 PM EDT RP Dictated By: Carlos Maria MD Signed By: <Electronically signed by Carlos Morrison MD in OV> 04/20/25 1417 DD/ 1315 TD/TT: 04/20/25 1330 Veterinary Surgery Technician: Procedure Note Donotuseinterpreter, Image - 04/20/[address] [address] XRay Report Signed Patient: Libby AlmanzarMR#: [id number] : 5Acct:[id number] Age/Sex: 79 / FADM Date: 04/20/25 Loc: HO.HHCX Attending Dr: Chichi Jean MD Ordering Physician: Chichi Jean MD Date of Service: 04/20/25 Procedure(s): XR chest 2V Accession Number(s): [id number] cc: Chichi Jean MD EXAMINATION: XR CHEST CLINICAL INFORMATION: worsening SOB/coug, FU LLL infiltrates COMPARISON: April 14, 2025. TECHNIQUE: 2 views of the chest were obtained. FINDINGS: Pulmonary reticular pattern. Linear opacities in the lower hemithoraces more pronounced on the left side. Hyperinflated lungs. No gross pleural effusion or pneumothorax. Cardiomediastinal silhouette size is normal. Multilevel thoracic and upper lumbar spondylosis. Calcified plaque thoracic aortic arch. Osteopenia versus osteoporosis. Metallic coils in the anterior aspect of the upper abdomen no fully included in the skmjv-tj-bahi. XR/XR chest 2V IMPRESSION: Mild interstitial lung edema should be considered.. Differential diagnostic considerations include acute small airway inflammatory process. Electronically signed by: Carlos Preston MD 04/20/2025 02:17 PM EDT RP Dictated By: Carlos Maria MD Signed By: <Electronically signed by Carlos Morrison MDin OV> 04/20/25 1417 DD/ 1315 TD/TT: 04/20/25 1330 Veterinary Surgery Technician: us Chichi Jean MD IMG XR PROCEDURES Final Result * Gram stain (04/20/2025 12:00 AM EDT) 04/20/2025 04/20/2025 Comment:Sputum Narrative [facility] - 2025 8:18 AM EDT Gram stain results: Microscopic exam suggests oropharyngeal contamination. Culture will not be performed; please resubmit if indicated. Sputum Culture Test not performed Results of sputum quality assessment called to Bess at [facility] at 0818 on 04/21/25 by Amy Grijalva. Specimen Source: Sputum us Chichi Jean MD LAB MICROBIOLOGY - [facility] ORDERABLES Final Result [facility] [address] [place] [address] [phone] * (ABNORMAL) Lipid Panel with Reflex to Direct LDL (08/29/2024 12:20 PM EDT) Triglycerides 211(H) <150 mg/dL [facility] Comment:Desirable Triglyceri de: less than 150 mg/dLBorderline High Triglyceride 150-199 mg/dLHigh Triglyceride: 200-499 mg/dLVery High Triglyceride: greater than or equal to 5OO mg/dL Cholesterol 120 <200 mg/dL [facility] Comment:Desirable Cholestero l: less than 200 mg/dLBorderline High Cholesterol: 200-239 mg/dLHigh Cholesterol: greater than 239 mg/dL LDL Cholesterol Calculated 45 <100 mg/dL [facility] Comment:Desirable LDL: less than 100 mg/dLNear Optimal/Above Optimal LDL: 110- 129 mg/dLBorderline High LDL: 130-159 mg/dLHigh LDL: 160-189 mg/dLVery High LDL: greater than or equal to 190 mg/dL HDL Cholesterol 33(L) >40 mg/dL [facility] Comment:Desirable HDL: great er than 40 mg/dL Note: This HDL assay may give artificially low results in patients with liver disease. Blood 08/29/2024 12:2 0 PM EDT 08/29/2024 1:28 PM EDT us Janeen Medina MD LAB BLOOD ORDERABLES Final Result Performing Organization Address [facility] de Phone Number [facility] [address] [place] [phone] * Albumin, Random Urine W/Creatinine (08/29/2024 12:20 PM EDT) Creatinine, Urine 38.34 mg/dL [facility] Microalbumin Urine <5.0 mg/L [facility] Microalbum Creatinine Ratio Ur TNP <30 ug/mg cr [facility] Comment:Unable to calculate albumin/creatinine ratio due to lowmicroalbumin or creatinine result. Urine (Urine, Random) 08/29/2024 12:20 PM EDT 08/29/2024 4:38 PM EDT us Janeen Medina MD LAB URINE ORDERABLES Final Result Performing Organization Address [facility] Co de Phone Number [facility] [address] [place] [phone] from Last 3 Months or Most Recently Relevant to Health Maintenance Insurance [employer] H[employer] [id number] Care Teams Fire Fighter [employer] Relationship Specialty Start Date End Date Janeen Allen MD [address] [place] [address] PCP - General Internal Medicine 02/15/24
--- OUTSIDE RECORDS SUMMARY | 2025-07-08 16:44 | XMS_ITS | Clinical Summary ---
Author Organization [facility] Address [address] [place] [address] Care Team Providers Care Camp Assistant Name Role Phone Unavailable Primary Care Provider [...] 80 02/14/2019 2:39 PM EDT Temperature 36.8 C (98.3 F) 02/14/2019 2:39 PM EDT Respiratory Rate 16 02/14/2019 2:39 PM EDT Oxygen Saturation - - Inhaled Oxygen Concentration - - Weight 95.6 kg (210 lb 12.8 oz) 02/14/2019 2:39 PM EDT Height 152.5 cm (5' 0.04 ) 02/14/2019 2:39 PM ED T Body Mass Index 41.12 02/14/2019 2:39 PM EDT Plan of Treatment Not on file Insurance [facility]
--- OUTSIDE RECORDS SUMMARY | 2025-07-08 16:44 | XMS_ITS | Encounter Summary ---
Author Organization [employer] Address [address] [facility] 7t [place] [address] Care Team Providers Care Electrical Sign Servicer Name Role Phone Janeen Allen MD Primary Care Provide r Reason for Visit * Reason Comments Med Refill Encounter Details Date Type Department Care Team ([facility] st Contact Info) Description 02/21/2024 Refill [facility] [address] [place], [place] [phone] Eneida Cornejo MD [address] [place], [place] [phone] Social History Tobacco Use Types Packs/Day Years [...] t he electric, gas, oil or water [employer] threatened to shut off services in your [...] Description 07/24/2025 1:00 PM EDT Medication Management [facility] [address] [place] [address] Doug Estrada, PharmD [address] [place] [address] 08/19/2025 2:45 PM EDT Office Visit [facility] [address] [place] [address] Janeen Allen MD [address] [place] [address] documented as of this encounter Visit Diagnoses Not on filedocumented in this encounter Additional Health Concerns Assessment Noted Time PHQ-9 Depression Total Score: 19 023 11:08 AM EDT documented as of this encounter Care Teams Electrical Sign Servicer Relationship Specialty Start Date End Date Janeen Allen MD [address] [place] [address] PCP - General Internal Medicine 02/15/24 documented as of this encounter
--- OUTSIDE RECORDS SUMMARY | 2025-07-08 16:44 | XMS_ITS | Encounter Summary ---
Author Organization [employer] Address [address] [facility] 7t [place] [address] Care Team Providers Care Rotary Adjuster Name Role Phone Janeen Allen MD Primary Care Provide r Reason for Visit * Reason Comments Med Refill Encounter Details Date Type Department Care Team ([facility] st Contact Info) Description 07/03/2025 Refill [facility] [address] [place], [place] [phone] Janeen Allen MD 230 [place], [place] [phone] Intertrigo Social History Tobacco Use Types Packs/Day Years [...] Description 07/24/2025 1:00 PM EDT Medication Management [facility] [address] [place] [address] Doug Estrada, PharmD [address] [place] [address] 08/19/2025 2:45 PM EDT Office Visit [facility] [address] [place] [phone] Janeen Allen MD [address] [place] [address] documented as of this encounter Visit Diagnoses Diagnosis Intertrigo Other specified erythematous condition documented in this encounter Additional Health Concerns Assessment Noted Time PHQ-9 Depression Total Score: 0 11/04/19 25 1:05 PM EST documented as of this encounter Care Teams Rotary Adjuster Relationship Specialty Start Date End Date Janeen Allen MD [address] [place] [address] PCP - General Internal Medicine 02/15/24 documented as of this encounter
--- OUTSIDE RECORDS SUMMARY | 2025-07-08 16:44 | XMS_ITS | Encounter Summary ---
Author Organization [employer] Address [address] [facility] [address] 7t [place] [address] Care Team Providers Care Scale Tank Operator Name Role Phone Eneida Cornejo MD Primary Care Provider [phone] Janeen Allen MD Primary Care Provide r Encounter Details Date Type Department Care Team (Late st Contact Info) Description 10/24/2023 Telephone [facility] [address] [place] [address] Eneida Cornejo MD [address] [place], [place] [phone] Social History Tobacco Use Types Packs/Day Years [...] Description 07/24/2025 1:00 PM EDT Medication Management [facility] [address] [place] [address] Doug Estrada, PharmD [address] [place] [address] 08/19/2025 2:45 PM EDT Office Visit [facility] [address] [place] [address] Janeen Allen MD [address] [place] [address] documented as of this encounter Visit Diagnoses Not on filedocumented in this encounter Additional Health Concerns Assessment Noted Time PHQ-9 Depression Total Score: 19 023 11:08 AM EDT documented as of this encounter Care Teams Scale Tank Operator Relationship Specialty Start Date End Date Eneida Cornejo MD [address] [place] [phone] PCP - General Family Medicine 08/09/21 02/14/24 Janeen Allen MD [address] [place] [address] PCP - General Internal Medicine 02/15/24 documented as of this encounter
--- OUTSIDE RECORDS SUMMARY | 2025-07-08 16:44 | XMS_ITS | Encounter Summary ---
Author Organization [employer] Address 75 [facility] 7t [place] [address] Care Team Providers Care Knurling Machine Tender Name Role Phone Janeen Allen MD Primary Care Provide r Reason for Visit * Reason Comments Med Refill Encounter Details Date Type Department Care Team ([facility] st Contact Info) Description 09/27/2024 Refill [facility] [address] [place], [place] [phone] Eneida Cornejo MD 505 [place], [place] [phone] Acquired hypothyroidism Social History Tobacco Use Types [...] Description 07/24/2025 1:00 PM EDT Medication Management [facility] [address] [place] [address] Doug Estrada, PharmD [address] [place] [address] 08/19/2025 2:45 PM EDT Office Visit [facility] [address] [place] [phone] Janeen Allen MD [address] [place] [address] documented as of this encounter Visit Diagnoses Diagnosis Acquired hypothyroidism Unspecified hypothyroidism documented in this encounter Additional Health Concerns Assessment Noted Time PHQ-9 Depression Total Score: 11 024 2:21 PM EDT documented as of this encounter Care Teams Knurling Machine Tender Relationship Specialty Start Date End Date Janeen Allen MD [address] [place] [address] PCP - General Internal Medicine 02/15/24 documented as of this encounter
--- OUTSIDE RECORDS SUMMARY | 2025-07-08 16:44 | XMS_ITS | Encounter Summary ---
Author Organization [employer] Address [address] [facility] [address] 7t [place] [address] Care Team Providers Care Marine Scientist Name Role Phone Janeen Allen MD Primary Care Provide r Reason for Visit * Reason Comments Med Refill Encounter Details Date Type Department Care Team ([facility] st Contact Info) Description 09/27/2024 Refill [facility] [address] [place], [place] [phone] Janeen Allen MD [address] [place] [address] Social History Tobacco Use Types Packs/Day Years [...] Description 07/24/2025 1:00 PM EDT Medication Management [facility] [address] [place] [phone] Doug Estrada, PharmD [address] [place] [address] 08/19/2025 2:45 PM EDT Office Visit [facility] [address] [place] [address] Janeen Allen MD [address] [place] [address] documented as of this encounter Visit Diagnoses Not on filedocumented in this encounter Additional Health Concerns Assessment Noted Time PHQ-9 Depression Total Score: 11 024 2:21 PM EDT documented as of this encounter Care Teams Marine Scientist Relationship Specialty Start Date End Date Janeen Allen MD [address] [place] [address] PCP - General Internal Medicine 02/15/24 documented as of this encounter
--- OUTSIDE RECORDS SUMMARY | 2025-07-08 16:44 | XMS_ITS | Encounter Summary ---
Author Organization [employer] Address 75 [facility] 7t [place] [address] Care Team Providers Care Weir [place] Name Role Phone Eneida Cornejo MD Primary Care Provider [phone] Janeen Allen MD Primary Care Provide r Reason for Visit * Reason Onset Date Comments r/s New Derm 09/25/2023 Encounter Details Date Type Department Care Team ([facility] Contact Info) Description 09/25/2023 Telephone [facility] [address] [place], [place] [phone] Eneida Cornejo MD 505 [place] [address] r/s New Derm Social History Tobacco Use [...] encounter Miscellaneous Notes * Telephone Encounter - Royaalthea Refugio Summers - 09/25/2023 2:31 PM EST Tc from pt requesting to r/s New Derm appt on 10/02/[address] Castillo due to having a same dayappt. Please contact pt at [phone] Sierra Leonean Speaker documented in this encounter Plan of Treatment Upcoming Encounters Date Type Department Care Team (Late st Contact Info) Description 07/24/2025 1:00 PM EDT Medication Management [facility] [address] [place] [phone] Doug Estrada, PharmD [address] [place] [address] 08/19/2025 2:45 PM EDT Office Visit [facility] [address] [place] [address] Janeen Allen MD [address] [place] [address] documented as of this encounter Visit Diagnoses Not on filedocumented in this encounter Additional Health Concerns Assessment Noted Time PHQ-9 Depression Total Score: 19 023 11:08 AM EDT documented as of this encounter Care Teams Weir [place] Relationship Specialty Start Date End Date Eneida Cornejo MD [address] [place] [address] PCP - General Family Medicine 08/09/21 02/14/24 Janeen Allen MD [address] [place] [address] PCP - General Internal Medicine 02/15/24 documented as of this encounter
--- OUTSIDE RECORDS SUMMARY | 2025-07-08 16:44 | XMS_ITS | Encounter Summary ---
Author Organization [employer] Address 75 [facility] 7t [place] [address] Care Team Providers Care Molding Line Operator Name Role Phone Eneida Cornejo MD Primary Care Provider [phone] Janeen Allen MD Primary Care Provide r Reason for Visit * Reason Comments Med Refill Encounter Details Date Type Department Care Team ([facility] Contact Info) Description 06/20/2023 Refill [facility] [address] [place], [place] [phone] Eneida Cornejo MD 505 [place] [address] Social History Tobacco Use Types Packs/Day Years [...] Upcoming Encounters Date Type Department Care Team ([facility] Contact Info) Description 07/24/2025 1:00 PM EDT Medication Management [facility] [address] [place] [address] Doug Estrada, PharmD 230 [place] [address] 08/19/2025 2:45 PM EDT Office Visit [facility] [address] [place] [address] Janeen Allen MD [address] [place] [address] documented as of this encounter Visit Diagnoses Not on filedocumented in this encounter Additional Health Concerns Assessment Noted Time PHQ-9 Depression Total Score: 023 11:08 AM EDT documented as of this encounter Care Teams Molding Line Operator Relationship Specialty Start Date End Date Eneida Cornejo MD [address] [place] [address] PCP - General Family Medicine 08/09/21 02/14/24 Janeen Allen MD [address] [place] [address] 14095 PCP - General Internal Medicine 02/15/24 documented as of this encounter
--- OUTSIDE RECORDS SUMMARY | 2025-07-08 16:44 | XMS_ITS | Encounter Summary ---
Author Organization [employer] Address [address] [facility] 7t [place] [address] Care Team Providers Care Director Of Industrial Relations Name Role Phone Eneida Cornejo MD Primary Care Provider [phone] Janeen Allen MD Primary Care Provide r Reason for Visit * Reason Comments Med Refill Encounter Details Date Type Department Care Team ([facility] st Contact Info) Description 08/27/2023 Refill [facility] [address] [place] [address] Eneida Cornejo MD 505 [place], [place] [phone] Type 2 diabetes mellitus with hyperglycemia, without long-term current use of insulin ([facility]) Social History Tobacco Use Types Packs/Day Years [...] Description 07/24/2025 1:00 PM EDT Medication Management [facility] [address] [place] [address] Doug Estrada, PharmD [address] [place] [address] 08/19/2025 2:45 PM EDT Office Visit [facility] [address] [place] [address] Janeen Allen MD [address] [place] [address] documented as of this encounter Visit Diagnoses Diagnosis Type 2 diabetes mellitus with hyperglycemia, without long-term current use of insulin ([facility]) documented in this encounter Additional Health Concerns Assessment Noted Time PHQ-9 Depression Total Score: 19 023 11:08 AM EDT documented as of this encounter Care Teams Director Of Industrial Relations Relationship Specialty Start Date End Date Eneida Cornejo MD [address] [place] [address] PCP - General Family Medicine 08/09/21 02/14/24 Janeen Allen MD [address] [place] [address] [phone] PCP - General Internal Medicine 02/15/24 documented as of this encounter
--- OUTSIDE RECORDS SUMMARY | 2025-07-08 16:44 | XMS_ITS | Encounter Summary ---
Author Organization [employer] Address 75 [facility] 7t [place] [address] Care Team Providers Care Jewelry Bench Worker Name Role Phone Janeen Allen MD Primary Care Provide r Reason for Visit * Reason Onset Date Comments Med Refill 05/05/2025 Encounter Details Date Type Department Care Team (Late st Contact Info) Description 05/05/2025 Telephone [facility] 230 [place], [place] [phone] Janeen Allen MD 230 [place], [place] [phone] Med Refill Social History Tobacco Use Types Packs/Day Years [...] AM EDT documented as of this encounter Functional Status * Over the last 2 weeks, how often have you been bothered by any of the following problems? Question Answer Date of Assessment Author Feeling nervous, anxious, or on edge 1 05/25/2025 12:38 PM EDT Gael Cummings [place] Not being able to stop or co ntrol worrying 3 05/25/2025 12:38 PM EDT Gael Cummings [place] Worrying too much about diff erent things 1 05/25/2025 12:38 PM EDT Gael Cummings MA Trouble relaxing 1 05/25/2025 12:38 PM JOSE GT Gael Cummings [place] Being so restless that it is hard to sit still 1 05/25/2025 12:38 PM JOSE GT Gael Cummings MA Becoming easily annoyed or irritable 1 05/25/2025 12:38 PM JOSE GT Gael Cummings [place] Feeling afraid as if somethi ng awful might happen 1 05/25/2025 12:38 PM EDT Gael Cummings MA LA-7 Total Score 9 05/25/2025 12:38 PM EDT Gael Cummings [place] documented as of this encounter Miscellaneous Notes * Telephone Encounter - Odette Ortiz LPN - 05/05/2025 9:21 AM EDT Medication was sent to [facility] on 04/08/25 #90. * Telephone Encounter - Arvind Michelle - 05/05/2025 9:04 AM EDT TC from pt requesting medication refill. Medications needing refill : atorvastatin (Lipitor) 80 MG tablet To be sent to: [facility] [place] - [address] [place] [address] documented in this encounter Plan of Treatment Upcoming Encounters Date Type Department Care Team (Late st Contact Info) Description 07/24/2025 1:00 PM EDT Medication Management [facility] [address] [place] [phone] Doug Estrada, PharmD [address] [place] [address] 08/19/2025 2:45 PM EDT Office Visit [facility] [address] [place] [address] Janeen Allen MD [address] [place] [address] documented as of this encounter Visit Diagnoses Not on filedocumented in this encounter Additional Health Concerns Assessment Noted Time PHQ-9 Depression Total Score: 0 11/04/19 1:05 PM EST documented as of this encounter Care Teams Jewelry Bench Worker Relationship Specialty Start Date End Date Janeen Allen MD [address] [place] [phone] PCP - General Internal Medicine 02/15/24 documented as of this encounter
--- OUTSIDE RECORDS SUMMARY | 2025-07-08 16:44 | XMS_ITS | Encounter Summary ---
Author Organization [employer] Address 75 [facility] 7t [place] [address] Care Team Providers Care Manager Test Name Role Phone Janeen Allen MD Primary Care Provide r Encounter Details Date Type Department Care Team (Late st Contact Info) Description 06/16/2025 Orders Only [facility] [address] [place], [place] [phone] Janeen Allen MD [address] [place], [place] [phone] Iron deficiency anemia, unspecified iron deficiency anemia [...] Description 07/24/2025 1:00 PM EDT Medication Management [facility] [address] [place] [address] Doug Estrada, PharmD [address] [place] [address] 08/19/2025 2:45 PM EDT Office Visit [facility] [address] [place] [address] Janeen Allen MD [address] [place] [phone] documented as of this encounter Visit Diagnoses Diagnosis Iron deficiency anemia, unspecified iron deficiency anemia type documented in this encounter Additional Health Concerns Assessment Noted Time PHQ-9 Depression Total Score: 0 11/04/19 25 1:05 PM EST documented as of this encounter Care Teams Manager Test Relationship Specialty Start Date End Date Janeen Allen MD [address] [place] [address] [phone] PCP - General Internal Medicine 02/15/24 documented as of this encounter
--- OUTSIDE RECORDS SUMMARY | 2025-07-08 16:44 | XMS_ITS | Encounter Summary ---
Author Organization [employer] Address [address] [facility] 7t [place] [address] Care Team Providers Care Jaw Skinner Name Role Phone Eneida Cornejo MD Primary Care Provider [phone] Janeen Allen MD Primary Care Provide r Reason for Visit * Reason Onset Date Comments Nurse Triage 11/14/2023 Encounter Details Date Type Department Care Team ([facility] st Contact Info) Description 11/14/2023 Telephone [facility] CHC MED & PEDS [address] [place], [place] [phone] Eneida Cornejo MD [address] [place] [address] Nurse Triage Social History Tobacco Use Types [...] provider within 15 minutes Reason: Trouble walking Indian Speaker documented in this encounter Plan of Treatment Upcoming Encounters Date Type Department Care Team (Late st Contact Info) Description 07/24/2025 1:00 PM EDT Medication Management [facility] MEDICINE [address] [place] [phone] Doug Estrada, PharmD [address] [place] [phone] 08/19/2025 2:45 PM EDT Office Visit [facility] MEDICINE [address] [place] [phone] Janeen Allen MD [address] [place] [address] [phone] documented as of this encounter Visit Diagnoses Not on filedocumented in this encounter Additional Health Concerns Assessment Noted Time PHQ-9 Depression Total Score: 19 023 11:08 AM EDT documented as of this encounter Care Teams Jaw Skinner Relationship Specialty Start Date End Date Eneida Cornejo MD [address] [place] [phone] PCP - General Family Medicine 08/09/21 02/14/24 Janeen Allen MD [address] [place] [address] [phone] PCP - General Internal Medicine 02/15/24 documented as of this encounter
--- OUTSIDE RECORDS SUMMARY | 2025-07-08 16:44 | XMS_ITS | Clinical Summary ---
Author Organization [facility] Address [address] [facility] [address] [place] [phone] Phone Care Team Providers Care Ballistic Expert Name Role Phone Unavailable Primary Care Provider Unavailabl e Social History Tobacco Use Types Packs/Day Years Used Date Smoking Tobacco: Never Assessed Education Answer Date Recorded Are you interested in more education? Not on emily e 12/19/2023 Are you concerned about learning? Not on file 12/19/2023 No 12/19/2023 No 12/19/2023 Digital Access Answer Date Recorded No 12/19/2023 No 12/19/2023 Reliable internet access at home? Not on file 12/19/2023 Device with a working camera? Not on file Comments Unknown Sex and Gender Information Value Date Recorded Sex Assigned at Not on file Legal Sex Female 11:19 PM EDT Gender Identity Not on file Sexual Orientation Not on file Plan of Treatment Not on file Medical Devices Not on file Additional Source Comments The information contained in this document represents components of the legal health record. It is not the complete legal health record.[facility]
--- OUTSIDE RECORDS SUMMARY | 2025-07-08 16:44 | XMS_ITS | Encounter Summary ---
Author Organization [employer] Address [address] [facility] [address] 7[address] [place] [address] Care Team Providers Care Office Helper Clerical Name Role Phone Janeen Allen MD Primary Care Provide r Reason for Visit * Reason Comments Med Refill Encounter Details Date Type Department Care Team ([facility] st Contact Info) Description 06/22/2025 Refill [facility] CHC MED & PEDS [address] [place], [place] [phone] Odette Oliva DO [address] [place] [address] Cramp and spasm Social History Tobacco Use Types Packs/Day Years [...] Description 07/24/2025 1:00 PM EDT Medication Management [facility] MEDICINE [address] [place] [phone] Doug Estrada, PharmD [address] [place] [phone] 08/19/2025 2:45 PM EDT Office Visit [facility] MEDICINE [address] [place] [phone] Janeen Allen MD [address] [place] [phone] documented as of this encounter Visit Diagnoses Diagnosis Cramp and spasm documented in this encounter Additional Health Concerns Assessment Noted Time PHQ-9 Depression Total Score: 0 11/04/19 25 1:05 PM EST documented as of this encounter Care Teams Office Helper Clerical Relationship Specialty Start Date End Date Janeen Allen MD [address] [place] [phone] PCP - General Internal Medicine 02/15/24 documented as of this encounter
--- OUTSIDE RECORDS SUMMARY | 2025-07-08 16:44 | XMS_ITS | Encounter Summary ---
Author Organization [employer] Address [address] [facility] 7t [place] [address] Care Team Providers Care Simulation Analyst Name Role Phone Janeen Allen MD Primary Care Provide r Reason for Visit * Reason Comments Med Refill Encounter Details Date Type Department Care Team ([facility] st Contact Info) Description 07/05/2025 Refill [facility] MEDICINE [address] [place], [place] [phone] Janeen Allen MD [address] [place], [place] [phone] Intertrigo Social History Tobacco Use Types Packs/Day [...] Description 07/24/2025 1:00 PM EDT Medication Management [facility] MEDICINE [address] [place] [phone] Doug Estrada, PharmD [address] [place] [phone] 08/19/2025 2:45 PM EDT Office Visit [facility] MEDICINE [address] [place] [phone] Janeen Allen MD [address] [place] [phone] documented as of this encounter Visit Diagnoses Diagnosis Intertrigo Other specified erythematous condition documented in this encounter Additional Health Concerns Assessment Noted Time PHQ-9 Depression Total Score: 0 11/04/19 25 1:05 PM EST documented as of this encounter Care Teams Simulation Analyst Relationship Specialty Start Date End Date Janeen Allen MD [address] [place] [phone] PCP - General Internal Medicine 02/15/24 documented as of this encounter
--- OUTSIDE RECORDS SUMMARY | 2025-07-08 16:44 | XMS_ITS | Encounter Summary ---
Author Organization [employer] Address [address] [facility] 7t [place] [address] Care Team Providers Care Tabular Typist Name Role Phone Janeen Allen MD Primary Care Provide r Reason for Visit * Reason Comments Med Refill Encounter Details Date Type Department Care Team ([facility] st Contact Info) Description 07/07/2025 Refill [facility] MEDICINE [address] [place], [place] [phone] Janeen Allen MD [address] [place], [place] [phone] Social History Tobacco Use Types Packs/Day Years [...] Description 07/24/2025 1:00 PM EDT Medication Management [facility] MEDICINE [address] [place] [phone] Doug Estrada, PharmD [address] [place] [phone] 08/19/2025 2:45 PM EDT Office Visit [facility] MEDICINE [address] [place] [phone] Janeen Allen MD [address] [place] [phone] documented as of this encounter Visit Diagnoses Not on filedocumented in this encounter Additional Health Concerns Assessment Noted Time PHQ-9 Depression Total Score: 0 11/04/19 25 1:05 PM EST documented as of this encounter Care Teams Tabular Typist Relationship Specialty Start Date End Date Janeen Allen MD [address] [place] [phone] PCP - General Internal Medicine 02/15/24 documented as of this encounter
--- OUTSIDE RECORDS SUMMARY | 2025-07-08 16:44 | XMS_ITS | Encounter Summary ---
Author Organization [employer] Address [address] [facility] 7t [place] [address] Care Team Providers Care Dry Cleaner Presser Name Role Phone Janeen Allen MD Primary Care Provide r Reason for Visit * Reason Onset Date Comments Hospital Follow-up 12/22/2024 Encounter Details Date Type Department Care Team ([facility] st Contact Info) Description 12/22/2024 Telephone [facility] MEDICINE [address] [place], [place] [phone] Janeen Allen MD [address] [place], [place] [phone] Hospital Follow-up Social History Tobacco Use Types [...] from pt requesting a HDF appt. Hospital: [place] [address] Date of admission: 12/14 Discharge date: 12/18 Diagnosed: Tachycardia, Acute hypoxic respiratory failure. *Send message to [place] Clinical Care Coordinators [phone] persian documented in this encounter Plan of Treatment Upcoming Encounters Date Type Department Care Team (Late st Contact Info) Description 07/24/2025 1:00 PM EDT Medication Management [facility] MEDICINE [address] [place] [address] [phone] Doug Estrada, PharmD [address] [place] [phone] 08/19/2025 2:45 PM EDT Office Visit [facility] MEDICINE [address] [place] [address] [phone] Janeen Allen MD [address] [place] [phone] documented as of this encounter Visit Diagnoses Not on filedocumented in this encounter Additional Health Concerns Assessment Noted Time PHQ-9 Depression Total Score: 0 11/04/19 25 1:05 PM EST documented as of this encounter Care Teams Dry Cleaner Presser Relationship Specialty Start Date End Date Janeen Allen MD [address] [place] [phone] PCP - General Internal Medicine 02/15/24 documented as of this encounter
== END 2025-07-08 14:23 | disposition home or self-care (01) ==
PROVIDERS: PCP Internal Medicine; Visit Provider Internal Medicine
DX: Z93.3 Colostomy status (principal); D64.9 Anemia, unspecified; Z98.890 Other specified postprocedural states
CPT/HCPCS: 99204; G2211

== ENCOUNTER → 2025-07-08 13:40 | Outpatient (BNVA) | payer OTHER, SELFPAY | PROVIDERS: PCP Internal Medicine; Visit Provider Internal Medicine | DX: D64.9 Anemia, unspecified (principal); Z93.3 Colostomy status; Z98.890 Other specified postprocedural states | CPT/HCPCS: 99202 ==

== ENCOUNTER 2025-07-14 10:29 | Outpatient (REF) | payer OTHER, SELFPAY ==
--- OUTSIDE RECORDS SUMMARY | 2019-11-17 07:07 | XMS_ITS | Continuity of Care Document ---
Author Organization [facility] Address [address] [place] [address] Phone Care Team Providers Care Learning And Development Associate Name Role Phone Unavailable Unavailable Unavailable Allergies, [...] - No Longer Active Procedures Procedure Date CALF SKINNER CALF SKINNER OFFICE/OUTPATIENT VISIT, EST CALF SKINNER CALF SKINNER OFFICE/OUTPATIENT VISIT, EST CALF SKINNER OFFICE/OUTPATIENT VISIT, EST CALF SKINNER OFFICE/OUTPATIENT VISIT, EST CALF SKINNER Nurse Assesment CALF SKINNER OFFICE/OUTPATIENT VISIT, EST OFFICE/OUTPATIENT VISIT, EST OFFICE/OUTPATIENT VISIT, EST OFFICE/OUTPATIENT VISIT, EST OFFICE/OUTPATIENT VISIT, EST OFFICE/OUTPATIENT VISIT, EST OFFICE/OUTPATIENT VISIT, EST GLYCATED HEMOGLOBIN TEST GLUCOSE BLOOD TEST OFFICE/OUTPATIENT VISIT, EST CALF SKINNER OFFICE/OUTPATIENT VISIT, EST OFFICE/OUTPATIENT VISIT, EST OFFICE/OUTPATIENT VISIT, EST CALF SKINNER EKG, 12 LEAD OFFICE/OUTPATIENT VISIT, EST CALF SKINNER CALF SKINNER CALF SKINNER OFFICE/OUTPATIENT VISIT, EST CALF SKINNER CALF SKINNER CALF SKINNER PULSE OX OFFICE/OUTPATIENT VISIT, EST GLYCATED HEMOGLOBIN TEST OFFICE/OUTPATIENT VISIT, EST CALF SKINNER CALF SKINNER CALF SKINNER OFFICE/OUTPATIENT VISIT, EST OFFICE/OUTPATIENT VISIT, EST OFFICE/OUTPATIENT VISIT, EST Psychotherapy 45 Min (38-52 Min) 2013 OFFICE/OUTPATIENT VISIT, EST CALF SKINNER CALF SKINNER Psychotherapy 45 Min (38-52 Min) 2012 CALF SKINNER CALF SKINNER OFFICE/OUTPATIENT VISIT, EST Psychotherapy 45 Min (38-52 Min) 2012 Psychotherapy , 30 Min (16-37 Min) OFFICE/OUTPATIENT VISIT, EST CALF SKINNER CALF SKINNER CALF SKINNER CALF SKINNER OFFICE/OUTPATIENT VISIT, EST OFFICE/OUTPATIENT VISIT, EST CALF SKINNER OFFICE/OUTPATIENT VISIT, EST OFFICE/OUTPATIENT VISIT, EST CALF SKINNER CALF SKINNER OFFICE/OUTPATIENT VISIT, EST Psychiatrist Diagnostic Eval (no Medical Service) OFFICE/OUTPATIENT VISIT, EST Psychotherapy , 30 Min (16-37 Min) PULSE OX OFFICE/OUTPATIENT VISIT, EST CALF SKINNER GLYCATED HEMOGLOBIN TEST OFFICE/OUTPATIENT VISIT, EST CALF SKINNER CALF SKINNER PSYTX, OFFICE, 20-30 MIN OFFICE/OUTPATIENT VISIT, EST CALF SKINNER CALF SKINNER OFFICE/OUTPATIENT VISIT, EST CALF SKINNER CALF SKINNER CALF SKINNER OFFICE/OUTPATIENT VISIT, EST CALF SKINNER CALF SKINNER CALF SKINNER OFFICE/OUTPATIENT VISIT, EST [facility] OFFICE/OUTPATIENT VISIT, EST CALF SKINNER OFFICE/OUTPATIENT VISIT, EST Albuterol unit dose AIRWAY INHALATION TREATMENT Ipratropium brom inh hitesh u d OFFICE/OUTPATIENT VISIT, EST PSYTX, OFF, 45-50 MIN OFFICE/OUTPATIENT VISIT, EST PSYTX, OFF, 45-50 MIN CALF SKINNER CALF SKINNER CALF SKINNER CALF SKINNER CALF SKINNER OFFICE/OUTPATIENT VISIT, [facility] REAGENT STRIP/BLOOD GLUCOSE GLYCOSYLATED HEMOGLOBIN TEST ELECTROCARDIOGRAM, COMPLETE DEBRIDE NAIL, 6 OR MORE AIRWAY INHALATION TREATMENT MEASURE BLOOD OXYGEN LEVEL GLYCOSYLATED HEMOGLOBIN TEST AIRWAY INHALATION TREATMENT MEASURE BLOOD OXYGEN LEVEL REAGENT STRIP/BLOOD GLUCOSE GLYCOSYLATED HEMOGLOBIN TEST VITAL CAPACITY TEST MEASURE BLOOD OXYGEN LEVEL REAGENT STRIP/BLOOD GLUCOSE GLYCOSYLATED HEMOGLOBIN TEST GLYCOSYLATED HEMOGLOBIN TEST REAGENT STRIP/BLOOD GLUCOSE GLYCOSYLATED HEMOGLOBIN TEST REAGENT STRIP/BLOOD GLUCOSE REAGENT STRIP/BLOOD GLUCOSE DEBRIDE NAIL, 1-5 TRIM SKIN LESION GLYCOSYLATED HEMOGLOBIN TEST REAGENT STRIP/BLOOD GLUCOSE Advance Directives Directive Yes / No Effective Date File Name No Information Encounters Encounter Description Practice Location Reason(s) For Visit Diagnoses Date Provider Providers Copied on Encounter krishna [facility], [address], [place], [place], [address], [place] tel:[phone] [facility] No Information 0- 0 No Informatio n krishna [facility], [address], [place], [place], [address], [place] tel:[phone] [facility] No Information 2-201 6 No Informatio n [facility], [address], [place], [place], [address], [place] tel:[phone] [facility] No Information 2-201 6 [facility] . [facility], [address], [place], [place], [address], [place] tel:[phone] [facility] No Information 8-201 6 [facility]. . Consulting Provider: Maria Esther Seay, [address] [place] [address], [place], [address]. tel:[phone] OFFICE/OUTPATI ENT VISIT, EST [facility], [address] [facility] [address] [facility] [address], [place], [place], [address], [place] tel:[phone] [facility] dizziness (chief complaint)he adache (chief complaint)Ab dominal pain (chief complaint) Benign essential HTNMorbid obesity due to excess caloriesBod y mass index (BMI) 35.0-35.9, adultColost arabella in placeAbdomi nal bloatingDiz zinessEncou nter for generalized patient complaints 6 No Informatio n [facility], [address] [facility] [address] [facility] [address], [place], [place], [address], [place] tel:[phone] [facility] No Information 6 [employer]. . Consulting Provider: Maria Esther Seay, [address] [place] [address], [place], [address]. tel:[phone] [facility], [address] [facility] [address] [facility] [address], [place], [place], [address], [place] tel:[phone] [facility] No Information 6 No Informatio n [facility], [address] [facility] [address] [facility] [address], [place], [place], [address], [place] tel:[phone] [facility] No Information 6 No Informatio n [facility], [address] [facility] [address] [facility] [address], [place], [place], [address], [place] tel:[phone] [facility] No Information 6 No Informatio n [facility], [address] [facility] [address], [place], [place], [address], [place] tel:[phone] [facility] No Information 6 No Informatio n [facility], [address] [facility] [address] [facility] [address], [place], [place], [address], [place] tel:[phone] [facility] No Information 6 [facility] [employer]. . OFFICE/OUTPATI ENT VISIT, EST [facility], [address] [facility] [address] [facility] [address], [place], [place], [address], [place] tel:[phone] [facility] bp check (chief complaint) Benign essential HTN 6 No Informatio n [facility], [address] [facility] [address], [place], [place], [address], [place] tel:[phone] [facility] No Information 6 [employer]. . OFFICE/OUTPATI ENT VISIT, EST [facility], [address] [facility], [place], [place], [address], [place] tel:[phone] [facility] chronic conditions (chief complaint) Body mass index (BMI) 39.0-39.9, adultHealth counseling - 6 No Informatio n [facility], [address] [facility] [address], [place], [place], [address], [place] tel:[phone] [facility] No Information - 6 [employer]. . OFFICE/OUTPATI ENT VISIT, EST [facility], [address] [facility] [address], [place], [place], [address], [place] tel:[phone] [facility] headache (chief complaint)co ld symptoms (chief complaint) Common cold 5 No Informatio n [facility], [address] [facility] [facility] [address], [place], [place], [address], [place] tel:[phone] [facility] Benign essential HTN 5 No Informatio n [facility], [address], [place], [place], [address], [place] tel:[phone] [facility] BP check (chief complaint) BP check - 5 No Informatio n [facility], [address], [place], [place], [address], [place] tel:[phone] [facility] No Information - 5 [facility] [employer] . [facility], [address] [facility], [place], [place], [address], [place] tel:[phone] [facility] No Information 5 [employer]. . OFFICE/OUTPATI ENT VISIT, EST [facility], [address] [facility] [address] [facility] [address], [place], [place], [address], [place] tel:[phone] [facility] Follow Up of hospital (chief complaint)hy pertension (chief complaint)hy pertension (chief complaint)in somnia (chief complaint) Abdominal wall abscessType 2 diabetes mellitus without complicatio nBenign essential HTNRecurrin g cold staphylococ mely abscesses 5 No Informatio n OFFICE/OUTPATI ENT VISIT, EST [facility], [address], [place], [place], [address], [place] tel:[phone] [facility] abdominal pain (chief complaint)ba ck pain (chief complaint) Dietary surveillanc e and counselingI ntra-abdomi nal abscessFati gueBenign essential hypertensio nDiabetes mellitus without mention of complicatio n, type II or unspecified type, not stated as uncontrolle d 5 No Informatio n [facility], [address], [place], [place], [address], [place] tel:[phone] [facility] Surgical wound infectionSe kurt muscle decondition ing 5 No Informatio n OFFICE/OUTPATI ENT VISIT, EST [facility], [address], [place], [place], [address], [place] tel:[phone] [facility] Follow Up of wound check (chief complaint)co ld symptoms (chief complaint)hy pertension (chief complaint) Benign essential hypertensio nCoughDepre ssion 5 No Informatio n [facility], [address] [facility] [address], [place], [place], [address], [place] tel:[phone] [facility] No Information 5 No Informatio n [facility], [address] [facility] [facility] [address], [place], [place], [address], [place] tel:[phone] [facility] No Information 5 No Informatio n OFFICE/OUTPATI ENT VISIT, EST [facility], [address], [place], [place], [address], [place] tel:[phone] [facility] post surgery (chief complaint)di abetes (chief complaint) Hernia due to colostomySu rgical wound dehiscenceS urgical wound infectionDi abetes mellitus without mention of complicatio n, type II or unspecified type, not stated as uncontrolle d 5 No Informatio n OFFICE/OUTPATI ENT VISIT, EST [facility], [address], [place], [place], [address], [place] tel:[phone] [facility] KNEES PAIN (chief complaint)ba ck pain (chief complaint)DM /HTN (chief complaint)he rnia (chief complaint) BackacheDia betes Mellitus Type 2, Uncomplicat edFrequent fallsHypert ension, BenignPerso nal history of malignant neoplasm of large intestine 5 No Informatio n OFFICE/OUTPATI ENT VISIT, EST [facility], [address] [facility] [facility] [address], [place], [place], [address], [place] tel:[phone] [facility] back pain (chief complaint) AsthmaDiabe john Mellitus Type 2, Uncomplicat edBackacheV entral hernia 5 No Informatio n [facility], [address] [facility], [place], [place], [address], [place] tel:[phone] [facility] Diabetes Mellitus Type 2, Uncomplicat edVentral hernia 5 No Informatio n [facility], [address], [place], [place], [address], [place] tel:[phone] [facility] No Information 5 No Informatio n [facility], [address], [place], [place], [address], [place] tel:[phone] [facility] No Information 5 No Informatio n OFFICE/OUTPATI ENT VISIT, [facility], [address], [place], [place], [address], [place] tel:[phone] [facility] chronic conditions (chief complaint)ve ntral hernia (chief complaint) Diabetes Mellitus Type 2, Uncomplicat edHypertens ion, BenignObesi ty, unspecified Ventral hernia 5 No Informatio n OFFICE/OUTPATI ENT VISIT, [facility], [address], [place], [place], [address], [place] tel:[phone] [facility] diabetes (chief complaint)he oksana (chief complaint)dr lim mouth (chief complaint)fr equent falls (chief complaint) OsteopeniaS creening for breast cancerAtten tion to colostomyBa ckacheDiabe john Mellitus Type 2, Uncomplicat edHypertens ion, BenignSleep disorderFre quent falls 5 No Informatio n [facility], [address], [place], [place], [address], [place] tel:[phone] [facility] No Information 5 [employer]. . Consulting Provider: Maria Esther Seay, [address] [place] [address], [address]. tel:[phone] OFFICE/OUTPATI ENT VISIT, [facility], [address], [place], [place], [address], [place] tel:[phone] [facility] Follow Up of DM/HTN (chief complaint)le g swelling (chief complaint)it chiness (chief complaint) Hypothyroid ismPalpitat ionsPrediab etesGenital pruritus 4 No Informatio n OFFICE/OUTPATI ENT VISIT, EST [facility], [address], [place], [place], [address], [place] tel:[phone] [facility] back pain (chief complaint)sh oulder pain (chief complaint) Cervicalgia 4 No Informatio n OFFICE/OUTPATI ENT VISIT, EST [facility], [address], [place], [place], [address], [place] tel:[phone] [facility] diabetes (chief complaint)hy pertension (chief complaint)fa lling down (chief complaint)ch est pain (chief complaint)pa lpitations (chief complaint) Abnormality of gaitDiabete s Mellitus Type 2, Uncomplicat edGERD (gastroesop hageal reflux disease)Hyp ertension, BenignPalpi tations 4 No Informatio [facility], [address], [place], [place], [address], [place] tel:[phone] [facility] No Information 4 [employer]. . Consulting Provider: Rosario [place], [address] [place] [address], [address]. tel:[phone] OFFICE/OUTPATI ENT VISIT, [facility], [address], [place], [place], [address], [place] tel:[phone] [facility] Leg numbness (follow up) (chief complaint)wr ist pain (chief complaint)he rnia (chief complaint)pa lpitations (chief complaint) Tachycardia Type 2 diabetes mellitus with autonomic neuropathyA bnormality of gaitLumbago 4 No Informatio n [facility], [address] [facility], [place], [place], [address], [place] tel:[phone] [facility] No Information 4 [employer]. . Consulting Provider: Rosario [place] [address] [place] [address], [address]. tel:[phone] [facility], [address] [facility] [address], [place], [place], [address], [place] tel:[phone] [facility] No Information Ivan-0 9-201 4 [employer]. . Consulting Provider: Maria Esther Seay, [address] [place], [address]. tel:[phone] [facility], [address] [facility] [address], [place], [place], [address], [place] tel:[phone] [facility] No Information Elio-3 0-201 4 [employer]. . Consulting Provider: Maria Esther Seay, [address] [place] [address], [address]. tel:[phone] OFFICE/OUTPATI ENT VISIT, EST [facility], [address] [place] [address] 2,[address], [place], [place], [address], [place] tel:[phone] [facility] chronic conditions (chief complaint)GE RD (chief complaint)ba ck pain (chief complaint) NeuropathyI nsomniaHype rtension, BenignGERD (gastroesop hageal reflux disease) Elio-2 7-201 4 No Informatio n [facility], [address] [facility] [address], [place], [place], [address], [place] tel:[phone] [facility] No Information Elio-0 4-201 4 [employer]. . [facility], [address] [facility], [place], [place], [address], [place] tel:[phone] [facility] No Information Elio-0 4-201 4 [employer]. . Consulting Provider: Maria Esther Seay, [address] [place] [address], [address]. tel:[phone] OFFICE/OUTPATI ENT VISIT, EST [facility], [address] [facility] [address], [place], [place], [address], [place] tel:[phone] [facility] cough (chief complaint) ROBIN-inhibit or coughAttent ion to colostomyCe rvicalgiaDi abetes Mellitus Type 2, Uncomplicat ed 4 No Informatio n OFFICE/OUTPATI ENT VISIT, EST [facility], [address] [facility] [address], [place], [place], [address], [place] tel:[phone] [facility] chronic conditions (chief complaint) Abnormality of gaitDiabete s Mellitus Type 2, Uncomplicat edHypertens ion, BenignHypot hyroidismPe rsonal history of malignant neoplasm of large intestineCe llulitis and abscess of leg, except footCough 4 No Informatio n [facility], [address] [place] [address],[address], [place], [place], [address], [place] tel:[phone] [facility] No Information 4 [employer]. . [facility], [address] [place] [address] [address], [place], [place], [address], [place] tel:[phone] [facility] No Information 4 [employer]. . Consulting Provider: Rosario [place], [address] [place] [address], [address]. tel:[phone] [facility], [address] [place] [address] [address], [place], [place], [address], [place] tel:[phone] [facility] No Information 4 [employer]. . Consulting Provider: Rosario [place]acia [address] [place] [address], [address]. tel:[phone] OFFICE/OUTPATI ENT VISIT, EST [facility], [address] [place] [address] 2,[address], [place], [place], [address], [place] tel:[phone] [facility] anxiety (chief complaint) AnxietyFoll iculitis 4 No Informatio n OFFICE/OUTPATI ENT VISIT, EST [facility], [address] [place] [address] 2,[address], [place], [place], [address], [place] tel:[phone] [facility] cough (chief complaint) Influenza-l nery illness 4 No Informatio n OFFICE/OUTPATI ENT VISIT, EST [facility], [address] [facility] [address], [place], [place], [address], [place] tel:[phone] [facility] chronic conditions (chief complaint)mu ltiple issues (chief complaint) Attention to colostomyDi abetes Mellitus Type 2, Uncomplicat edHypertens ion, BenignHypot hyroidismPe rsonal history of malignant neoplasm of large intestineHy percholeste rolemiaScre ening for osteoporosi sAbnormalit y of gait 4 No Informatio n Psychotherapy 45 Min (38-52 Min) [facility], [address] [facility] [address], [place], [place], [address], [place] tel:[phone] [facility] No Information 4 No Informatio n [facility], [address] [facility] [address], [place], [place], [address], [place] tel:[phone] [facility] Abnormality of gait 4 No Informatio n OFFICE/OUTPATI ENT VISIT, EST [facility], [address] [facility] [address], [place], [place], [address], [place] tel:[phone] [facility] f/u dm (chief complaint)in jury back pain (chief complaint)fr equent falls (chief complaint) Gait disturbance Diabetes Mellitus Type 2, Uncomplicat edUnspecifi ed essential hypertensio nRhomboid myalgiaPers onal history of malignant neoplasm of large intestine 3 No Informatio n [facility], [address] [facility] [address], [place], [place], [address], [place] tel:[phone] [facility] No Information 3 [employer]. . Consulting Provider: Maria Esther Seay, [address] [place], [address]. tel:[phone] Psychotherapy 45 Min (38-52 Min) [facility], [address] [facility] [address], [place], [address], [place] tel:[phone] [facility] No Information 3 No Informatio n [facility], [address] [place] [address] [address], [place], [place], [address], [place] tel:[phone] [facility] No Information 3 [employer]. . Consulting Provider: Maria Etsher Seay, [address] [facility], [place], [address]. tel:[phone] OFFICE/OUTPATI ENT VISIT, EST [facility], [address] [place] [address] [address], [place], [place], [address], [place] tel:[phone] [facility] depression (chief complaint)fr equent falls (chief complaint) Diabetes Mellitus Type 2, Uncomplicat edHypertens ion, BenignPerso nal history of malignant neoplasm of large intestineHy pothyroidis mDepression Administrat florencio encounter 3 No Informatio n Psychotherapy 45 Min (38-52 Min) [facility], [address] [place] [address] [address], [place], [place], [address], [place] tel:[phone] [facility] No Information 3 No Informatio n Psychotherapy , 30 Min (16-37 Min) [facility], [address] [place] [address] [address], [place], [place], [address], [place] tel:[phone] [facility] No Information 3 No Informatio n OFFICE/OUTPATI ENT VISIT, EST [facility], [address] [place] [address] [address], [place], [place], [address], [place] tel:[phone] [facility] worry about colon cancer (chief complaint)A1 C due (chief complaint) Personal history of malignant neoplasm of large intestineDi abetes Mellitus Type 2, Uncomplicat edHypertens ion, BenignINTRI NSIC ASTHMA, UNSPECIFIED Jun- 3-201 3 No Informatio n krishna [facility], [address] [place] [address] [address] [place] [address], [id number], [place] tel:[phone] [facility] No Information 0 3 [employer]. . Consulting Provider: Rosario [place], [address] [place] [address], [address]. tel:[phone] [facility], [address] [place] [address] [address], [place], [address], [place] tel:[phone] [facility] No Information 3 [employer]. . Consulting Provider: Maria Esther Seay [address] [place] [address], [address]. tel:[phone] [facility], [address] [place] [address] [address], [place], [place], [address], [place] tel:[phone] [facility] No Information 3 [employer]. . Consulting Provider: Maria Esther Seay [address] [place] [address], [address]. tel:[phone] [facility], [address] [place] [address] [address], [place], [place], [address], [place] tel:[phone] [facility] No Information 3 [employer]. . Consulting Provider: Rosario Gracia [address] [place] [address], [address]. tel:[phone] OFFICE/OUTPATI ENT VISIT, EST [facility], [address] [facility] [address], [place], [address], [place] tel:[phone] [facility] BP check (chief complaint) Hypertensio n, Benign 3 No Informatio n OFFICE/OUTPATI ENT VISIT, [facility], [address] [facility] [address], [place], [place], [address], [place] tel:[phone] [facility] leg pain (chief complaint)hy pertension (follow up) (chief complaint) Diabetes Mellitus Type 2, Uncomplicat edHypertens ion, BenignPain in joint involving lower legOsteoart hrosis, localized, primary, involving lower leg 3 No Informatio n [facility], [address], [place], [place], [address], [place] tel:[phone] [facility] No Information 3 [employer]. . OFFICE/OUTPATI ENT VISIT, [facility], [address], [place], [place], [address], [place] tel:[phone] [facility] knee pain (chief complaint)tr ouble walking (chief complaint) Knee pain, rightHypert ension, BenignDizzi nessUrge incontinenc e 3 No Informatio n OFFICE/OUTPATI ENT VISIT, [facility], [address], [place], [place], [address], [place] tel:[phone] [facility] arthralgias (chief complaint)pa in (chief complaint) Hypertensio n, BenignPain in joint involving multiple sitesAllerg y to environment al factorsImpa ired glucose tolerance 3 No Informatio n [facility], [address], [place], [place], [address], [place] tel:[phone] [facility] [facility] No Information 3 [employer]. . Consulting Provider: Rosario Gracia, [address] [place] [address], [place], [address]. tel:[phone] [facility], [address], [place], [place], [address], [place] tel:[phone] [facility] [facility] No Information 3 [employer]. . Consulting Provider: Maria Esther Seay, [address] [facility], [place], [address]. tel:[phone] OFFICE/OUTPATI ENT VISIT, EST [facility], [address], [place], [place], [address], [place] tel:[phone] [facility] f/u Dizziness (chief complaint) BackacheDia betes mellitus without mention of complicatio n,Hypertens ion, BenignMajor depressive affective disorder, single episodHisto ry of colon cancer 3 No Informatio n Psychiatrist Diagnostic Eval (no Medical Service) [facility], [address], [place], [place], [address], [place] tel:[phone] [facility] anxiety (chief complaint)de pression (chief complaint) Major depressive affective disorder, single episode, moderate degreePostt raumatic stress disorderOth er unknown and unspecified cause of morbidity or mortality 3 No Informatio n OFFICE/OUTPATI ENT VISIT, EST [facility], [address], [place], [place], [address], [place] tel:[phone] [facility] f/u ED (chief complaint) VertigoBack acheHyperte nsion, BenignRash and other nonspecific skin eruption 3 No Informatio n Psychotherapy , 30 Min (16-37 Min) [facility], [address], [place], [place], [address], [place] tel:[phone] [facility] No Information 3 No Informatio n OFFICE/OUTPATI ENT VISIT, EST [facility], [address], [place], [place], [address], [place] tel:[phone] [facility] cough (chief complaint) Chest pain 3 Carolynn Self. [address] [place] [address], [id number], [place]. tel:[phone] Referring Provider: Clair Pradhan, [address] [place] [address], [address]. tel:[phone] [facility], [address] [facility] [address], [place], [place], [address], [place] tel:[phone] [facility] No Information 3 [employer]. . Consulting Provider: Rosario Gracia, [address] [place] [address], [address]. tel:[phone] OFFICE/OUTPATI ENT VISIT, EST [facility], [address] [facility] [address], [place], [place], [address], [place] tel:[phone] [facility] wants an electric wheel chair (chief complaint) Pain in joint involving multiple sites 3 Soren Alcocer. [address] [place] [address], [id number], [place]. tel:[phone] Referring Provider: Carlyn Oliver, [address] [place] [address], [address]. tel:[phone] [facility], [address] [facility] [address] [address], [place], [place], [id number], [place] tel:[phone] [facility] [facility] No Information 2 [employer]. . Consulting Provider: Rosario Gracia, [address] [place] [address], [place], [address]. tel:[phone] [facility], [address] [facility] [address] [address], [place], [place], [address], [place] tel:[phone] [facility] No Information 2 [employer]. . [facility], [address] [facility], [place], [place], [address], [place] tel:[phone] [facility] No Information 2 No Informatio n OFFICE/OUTPATI ENT VISIT, EST [facility], [address], [place], [place], [address], [place] tel:[phone] [facility] chronic conditions (chief complaint)in continence (chief complaint) Hypertensio n, Benign 2 DOttavio Carlyn. [address] [place] [address], [id number], [place]. tel:[phone] [facility], [address], [place], [place], [address], [place] tel:[phone] [facility] No Information 2 [employer]. . [facility], [address], [place], [place], [address], [place] tel:[phone] [facility] No Information 2 [employer]. . Consulting Provider: Maria Esther Seay, [address] [place] [address], [place], [address]. tel:[phone] OFFICE/OUTPATI ENT VISIT, EST [facility], [address], [place], [place], [address], [place] tel:[phone] [facility], plantar pain (chief complaint) Corns and callosities Diabetes Mellitus Type 2, Uncomplicat ed 2 Ho Misbah. [address] [place] [address], [id number]. tel:[phone] [facility], [address], [place], [place], [address], [place] tel:[phone] [facility] No Information 2 [employer]. . [facility], [address], [place], [place], [address], [place] tel:[phone] [facility] No Information 2 [employer]. . OFFICE/OUTPATI ENT VISIT, EST krishna [facility], [address], [place], [place], [address], [place] tel:[phone] [facility] back pain (chief complaint)dy suria (chief complaint) Lumbago 2 DOttavio Carlyn. [address] [place] [address], [id number], [place]. tel:[phone] [facility], [address], [place], [place], [address], [place] tel:[phone] [facility] No Information 2 [employer]. . [facility], [address], [place], [place], [address], [place] tel:[phone] [facility] No Information 2 [employer]. . OFFICE/OUTPATI ENT VISIT, EST krishna [facility], [address], [place], [place], [address], [place] tel:[phone] [facility] chronic conditions (chief complaint)ba ck pain (chief complaint)co lostomy care (chief complaint)hy pertension (follow up) (chief complaint)hy pothyroidism (chief complaint) Diabetes Mellitus Type 2, Uncomplicat edBack painHypothy roidismBeni gn essential HTNColostom y care 2 DOttavio Carlyn. [address] [place] [address], [id number], [place]. tel:[phone] [facility], [address], [place], [place], [address], [place] tel:[phone] [facility] No Information 2 Services [employer]. [address] [facility], [place], [address]. tel:[phone] OFFICE/OUTPATI ENT VISIT, EST [facility], [address], [place], [place], [address], [place] tel:[phone] [facility] Fu callus, fu hallux (chief complaint) Pain in limb 2 Ho Misbah. [address] [place], [place], [address]. tel:[phone] [facility], [address], [place], [place], [address], [place] tel:[phone] [facility] No Information 2 [employer]. . Consulting Provider: Rosario Gracia, [address] [place] [address], [address]. tel:[phone] OFFICE/OUTPATI ENT VISIT, [facility], [address], [place], [place], [address], [place] tel:[phone] [facility] back pain (chief complaint)hy pothyroidism (chief complaint)ur inary incontinence (chief complaint)di abetes (follow up) (chief complaint)as thma (chief complaint) Back painUrinary incontinenc eHypothyroi dismDiabete s Mellitus Type 2, Uncomplicat ed 2 Maritotawyatt Alcocer. [address] [place], [place], [id number], [place]. tel:[phone] OFFICE/OUTPATI ENT VISIT, [facility], [address], [place], [place], [address], [place] tel:[phone] [facility] cough (chief complaint)co ld symptoms (chief complaint)fe fallon (chief complaint) INTRINSIC ASTHMA, UNSPECIFIED 2 Dobles Clair. [address] [place] [address], [id number], [place]. tel:[phone] [facility], [address] [place] [address] 2,[address], [place], [place], [address], [place] tel:[phone] [facility] Major depressive affective disorder, single episode, moderate degreePostt raumatic stress disorder 2 No Informatio n OFFICE/OUTPATI ENT VISIT, EST [facility], [address], [place], [place], [address], [place] tel:[phone] [facility] itchines (chief complaint) Rash and other nonspecific skin eruptionAst hma With Status Asthmaticus 2 Dobles Clair. [address] [place], [place], [address], [place]. tel:[phone] [facility], [address], [place], [place], [address], [place] tel:[phone] [facility] Major depressive affective disorder, single episode, moderate degreePostt raumatic stress disorder 2 No Informatio n [facility], [address], [place], [place], [address], [place] tel:[phone] [facility] No Information 2 [employer]. . Consulting Provider: Maria Esther Seay, [address] [place], [address]. tel:[phone] [facility], [address], [place], [place], [address], [place] tel:[phone] [facility] No Information 2 [employer]. . Consulting Provider: Rosario [place]acia, [address] [place], [address]. tel:[phone] [facility], [address], [place], [place], [address], [place] tel:[phone] [facility] No Information 2 [employer]. . [facility], [address], [place], [place], [address], [place] tel:[phone] [facility] No Information 2 [employer]. . krishna [facility], [address] [facility] [address], [place], [place], [address], [place] tel:[phone] [facility] No Information 2 [employer]. . OFFICE/OUTPATI ENT VISIT, NEW krishna [facility], [address] [facility] [address], [place], [place], [address], [place] tel:[phone] [facility] No Information 2 Maritotawyatt Alcocer. [address] [place] [address], [place], [place], [id number], [place]. tel:[phone] krishna [facility], [address] [facility] [address], [place], [place], [address], [place] tel:[phone] [facility] INTRINSIC ASTHMA, UNSPECIFIED 2 No Informatio n krishna [facility], [address] [facility] [address], [place], [place], [address], [place] tel:[phone] [facility] Palpitation s 2 No Informatio n krishna [facility], [address] [facility] [address], [place], [place], [address], [place] tel:[phone] [facility] Major depressive affective disorder, single episode, moderate degreeAnxie ty state, unspecified 2 No Informatio n krishna [facility], [address] [facility] [address], [place], [place], [address], [place] tel:[phone] [facility] Dermatophyt osis of nailPain in limb 2 Ho Misbah. [address] [place] [address], [place], [place], [address]. tel:[phone] krishna [facility], [address] [facility] [address], [place], [place], [address], [place] tel:[phone] [facility] No Information 2 Z-Converte d Provider. . krishna [facility], [address] [facility] [address], [place], [place], [address], [place] tel:[phone] [facility] Unspecified essential hypertensio n 2 No Informatio n [facility], [address] [facility] [address], [place], [place], [address], [place] tel:[phone] [facility] Palpitation s 2 No Informatio n [facility], [address] [facility],[address], [place], [place], [address], [place] tel:[phone] [facility] Referral of patient without examination or treatment 2 Z-Converte d Provider. . [facility], [address] [facility] [address], [place], [place], [address], [place] tel:[phone] [facility] Diabetes mellitus without mention of complicatio n, type II or unspecified type, not stated as uncontrolle dSprain of ribs 2 No Informatio n [facility], [address] [facility] [address], [place], [place], [address], [place] tel:[phone] [facility] Acute pharyngitis 1 Carolynn Self. [address] [place] [address], [place], [place], [address], [place]. tel:[phone] [facility], [address] [facility] [address], [place], [place], [address], [place] tel:[phone] [facility] Pain in joint involving multiple sites 1 No Informatio n [facility], [address] [facility] [address], [place], [place], [address], [place] tel:[phone] [facility] Routine general medical examination at a health care facility 1 No Informatio oscar [facility], [address] [facility] [address], [place], [place], [address], [place] tel:[phone] [facility] No Information 1 No Informatio oscar [facility], [address] [facility] [address], [place], [place], [address], [place] tel:[phone] [facility] Cellulitis and abscess of leg, except foot 1 No Informatio oscar [facility], [address] [facility] [address] [address], [place], [place], [address], [place] tel:[phone] [facility] Insomnia, unspecified 1 No Informatio oscar [facility], [address] [facility] [address], [place], [place], [address], [place] tel:[phone] [facility] No Information 1 No Informatio oscar [facility], [address] [facility] [address], [place], [place], [address], [place] tel:[phone] [facility] Cervicalgia 1 No Informatio oscar [facility], [address] [facility] [address], [place], [place], [address], [place] tel:[phone] [facility] Pilonidal cyst without mention of abscess 1 No Informatio oscar [facility], [address] [facility] [address] [address], [place], [place], [address], [place] tel:[phone] [facility] No Information 0 No Informatio oscar [facility], [address] [facility] [address], [place], [place], [address], [place] tel:[phone] [facility] Routine gynecologic al examination 0 No Informatio n [facility], [address], [place], [place], [address], [place] tel:[phone] [facility] Unspecified acquired hypothyroid ism 0 No Informatio n [facility], [address] [facility] [address], [place], [place], [address], [place] tel:[phone] [facility] No Information 0 No Informatio n [facility], [address] [facility] [address], [place], [place], [address], [place] tel:[phone] [facility] Urge incontinenc e 0 No Informatio n [facility], [address] [facility] [address], [place], [place], [address], [place] tel:[phone] [facility] No Information 0 No Informatio n [facility], [address] [facility] [address], [place], [place], [address], [place] tel:[phone] [facility] No Information 0 No Informatio n [facility], [address] [facility] [address], [place], [place], [address], [place] tel:[phone] [facility] Obesity, unspecified 0 No Informatio n [facility], [address] [facility] [address], [place], [place], [address], [place] tel:[phone] [facility] No Information 0 Ho Crawley. [address] [place] [address], [place], [place], [address]. tel:[phone] [facility], [address] [facility] [address], [place], [place], [address], [place] tel:[phone] [facility] No Information 9 Diandra Amaryllis. [address] [place], [place], [address]. tel:[phone] [facility], [address] [facility] [address], [place], [place], [address], [place] tel:[phone] [facility] Cervicalgia Dizziness and giddiness 0 9 No Informatio n [facility], [address] [facility] [address], [place], [place], [address], [place] tel:[phone] [facility] Unspecified hypertrophi c and atrophic conditions of skin 9 Ho Misbah. [address] [place], [place], [address]. tel:[phone] [facility], [address] [facility] [address], [place], [place], [address], [place] tel:[phone] [facility] Pure hypercholes terolemia 9 Diandra Amaryllis. [address] [place], [place], [address]. tel:[phone] [facility], [address] [facility] [address], [place], [place], [address], [place] tel:[phone] [facility] No Information 9 Diandra Amaryllis. [address] [place], [place], [address]. tel:[phone] [facility], [address] [facility] [address], [place], [place], [address], [place] tel:[phone] [facility] Malignant neoplasm of other specified sites of large intestine 9 Diandra Amaryllis. [address] [place], [place], [address]. tel:[phone] [facility], [address] [facility] [address], [place], [place], [address], tel:[phone] [facility] No Information 2 9 Z-Converte kyler Provider. . Family History Family Member Type Diagnosis Age At Onset FH - CHILDREN (DDMS) Problem (finding) cancer FH - FATHER (DDMS) Problem (finding) alcoholism FH - CHILDREN (DDMS) Problem (finding) cancer of the b reast FH - CHILDREN (DDMS) Problem (finding) cancer of the l miranda Payers Payer name Insurance type Covered democrat ID Authoriza tion(s) No Information Social History [...] Preciado Ordered: Referrals: Cardiology. Dr Preciado. Location: [facility]. Consult Appointment date/timeframe: 02/08/2015 ordered Referral Ordered: POLYSOMNOGRAPHY W/CPAP Appointment date/timeframe: 12/10/2014 ordered Referral Referred To: [facility] Ordered: Referrals: [facility] ordered Referral Ordered: HOLTER MONITOR, 24 HOURS Appointment date/timeframe: 06/03/2014 ordered Referral Ordered: MYOCARDIAL PERFUSION, PLANAR, EXERCISE OR PHARMACOLOGIC Appointment date/timeframe: 06/03/2014 ordered Referral [facility]erred [facility] Ordered: Referral: [facility]. Evaluate and treat. ordered Referral Ordered: Referral: Neurology. Evaluate and treat. Appointment date/timeframe: 01/15/2014 ordered Referral Referred To: [facility] Ordered: Referral: [facility]. Evaluate and treat. Appointment date/timeframe: 1 [...] Order: Lab Order BASIC ME TABOLIC PANEL ([id number]), Sent on: Sent Future Order: Lab Order [...] 70 y/o pt of BSU seen at [facility] ED on 02/17/16 with concern for [...] Additional information: Pt received BP cuff from [facility] but had no batteries to [...] is s table. Risk factors include: / [place], family history diabetes mellitus, obesity, over age [...] be but it will be done at [facility] and not [facility]. back pain Location of pain is lower [...] surveillance and counseling Espere [facility]ason [facility] Related to Abnormality of gait [...] day as prescribed Related to Hypertension, Benign [place] Tylenol para el dolor Relat ed to Knee pain, right Go to hospital for Xray Related to Knee pain, right Assessments Type Assessment Date No Information Patient Care Teams Name Effective Dates (start - stop) Status Members No Information
[2025-07-14 11:37] LABS: Hematocrit 33.9 % (37.0-47.0); Hemoglobin 10.9 g/dl (12.0-16.0); Mean Corpuscular HGB Conc 32.2 g/dl (31.0-35.0); Mean Corpuscular Hemoglobin 22.3 pg (27.0-33.0); Mean Corpuscular Volume 69.3 fL (80.0-98.0); NRBC Abs Auto 0.000 X10*3/uL (0.0-0.012); NRBC Pct Auto 0.0 /100WBC (0.0-0.2); Platelet Count 291 X10*3/uL (160-400); Red Blood Count 4.89 X10*6/uL (4.20-5.50); White Blood Count 9.4 X10*3/uL (4.8-10.8)
--- OUTSIDE RECORDS SUMMARY | 2025-07-14 13:42 | XMS_ITS | Clinical Summary ---
Author Organization [facility] Address [address] [facility] [address] [place] [phone] Phone Care Team Providers Care Polisher Aluminum Name Role Phone Unavailable Primary Care Provider [...] It is not the complete legal health record.[facility]
--- OUTSIDE RECORDS SUMMARY | 2025-07-14 13:43 | XMS_ITS | Clinical Summary ---
Author Organization [facility] Address [address] [place] [address] Care Team Providers Care English Composition Instructor Name Role Phone Unavailable Primary Care Provider [...] Plan of Treatment Not on file Insurance [facility]
[2025-07-14 14:21] LABS: Iron 23 mcg/dL (30-160); Percent Iron Saturation 7 % (15-50); Total Iron Binding Capacity 345 mcg/dL (228-428); Unsaturated Iron Binding 322 ug/dL
[2025-07-14 14:44] LABS: Ferritin 12 ng/mL (10-250)
== END 2025-07-14 10:30 | disposition home or self-care (01) ==
LOC: HO.HHCL 10:29
PROVIDERS: PCP Internal Medicine; Visit Provider Internal Medicine
DX: D64.9 Anemia, unspecified (principal)
CPT/HCPCS: 36415; 82728; 83540; 85027

== ENCOUNTER 2025-10-07 10:42 | Outpatient (AMB) | payer OTHER, SELFPAY ==
--- NOTE | 2025-10-07 10:47 | MHC.OFFVIS ---
Vital Signs 10/07/25 10:51 BMI Reason not done Patient refused/unable BP 135/60 Blood Pressure Location Lt brachial Position Sitting Pulse 94 Intake Visit Reasons: 3 month f/u Intake Note: Libby presents in the office as a 3 month follow up. CC: She states that she is not having concerns and denies GI concerns. She states that Philosophy Professor Required: Yes Philosophy Professor Name: [id number] Stevo Allergies Penicillins Allergy (Severe, Verified 10/07/25 10:51) Unknown HPI Comments Details: 80 y.o F with remote hx of colon cancer s/p partial colon resection with colostomy, with recent hx of SBO leading to septic shock necessitating urgent surgery in 2023 ([facility]). Currently has no acute GI issues. Empties the appliance frequently. She takes miralax and stool softeners to induce diarrhea as she is afraid of another obstruction. Labs reviewed, had microscopic anemia however this is after surgery. 10/07/25: Here for follow up. Seen with rv technician. Pt quite frustrated with repeated calls and visit to GI office. Adamantly declines any endoscopic work up. Also not interested in non-invasive testing for CRC surveillance such as CT colonography or barium enema. In terms of MARCELA, she did not tolerate PO iron supplements. Has an immense fear of hospital settings and needles, so does not wish to get parenteral replacement either. [facility] Medical History Colostomy in place Hypothyroidism SBO (small bowel obstruction) Obstructive sleep apnea of adult Asthma COPD (chronic obstructive pulmonary disease) Type 2 diabetes mellitus Hypertension Hyperlipidemia Recurrent intestinal obstruction Surgical History History of hernia repair History of creation of ostomy History of left hemicolectomy Family History Other No pertinent family history Social History Household Members: Family Housing: Apartment 75 years or older and lives alone: No Alcohol intake: never Patient Tobacco Use Status: Never used Tobacco Tobacco use type: Cigarette e-Cigarette/Vaping Use: Never Used service: No Current occupational status: disabled Cognitive needs: No Hearing needs: No Vision needs: No Review of Systems Const All systems reviewed & are unremarkable except as noted in HPI and below Physical Exam Exam Exam: Elderly female in motorized scooter NAD Pale appearing abd soft, distended, ventral hernia Vital Signs: Last Vital Signs Pulse 94 10/07/25 10:51 BP 135/60 10/07/25 10:51 Results Reviewed Results Reviewed: Laboratory Tests 07/14/25 10:37 Hgb 10.9 L Hct 33.9 L MCV 69.3 L Iron 23 L Ferritin 12 Assessment & Plan Assessment & Plan (1) History of colon cancer: Code(s): Z85.038 - Personal history of other malignant neoplasm of large intestine (2) Anemia: Code(s): D64.9 - Anemia, unspecified Category: Medical (3) Colostomy in place: Code(s): Z93.3 - Colostomy status Category: Medical (4) History of colon surgery: Code(s): Z98.890 - Other specified postprocedural states Category: Medical Plan Pt reports remote hx of colon ca requiring surg and chemo - possibly in [facility]. Anemia noted on labs 08/2024 - likely operative losses after surgery for SBO done in mid 2023 at [facility] however can not r/o CRC recurrence. Had extensive discussion with the pt re concerns and indication for colonoscopy. Pt was also offered alternatives such as CT colonography or barium enema to start with which she also declines. Stool testing N/A with anemia and personal hx of CRC. Reports significant trauma around hospitals and medical offices in general. She also is unable to tolerate PO iron and declines IV iron as outlined above. At this point, she requests to defer future GI follow ups and is comfortable following up PCP for symptomatic management. Coding Level of Care Code Est Pt Level 4 (14452) Diagnoses History of colon cancer Z85.038 Anemia D64.[address] Z93.3 History of colon surgery Z98.890
[2025-10-07 10:51] VITALS: BP 135/60; PULSE 94
== END 2025-10-07 12:34 | disposition home or self-care (01) ==
LOC: HO.HGI 10:42
PROVIDERS: PCP Internal Medicine; Visit Provider Internal Medicine
DX: Z85.038 Personal history of other malignant neoplasm of large intestine (principal); D64.9 Anemia, unspecified; Z93.3 Colostomy status; Z98.890 Other specified postprocedural states
CPT/HCPCS: 99214

== ENCOUNTER → 2025-10-07 10:42 | Outpatient (BNVA) | payer OTHER, SELFPAY | PROVIDERS: PCP Internal Medicine; Visit Provider Internal Medicine | DX: D64.9 Anemia, unspecified (principal); Z85.038 Personal history of other malignant neoplasm of large intestine; Z93.3 Colostomy status; Z98.890 Other specified postprocedural states | CPT/HCPCS: 99212 ==